=== PATIENT | female | born 1940 | race Hispanic/Latino ===

== ENCOUNTER 2020-03-24 11:45 | Emergency (ER) | payer MEDICARE, BC ==
[~2020-03-24] VITALS: Ht 152.4 cm; Wt 49.4 kg
[~2020-03-24 11:45] MED LIST: AMOXICILLIN250 MG PO; HYDRALAZINE HCL25 MG PO; LASIX20 MG PO; MICARDIS40 MG PO; NEPHRO-VITE TABL1 EA PO; SYNTHROID75 MCG PO
--- OUTSIDE RECORDS SUMMARY | 2020-03-24 12:17 | XMS REPORT | Clinical Summary ---
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 General Name Role Phone Asked, No Pcp PCP Unavailable Allergies Not on File Medications Not on file Active Problems Not on file Encounters Care Team Description Date Type Specialty Ronn Castellanos MD 02/10/2020 Transcribe Access Orders Ronn Castellanos MD Other nonspecific abnormal finding of fay ng field 01/28/2020 Hospital Radiology Encounter 01/28/2020 Travel 01/21/2020 Travel Ronn Castellanos MD Other nonspecific abnormal finding of fay ng field (Primary Dx) 01/21/2020 Transcribe Access Orders Ronn Castellanos MD Abnormal chest CT (Primary Dx) 01/12/2020 Transcribe Access Orders Kristal Vasquez MA 11/09/2019 Telephone Cardiovascular 10/08/2019 Travel 10/01/2019 Travel Abdoulaye Diehl MD 09/18/2019 Telephone Cardiovascular Abdoulaye Diehl MD Venous insufficiency of both lower extre mities (Primary Dx) 09/03/2019 Telephone Cardiovascular after 03/24/2019 Social History Date Tobacco Use Types Packs/Day Years Used Never Assessed Sex Assigned at Date Recorded Not on file Industry Job Start Date Occupation Not on file Not on file Not on file Travel End Travel History Travel Start No recent travel history available. Last Filed Vital Signs Not on file Plan of Treatment Health Maintenance Due Date Last Done Comments SHINGLES VACCINES (#1) 02/29/1992 65+ PNEUMOCOCCAL VACCINE 2007 (1 of 2 - PCV13) INFLUENZA VACCINE 04/21/2020 Procedures Comments Procedure Name Priority Date/Time Associated Diag nosis PET CT SKULL BASE TO MID Routine 01/28/2020 Other nonspecific THIGH 11:44 AM CDT abnormal finding of lung field POC GLUCOSE Routine 01/28/2020 10:23 AM CDT US DUPLEX VENOUS LOWER Routine 10/01/2019 Venous insufficiency of EXTREMITY REFLUX 3:16 PM CDT both lower extremit ies BILATERAL after 03/24/2019 Results * PET/CT Skull Base To Mid Thigh (01/28/2020 11:44 AM CDT) Specimen Narrative Performed At PROCEDURE: PET CT SKULL BASE TO MID THIGH RADIA NT INDICATION: Evaluate other nonspecifi c abnormal finding of lung field, lung mass. Initial treatment strategy. TECHNIQUE: Blood glucose measured at the time of injection was 101 mg/dL. The patient was then injected with 8.5 mCi of 18F-FDG, IV. Approximately one hour later, PET images were acquired from th e skull base to the mid thighs. Corresponding, low dose, non-contrast CT scanning was performed as part of the attenuation correction process. Automated dose exposure cont rol was utilized. COMPARISON: No relevant comparison im aging. FINDINGS: Head and neck: No suspicious brain up take. Physiologic uptake in the sinuses, orbits, nasopharynx, and oroph arynx. Uptake by the larynx is normal. No suspicious neck lymph node uptake. Chest: No abnormal mediastinal, hilar , or axillary lymph node uptake. No suspicious pulmonary uptake. Subpleur al masslike opacity in the left lower lobe demonstrates minimal uptake, with an SUV of 1.7. It measures approximately 4 cm. Left-sided effusion is without significant uptake. Abdomen: Physiologic uptake in the st omach, spleen, pancreas, liver, and adrenal glands. No abnormal retroperi toneal or mesenteric lymph node uptake. Bowel uptake appears physiologic. Pelvis: Physiologic bowel uptake. N o abnormal pelvic lymph node uptake. Review of the osseous structures demons trates no suspicious uptake. IMPRESSION: 1. No suspicious pulmonary uptake is seen to suggest an underlying neoplastic process. Probable atelectasis in the left lower lobe. Follow-up CT can be obtained. [id number] Procedure Note Interface, Radiology Results Incoming - 01/28/2020 1:54 PM CDT PROCEDURE: PET CT SKULL BASE TO MID THIGH INDICATION: Evaluate other nonspecific abnormal finding of lung field, lung mass. Initial treatment strategy. TECHNIQUE: Blood glucose measured at the time of injection was 101 mg/dL. The patient was then injected with 8.5 mCi of 18F-FDG, IV. Approximately one hour later, PET images were acquired from the skull base to the mid thighs. Corresponding, low dose, non-contrast CT scanning was performed as part of the attenuation correction process. Automated dose exposure control was utilized. COMPARISON: No relevant comparison imaging. FINDINGS: Head and neck: No suspicious brain uptake. Physiologic uptake in the sinuses, orbits, nasopharynx, and oropharynx. Uptake by the larynx is normal. No suspicious neck lymph node uptake. Chest: No abnormal mediastinal, hilar, or axillary lymph node uptake. No suspicious pulmonary uptake. Subpleural masslike opacity in the left lower lobe demonstrates minimal uptake, with an SUV of 1.7. It measures approximately 4 cm. Left-sided effusion is without significant uptake. Abdomen: Physiologic uptake in the stomach, spleen, pancreas, liver, and adrenal glands. No abnormal retroperitoneal or mesenteric lymph node uptake. Bowel uptake appears physiologic. Pelvis: Physiologic bowel uptake. No abnormal pelvic lymph node uptake. Review of the osseous structures demonstrates no suspicious uptake. IMPRESSION: 1. No suspicious pulmonary uptake is se en to suggest an underlying neoplastic process. Probable atelectasis in the left lower lobe. Follow-up CT can be obtained. [id number] Performing Organization Address [facility] one Number [facility] [address] [place] [address] * POC glucose (01/28/2020 10:23 AM CDT) POC glucose 101 (H) 65 - 99 mg/dL FREDERIC Comment: [facility] Teacher Name: [facility] Device ID: [id number] Specimen Blood Performing Organization Address [facility] one Number [facility] DEPARTMENT OF [address] [place] [address] PATHOLOGY AND GENOMIC MEDICINE FR[facility]IC [facility] [address] [place] [address] * Us duplex venous lower extremity reflux (10/01/2019 3:16 PM CDT) Specimen Narrative [facility]formed At [facility] Lower Extremity Jas ous Insufficiency Report [address] [facility], [address], [place], [place] [id number] Pat.Name: SARAH MAGANA I Pat.ID: [id number] St.Date: 10/01/2019 Refer.MD: ABDOULAYE DIEHL MD Exam Time: 2:10:00 PM Study Type:Venous Reflux Report Age: 8 1940,79Y Sex: FEMALE Sonogrphr: Coty Aguilar RVT [facility] - 4: [id number] Echo Event ID:[id number] Order ID: [id number] Reason for Study:Bilateral swelling wor se at the end of the day. Venous insufficiency. Race: White SUMMARY: DUPLEX SCAN OBSERVATIONS The exam was performed with the patient in the steep reverse Trendelenburg position. Lance scale an d color Doppler imaging of bilateral lower extremities demonstrate s the following: Deep Veins Right Left Valvular reflux CFV Competent Competent Normal < or equal to 500 ms Femoral midChronic/Partial Competent Ab normal (Incompetent) > 500ms Profunda Competent Competent Popliteal Chronic/Partial Competent PT (prox) Competent Competent PT (dist) Competent Competent Peroneal Competent Competent Superficial Veins AAV Competent Compete nt GSV Incompetent Com petent (at and immediately below the saphenofe moral junction) (711 ms) (0000 ms) GSV Incompetent Not S een (thigh) (579 ms) GSV Competent Comepte nt (lower leg) SSV Competent Compete nt (at and immediately below the saphenopo pliteal junction) (0000 ms) (0000 ms) RIGHT: Limited visualization of the fem oral vein due to acoustical shadowing from the superficial femoral artery, however there appears to be bright echogenic material in the lumen of the proximal and mid segments. There appears to be echogen ic material beneath a valve in the distal popliteal vein. The above remaining visualized veins are compressible with no evidence of echoge rishi material within the vein lumen. Color flow and Doppler signal s demonstrate valvular reflux in the great saphenous immediately below t he saphenofemoral junction and in the mid thigh. Non-thrombosed saph enous related varicosities are noted below the knee. No incompetent perforating veins are noted. LEFT: Limited visualization of the fe moral vein due to acoustical shadowing from the superficial femoral artery. The above remaining visualized veins are compressible with no evidence of echogenic material within the vein lumen. The m id, distal, and popliteal crease segments of the greater saphenous vein is not visualized, possibly due to caliber. Color flow and Doppler sign als demonstrate no valvular reflux in all vessels. Non-thrombosed saphenous related varicosities are noted below the knee. No incompet ent perforating veins are noted. PRELIMINARY FINDINGS: 1. No evidence of acute venous thromb osis, bilaterally. 2. 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 3. Valvular reflux, right great saphe nous at the saphenofemoral junction and at the mid thigh. 4. Non-thrombosed saphenous related v aricosities, below the knee, bilaterally. 5. Doppler signals obtained in the bi lateral common femoral vein are comparable. 6. See table and diagram for vein danika surements. PHYSICIAN INTERPRETATION: RIGHT 1. 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 2. Valvular reflux, right great saphe nous at the saphenofemoral junction and at the mid thigh. 3. Non-thrombosed saphenous related v aricosities, below the knee. LEFT 4. No evidence of acute venous thromb osis. 5. Non-thrombosed saphenous related v aricosities. FINDINGS: MEASUREMENTS: LEVEINS Left Prox Thigh Prox Thigh GSV 0.2 cm Right Prox Thigh Prox Thigh GSV 0.1 cm Left Distal Calf SSV Dist Calf LSV A 0.1 cm Right Calf Dist SSV Dist Calf LSV A 0.1 cm Left Mid Calf Mid Calf GSV AP 0.1 cm Mid Calf LSV AP 0.1 cm Right Mid Calf Mid Calf GSV AP 0.1 cm Mid Calf LSV AP 0.1 cm Right Mid Thigh Mid Thigh GSV A 0.2 cm Left Popliteal Fossa Popliteal Fossa 0.2 cm Right Popliteal Fossa Popliteal Fossa 0.1 cm Right Knee Knee GSV AP 0.1 cm Left Prox Calf Prox Calf LSV A 0.1 cm Prox Calf GSV A 0.1 cm Right Prox Calf Prox Calf LSV A 0.1 cm Prox Calf GSV A 0.1 cm Right Dist Thigh Dist Thigh GSV 0.1 cm Left Dist Calf Dist Calf GSV A 0.2 cm Right Dist Calf Dist Calf GSV A 0.1 cm Left SFJ SFJ GSV AP 0.6 cm Right SFJ SFJ GSV AP 0.4 cm Signed 10/01/2019 04:51 PM Ceasar Nelson MD, FACS, RPVI Procedure Note Interface, Radiology Results In - 10/01/2019 4:52 PM CDT [facility] Lower Extremity Venous Insufficiency Report [address] [facility] [address] [facility], [address], [place] [id number] Pat.Name: SARAH MAGANA I Pat.ID: [id number] .Date: 10/01/2019 Refer.MD: ABDOULAYE DIEHL MD Exam Time: 2:10:00 PM Study Type:Venous Reflux Report Age: 8 1940,79Y Sex: FEMALE Sonogrphr: Coty Aguilar RVT CPT - 4: 80117 Echo Event ID:[id number] Order ID: [id number] Reason for Study:Bilateral swelling worse at the end of the day. Venous insufficiency. Race: White SUMMARY: DUPLEX SCAN OBSERVATIONS The exam was performed with the patient in the steep reverse Trendelenburg position. Lance scale and color Doppler imaging of bilateral lower extremities demonstrates the following: Deep Veins Right Left Valvular reflux CFV Competent Competent Normal < or equal to 500 ms Femoral midChronic/Partial Competent Abnormal (Incompetent) > 500ms Profunda Competent Competent Popliteal Chronic/Partial Competent PT (prox) Competent Competent PT (dist) Competent Competent Peroneal Competent Competent Superficial Veins AAV Competent Competent GSV Incompetent Competent (at and immediately below the saphenofem oral junction) (711 ms) (0000 ms) GSV Incompetent Not Seen (thigh) (579 ms) GSV Competent Comeptent (lower leg) SSV Competent Competent (at and immediately below the saphenopop liteal junction) (0000 ms) (0000 ms) RIGHT: Limited visualization of the femoral vein due to acoustical shadowing from the superficial femoral artery, however there appears to be bright echogenic material in the lumen of the proximal and mid segments. There appears to be echogenic material beneath a valve in the distal popliteal vein. The above remaining visualized veins are compressible with no evidence of echogenic material within the vein lumen. Color flow and Doppler signals demonstrate valvular reflux in the great saphenous immediately below the saphenofemoral junction and in the mid thigh. Non-thrombosed saphenous related varicosities are noted below the knee. No incompetent perforating veins are noted. LEFT: Limited visualization of the femoral vein due to acoustical shadowing from the superficial femoral artery. The above remaining visualized veins are compressible with no evidence of echogenic material within the vein lumen. The mid, distal, and popliteal crease segments of the greater saphenous vein is not visualized, possibly due to caliber. Color flow and Doppler signals demonstrate no valvular reflux in all vessels. Non-thrombosed saphenous related varicosities are noted below the knee. No incompetent perforating veins are noted. PRELIMINARY FINDINGS: 1. No evidence of acute venous thrombos is, bilaterally. 2. Partial chronic thrombosis, right pr oximal and mid femoral vein and distal popliteal vein. 3. Valvular reflux, right great sapheno us at the saphenofemoral junction and at the mid thigh. 4. Non-thrombosed saphenous related maynor icosities, below the knee, bilaterally. 5. Doppler signals obtained in the bila teral common femoral vein are comparable. 6. See table and diagram for vein measu rements. PHYSICIAN INTERPRETATION: RIGHT 1. Partial chronic thrombosis, right pr oximal and mid femoral vein and distal popliteal vein. 2. Valvular reflux, right great sapheno us at the saphenofemoral junction and at the mid thigh. 3. Non-thrombosed saphenous related maynor icosities, below the knee. LEFT 4. No evidence of acute venous thrombos is. 5. Non-thrombosed saphenous related maynor icosities. FINDINGS: MEASUREMENTS: LEVEINS Left Prox Thigh Prox Thigh GSV 0.2 cm Right Prox Thigh Prox Thigh GSV 0.1 cm Left Distal Calf SSV Dist Calf LSV A 0.1 cm Right Calf Dist SSV Dist Calf LSV A 0.1 cm Left Mid Calf Mid Calf GSV AP 0.1 cm Mid Calf LSV AP 0.1 cm Right Mid Calf Mid Calf GSV AP 0.1 cm Mid Calf LSV AP 0.1 cm Right Mid Thigh Mid Thigh GSV A 0.2 cm Left Popliteal Fossa Popliteal Fossa 0.2 cm Right Popliteal Fossa Popliteal Fossa 0.1 cm Right Knee Knee GSV AP 0.1 cm Left Prox Calf Prox Calf LSV A 0.1 cm Prox Calf GSV A 0.1 cm Right Prox Calf Prox Calf LSV A 0.1 cm Prox Calf GSV A 0.1 cm Right Dist Thigh Dist Thigh GSV 0.1 cm Left Dist Calf Dist Calf GSV A 0.2 cm Right Dist Calf Dist Calf GSV A 0.1 cm Left SFJ SFJ GSV AP 0.6 cm Right SFJ SFJ GSV AP 0.4 cm Signed 10/01/2019 04:51 PM Ceasar Nelson MD, FACS, RPVI Performing Organization Address City/State/Zipcode Ph one Number [facility] [address] [place] [address] after 03/24/2019 Insurance Type Payer Benefit Subscriber ID Effective Phone Address Plan / Dates Group Medicare MEDICARE MEDICARE xxxxxxxxxxx [id number] [place], PART A AND resent [place] B Commercial BCBS COMMERCIAL BCBS xxxxxxxxxxxx [id number] MEDICARE resent SUPPLEMENT Advance Directives For more information, please contact: [phone] Patient Package Maker Explanation Type Date Recorded Advance Directives, Living Will and Medical Power of Sole Scraper
--- OUTSIDE RECORDS SUMMARY | 2020-03-24 12:17 | XMS REPORT | Continuity of Care Document ---
Author Author Nikki Graeme [employer] SARAH Kang I Organization [employer] Address Unknown Phone Unavailable Care Team Providers Care Hemodialysis Technician Name Role Phone SourceTour Information [place] Unavailable Un available Problems Problem Status Onset Date Classification Date Reported Comments Source ACUTE HYPERKALEMIA, FACIAL ABRASION, FAC Active 02/01/2018 [place] FALL Active 02/01/2018 [place] UNK Active 0 11/02/2016 [facility] DEBILITY Active 09/12/2016 [facility] CORONARY ARTERY DISEASE Active 09/11/2016 [facility] RESP DISTRESS Active 09/02/2016 [facility] CHF EXACERBATION Active 09/02/2016 [facility] Acute congestive heart failure (disorder) Active Problem 02/04/2018 [facility] [place] 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 (disorder) Active Prob [place] 02/04/2018 [facility] [place] Acute pulmonary insufficiency following thoracic surgery (disorder) Active Prob [place] 02/04/2018 [facility] [place] Coronary arteriosclerosis (disorder) Active Problem [facility] Kidney disease (disorder) Acti ve Problem [facility] Disease of thyroid gland (disorder) Active Problem [facility] Generalized ischemic myocardial dysfunction (disorder) Active Problem 02/04/2018 [facility] [place] Hypertensive disorder, systemic arterial (disorder) Active Problem 02/04/2018 [facility] [place] Injury of kidney (disorder) Ac tive Problem [facility] Impaired mobility (finding) Ac tive Problem [facility] Platelet count below reference range (finding) Active Problem 02/04/2018 [facility] [place] HEART FAILURE, UNSPECIFIED Act inder [facility] WEAKNESS Active [facility] END STAGE RENAL DISEASE Active [facility] HYPERKALEMIA Active [place] ABRASION OF OTHER PART OF HEAD, INITIAL Active [place] CONTUSION OF OTHER PART OF HEAD, INITIAL Active [facility] Medications Medication Details Route Status Patient Instructions Ordering Provider Order Date Source Losartan Notes: (Same as: Sancho han) Inactive 02/02/2018 [facility] Synthroid Notes: Take 1 hour b efore or 2 hours after meal; Enteral feeds may interefere with the absorption of this medication. (Same as:Synthroid, Levothroid) Inactive 02/02/2018 [facility] rosuvastatin Notes: (Same As: Crestor) No Longer Active 02/02/2018 [facility] Nephro-Kenyon Rx Notes: (Same as : Nephro-Kenyon Rx and Diatx) Give with food. No Longer Active 02/01/2018 [facility] Aspirin 81 MG Enteric Coated Tablet Notes: Do not crush or chew. (Same As: Ecotrin) No Longer Active 02/01/2018 [facility] Hydralazine Hydrochloride 50 MG Oral Tablet 50 mg, 1 tab, Route: PO, Drug form: TAB, ONCE, Dosing Weight 46.449, kg, Start date: 02/01/18 12:52:00 CDT, Stop date: 02/01/18 12:52:00 CDT Inactive 02/01/2018 [facility] tramadol hydrochloride 50 MG Oral Tablet Notes: Not to exceed 400mg/day. (Same As: Ultram) No Longer Active 02/01/2018 [facility] tramadol hydrochloride 50 MG Oral Tablet 50 mg = 1 tab, PO, Q12H, PRN Pain Score 6-10, 0 Refill(s) Active 02/01/2018 [facility] Ascorbic Acid 60 MG / Calcium Pantothena te 10 MG / D-BIOTIN 0.3 MG / Folic Acid 0.8 MG / Niacinamide 20 MG / pyridoxine 10 MG / Riboflavin 1.7 MG / Thiamine 1.5 MG / Vitamin B 12 0.006 MG Oral Tablet [Payton-Kenyon] 1 tab, PO, Daily, # 100 tab, 0 Refill(s) Inactive 02/01/2018 [facility] losartan 100 mg oral tablet 10 0 mg = 1 tab, PO, Daily, # 30 tab, 0 Refill(s) Active 02/01/2018 [facility] rosuvastatin 10 mg oral tablet 10 mg = 1 tab, PO, Bedtime, # 30 tab, 0 Refill(s) Active 02/01/2018 [facility] Insulin Lispro Notes: (Same as : Humalog ) Roll in palms of hands gently; Do not shake `vigorously. "Single Patient Use Only " WASTE: F/P - Black; E - Municipal Trash Bin Stable for 28 days at room temp erature. Expires in days from Date No Longer Active 02/01/2018 [facility] Glucagon 1 mg, Route: IM, Drug form: PDR/INJ, PRN, Dosing Weight 43.182, kg, PRN Blood Glucose Results, Start date: 02/01/18 4:13:00 CDT, Duration: 30 day, Stop date: 03/03/18 4:12:00 CDT No Longer Active 02/01/2018 [facility] Dextrose 50% Syringe 25 gm, 50 mL, Route: IVP, Drug Form: INJ, Dosing Weight 43.182, kg, PRN, PRN Blood Glucose Results, Start date: 02/01/18 4:13:00 CDT, Duration: 30 day, Stop date: 03/03/18 4:12:00 CDT No Longer Active 02/01/2018 [facility] Clonidine Notes: (Same As: Cat apres) No Longer Active 02/01/2018 [facility] Acetaminophen 325 MG / Hydrocodone Sedrick trate 5 MG Oral Tablet Notes: (Same as: Ashley 325/5) Do not ex ceed 4gm/day of acetaminophen. No Longer Active 02/01/2018 [facility] Morphine Notes: (Same as: MORP cole Sulfate) No Longer Active 02/01/2018 [facility] Acetaminophen Notes: Do not ex ceed 4 gm/day. (Same as: Tylenol) No Longer Active 02/01/2018 [facility] Ondansetron Notes: (Same as: Jennifer marcum) MEDICATION WASTE Product Size: 4 mg Product Wasted: ___ mg No Longer Active 02/01/2018 [facility] Calcium Gluconate Notes: WASTE : F/P - Sink; E - Municipal Trash Bin Inactive 02/01/2018 [facility] Insulin regular 60 units) W ASTE: F/P - Black; E - Municipal Trash Bin Stable for 28 days at room temperature Expires in days from Date Inactive 02/01/2018 [facility] Dextrose 50% Syringe 25 gm, 50 mL, Route: IVP, Drug Form: INJ, Dosing Weight 43.182, kg, ONCE, STAT, Start date: 02/01/18 3:07:00 CDT, Stop date: 02/01/18 3:07:00 CDT Inactive 02/01/2018 [facility] Metoprolol Notes: (Same as: Lo pressor) Push over 2 minutes Inactive 02/01/2018 [facility] Zofran ODT Notes: (Same as: Zo roverto ODT) Inactive 02/01/2018 [facility] Saline Flush 0.9% Notes: Same as: BD Posiflush Sterile No Longer Active 02/01/2018 [facility] Cardiac Rehabilitation See Ins tructions, Diagnosis CAD with CHF s/p CABG. Evaluate and treat as per [facility] Cardiac rehab program, # 1 ea, 0 Refill(s) Active 09/24/2016 [facility] pantoprazole 40 MG Enteric Coated Tablet [Protonix] 40 mg = 1 tab, PO, Daily, # 30 tab, 0 Refill(s), Pharmacy: [facility] [id number] Active 09/24/2016 [facility] Nephro-Kenyon Rx oral tablet 1 t ab, PO, Daily, # 30 tab, 0 Refill(s), Pharmacy: [facility] [id number] Active 09/24/2016 [facility] Levothyroxine Sodium 0.075 MG Oral Tablet [Synthroid] 75 microgram = 1 tab, PO, Q630AM, # 30 tab, 0 Refill(s), Pharmacy: [facility] [id number] Active 09/24/2016 [facility] atorvastatin 80 MG Oral Tablet [Lipitor] 80 mg = 1 tab, PO, Bedtime, # 30 tab, 0 Refill(s), Pharmacy: [facility] [id number] Active 09/24/2016 [facility] aspirin 81 mg tablet, enteric coated 81 mg = 1 tab, PO, Daily, # 30 tab, 0 Refill(s), Pharmacy: [facility] [id number] Active 09/24/2016 [facility] Furosemide 40 MG Oral Tablet 4 0 mg = 1 tab, PO, Daily, # 30 tab, 0 Refill(s), Pharmacy: [facility] [id number] Active 09/24/2016 [facility] carvedilol 3.125 mg oral tablet 3.125 mg = 1 tab, PO, Q12H, # 60 tab, 0 Refill(s), Pharmacy: [facility] [id number] Active 09/24/2016 [facility] Calcium Carbonate 500 MG Chewable Tablet 500 mg = 1 tab, CHEW, TID, PRN Nausea, 0 Refill(s) Active 09/24/2016 [facility] acetaminophen 325 mg oral tablet 100.4 F, 0 Refill(s) Active 09/24/2016 [facility] senna 8.6 mg oral tablet 17.2 mg = 2 tab, PO, Bedtime, X 14 day, # 28 tab, 0 Refill(s), Pharmacy: [facility] [id number] Active 09/24/2016 [facility] cetirizine Notes: (Same As: Saleem rtec) No Longer Active 09/21/2016 [facility] Tums Notes: (Same As: Tums) Ca lcium Carbonate 500 mg = 200 mg elemental calcium Dose = mg calcium carbonate ( mg elemental calcium) No Longer Active 09/21/2016 [facility] Fluticasone propionate 0.05 MG/ACTUAT Me tered Dose Nasal Mcintyre [Flonase] Notes: (Same as: Flonase) No Longer Active 09/20/2016 [facility] Claritin 10 mg, Route: PO, Raúl g form: TAB, QPM, Dosing Weight 47.5, kg, Start date: 09/20/16 17:00:00 BULB ASSEMBLER, Duration: 30 day, Stop date: 10/19/16 17:00:00 CDT Inactiv e 09/20/2016 [facility] Docusate Sodium 100 MG Oral Capsule [Colace] Notes: (Same as: Colace) (Do Not Crush) No Longer Active 09/16/2016 [facility] Coreg Notes: Give with food. ( Same As: Coreg) No Longer Active 09/16/2016 [facility] Epoetin Lobo Notes: (Same as: Procrit) epoetin lobo 4000 unit/1 ml VL For dialysis only. (Epogen) WASTE: F/P - Red; E -Red MEDICATION WASTE Product Size: 4000 unit Product Wasted: ___ unit No Longer Active 09/15/2016 [facility] Glucagon 1 mg, Route: IM, Drug form: PDR/INJ, PRN, Dosing Weight 47.5, kg, PRN Blood Glucose Results, Start date: 09/15/16 13:27:00 BULB ASSEMBLER, Duration: 30 day, Stop date: 10/15/16 14:26:00 CDT No Longer Active 09/15/2016 [facility] Dextrose 50% Syringe 25 gm, 50 mL, Route: IVP, Drug Form: INJ, Dosing Weight 47.5, kg, PRN, PRN Blood Glucose Results, Start date: 09/15/16 13:27:00 BULB ASSEMBLER, Duration: 30 day, Stop date: 10/15/16 14:26:00 CDT No Longer Active 09/15/2016 [facility] Insulin, Aspart, Human Notes: Roll in palms of hands gently; Do not shake vigorously. (Same as: NovoLOG) "single patient use only" WASTE: F/P - Black; E - Municipal Trash Bin Stable for 28 days at room temperature. Expires in days from Date No Longer Active 09/15/2016 [facility] aspirin 81 mg tablet, enteric coated Notes: Do not crush or chew. (Same As: Ecotrin) N o Longer Active 09/15/2016 [facility] Protonix Notes: Tablet should not be chewed or crushed. (Same as: Protonix) No Longer Active 09/15/2016 [facility] Nephro-Kenyon Rx Notes: (Same as : Nephro-Kenyon Rx and Diatx) Give with food. No Longer Active 09/15/2016 [facility] 24 HR Metoprolol Tartrate 25 MG Extended Release Tablet [Toprol] Notes: (Same as: Toprol XL) Do Not Crush Inactive 09/15/2016 [facility] Furosemide 20 MG Oral Tablet N otes: (Same as: Lasix) May cause GI upset. Give with food or milk. No Longer Active 09/15/2016 [facility] Venofer Notes: Each 5ml contai ns 100mg elemental iron. Mix with NS (Same as:Venofer) Administer IV only. MEDICATION WASTE Product Size: 100 mg Product Wasted: ___ mg No Longer Active 09/15/2016 [facility] Synthroid Notes: Take 1 hour b efore or 2 hours after meal; Enteral feeds may interefere with the absorption of this medication. (Same as:Synthroid, Levothroid) No Longer Active 09/15/2016 [facility] Lipitor Notes: (Same as: Lipit or) No Longer Active 09/15/2016 [facility] Senokot Notes: (Same as: Senok ot) No Longer Active 09/15/2016 [facility] Saline Flush 0.9% Notes: (Same as: BD Posiflush) No Longer Active 09/15/2016 [facility] Levaquin Notes: Do not give w/ antacids, dairy pdt & minerals Take 1 hr before or 2 hr after dairy pdt (Same as:Levaquin) No Longer Active 09/14/2016 [facility] Zofran Notes: (Same as: Zofran) No Longer Active 09/14/2016 [facility] Tylenol Notes: Do not exceed 4 gm/day. (Same as: Tylenol) No Longer Active 09/14/2016 [facility] Tramadol Notes: Not to exceed 400mg/day. (Same As: Ultram) No Longer Active 09/14/2016 [facility] Saline Flush 0.9% Notes: (Same as: BD Posiflush) No Longer Active 09/14/2016 [facility] Trazodone Notes: (Same As: Thong yrel) No Longer Active 09/14/2016 [facility] Lipitor Notes: (Same as: Lipit or) No Longer Active 09/04/2016 [facility] metoprolol tartrate Notes: (Sa me as: Lopressor) No Longer Active 09/04/2016 [facility] chlorhexidine gluconate 1.2 MG/ML Mouthwash Notes: (Same As: Peridex) No Longer Active 09/04/2016 [facility] Brilinta Notes: (Same as: Bril inta) No Longer Active 09/04/2016 [facility] ocular lubricant Notes: (Same as: Duratears Naturale and Artificial Tears, Tears Again ) No Longer Active 09/04/2016 [facility] heparin additive 25,000 unit [12 unit/kg /hr] + Premix Diluent Dextrose 5% 500 mL 500 mL, Rate: 11.52 ml/hr, Infuse over: 43.4 hr, Route: IV, Dosing Weight 48 kg, Total Volume: 500 mL, Start date: 09/03/16 17:44:00 BULB ASSEMBLER, Duration: 30 day, Stop date: 10/03/16 17:43:00 CDT Inactive 09/03/2016 [facility] Heparin 60 unit/kg Bolus (Heparin Dosing Weight) Pharmacy To Manage, Route: IVP, PRN, Drug form: INJ, PRN, Heparin Protocol, Start date: 09/03/16 17:44:00 BULB ASSEMBLER Stop date: 10/03/16 18:43:00 CDT, 30 day Inactive 09/03/2016 [facility] Heparin 30 unit/kg Bolus (Heparin Dosing Weight) Pharmacy To Manage, Route: IVP, PRN, Drug form: INJ, PRN, Heparin Protocol, Start date: 09/03/16 17:44:00 BULB ASSEMBLER Stop date: 10/03/16 18:43:00 CDT, 30 day Inactive 09/03/2016 [facility] Acetylcysteine 200 MG/ML Inhalant Solution 600 mg, 3 mL, Route: PO, Drug form: SOLN, BID, Dosing Weight 47.727, kg, Start date: 09/03/16 17:00:00 BULB ASSEMBLER, Duration: 3 day, Stop date: 09/06/16 9:00:00 BULB ASSEMBLER No Longer Active 09/03/2016 [facility] chlorhexidine gluconate 1.2 MG/ML Mouthwash Notes: (Same As: Peridex) No Longer Active 09/03/2016 [facility] Etomidate 10 mg, Route: IVP, O NCE, Dosing Weight 48, kg, Priority: STAT, Start date: 09/03/16 15:45:00 BULB ASSEMBLER, Stop date: 09/03/16 15:45:00 BULB ASSEMBLER Inactive 09/03/2016 [facility] Propofol 40 mg, Route: IVP, ON CE, Dosing Weight 48, kg, Priority: STAT, Start date: 09/03/16 15:45:00 BULB ASSEMBLER, Stop date: 09/03/16 15:45:00 BULB ASSEMBLER Inactive 09/03/2016 [facility] Saline Flush 0.9% Notes: (Same as: BD Posiflush) No Longer Active 09/03/2016 [facility] Fentanyl Notes: Concentration: 5 microgram / ml No Longer Active 09/03/2016 [facility] Midazolam Notes: (Same as: Lanie sed) No Longer Active 09/03/2016 [facility] Lasix Notes: (Same as: Lasix) MEDICATION WASTE Product Size: 40 mg Product Wasted: ___ mg Inactive 09/03/2016 [facility] Heparin 60 unit/kg Bolus (Heparin Dosing Weight) Route: IVP, PRN, 2,900 unit, 2.9 mL, Drug form: INJ, PRN, Heparin Protocol, Start date: 09/03/16 12:43:00 BULB ASSEMBLER Stop date: 10/03/16 13:42:00 CDT, 30 day No Longer Active 09/03/2016 [facility] Heparin - one time bolus for ACS 5,000 unit, Route: IVP, Drug form: INJ, ONCE, Dosing Weight 47.727, kg, Priority: STAT, Start date: 09/03/16 12:43:00 BULB ASSEMBLER, Stop date: 09/03/16 12:43:00 BULB ASSEMBLER Inactive 09/03/2016 [facility] heparin additive 25,000 unit [12 unit/kg /hr] + Premix Diluent Dextrose 5% 500 mL 500 mL, Rate: 11.52 ml/hr, Infuse over: 43.4 hr, Route: IV, Dosing Weight 48 kg, Total Volume: 500 mL, Start date: 09/03/16 12:43:00 BULB ASSEMBLER, Duration: 30 day, Stop date: 10/03/16 12:42:00 CDT No Longer Active 09/03/2016 [facility] Heparin 30 unit/kg Bolus (Heparin Dosing Weight) Route: IVP, PRN, 1,400 unit, 1.4 mL, Drug form: INJ, PRN, Heparin Protocol, Start date: 09/03/16 12:43:00 BULB ASSEMBLER Stop date: 10/03/16 13:42:00 CDT, 30 day No Longer Active 09/03/2016 [facility] Aspirin 325 MG Oral Tablet Not es: Take with food. Inactive 09/03/2016 [facility] Brilinta Notes: (Same as: Bril inta) Inactive 09/03/2016 [facility] Sodium Chloride 0.154 MEQ/ML Injectable Solution 250 mL, Rate: 100 ml/hr, Infuse over: 2.5 hr, Route: IV, Dosing Weight 47.727 kg, Total Volume: 250, Start date: 09/03/16 10:20:00 BULB ASSEMBLER, Duration: 30 day, Stop date: 10/03/16 10:19:00 CDT Inactive 09/03/2016 [facility] Nitroglycerin 0.02 MG/MG Topical Ointment 1 inch, Route: TOP, Drug Form: OINT, Dosing Weight 47.727, kg, TID, Start date: 09/03/16 9:00:00 BULB ASSEMBLER, Duration: 30 day, Stop date: 10/02/16 17:00:00 CDT Inactive 09/03/2016 [facility] heparin Notes: porcine heparin Inactive 09/03/2016 [facility] Lasix Notes: (Same as: Lasix) MEDICATION WASTE Product Size: 40 mg Product Wasted: ___ mg No Longer Active 09/03/2016 [facility] Hydralazine Hydrochloride 25 MG Oral Tablet Notes: (Same as: Apresoline) May interfere w/enteral feedings Take With Food. No Longer Active 09/03/2016 [facility] multivitamin Notes: (Same as:O ne Tab Daily, Tab-A-Kenyon + Beta Carotene) Give with food. No Longer Active 09/03/2016 [facility] Synthroid Notes: Take 1 hour b efore or 2 hours after meal; Enteral feeds may interefere with the absorption of this medication. (Same as:Synthroid, Levothroid) No Longer Active 09/03/2016 [facility] potassium chloride 10 mEq, Rou te: IVPB, ONCE, Dosing Weight 47.727, kg, Start date: 09/03/16 4:11:00 BULB ASSEMBLER, Stop date: 09/03/16 4:11:00 BULB ASSEMBLER Inactive 09/03/2016 [facility] Nitroglycerin Notes: (Same as: Tridil) Final conc = 0.4 mg/ml. Premix bottle. No Longe r Active 09/03/2016 [facility] Aspirin 325 MG Oral Tablet 325 mg, 1 tab, Route: PO, ONCE, Dosing Weight 47.727, kg, Start date: 09/03/16 3:20:00 BULB ASSEMBLER, Stop date: 09/03/16 3:20:00 BULB ASSEMBLER Inactive 09/03/2016 [facility] potassium chloride Notes: ([facility] oswaldo as: KCL) Infuse no faster than 10 mEq/hr if given peripherally. Inactive 09/03/2016 [facility] potassium chloride Notes: (Louie e as: K-Dur 20) "Do Not Crush" With food and full glass of water Inactive 09/03/2016 [facility] Ondansetron Notes: (Same as: Jennifer marcum) MEDICATION WASTE Product Size: 4 mg Product Wasted: ___ mg No Longer Active 09/03/2016 [facility] Morphine Notes: (Same as:MORPh ine Sulfate) No Longer Active 09/03/2016 [facility] Docusate Notes: (Same as: Cola ce) (Do Not Crush) No Longer Active 09/03/2016 [facility] Acetaminophen 325 MG / Hydrocodone Sedrick trate 5 MG Oral Tablet Notes: (Same as: Ashley 325/5) Do not ex ceed 4gm/day of acetaminophen. No Longer Active 09/03/2016 [facility] Nitroglycerin 0.02 MG/MG Topical Ointment 1 inch, Route: TOP, Drug Form: OINT, Dosing Weight 47.727, kg, ONCE, Start date: 09/03/16 1:21:00 BULB ASSEMBLER, Stop date: 09/03/16 1:21:00 BULB ASSEMBLER Inactive 09/03/2016 [facility] Nitroglycerin 2 %, Route: TOP, Drug form: OINT, ONCE, Dosing Weight 62.005, kg, Start date: 09/03/16 1:15:00 BULB ASSEMBLER, Stop date: 09/03/16 1:15:00 BULB ASSEMBLER Inactive 09/03/2016 [facility] Zofran 4 mg, Route: IVP, Drug form: INJ, ONCE, Dosing Weight 62.005, kg, Priority: STAT, Start date: 09/03/16 1:06:00 BULB ASSEMBLER, Stop date: 09/03/16 1:06:00 BULB ASSEMBLER Inactive 09/03/2016 [facility] Nitroglycerin 0.4 MG Sublingual Tablet Notes: (Same as:Nitroqusruthi Nitrostat) "Do Not Crush" Sublingual tablet No Longer Active 09/03/2016 [facility] Albuterol 0.833 MG/ML / Ipratropium Brom ezequiel 0.167 MG/ML Inhalant Solution [DuoNeb] Notes: (Same as: Duoneb) Inactive 09/03/2016 [facility] Albuterol 0.833 MG/ML / Ipratropium Brom ezequiel 0.167 MG/ML Inhalant Solution Notes: (Same as: Duoneb) Inactive 09/03/2016 [facility] Lasix Notes: (Same as: Lasix) MEDICATION WASTE Product Size: 40 mg Product Wasted: ___ mg Inactive 09/03/2016 [facility] Saline Flush 0.9% Notes: (Same as: BD Posiflush) No Longer Active 09/03/2016 [facility] Hydralazine Hydrochloride 25 MG Oral Tablet 25 mg = 1 tab, PO, BID, 0 Refill(s) On Hold 09/03/2016 [facility] Nephro-Kenyon Rx oral tablet 1 t ab, PO, Daily, 0 Refill(s) On Hold 09/03/2016 [facility] Levothyroxine Sodium 0.075 MG Oral Tablet [Synthroid] 75 microgram = 1 tab, PO, Q630AM, 0 Refill(s) On Hold 09/03/2016 [facility] Furosemide 20 MG Oral Tablet 4 0 mg = 2 tab, PO, Daily, 0 Refill(s) On Hold 09/03/2016 [facility] Allergies, Adverse Reactions, Alerts Substance Category Reaction Severity Reaction type Status Date Reported Comments Source codeine Assertion Drug allergy Active [facility] Immunizations Immunization Date Given Site Status Last Updated Comments Source diphtheria/pertussis, acel/tetanus adult 02/01/2018 Not Given [facility] Results Order Name Results Value Reference Range Date Interpretation Comments Source CARDIAC ENZYMES Troponin-I 0.04 0.00 - 0.40 02/01/2018 [facility] CARDIAC ENZYMES Total CK 60 12 - 191 02/01/2018 [facility] IMMUNOLOGY Hep Bs Ag Negat inder *NA* (02/01/18 12:47 PM) Negative 02/01/2018 [facility] CARDIAC ENZYMES Troponin-I 0.03 0.00 - 0.40 02/01/2018 [facility] CARDIAC ENZYMES Total CK 65 12 - 191 02/01/2018 [facility] CHEM PANEL eGFR 8 02/01/2018 Result Comment: The eGFR is calculated using the CKD-EPI formula. In most young, healthy individuals the eGFR will be >90 mL/min/1.73m2. The eGFR declines with age. An eGFR of 60-89 may be normal in some populations, particularly the elderly, for whom the CKD-EPI formula has not been extensively validated. Use of the eGFR is not recommended in the following populations:

Individuals with unstable creatinine concentrations, including patients and those with serious co-morbid conditions.

Patients with extremes in muscle mass or diet.

The data above are obtained from the National Kidney Disease Education Program (NKDEP) which additionally recommends that when the eGFR is used in patients with extremes of body mass index for purposes of drug dosing, the eGFR should be multiplied by the estimated BMI. [place] CHEM PANEL Calcium Lvl 7.9 8.5 - 10.5 02/01/2018 [place] CHEM PANEL CO2 25 24 - 32 02/01/2018 [place] CHEM PANEL AGAP 15.9 10.0 - 20.0 02/01/2018 [place] CHEM PANEL Potassium Lvl 5.9 3.5 - 5.1 02/01/2018 [place] CHEM PANEL Chloride Lvl 106 95 - 109 02/01/2018 [place] CHEM PANEL Creatinine Lvl 4.84 0.50 - 1.40 02/01/2018 [place] CHEM PANEL Sodium Lvl 141 135 - 145 02/01/2018 [place] CHEM PANEL Glucose Lvl 129 70 - 99 02/01/2018 [place] CHEM PANEL BUN 43 7 - 22 02/01/2018 [place] URINE AND STOOL UA pH 8.5 5.0 - 8.0 02/01/2018 [place] URINE AND STOOL UA Spec Grav 1.009 <=1.030 02/01/2018 [place] URINE AND STOOL UA Glucose 100 mg/dL Negative mg/dL 02/01/2018 [place] URINE AND STOOL UA Protein >=300 mg/dL Negative mg/dL 02/01/2018 [facility] URINE AND STOOL UA Ketones Negative mg/dL Negative mg/dL 02/01/2018 [facility] URINE AND STOOL UA Turbidity Clear (02/01/18 6:29 AM) Clear 02/01/2018 [place] URINE AND STOOL UA Color Yellow *NA* (02/01/18 6:29 AM) Yellow 02/01/2018 [place] URINE AND STOOL UA Blood Negative (02/01/18 6:29 AM) Negative 02/01/2018 [place] URINE AND STOOL UA Bili Negative *NA* (02/01/18 6:29 AM) Negative 02/01/2018 [place] URINE AND STOOL UA Leuk Est Negative (02/01/18 6:29 AM) Negative 02/01/2018 [place] URINE AND STOOL UA Nitrite Negative (02/01/18 6:29 AM) Negative 02/01/2018 [place] URINE AND STOOL UA Sq Epi Moderate /LPF Few /LPF 02/01/2018 [place] URINE AND STOOL UA Urobilinogen <=1.0 mg/dL 0.1 - 1.0 02/01/2018 [facility] URINE AND STOOL UA Hyal Cast 1 0 - 2 02/01/2018 [place] URINE AND STOOL UA WBC 1 0 - 5 02/01/2018 [place] URINE AND STOOL UA Bacteria Occasional /HPF None Seen /HPF 02/01/2018 [facility] URINE AND STOOL UA RBC 1 0 - 2 02/01/2018 [place] URINE AND STOOL UA Mucus Few /LPF None Seen /LPF 02/01/2018 [facility] BLOOD [facility] RESULTS AB Int Anti-E 02/01/2018 [facility] BLOOD [facility] RESULTS Antigen LUKAS Int E neg 02/01/2018 [facility] BLOOD [facility] RESULTS Antibody Scrn Positive 1 (02/01/18 2:13 AM) 02/01/2018 Result Comment: 02/01/2018 0 3:49 DILONG
"Significant Findings of pos absc_ called to Will Prachyl_ at 02/01/2018 03:49_ by dl_. Read Back OK" [facility] BLOOD [facility] RESULTS ABO/Rh O POS 02/01/2018 [facility] CARDIAC ENZYMES Troponin-I 0.04 0.00 - 0.40 02/01/2018 [place] CHEM PANEL A/G Ratio 0.8 0.7 - 1.6 02/01/2018 [place] CHEM PANEL Globulin 3.9 2.7 - 4.2 02/01/2018 [place] CHEM PANEL B/C Ratio 9 6 - 25 02/01/2018 [place] CHEM PANEL AGAP 14.0 10.0 - 20.0 02/01/2018 [place] CHEM PANEL eGFR 8 02/01/2018 Result Comment: The eGFR is calculated using the CKD-EPI formula. In most young, healthy individuals the eGFR will be >90 mL/min/1.73m2. The eGFR declines with age. An eGFR of 60-89 may be normal in some populations, particularly the elderly, for whom the CKD-EPI formula has not been extensively validated. Use of the eGFR is not recommended in the following populations:

Individuals with unstable creatinine concentrations, including patients and those with serious co-morbid conditions.

Patients with extremes in muscle mass or diet.

The data above are obtained from the National Kidney Disease Education Program (NKDEP) which additionally recommends that when the eGFR is used in patients with extremes of body mass index for purposes of drug dosing, the eGFR should be multiplied by the estimated BMI. [place] CHEM PANEL Alk Phos 141 39 - 136 02/01/2018 [place] CHEM PANEL Bili Total 0.4 0.2 - 1.3 02/01/2018 [place] CHEM PANEL ALT 15 0 - 65 02/01/2018 [place] CHEM PANEL Albumin Lvl 3.2 3.5 - 5.0 02/01/2018 [place] CHEM PANEL AST 30 0 - 37 02/01/2018 [place] CHEM PANEL Total Protein 7.1 6.4 - 8.4 02/01/2018 [place] CHEM PANEL Calcium Lvl 7.9 8.5 - 10.5 02/01/2018 [place] CHEM PANEL Chloride Lvl 104 95 - 109 02/01/2018 [place] CHEM PANEL CO2 26 24 - 32 02/01/2018 [place] CHEM PANEL Potassium Lvl 6.0 3.5 - 5.1 02/01/2018 [place] CHEM PANEL Sodium Lvl 138 135 - 145 02/01/2018 [place] CHEM PANEL Creatinine Lvl 4.72 0.50 - 1.40 02/01/2018 [place] CHEM PANEL BUN 43 7 - 22 02/01/2018 [place] CHEM PANEL Glucose Lvl 91 70 - 99 02/01/2018 [place] HEMATOLOGY Segs-Bands # 5.5 1.5 - 8.1 02/01/2018 [place] HEMATOLOGY Monocytes 9.4 2.0 - 12.0 02/01/2018 [place] HEMATOLOGY Eosinophils 5.0 0.0 - 4.0 02/01/2018 [facility] HEMATOLOGY Basophils 1.1 0.0 - 1.0 02/01/2018 [facility] HEMATOLOGY Monocytes # 0.8 0.0 - 0.8 02/01/2018 [place] HEMATOLOGY Lymphocytes # 1.4 1.0 - 5.5 02/01/2018 [facility] HEMATOLOGY Basophils # 0.1 0.0 - 0.2 02/01/2018 [facility] HEMATOLOGY Eosinophils # 0.4 0.0 - 0.5 02/01/2018 [facility] HEMATOLOGY Lymphocytes 16.9 20.0 - 40.0 02/01/2018 [place] HEMATOLOGY Segs 67.6 45.0 - 75.0 02/01/2018 [place] HEMATOLOGY PTT 29.1 22.9 - 35.8 02/01/2018 [place] HEMATOLOGY INR 1.05 0.85 - 1.17 02/01/2018 [facility] HEMATOLOGY PT 13.7 12.0 - 14.7 02/01/2018 [facility] HEMATOLOGY Hgb 11.2 12.0 - 16.0 02/01/2018 [facility] HEMATOLOGY MCV 95.4 80.0 - 98.0 02/01/2018 [facility] HEMATOLOGY Hct 34.1 36.0 - 48.0 02/01/2018 [place] HEMATOLOGY MCHC 32.7 32.0 - 36.0 02/01/2018 [facility] HEMATOLOGY MCH 31.2 27.0 - 31.0 02/01/2018 [facility] HEMATOLOGY RDW 16.9 11.5 - 14.5 02/01/2018 [facility] HEMATOLOGY Platelet 252 133 - 450 02/01/2018 [facility] HEMATOLOGY MPV 9.6 7.4 - 10.4 02/01/2018 [facility] HEMATOLOGY WBC 8.1 3.7 - 10.4 02/01/2018 [facility] HEMATOLOGY RBC 3.57 4.20 - 5.40 02/01/2018 [facility] URINE CHEM U24 Cr Clear 9 88 - 128 09/24/2016 [facility] URINE CHEM TV CrCl 24H 200 600 - 1600 09/24/2016 [facility] URINE CHEM HT Crcl 60 09/24/2016 [place] URINE CHEM WT Crcl 104 09/24/2016 [facility] URINE CHEM BSA Cr Clear 1.41 09/24/2016 [facility] URINE CHEM Ur Creat 200.00 09/24/2016 [facility] ELECTROLYTES AGAP 16.4 10.0 - 20.0 09/22/2016 [facility] ELECTROLYTES Calcium Lvl 7.7 8.5 - 10.5 09/22/2016 [facility] ELECTROLYTES eGFR 11 09/22/2016 Result Comment: The eGFR is calculated using the CKD-EPI formula. In most young, healthy individuals the eGFR will be >90 mL/min/1.73m2. The eGFR declines with age. An eGFR of 60-89 may be normal in some populations, particularly the elderly, for whom the CKD-EPI formula has not been extensively validated. Use of the eGFR is not recommended in the following populations:

Individuals with unstable creatinine concentrations, including patients and those with serious co-morbid conditions.

Patients with extremes in muscle mass or diet.

The data above are obtained from the National Kidney Disease Education Program (NKDEP) which additionally recommends that when the eGFR is used in patients with extremes of body mass index for purposes of drug dosing, the eGFR should be multiplied by the estimated BMI. [facility] ELECTROLYTES Chloride Lvl 95 95 - 109 09/22/2016 [facility] ELECTROLYTES Potassium Lvl 4.4 3.5 - 5.1 09/22/2016 [facility] ELECTROLYTES BUN 50 7 - 22 09/22/2016 [facility] ELECTROLYTES CO2 25 24 - 32 09/22/2016 [facility] ELECTROLYTES Sodium Lvl 132 135 - 145 09/22/2016 [facility] ELECTROLYTES Creatinine Lvl 3.7 0 0.50 - 1.40 09/22/2016 [facility] ELECTROLYTES Glucose Lvl 215 70 - 99 09/22/2016 [facility] HEMATOLOGY Segs 76.9 45.0 - 75.0 09/22/2016 [facility] HEMATOLOGY Lymphocytes 10.6 20.0 - 40.0 09/22/2016 [facility] HEMATOLOGY Monocytes 9.8 2.0 - 12.0 09/22/2016 [facility] HEMATOLOGY Eosinophils 1.9 0.0 - 4.0 09/22/2016 [facility] HEMATOLOGY Basophils 0.8 0.0 - 1.0 09/22/2016 [facility] HEMATOLOGY Segs-Bands # 8.8 1.5 - 8.1 09/22/2016 [facility] HEMATOLOGY Lymphocytes # 1.2 1.0 - 5.5 09/22/2016 [facility] HEMATOLOGY Eosinophils # 0.2 0.0 - 0.5 09/22/2016 [facility] HEMATOLOGY Monocytes # 1.1 0.0 - 0.8 09/22/2016 [facility] HEMATOLOGY Basophils # 0.1 0.0 - 0.2 09/22/2016 [facility] MCHC 33.3 32.0 - 36.0 09/22/2016 [facility] HEMATOLOGY MPV 8.8 7.4 - 10.4 09/22/2016 [facility] HEMATOLOGY Platelet 264 133 - 450 09/22/2016 [facility] HEMATOLOGY RDW 17.1 11.5 - 14.5 09/22/2016 [facility] HEMATOLOGY MCV 86.4 80.0 - 98.0 09/22/2016 [facility] MCH 28.8 27.0 - 31.0 09/22/2016 [facility] HEMATOLOGY RBC 3.54 4.20 - 5.40 09/22/2016 [facility] WBC 11.4 3.7 - 10.4 09/22/2016 [facility] HEMATOLOGY Hct 30.6 36.0 - 48.0 09/22/2016 [facility] HEMATOLOGY Hgb 10.2 12.0 - 16.0 09/22/2016 [facility] HEMATOLOGY Basophils # 0.1 0.0 - 0.2 09/21/2016 [facility] HEMATOLOGY Lymphocytes # 1.5 1.0 - 5.5 09/21/2016 [facility] HEMATOLOGY Monocytes # 1.5 0.0 - 0.8 09/21/2016 [facility] HEMATOLOGY Eosinophils # 0.2 0.0 - 0.5 09/21/2016 [facility] HEMATOLOGY Basophils 0.6 0.0 - 1.0 09/21/2016 [facility] HEMATOLOGY Segs-Bands # 9.3 1.5 - 8.1 09/21/2016 [facility] HEMATOLOGY Segs 73.7 45.0 - 75.0 09/21/2016 [facility] HEMATOLOGY Lymphocytes 12.2 20.0 - 40.0 09/21/2016 [facility] HEMATOLOGY Monocytes 12.1 2.0 - 12.0 09/21/2016 [facility] HEMATOLOGY Eosinophils 1.4 0.0 - 4.0 09/21/2016 [facility] HEMATOLOGY Platelet 256 133 - 450 09/21/2016 [facility] HEMATOLOGY MPV 9.2 7.4 - 10.4 09/21/2016 [facility] HEMATOLOGY RDW 16.4 11.5 - 14.5 09/21/2016 [facility] MCHC 33.2 32.0 - 36.0 09/21/2016 [facility] MCH 28.4 27.0 - 31.0 09/21/2016 [facility] HEMATOLOGY Hct 28.9 36.0 - 48.0 09/21/2016 [facility] MCV 85.7 80.0 - 98.0 09/21/2016 [facility] RBC 3.38 4.20 - 5.40 09/21/2016 [facility] HEMATOLOGY Hgb 9.6 12.0 - 16.0 09/21/2016 [facility] HEMATOLOGY WBC 12.6 3.7 - 10.4 09/21/2016 [facility] ELECTROLYTES AGAP 14.6 10.0 - 20.0 09/20/2016 [facility] ELECTROLYTES Chloride Lvl 100 95 - 109 09/20/2016 [facility] ELECTROLYTES Potassium Lvl 3.6 3.5 - 5.1 09/20/2016 [facility] ELECTROLYTES CO2 27 24 - 32 09/20/2016 [facility] ELECTROLYTES BUN 38 7 - 22 09/20/2016 [facility] ELECTROLYTES Creatinine Lvl 3.3 0 0.50 - 1.40 09/20/2016 [facility] ELECTROLYTES Sodium Lvl 138 135 - 145 09/20/2016 [facility] ELECTROLYTES Calcium Lvl 7.2 8.5 - 10.5 09/20/2016 [facility] ELECTROLYTES eGFR 13 09/20/2016 Result Comment: The eGFR is calculated using the CKD-EPI formula. In most young, healthy individuals the eGFR will be >90 mL/min/1.73m2. The eGFR declines with age. An eGFR of 60-89 may be normal in some populations, particularly the elderly, for whom the CKD-EPI formula has not been extensively validated. Use of the eGFR is not recommended in the following populations:

Individuals with unstable creatinine concentrations, including patients and those with serious co-morbid conditions.

Patients with extremes in muscle mass or diet.

The data above are obtained from the National Kidney Disease Education Program (NKDEP) which additionally recommends that when the eGFR is used in patients with extremes of body mass index for purposes of drug dosing, the eGFR should be multiplied by the estimated BMI. [facility] ELECTROLYTES Glucose Lvl 111 70 - 99 09/20/2016 [facility] HEMATOLOGY Eosinophils # 0.2 0.0 - 0.5 09/20/2016 [facility] HEMATOLOGY Lymphocytes 9.3 20.0 - 40.0 09/20/2016 [facility] HEMATOLOGY Monocytes 11.8 2.0 - 12.0 09/20/2016 [facility] HEMATOLOGY Eosinophils 1.7 0.0 - 4.0 09/20/2016 [facility] Lymphocytes # 1.1 1.0 - 5.5 09/20/2016 [facility] HEMATOLOGY Segs 76.9 45.0 - 75.0 09/20/2016 [facility] Monocytes # 1.4 0.0 - 0.8 09/20/2016 [facility] HEMATOLOGY Basophils 0.3 0.0 - 1.0 09/20/2016 [facility] Segs-Bands # 9.1 1.5 - 8.1 09/20/2016 [facility] MPV 9.1 7.4 - 10.4 09/20/2016 [facility] Hgb 9.2 12.0 - 16.0 09/20/2016 [facility] WBC 11.8 3.7 - 10.4 09/20/2016 [facility] Platelet 272 133 - 450 09/20/2016 [facility] RDW 16.3 11.5 - 14.5 09/20/2016 [facility] RBC 3.24 4.20 - 5.40 09/20/2016 [facility] Hct 27.9 36.0 - 48.0 09/20/2016 [facility] MCV 86.1 80.0 - 98.0 09/20/2016 [facility] MCH 28.6 27.0 - 31.0 09/20/2016 [facility] MCHC 33.2 32.0 - 36.0 09/20/2016 [facility] IMMUNOLOGY Hep Bs Ab <3.1 <=7.4 mIU/mL 09/18/2016 [facility] CHEM PANEL Phosphorus 3.2 2.5 - 4.5 09/18/2016 [facility] CHEM PANEL Magnesium Lvl 2.0 1.8 - 2.4 09/18/2016 [facility] CHEM PANEL Albumin Lvl 2.2 3.5 - 5.0 09/18/2016 [facility] ELECTROLYTES AGAP 16.8 10.0 - 20.0 09/18/2016 [facility] ELECTROLYTES eGFR 13 09/18/2016 Result Comment: The eGFR is calculated using the CKD-EPI formula. In most young, healthy individuals the eGFR will be >90 mL/min/1.73m2. The eGFR declines with age. An eGFR of 60-89 may be normal in some populations, particularly the elderly, for whom the CKD-EPI formula has not been extensively validated. Use of the eGFR is not recommended in the following populations:

Individuals with unstable creatinine concentrations, including patients and those with serious co-morbid conditions.

Patients with extremes in muscle mass or diet.

The data above are obtained from the National Kidney Disease Education Program (NKDEP) which additionally recommends that when the eGFR is used in patients with extremes of body mass index for purposes of drug dosing, the eGFR should be multiplied by the estimated BMI. [facility] ELECTROLYTES BUN 38 7 - 22 09/18/2016 [facility] ELECTROLYTES Glucose Lvl 95 70 - 99 09/18/2016 [facility] ELECTROLYTES CO2 25 24 - 32 09/18/2016 [facility] ELECTROLYTES Chloride Lvl 98 95 - 109 09/18/2016 [facility] ELECTROLYTES Calcium Lvl 7.3 8.5 - 10.5 09/18/2016 [facility] ELECTROLYTES Sodium Lvl 136 135 - 145 09/18/2016 [facility] ELECTROLYTES Potassium Lvl 3.8 3.5 - 5.1 09/18/2016 [facility] ELECTROLYTES Creatinine Lvl 3.3 0 0.50 - 1.40 09/18/2016 [facility] HEMATOLOGY Basophils # 0.1 0.0 - 0.2 09/18/2016 [facility] IMMUNOLOGY CRP, High Sensitivity 101 .0 09/18/2016 [facility] URINE AND STOOL UA Trans Epi 4 <=0 /LPF 09/18/2016 [facility] URINE AND STOOL UA Color Dee 09/18/2016 [facility] URINE AND STOOL UA Urobilinogen <=1.0 mg/dL 0.1 - 1.0 09/18/[address] [facility] [address] URINE AND STOOL UA Bacteria Occasional /HPF None Seen /HPF 09/18/[address] [facility] URINE AND STOOL UA Mucus Few /LPF None Seen /LPF 09/18/2016 [facility] URINE AND STOOL UA Amorph Prerna Occasional /HPF None Seen /HPF 09/18/[address] [facility] URINE AND STOOL UA Hyal Cast 8 0 - 2 09/18/2016 [facility] URINE AND STOOL UA Nitrite Negative (09/17/16 6:15 PM) Negative 09/18/2016 [facility] URINE AND STOOL UA Leuk Est Negative (09/17/16 6:15 PM) Negative 09/18/2016 [facility] URINE AND STOOL UA Sq Epi Moderate /LPF Few /LPF 09/18/2016 [facility] URINE AND STOOL UA WBC 1 0 - 5 09/18/2016 [facility] URINE AND STOOL UA Blood Negative (09/17/16 6:15 PM) Negative 09/18/2016 [facility] URINE AND STOOL UA Glucose Negative mg/dL Negative mg/dL 09/18/2016 [facility] URINE AND STOOL UA Ketones Negative mg/dL Negative mg/dL 09/18/2016 [facility] URINE AND STOOL UA Bili Negative *NA* (09/17/16 6:15 PM) Negative 09/18/2016 [facility] URINE AND STOOL UA Turbidity Slight *ABN* (09/17/16 6:15 PM) Clear 09/18/2016 [facility] URINE AND STOOL UA Spec Grav 1.013 <=1.030 09/18/2016 [facility] URINE AND STOOL UA pH 5.0 5.0 - 8.0 09/18/2016 [facility] URINE AND STOOL UA Protein >=300 mg/dL Negative mg/dL 09/18/[address] [facility] [address] CARDIAC ENZYMES BNP >5000 <=100 pg/mL 09/16/2016 [facility] CHEM PANEL Magnesium Lvl 2.3 1.8 - 2.4 09/15/2016 [facility] CHEM PANEL Albumin Lvl 2.9 3.5 - 5.0 09/15/2016 [facility] CHEM PANEL Total Protein 6.7 6.4 - 8.4 09/15/2016 [facility] IMMUNOLOGY Hep Bs Ag Negat inder *NA* (09/15/16 8:30 AM) Negative 09/15/2016 [facility] IMMUNOLOGY Prealbumin 14.4 18.0 - 45.0 09/15/2016 [facility] SPECIAL CHEMISTRY Hgb A1C 5.5 <=5.6 % 09/15/2016 [facility] BLOOD BANK RESULTS ABO/Rh O POS 09/03/2016 [facility] BLOOD BANK RESULTS Antibody Scrn Negative (09/03/16 4:26 PM) 09/03/2016 [facility] CARDIAC ENZYMES Troponin-I 8.90 0.00 - 0.40 09/03/2016 Result Comment: Critical Result(s) beckford d to Patricia Kelly at 09/03/2016 16:23 by benny. Read back OK. [facility] HEMATOLOGY INR 1.08 0.85 - 1.17 09/03/2016 [facility] HEMATOLOGY PT 14.2 12.0 - 14.7 09/03/2016 [facility] HEMATOLOGY PTT 30.2 22.9 - 35.8 09/03/2016 [facility] CARDIAC ENZYMES BNP 4714 <=100 pg/mL 09/03/2016 [facility] CARDIAC ENZYMES Troponin-I 8.30 0.00 - 0.40 09/03/2016 Result Comment: Critical Result(s) analy Hodges at 09/03/2016 10:11 byHA. Read back OK. [facility] CHEM PANEL Phosphorus 5.1 2.5 - 4.5 09/03/2016 [facility] CHEM PANEL Magnesium Lvl 2.5 1.8 - 2.4 09/03/2016 [facility] CHEM PANEL eGFR 18 09/03/2016 Result Comment: The eGFR is calculated using the CKD-EPI formula. In most young, healthy individuals the eGFR will be >90 mL/min/1.73m2. The eGFR declines with age. An eGFR of 60-89 may be normal in some populations, particularly the elderly, for whom the CKD-EPI formula has not been extensively validated. Use of the eGFR is not recommended in the following populations:

Individuals with unstable creatinine concentrations, including patients and those with serious co-morbid conditions.

Patients with extremes in muscle mass or diet.

The data above are obtained from the National Kidney Disease Education Program (NKDEP) which additionally recommends that when the eGFR is used in patients with extremes of body mass index for purposes of drug dosing, the eGFR should be multiplied by the estimated BMI. [facility] CHEM PANEL Glucose Lvl 176 70 - 99 09/03/2016 [facility] CHEM PANEL BUN 59 7 - 22 09/03/2016 [facility] CHEM PANEL Potassium Lvl 4.3 3.5 - 5.1 09/03/2016 [facility] CHEM PANEL Sodium Lvl 140 135 - 145 09/03/2016 [facility] CHEM PANEL CO2 24 24 - 32 09/03/2016 [facility] CHEM PANEL Creatinine Lvl 2.50 0.50 - 1.40 09/03/2016 [facility] CHEM PANEL Chloride Lvl 104 95 - 109 09/03/2016 [facility] CHEM PANEL AGAP 16.3 10.0 - 20.0 09/03/2016 [facility] CHEM PANEL Calcium Lvl 7.8 8.5 - 10.5 09/03/2016 [facility] CARDIAC ENZYMES Troponin-I 0.75 0.00 - 0.40 09/03/2016 Result Comment: Critical Result(s) beckford d to KWASI CUELLAR at 09/03/2016 03:12 by SMT. Read back OK. [facility] CHEM PANEL Bili Total 0.3 0.2 - 1.3 09/03/2016 [facility] CHEM PANEL Alk Phos 113 39 - 136 09/03/2016 [facility] CHEM PANEL ALT 25 0 - 65 09/03/2016 [facility] CHEM PANEL AST 27 0 - 37 09/03/2016 [facility] CHEM PANEL A/G Ratio 0.9 0.7 - 1.6 09/03/2016 [facility] CHEM PANEL eGFR 21 09/03/2016 Result Comment: The eGFR is calculated using the CKD-EPI formula. In most young, healthy individuals the eGFR will be >90 mL/min/1.73m2. The eGFR declines with age. An eGFR of 60-89 may be normal in some populations, particularly the elderly, for whom the CKD-EPI formula has not been extensively validated. Use of the eGFR is not recommended in the following populations:

Individuals with unstable creatinine concentrations, including patients and those with serious co-morbid conditions.

Patients with extremes in muscle mass or diet.

The data above are obtained from the National Kidney Disease Education Program (NKDEP) which additionally recommends that when the eGFR is used in patients with extremes of body mass index for purposes of drug dosing, the eGFR should be multiplied by the estimated BMI. [facility] CHEM PANEL CO2 22 24 - 32 09/03/2016 [facility] CHEM PANEL Calcium Lvl 7.9 8.5 - 10.5 09/03/2016 [facility] CHEM PANEL AGAP 14.5 10.0 - 20.0 09/03/2016 [facility] CHEM PANEL B/C Ratio 25 6 - 25 09/03/2016 [facility] CHEM PANEL Glucose Lvl 184 70 - 99 09/03/2016 [facility] CHEM PANEL Creatinine Lvl 2.20 0.50 - 1.40 09/03/2016 [facility] CHEM PANEL BUN 55 7 - 22 09/03/2016 [facility] CHEM PANEL Sodium Lvl 141 135 - 145 09/03/2016 [facility] CHEM PANEL Chloride Lvl 108 95 - 109 09/03/2016 [facility] CHEM PANEL Potassium Lvl 3.5 3.5 - 5.1 09/03/2016 [facility] CHEM PANEL Albumin Lvl 3.1 3.5 - 5.0 09/03/2016 [facility] CHEM PANEL Total Protein 6.6 6.4 - 8.4 09/03/2016 [facility] CHEM PANEL Globulin 3.5 2.7 - 4.2 09/03/2016 [facility] CHEM PANEL Magnesium Lvl 2.3 1.8 - 2.4 09/03/2016 [facility] HEMATOLOGY MPV 10.3 7.4 - 10.4 09/03/2016 [facility] HEMATOLOGY WBC 12.7 3.7 - 10.4 09/03/2016 [facility] HEMATOLOGY Hgb 9.5 12.0 - 16.0 09/03/2016 [facility] HEMATOLOGY RBC 3.24 4.20 - 5.40 09/03/2016 [facility] HEMATOLOGY Hct 29.0 36.0 - 48.0 09/03/2016 [facility] HEMATOLOGY MCV 89.6 80.0 - 98.0 09/03/2016 [facility] HEMATOLOGY MCHC 32.7 32.0 - 36.0 09/03/2016 [facility] HEMATOLOGY MCH 29.3 27.0 - 31.0 09/03/2016 [facility] HEMATOLOGY Platelet 198 133 - 450 09/03/2016 [facility] HEMATOLOGY RDW 14.3 11.5 - 14.5 09/03/2016 [facility] HEMATOLOGY Monocytes 5.7 2.0 - 12.0 09/03/2016 [facility] HEMATOLOGY Lymphocytes 4.9 20.0 - 40.0 09/03/2016 [facility] HEMATOLOGY Basophils 0.2 0.0 - 1.0 09/03/2016 [facility] HEMATOLOGY Eosinophils 0.4 0.0 - 4.0 09/03/2016 [facility] HEMATOLOGY Segs-Bands # 11.3 1.5 - 8.1 09/03/2016 [facility] HEMATOLOGY Lymphocytes # 0.6 1.0 - 5.5 09/03/2016 [facility] HEMATOLOGY Eosinophils # 0.1 0.0 - 0.5 09/03/2016 [facility] HEMATOLOGY Monocytes # 0.7 0.0 - 0.8 09/03/2016 [facility] HEMATOLOGY Segs 88.8 45.0 - 75.0 09/03/2016 [facility] URINE AND STOOL UA RBC 2 0 - 2 09/03/2016 [facility] URINE AND STOOL UA Hyal Cast 1 0 - 2 09/03/2016 [facility] URINE AND STOOL UA Nitrite Negative (09/03/16 2:31 AM) Negative 09/03/2016 [facility] URINE AND STOOL UA Leuk Est Negative (09/03/16 2:31 AM) Negative 09/03/2016 [facility] URINE AND STOOL UA Sq Epi Occasional /LPF Few /LPF 09/03/2016 [facility] URINE AND STOOL UA WBC 1 0 - 5 09/03/2016 [facility] URINE AND STOOL UA Blood Negative (09/03/16 2:31 AM) Negative 09/03/2016 [facility] URINE AND STOOL UA Urobilinogen <=1.0 mg/dL 0.1 - 1.0 09/03/2016 [facility] URINE AND STOOL UA Color Ltyellow 09/03/2016 [facility] URINE AND STOOL UA Spec Grav 1.008 <=1.030 09/03/2016 [facility] URINE AND STOOL UA pH 6.0 5.0 - 8.0 09/03/2016 [facility] URINE AND STOOL UA Protein 100 mg/dL Negative mg/dL 09/03/2016 [facility] URINE AND STOOL UA Glucose Negative mg/dL Negative mg/dL 09/03/2016 [facility] URINE AND STOOL UA Ketones Negative mg/dL Negative mg/dL 09/03/2016 [facility] URINE AND STOOL UA Bili Negative *NA* (09/03/16 2:31 AM) Negative 09/03/2016 [facility] URINE AND STOOL UA Turbidity Clear (09/03/16 2:31 AM) Clear 09/03/2016 [facility] CARDIAC ENZYMES CK MB Index 2.5 0.0 - 2.5 09/03/2016 [facility] CARDIAC ENZYMES BNP 3305 <=100 pg/mL 09/03/2016 [facility] CARDIAC ENZYMES Total CK 56 12 - 191 09/03/2016 [facility] CARDIAC ENZYMES CK MB 1.4 0.5 - 3.6 09/03/2016 [facility] CHEM PANEL eGFR 21 09/03/2016 Result Comment: The eGFR is calculated using the CKD-EPI formula. In most young, healthy individuals the eGFR will be >90 mL/min/1.73m2. The eGFR declines with age. An eGFR of 60-89 may be normal in some populations, particularly the elderly, for whom the CKD-EPI formula has not been extensively validated. Use of the eGFR is not recommended in the following populations:

Individuals with unstable creatinine concentrations, including patients and those with serious co-morbid conditions.

Patients with extremes in muscle mass or diet.

The data above are obtained from the National Kidney Disease Education Program (NKDEP) which additionally recommends that when the eGFR is used in patients with extremes of body mass index for purposes of drug dosing, the eGFR should be multiplied by the estimated BMI. [facility] CHEM PANEL Globulin 3.3 2.7 - 4.2 09/03/2016 [facility] CHEM PANEL A/G Ratio 0.9 0.7 - 1.6 09/03/2016 [facility] CHEM PANEL Bili Total 0.3 0.2 - 1.3 09/03/2016 [facility] CHEM PANEL B/C Ratio 25 6 - 25 09/03/2016 [facility] CHEM PANEL AGAP 15.2 10.0 - 20.0 09/03/2016 [facility] CHEM PANEL Glucose Lvl 138 70 - 99 09/03/2016 [facility] CHEM PANEL Albumin Lvl 3.1 3.5 - 5.0 09/03/2016 [facility] CHEM PANEL Alk Phos 113 39 - 136 09/03/2016 [facility] CHEM PANEL AST 24 0 - 37 09/03/2016 [facility] CHEM PANEL ALT 25 0 - 65 09/03/2016 [facility] CHEM PANEL Sodium Lvl 141 135 - 145 09/03/2016 [facility] CHEM PANEL Creatinine Lvl 2.20 0.50 - 1.40 09/03/2016 [facility] CHEM PANEL BUN 54 7 - 22 09/03/2016 [facility] CHEM PANEL Total Protein 6.4 6.4 - 8.4 09/03/2016 [facility] CHEM PANEL Calcium Lvl 7.9 8.5 - 10.5 09/03/2016 [facility] CHEM PANEL CO2 22 24 - 32 09/03/2016 [facility] CHEM PANEL Chloride Lvl 107 95 - 109 09/03/2016 [facility] CHEM PANEL Potassium Lvl 3.2 3.5 - 5.1 09/03/2016 [facility] HEMATOLOGY Monocytes # 0.7 0.0 - 0.8 09/03/2016 [facility] HEMATOLOGY Lymphocytes # 1.2 1.0 - 5.5 09/03/2016 [facility] Segs-Bands # 7.3 1.5 - 8.1 09/03/2016 [facility] Basophils # 0.1 0.0 - 0.2 09/03/2016 [facility] Eosinophils # 0.2 0.0 - 0.5 09/03/2016 [facility] Segs 77.0 45.0 - 75.0 09/03/2016 [facility] Lymphocytes 12.5 20.0 - 40.0 09/03/2016 [facility] Monocytes 7.7 2.0 - 12.0 09/03/2016 [facility] Eosinophils 2.2 0.0 - 4.0 09/03/2016 [facility] Basophils 0.6 0.0 - 1.0 09/03/2016 [facility] MPV 10.2 7.4 - 10.4 09/03/2016 [facility] Platelet 199 133 - 450 09/03/2016 [facility] Hgb 9.3 12.0 - 16.0 09/03/2016 [facility] RBC 3.14 4.20 - 5.40 09/03/2016 [facility] MCV 87.8 80.0 - 98.0 09/03/2016 [facility] MCH 29.7 27.0 - 31.0 09/03/2016 [facility] Hct 27.6 36.0 - 48.0 09/03/2016 [facility] MCHC 33.8 32.0 - 36.0 09/03/2016 [facility] RDW 14.2 11.5 - 14.5 09/03/2016 [facility] WBC 9.5 3.7 - 10.4 09/03/2016 [facility] Pathology Reports No Data Provided for This Section Diagnostic Reports Report Value Date Source Facial bone wo contrast CT CT facial bones without contrast Clinical Indication: - fall 20 stairs, head trauma. Comparison: None TECHNIQUE: CT of the face is performed with a multi-detector CT. Coronal and sagittal reconstructions were obtained. CT imaging was performed with exposure control parameters to reduce radiation dose. CT Radiation Dose DLP 196.73 mGy-cm FINDINGS: The pterygoid plates are intact. The orbital roof, floor, superior, inferior, medial and lateral tracy are intact. The zygomatic arches are intact. The maxilla is intact. The mandible and nasal bones are intact. Paranasal sinuses demonstrate no air-fluid levels. IMPRESSION: No acute facial bone fracture. SL: [id number]-M 02/01/2018 [facility] Spine cervical wo contrast CT CT CERVICAL SPINE WITHOUT CONTRAST INDICATION: Posttraumatic cervical spine pain, - fall 20 stairs, LOC, head trauma, L leg pain, CT dose 332.86 COMPARISON: None DISCUSSION: There are no acute fractures or subluxations. Vertebral body alignment is within normal limits. There is moderate to advanced cervical spondylosis, resulting in varying degrees of foraminal stenosis, the worst at C6-C7. Spinal canal stenosis appears mild or moderate at worst, at C6-C7. The soft tissues are grossly unremarkable. Ligament, spinal cord, and/or vascular abnormalities cannot be excluded on the basis of this examination. Pleural effusions are visible at the upper lungs, left more than right. IMPRESSION: 1. No acute cervical spine abnormalities are visualized. 2. Moderate to advanced cervical spondyl osis. 3. Bilateral pleural effusions. SL:16 02/01/2018 [facility] Brain contrast CT CT BRAIN WITHOUT CONTRAST INDICATION: Posttraumatic headache, - fall 20 stairs, LOC, head trauma, L leg pain, CT dose DLP 862.95 COMPARISON: None DISCUSSION: There is a left frontal supraorbital scalp hematoma. The calvarium is intact. Endovascular stents an aneurysm coils are noted in the region of the right sylvian fissure. There is no evidence of acute vascular insults, space occupying lesions, hemorrhage, hydrocephalus, midline shift, or extra-axial fluid collections. IMPRESSION: No acute intracranial abnormalities are visualized. SL:16 02/01/2018 [facility] Chest 1view DX Clinical Indica tion: - fall 20 stairs, LOC, head trauma, L leg pain Comparison: None FINDINGS: AP chest radiograph was obtained. MEDIASTINUM: The cardiac silhouette is prominent. The aorta demonstrates atherosclerotic calcification. There is a stable right IJ tunnel dialysis catheter and interval placement of a left chest dual electrode pacemaker. There are sternal wires overlying the mediastinum and surgical clips. LUNGS: There is hazy opacity in the left lung base with blunting of the left costophrenic angle and silhouetting of the hemidiaphragm. There is pleural thickening in the left lung apex. The right lung is clear. BONES: The visualized osseous structures are unremarkable. IMPRESSION: 1. Interval placement of left chest pac emaker without pneumothorax. Persistent left basilar airspace disease and small left effusion. SL: [id number] 02/01/2018 [facility] Pelvis AP DX PELVIS RADIOGRAPH 1 VIEW CLINICAL INDICATION: Posttraumatic pelvic pain COMPARISON: None IMPRESSION: No acute bony abnormalities are visualized. The joint spaces of the hips are maintained. Regional vascular calcifications are incidentally noted. SL:16 02/01/2018 [facility] Chest 2 views DX Patient Name: SARAH MAGANA : 1940; Age: 76 years Female MR: [id number] Study: Chest 2 views DX Order Time: 09/17/2016 2:47 PM [employer] CLINICAL INDICATION: Chest pain COMPARISON: Chest radiograph on 09/15/2016 FINDINGS: Lines: Right IJ dialysis catheter in place with tip projecting over the SVC. Lungs: Hyperinflated lungs. The pulmonary edema pattern and bilateral pleural effusions have decreased. Persistent small left pleural effusion. Mediastinum: The cardiac silhouette is mildly enlarged. Midline trachea. Bones and soft tissues: Postoperative changes of the thorax. IMPRESSION: Improved aeration of the lungs since 09/15/2016. SL: [id number] 09/17/2016 [facility] Chest 1view DX EXAM: Chest 1vi ew DX DATE: 09/15/2016 1:34 PM [employer] INDICATION: Heart failure COMPARISON: 09/02/2016. IMPRESSION: New right central line is present this tip near the atrial caval junction. New opacity within the right lung base may reflect a combination of small pleural effusions and atelectasis. Persistent left lower lobe opacity is present likely reflecting a combination of pleural effusion and consolidation. The lungs are mildly emphysematous. Stable mildly enlarged cardiac silhouette. Postoperative median sternotomy. SL: [id number] 09/15/2016 [facility] wo contrast CT Patient N karla: SARAH MAGANA : 1940; Age: 76 years Female MR: [id number] Study: Chest wo contrast CT 09/03/2016 2:13 AM [employer] CLINICAL INDICATION: Dyspnea on exertion, p/t c/o of shortness of breath for whole breath. History of pleural effusion that she intended to get checked at [facility] tomorrow. Currently on NRB mask satting 98%.. Denies chest pain ADDITIONAL HISTORY: None COMPARISON: Chest radiograph on 09/02/2016 TECHNIQUE: Multidetector CT imaging of the thorax without the administration of iodinated contrast. Coronal and sagittal reconstructions were obtained. DLP: 324.07 mGy-cm FINDINGS: Lung parenchyma: Atelectatic changes within the dependent lungs. Pleura: Small bilateral pleural effusions. Airways: The central airways appear patent. Mediastinum: Unremarkable thyroid. No significant lymphadenopathy. Coronary artery calcifications. Small pericardial effusion. Bones and soft tissues: Mild degenerative changes of the spine. Upper abdomen: The visualized structures of the upper abdomen are grossly unremarkable. IMPRESSION: Small bilateral pleural effusions and bibasilar atelectasis. Small pericardial effusion. SL: [id number] 09/03/2016 [facility] Chest 1view DX Clinical Indica tion: Chest pain Comparison: None FINDINGS: A single frontal chest radiograph is submitted. The cardiac silhouette is enlarged. The aorta is tortuous. There is opacity within the left lung base and retrocardiac region which may represent consolidation, atelectasis and/or pleural effusion. No pulmonary or congestion is noted. The right costophrenic angle is sharp. There is no evidence of pneumothorax. Degenerative changes are identified within the spine IMPRESSION: Left lung base and retrocardiac opacity which may represent consolidation, atelectasis and/or pleural effusion. SL: [id number] 09/02/2016 [facility] Consultation Notes No Data Provided for This Section Discharge Summaries No Data Provided for This Section History and Physicals No Data Provided for This Section Vital Signs Vital Sign Value Date Comments Source Systolic (mm Hg) 101 02/01/2018 [place] Diastolic (mm Hg) 58 02/01/2018 [facility] Systolic (mm Hg) 196 02/01/2018 [place] Diastolic (mm Hg) 73 02/01/2018 [place] Systolic (mm Hg) 190 02/01/2018 [place] Diastolic (mm Hg) 75 02/01/2018 [place] Temperature Oral (F) 98.4 F 02/01/2018 [place] Heart Rate 60 02/01/2018 [place] Respitory Rate 20 02/01/2018 [place] Temperature Oral (F) 97.4 F 02/01/2018 [place] Heart Rate 60 02/01/2018 [place] Respitory Rate 20 02/01/2018 [place] BMI Calculated 02/01/2018 [facility] Weight 46.449 02/01/2018 [place] Height 152.4 cm 02/01/2018 [place] Temperature Oral (F) 97.3 F 02/01/2018 [place] Heart Rate 60 02/01/2018 [place] Respitory Rate 18 02/01/2018 [place] BMI Calculated 18.59 02/01/2018 [place] Weight 43.182 02/01/2018 [place] Height 152.4 cm 02/01/2018 [place] Heart Rate 67 09/24/2016 [facility] Respitory Rate 18 09/24/2016 [facility] Systolic (mm Hg) 126 09/24/2016 [facility] Diastolic (mm Hg) 56 09/24/2016 [facility] Temperature Oral (F) 98.8 F 09/24/2016 [facility] Respitory Rate 18 09/24/2016 [facility] Respitory Rate 12 09/24/2016 [facility] Temperature Oral (F) 98.6 F 09/24/2016 [facility] Heart Rate 68 09/24/2016 [facility] Systolic (mm Hg) 111 09/24/2016 [facility] Diastolic (mm Hg) 55 09/24/2016 [facility] Systolic (mm Hg) 131 09/23/2016 [facility] Temperature Oral (F) 98.7 F 09/23/2016 [facility] Heart Rate 56 09/23/2016 [facility] Diastolic (mm Hg) 65 09/23/2016 [facility] Height 152.4 cm 09/14/2016 [facility] Weight 47.5 09/14/2016 [facility] BMI Calculated 20.45 09/14/2016 [facility] Systolic (mm Hg) 108 09/03/2016 [facility] Diastolic (mm Hg) 70 09/03/2016 [facility] Respitory Rate 15 09/03/2016 [facility] Height 152.4 cm 09/03/2016 [facility] Systolic (mm Hg) 154 09/03/2016 [facility] Diastolic (mm Hg) 73 09/03/2016 [facility] Respitory Rate 24 09/03/2016 [facility] Systolic (mm Hg) 170 09/03/2016 [facility] Diastolic (mm Hg) 81 09/03/2016 [facility] Respitory Rate 28 09/03/2016 [facility] Weight 48 0 09/03/2016 [facility] Temperature Oral (F) 98 F 09/03/2016 [facility] Weight 47.727 09/03/2016 [facility] Height 152.4 cm 09/03/2016 [facility] BMI Calculated 20.55 09/03/2016 [facility] Temperature Oral (F) 98.2 F 09/03/2016 [facility] Temperature Oral (F) 98 F 09/03/2016 [facility] Heart Rate 94 09/03/2016 [facility] Heart Rate 84 09/03/2016 [facility] Encounters Location Location Details Encounter Type Encounter Number Reason For Visit Attending Provider ADM Date DC Date Status Source [facility] Inpatient [id number] Olivia Long 09/03/2016 09/04/2016 [facility] Inpatient Rehab [id number] Hank Thacker Jr 09/14/2016 09/24/2016 [facility] Observation [id number] Rakesh Mowla 02/01/2018 02/02/2018 [facility] Procedures Procedure Code Date Perfomer Comments Source Bypass [id number] 09/04/2016 [facility] Hysterectomy [id number] [facility] Operation [id number] [facility] [place] Assessment and Plan Assessment and Plan Date Source Extracted from:Title: Discharge summary Author: Adelaide Hernandez MD Date: 02/01/18 Admission Date: February 01, 2018 Discharge Date: February 01, 2018 Discharge Diagnosis: 1. Mechanical fall down a flight of sta irs 2. Acute left forehead hematoma 3. End-stage renal disease 4. Hyperkalemia 5. Type 2 diabetes 6. Coronary disease 7. Hypertension 8. Hypothyroidism 9. Cardiomyopathy with EF of 30% Discharge Condition: Stable Discharge Medications: Please see Home Medication Reconciliation List Consulting Physicians: Adelaide Hernandez MD Office: Service: Nathaniel Kaiser MD Office: Service: Nephrology Discharge Instructions: Please notify your physician if any of the following occur: Bleeding, Fever, Nausea, Pain, Shortness of breath, Signs of infection, Swelling Follow Up With Fariba Kitchen MD, Call for appointment, within: 1 Week, reason: Follow Up On Treatment Home Diet: Diet Renal 80,2,2,1 (pro, sod, pot, phos) Vital Signs (last 24 hrs) Last Charted Temp Oral 98.4 DegF (FEB 01 12:23) Heart Rate Peripheral 60 bpm (FEB 01:) Resp Rate 20 BRMIN (FEB 01:) SBP H 196mmHg (FEB 01 13:50) DBP 73 mmHg (FEB 01 13:50) SpO2 98 % (FEB 01:) Weight 46.449 kg (FEB 01 06:33) Height 152.4 cm (FEB 01 06:33) BMI 20 (FEB 01 06:33) Imaging Studies (last 36 hours) Spine cervical wo contrast CT 02/01/2018 03:07 Impression: 1. No acute cervical spine abnormalities are visualized. 2. Moderate to advanced cervical spondyl osis. 3. Bilateral pleural effusions. SL:16 Facial bone wo contrast CT 02/01/2018 02:44 Impression: No acute facial bone fracture. SL: [id number]-M Brain wo contrast CT 02/01/2018 02:38 Impression: No acute intracranial abnormalities are visualized. SL:16 Chest 1view DX 02/01/2018 02:13 Impression: 1. Interval placement of left chest pac emaker without pneumothorax. Persistent left basilar airspace disease and small left effusion. SL: [id number] Pelvis AP DX 02/01/2018 02:12 Impression: No acute bony abnormalities are visualized. The joint spaces of the hips are maintained. Regional vascular calcifications are incidentally noted. SL:16 (no surgical procedures documented) Hospital Course: Patient is a 77-year-old female with a past medical history of coronary disease status post CABG, hypertension, hyperlipidemia, hypothyroidism, type 2 diabetes, cardiomyopathy with EF 30% with a pacemaker, end-stage renal disease on hemodialysis, who fell down 20 steps after losing her balance. Patient came to the ER for further evaluation and had a CTA of the head did not see any intracranial hemorrhage. She had multiple radiology examination did not see any acute fractures. She was found to have a potassium of 6.0. She was admitted for further evaluation. Had PT evaluation that required recommended just a walker. After getting dialysis patient was then discharged home in stable condition. Discharge took greater then 30 mins Extracted from:Title: General Admission H&P * Author: Esperanza Plunkett DO Date: 02/01/18 Impression and Plan This is a 77-yo female: Acute left forehead hematoma s/p fall: prn pain med. Fall: Fall precaution. PT eval. ESRD on HD (TThSat): Nephro consult for HD. Hyperkalemia: S/p Calcium gluconate, D50, and IV Insulin. Follow K level. For HD as well. DM2: SSI. CAD s/p CABG, HTN, HLD, Hypothyroidism, adn CMP (EF 30%): cont. home med when available. DVT pro.: SCD. Dispo.: eLOS is 1-2 midnights. 02/02/2018 [facility] Extracted from:Title: Clinical Document Author: Sundar Martino MD Date: 09/24/16 Progress Note Nephrology SUBJECTIVE doing well Physical Exam alert, oriented HEENT : peerla NECK: no jvd, no bruits, HEART : RRR no s3 no S4, no murmur, no rub LUNGS: no wheezes no rales, no rhonci ABDOMEN: NTND no organomegaly no hepatomegaly positive bowel sounds EXT: no clubbing no cyanosis no edema NEURO:no focalities, no sensory defecits, no motor defecits SKIN: no rash, no bruises ASSESSMENT 1. hypertension improved 2. End stage renal disease: HD TTS 3. Anemia in chronic kidney disease, goal of 10-11 4.CAD (coronary artery disease) PLAN and TREATMENT 1- ok to go home 2- creatinine clearance is 9 OBJECTIVE Vitals Tmp(F) Tmp(C) Ttype BP MAP Pulse RR SpO2 FIO2 ETCO2 09/24 07:30 98.8 37.11 oral 126/56 --- 67 18 --- --- --- 09/24 07:10 ---- ---- ---- - ---- --- --- 18 97 21% --- 09/23 20:59 ---- ---- ---- - ---- --- --- 12 96 --- --- 09/23 20:15 98.6 37.00 oral 111/55 --- 68 16 96 --- --- 09/23 14:00 98.7 37.06 oral 131/65 --- 56 16 94 --- --- 24 Hr Tmax: 98.8F (37.11c) at 09/24 07:3 0 Vital Signs are the last 5 in the past 48 hours. 24 Hr Tmin: 98.6F (37.00c) at 09/23 20: 15 Weights are the last 5 in 60 days, plus initial. Date Wt(kg) Wt(lb) Ht(cm) Ht(in) Method BMI BSA 09/14 (initial) 47.50 104.50 Measured 20.4 1.42 09/14 152.40 60.00 Stated 24 Hr Point of Care Glucoses 09/24 1141 Glucose POC 129 H 09/24 0650 Glucose POC 120 H 09/23 2139 Glucose POC 148 H Most Recent Scores: 09/24/16 Pain Intensity NRS (0-10) 0 09/24/16 [place] Score 19 09/24/16 [facility] Fall Score 9 Lines, Tubes, and Drains: 09/16/2016 08:06 Central Lines: Internal jugular, right Non-tunneled (most common) Other: For Dialysis (no surgical procedures documented) Input/Output Record In Out Bal 09/24 24hr Tot 0 0 0 09/23 24hr Tot 0 0 0 Scheduled Meds: None Unscheduled Meds: None PRN Meds: None One Time Meds: None Continuous Infusions: None Labs (Last four charted values) WBC H 11.4 (SEP 22) H 12.6 (SEP 21) H 11.8 (SEP 20) H 17.2 (SEP 18) Hgb L 10.2 (SEP 22) L 9.6 (SEP 21) L 9.2 (SEP 20) L 9.0 (SEP 18) Hct L 30.6 (SEP 22) L 28.9 (SEP 21) L 27.9 (SEP 20) L 27.4 (SEP 18) Plt 264 (SEP 22) 256 (SEP 21) 272 (SEP 20) 255 (SEP 18) Na L 132 (SEP 22) 138 (SEP 20) 136 (SEP 18) 138 (SEP 17) K 4.4 (SEP 22) 3.6 (SEP 20) 3.8 (SEP 18) 4.0 (SEP 17) CO2 25 (SEP 22) 27 (SEP 20) 25 (SEP 18) 25 (SEP 17) Cl 95 (SEP 22) 100 (SEP 20) 98 (SEP 18) 99 (SEP 17) Cr H 3.70 (SEP 22) H 3.30 (SEP 20) H 3.30 (SEP 18) H 2.90 (SEP 17) BUN H 50 (SEP 22) H 38 (SEP 20) H 38 (SEP 18) H 29 (SEP 17) Glucose Random H 215 (SEP 22) H 111 (SEP 20) 95 (SEP 18) 92 (SEP 17) Mg 2.0 (SEP 18) 2.3 (SEP 15) Phos 3.2 (SEP 18) Ca L 7.7 (SEP 22) L 7.2 (SEP 20) L 7.3 (SEP 18) L 8.0 (SEP 17) 09/24/2016 [facility] Plan of Care No Data Provided for This Section Social History Social History Date Source Social History TypeResponse Substance Abuse Use: None. Alcohol Never Smoking Status Never smoker; Exposure to Tobacco Smoke None; Cigarette Smoking Last 365 Days No; Reg Smoking Cessation Counseling No entered on: 02/01/18 11/15/2016 [facility] Social History TypeResponse Substance Abuse Use: None. Alcohol Never Smoking Status Never smoker; Exposure to Tobacco Smoke None; Cigarette Smoking Last 365 Days No; Reg Smoking Cessation Counseling No 09/03/2016 [facility] Family History No Data Provided for This Section Advance Directives No Data Provided for This Section Functional Status No Data Provided for This Section
--- OUTSIDE RECORDS SUMMARY | 2020-03-24 12:17 | XMS REPORT | Clinical Summary ---
Author Author JULIANA Zuu [facility] Organization [facility] Address Unknown Phone Unavailable Care Team Providers [facility] Nurse Practitioner Name Role Phone Fariba Kitchen PCP Allergies Comments Active Allergy Reactions Severity Noted Date Codeine Nausea And 09/03/2016 Vomiting Medications End Date Status Medication Sig Dispensed Refills Start Date Active levothyroxine (SYNTHROID, Take 75 mcg 0 LEVOTHROID) 75 MCG tablet by mouth Every morning on an empty stomach. Active pantoprazole (PROTONIX) Take 1 tablet 0 40 MG tablet (40 mg total) 7 by mouth daily. Active acetaminophen (TYLENOL) Take 650 mg 0 325 MG tablet by mouth every 6 (six) hours as needed for Pain. Active losartan (COZAAR) 100 MG Take 100 mg 3 02/23 tablet by mouth 9 daily. Active clopidogrel (PLAVIX) 75 Take 75 mg by 0 mg tablet mouth daily. Active atorvastatin (LIPITOR) 40 Take 40 mg by 0 MG tablet mouth daily. Active cyanocobalamin, vitamin Take 5,000 0 B-12, (VITAMIN B-12) 1000 mcg by mouth MCG tablet daily. Active aspirin 81 MG EC tablet Take 81 mg by 0 mouth daily. Active TURMERIC ORAL Take 1 tablet 0 by mouth daily. Active hydrocortisone Place 0 (ANUSOL-HC) 2.5 % rectal rectally 2 cream (two) times daily. Active multivitamin per tablet Take 1 tablet 0 by mouth daily. Active cholecalciferol, vitamin Take 50,000 0 D3, 1,250 mcg (50,000 Units by unit) Tab mouth once a week. 03/26/2019 Discontinued aspirin 81 MG chewable Take 81 mg by 0 tablet mouth daily. 03/26/2019 Discontinued atorvastatin (LIPITOR) 80 Take 80 mg by 0 MG tablet mouth daily. 01/05/2020 Discontinued folic acid-multivitamins Take 1 tablet 90 tablet 0 (B COMPLEX-VITAMIN by mouth 8 C-FOLIC ACID) 0.8 mg Tab daily. tablet 01/05/2020 Discontinued pregabalin (LYRICA) 50 MG TK ONE C PO 4 02/20 capsule BID 9 01/05/2020 Discontinued UNKNOWN Med Name: 0 tumeric once a day . 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, 09/04/2016 NYHA class 4 Ischemic cardiomyopathy 09/04/2016 Encounters Care Team Description Date Type Specialty Darin Ray MD ESRD (end stage renal disease) ([facility]) 01/05/2020 Office Visit Cardiology 01/05/2020 Travel Darin Ray MD ESRD (end stage renal disease) ([facility]) 12/29/2019 Hospital Cardiology Encounter Darin Ray MD ESRD (end stage renal disease) ([facility]) (Pr imary Dx) 12/24/2019 Orders Only Chuyita Hui MD 03/26/2019 Office Visit Cardiology after 03/24/2019 Family History Medical History Relation Name Comments Diabetes Daughter Diabetes Son Relation Name Status Comments Daughter Son Social History Date Tobacco Use Types Packs/Day Years Used Never Smoker Smokeless Tobacco: Never Used Alcohol Use Drinks/Week oz/Week Comments Yes socially not alot Sex Assigned at Date Recorded Not on file Industry Job Start Date Occupation Not on file Not on file Not on file Travel End Travel History Travel Start No recent travel history available. Last Filed Vital Signs Time Taken Vital Sign Reading 01/05/2020 9:45 AM CDT Blood Pressure 181/78 01/05/2020 9:45 AM CDT Pulse 89 01/05/2020 9:45 AM CDT Temperature 36.7 C (98 F) 01/05/2020 9:45 AM CDT Respiratory Rate 14 01/05/2020 9:45 AM CDT Oxygen Saturation 98% - Inhaled Oxygen - Concentration 01/05/2020 9:45 AM CDT Weight 47.2 kg (104 lb) 01/05/2020 9:45 AM CDT Height 144.8 cm (4' 9") 01/05/2020 9:45 AM CDT Body Mass Index 22.51 Plan of Treatment Health Maintenance Due Date Last Done Comments PNEUMOCOCCAL 65+ 2007 LOW/MEDIUM RISK (1 of 2 - PCV13) MEDICARE ANNUAL WELLNESS 02/21/2008 (YEAR 2 or FIRST YEAR if no IPPE) INFLUENZA VACCINE (#1) 2020 Implants Device Identifier Shelf Expiration Date Model / Serial / L ot Implanted Type Area Manufactur er 07/18/2019 5076-52 / [id number] / Lead Pacemkr Capsur Novus 52cm Pacemaker N/A: Heart [employer]: 5076-52 - [id number] Lead CARD Implanted: Qty: 1 on 10/08/2017 by RHY:Prerna Castillo MD E MGT 07/17/2019 5076-45 / [id number] / Lead Pacemkr Capsur Novus 45cm Pacemaker N/A: Heart [employer]: 5076-45 - [id number] Lead CARD Implanted: Qty: 1 on 10/08/2017 by RHY:Prerna Castillo MD E MGT 01/02/2019 [id number] / [id number] / Pacemaker Ipg Advisa A2dr01 - Pacemakers N/A: Chest [employer]: [id number] CARD Implanted: Qty: 1 on 10/08/2017 by RHY:Prerna Castillo MD E MGT Procedures Comments Procedure Name Priority Date/Time Associated Diag nosis ECG 12-LEAD Routine 01/05/2020 10:36 AM CDT Procedure Note - Interface, External Ris In - 01/05/2020 10:30 AM CDT Ventricula r Rate 62 BPM Atrial Rate 64 BPM P-R Interval 220 ms QRS Duration 108 ms Q-T Interval 444 ms QTC Calculatio n(Bazett) 450 ms P [place] 136 degrees R [place] 74 degrees T [place] 243 degrees Atrial-pa stacy rhythm with prolonged AV conduction Incomplete left bundle branch block Left ventricula r hypertroph y with repolariza tion abnormalit y Abnormal ECG When compared with ECG of 8 15:43, Electronic atrial pacemaker has replaced Sinus rhythm Vent. rate has decreased BY 30 BPM Inverted T waves have replaced nonspecifi c T wave abnormalit y in Inferior leads ECG 12-LEAD Routine 01/05/2020 10:36 AM CDT VEIN MAPPING ARM/ARMS Routine 12/29/2019 ESRD (en d stage renal 1:24 PM CDT disease) ([facility]) after 03/24/2019 Results * ECG 12 lead (01/05/2020 10:36 AM CDT) Specimen Narrative Performed At Ventricular Rate 62 BPM GE MUSE Atrial Rate 64 BPM P-R Interval 220 ms QRS Duration 108 ms Q-T Interval 444 ms QTC Calculation(Bazett) 450 ms P [place] 136 degrees R [place] 74 degrees T [place] 243 degrees Atrial-paced rhythm with prolonged AV c onduction Incomplete left bundle branch block Left ventricular hypertrophy with repol arization abnormality Abnormal ECG When compared with ECG of 28-DEC-2017 1 5:43, Electronic atrial pacemaker has replace d Sinus rhythm Vent. rate has decreased BY30 BPM ST depression andInverted T waves h ave replaced nonspecific T wave abnormality in Inferior leads Confirmed by MD ANGEL YOCHAI ([id number] ) on 01/05/2020 12:38:58 PM Procedure Note Interface, External Ris In - 01/05/2020 12:39 PM CDT Ventricular Rate 62 BPM Atrial Rate 64 BPM P-R Interval 220 ms QRS Duration 108 ms Q-T Interval 444 ms QTC Calculation(Bazett) 450 ms P [place] 136 degrees R [place] 74 degrees T [place] 243 degrees Atrial-paced rhythm with prolonged AV conduction Incomplete left bundle branch block Left ventricular hypertrophy with repolarization abnormality Abnormal ECG When compared with ECG of 28-DEC-2017 15:43, Electronic atrial pacemaker has replaced Sinus rhythm Vent. rate has decreased BY [address] depression and Inverted T waves have replaced nonspecific T wave abnormality in Inferior leads Confirmed by MD ANGEL YOCHAI ([id number]) on 01/05/2020 12:38:58 PM Performing Organization Address City/State/Zipcode Ph one Number GE MUSE * Vein mapping arm/arms (12/29/2019 1:24 PM CDT) Ejection Fraction [facility] [place] [facility] Specimen Impressions Performed At Right Impression [facility] 1. There is no deep venous obstruction in the jugular , subclavian, axillary, [facility] brachial, radial or ulnar veins. 2. There is no superficial venous obstr uction in the cephalic or basilic veins. 3. The subclavian, axillary and brachia l arteries are patent with biphasic Doppler waveforms and the radial and ul shivani arteries are calcified with monophasic Doppler waveforms. Left Impression 1. There is no deep venous obstruction in the jugular, subclavian, axillary, brachial, radial or ulnar veins. 2. There is no superficial venous obstr uction in the cephalic or basilic veins. 3. The subclavian, axillary, brachial, radial and ulnar arteries are calcified with biphasic Doppler wavefor ms throughout. Conclusions Summary Arterial duplex imaging, venous duplex imaging and compression of both upper extremities was performed. All ar teries and veins were adequately visualized. The arteries were calcified bilaterally. The venous systems were patent and compressible with no ev idence of thrombus bilaterally. Superficial venous measurements are doc umented below. Signature Velocities are measured in cm/s ; Diame ters are measured in cm Cephalic Mapping Right Left + + + + + + + + !Location ! !AP Diam!Tr ans Diam ! !AP Diam!Tr ans Diam ! + + + + + + + + !Cephalic at Prox UA ! !0.11 ! ! !0.16 ! ! + + + + + + + + !Cephalic at Mid UA ! !0.08 ! ! !0.14 ! ! + + + + + + + + !Cephalic at Dist UA ! !0.15 ! ! !0.15 ! ! + + + + + + + + !Cephalic at Prox LA ! !0.21 ! ! + + + + + !Cephalic at Mid LA ! !0.21 ! ! + + + + + !Cephalic at Dist LA ! !0.22 ! ! + + + + + Basilic Mapping Right Left + + + + + + + + !Location ! !AP Diam!Tr ans Diam ! !AP Diam!Tr ans Diam ! + + + + + + + + !Basilic at Prox UA ! !0.35 ! ! !0.25 ! ! + + + + + + + + !Basilic at Mid UA ! !0.37 ! ! !0.27 ! ! + + + + + + + + !Basilic at Dist UA ! !0.39 ! ! !0.26 ! ! + + + + + + + + !Basilic at Prox LA ! !0.23 ! ! !0.18 ! ! + + + + + + + + !Basilic at Mid LA ! !0.19 ! ! !0.13 ! ! + + + + + + + + !Basilic at Dist LA ! !0.17 ! ! !0.13 ! ! + + + + + + + + Narrative Performed At [facility] - Upper Extremities Vein Mapping [facility] Patient NameSARAH MAGANA Date of Study12/29/2019 CINTHIA KINGSTON 9 Age79 Visit [id number] Gender Female Date of Birth1940 Referring Darin Carmichael Room Number Physician MD Cory Lead Installer Roise Souza T Interpreting Shant Meza Procedure Type of Study: Veins: Upper Extremity Vein Mapping, VE IN MAPPING ARM/ARMS. Indications for Study:AV access placeme nt . Patient Status:Routine. Study Location:Vascular Lab. Technical Quality:Adequate visualizatio n. Risk Factors History of Disease + +----+--------+ !Diagnosis !Date!Co mments! + +----+--------+ !History/Risk Factors: !!CAD, HTN! + +----+--------+ Procedure Note Interface, External Ris In - 12/30/2019 11:09 AM CDT [facility] - Upper Extremities Vein Mapping Demographics Patient Name SARAH MAGANA Date of Study 12/29/2019 PREET Age 79 Visit Number [id number] Gender Female Accession Number [id number] Date of 1940 Referring Darin Carmichael Room Number Physician MD Cory Lead Installer Rosie Souza T Interpreting Chuyita Hui Physician Procedure Type of Study: Veins: Upper Extremity Vein Mapping, VEIN MAPPING ARM/ARMS. Indications for Study:AV access placement . Patient Status:Routine. Study Location:Vascular Lab. Technical Quality:Adequate visualization. Risk Factors History of Disease + +----+--------+ !Diagnosis !Date!Comments! + +----+--------+ !History/Risk Factors: ! !CAD, HTN! + +----+--------+ Impressions Right Impression 1. There is no deep venous obstruction i n the jugular, subclavian, axillary, brachial, radial or ulnar veins. 2. There is no superficial venous obstru ction in the cephalic or basilic veins. 3. The subclavian, axillary and brachial arteries are patent with biphasic Doppler waveforms and the radial and ulnar arteries are calcified with monophasic Doppler waveforms. Left Impression 1. There is no deep venous obstruction i n the jugular, subclavian, axillary, brachial, radial or ulnar veins. 2. There is no superficial venous obstru ction in the cephalic or basilic veins. 3. The subclavian, axillary, brachial, r adial and ulnar arteries are calcified with biphasic Doppler waveforms throughout. Conclusions Summary Arterial duplex imaging, venous duplex imaging and compression of both upper extremities was performed. All arteries and veins were adequately visualized. The arteries were calcified bilaterally. The venous systems were patent and compressible with no evidence of thrombus bilaterally. Superficial venous measurements are documented below. Signature Velocities are measured in cm/s ; Diameters are measured in cm Cephalic Mapping Right Left + + + + + + + + !Location ! !AP Diam !Trans Diam ! !AP Diam !Trans Diam ! + + + + + + + + !Cephalic at Prox UA ! !0.11 ! ! !0.16 ! ! + + + + + + + + !Cephalic at Mid UA ! !0.08 ! ! !0.14 ! ! + + + + + + + + !Cephalic at Dist UA ! !0.15 ! ! !0.15 ! ! + + + + + + + + !Cephalic at Prox LA ! !0.21 ! ! + + + + + !Cephalic at Mid LA ! !0.21 ! ! + + + + + !Cephalic at Dist LA ! !0.22 ! ! + + + + + Basilic Mapping Right Left + + + + + + + + !Location ! !AP Diam !Trans Diam ! !AP Diam !Trans Diam ! + + + + + + + + !Basilic at Prox UA ! !0.35 ! ! !0.25 ! ! + + + + + + + + !Basilic at Mid UA ! !0.37 ! ! !0.27 ! ! + + + + + + + + !Basilic at Dist UA ! !0.39 ! ! !0.26 ! ! + + + + + + + + !Basilic at Prox LA ! !0.23 ! ! !0.18 ! ! + + + + + + + + !Basilic at Mid LA ! !0.19 ! ! !0.13 ! ! + + + + + + + + !Basilic at Dist LA ! !0.17 ! ! !0.13 ! ! + + + + + + + + Performing Organization Address City/State/Zipcode Ph one Number [facility] [place] [facility] after 03/24/2019 Insurance Payer Benefit Subscriber ID Type Phone Address Plan / Group MEDICARE MEDICARE A xxxxxxxxxxx Medicare B BLUE CROSS/BLUE SHIELD BCBS xxxxxxxxxxxx PPO [phone] [address] [place] [address] [place] Directives For more information, please contact: [facility] [address] [place] [address] Date Inactivated Comments Code Status Date Activated 01/04/2018 2:19 PM Full Code 12/28/2017 6:54 PM This code status was determined by: Patient 10/10/2017 5:08 AM Full Code 10/08/2017 8:27 AM This code status was determined by: Patient 09/14/2016 3:35 PM Full Code 09/04/2016 5:24 PM This code status was determined by: Patient 09/04/2016 5:24 PM Full Code 09/04/2016 8:44 AM This code status was determined by: Patient 09/04/2016 8:44 AM Full Code 09/03/2016 7:41 PM This code status was determined by: Patient Relationship Healthcare Agent Relationship Phone Name Natural son First alternate healthcare agent Tripp Magana
--- OUTSIDE RECORDS SUMMARY | 2020-03-24 12:18 | XMS REPORT | Continuity of Care Document ---
Author Author [facility] t Organization [facility] Address [address] [place] [address] Phone Unavailable Care Team Providers Care Transportation Program Director Name Role Phone Asked, Pcp No PCP Unavailable Jasmin FERRARA, Ronn Attphys Cory FERRARA, Antonio Webster Attphys [phone] Chino Vasquez MAcia Attphys Unavailable ABDOULAYE DIEHL Attphys Unavailable Korina FERRARA, Joyce Boogie Attphys [phone] Mowla, Rashedul Rakesh Attphys PRO LAWRENCE Attphys Unavailable YESICA THURMAN Attphys Unavailable YOKASTA CHAN Attphys Unavailable KYREE FERMIN Attphys Unavailable Truman Thacker Jr Attphys Shaye CARDOZA Attphys Unavailable Boccardo, Olivia Attphys MoThierno looney Rakesh Admphys Jeanmarie WOLF Admphys Unavailable YOKASTA CHAN Admphys Unavailable Truman Thacker Jr Admphys Shaye CARDOZA Admphys Unavailable Boccardo, Olivia Admphys Payers Payer Name Policy Type Policy Number Effective Date Expiration Date S ource MEDICAREMEDICARE PART A AND Bxxxxxxxxxxx2006-PresentHOUS IGNACIO BELCHERMedicare xxxxxxxxxxx 2007 00:00:00 Jh Ortiz BCBS COMMERCIALBCBS MEDICARE SUPPLEMENTxxxxxxxxxxxx/07/2015- PresentCommercial xxxxxxxxxxxx 2016 00:00:00 Jh Ortiz MEDICAREMEDICARE A BxxxxxxxxxxxMedicare xxxxxxxxxxx [facility] BLUE CROSS/BLUE SHIELDBCBS INDEMNITY [place] [id number] [id number], [place] [address] xxxxxxxxxxxx [facility] Problems Condition Name Condition Details Condition Category Status Onset Date Resolution Date Last Treatment Date Treating Clinician Comments Source ACUTE HYPERKALEMIA, FACIAL ABRASION, FAC ACUTE HYPERKALEMIA, FACIAL ABRASION, FAC Active 02/01/2018 [facility] Diagnosis Active 2018-02-01 00:00:00 2018-02-21 11:46:00 [facility] FALL FALL Active 02/01/2018 [facility] Diagnosis Active 2018-02-01 00:00:00 2018-02-01 02:55:00 [facility] ESRD (end stage renal disease) ESRD (end stage renal disease) Disea se Active 2018-01-01 00:00:00 [facility] Presence of permanent cardiac pacemaker Presence of permanen t cardiac pacemaker Disease Active 2017-12-30 00:00:00 [facility] Dyspnea Dyspnea Disease Active 2017-12-28 00:00:00 [facility] Essential hypertension Essential hypertension Disease Active 2017-10-29 00:00:00 [facility] Sick sinus syndrome Sick sinus syndrome Disease Active 2017-10-08 00:00 :00 Overview: S/p Pacemaker 10/08/17 [facility] UNK UNK Active 11/02/2016 [facility] Diagnosis Active 2016-11-02 00:00:00 2017-01-16 10:50:00 [facility] DEBILITY BRAD LITAyo Active 09/12/2016 [facility] Diagnosis Active 2016-09-12 00:00:00 2016-09-17 13:09:00 [facility] CORONARY ARTERY DISEASE ZAYRA NARY ARTERY DISEASE Active 09/11/2016 [facility] Diagnosis Active 2016-09-11 00:00:00 2017-03-03 16:44:0 0 Nikki Bedolla Non-ST elevation myocardial infarction (NSTEMI), subse quent episode of care Non- ST elevation myocardial infarction (NSTEMI), subsequent episode of care Disease Active 2016-09-04 00:00:00 [facility] Multiple vessel coronary artery disease Multiple vessel zayra nary artery disease Disease Active 2016-09-04 00:00:00 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 Ischemic cardiomyopathy Ischemic cardiomyopathy Disease Active 2016-09-04 00:00:00 [facility] RESP DISTRESS RESP DISTRESS Active 09/02/2016 [facility] Active 2016-09-02 00:00:00 2016-09-02 22:49:00 Nikki Bedolla CHF EXACERBATION CHF EXACERBATION Active 09/02/2016 [facility] Active 2016-09-02 00:00:00 2016-09-07 07:23:00 Nikki Bedolla Acute congestive heart failure (disorder) Acute congestive heart failure (disorder) Active Problem 02/04/2018 [facility] Problem Active 2018-02-04 01:19:59 Darby Bedolla Acute non-ST segment elevation myocardial infarction ( disorder) Acute non-ST segment elevation myocardial infarction (disorder) Active Problem 02/04/2018 [facility] Problem Active 2018-02-04 01:19:59 Nikki Bedolla Acute pulmonary insufficiency following thoracic surge ry (disorder) Acute pulmonary insufficiency following thoracic surgery (disorder) Active Problem 02/04/2018 [facility] Problem Active 2018-02-04 01:19:59 Nikki Bedolla Coronary arteriosclerosis (disorder) Coronary arteriosclerosis (disorder) Active Problem 02/04/2018 [facility] Problem Active 2018-02-04 01:19:59 Gamal Bedolla Kidney disease (disorder) Kidn ey disease (disorder) Active Problem 02/04/2018 [facility] Problem Active 2018-02-04 01:19:59 Nikki Bedolla Disease of thyroid gland (disorder) Disease of thyroid gland (disorder) Active Problem 02/04/2018 [facility] Problem Active 2018-02-04 01:19:59 Darbyor jenny Bedolla 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) Active Problem 02/04/2018 [facility] Problem Active 2018-02-04 01: 19:59 Nikki Bedolla Hypertensive disorder, systemic arterial (disorder) Hypertensive disorder, systemic arterial (disorder) Active Problem 02/04/2018 [facility] Problem Active 2018-02-04 01: 19:59 Nikki Bedolla Injury of kidney (disorder) In jury of kidney (disorder) Active Problem 02/04/2018 [facility] Problem Active 2018-02-04 01:19:59 [facility] [place] Impaired mobility (finding) Im paired mobility (finding) Active Problem 02/04/2018 [facility] Problem Active 2018-02-04 01:19:59 [facility] [place] Platelet count below reference range (finding) Platelet count below reference range (finding) Active Problem 02/04/2018 [facility] Problem Active 2018-02-04 01:19:59 [facility] HEART FAILURE, UNSPECIFIED HEA RT FAILURE, UNSPECIFIED Active [facility] Diagnosis Active 2016-09-07 07:23:00 [facility] [place] WEAKNESS WEAK NESS Active [facility] Diagnosis Active 2016-09-17 13:09:00 [facility] END STAGE RENAL DISEASE END STAGE RENAL DISEASE Active [facility] Diagnosis Active 2017-01-16 10:50:00 [facility] HYPERKALEMIA HYPE RKALEMIA Active [facility] Diagnosis Active 2018-02-21 11:46:00 [facility] [place] ABRASION OF OTHER PART OF HEAD, INITIAL ABRASION OF OTHER PART OF HEAD, INITIAL Active [facility] Diagnosis Active 2018-02-21 11:46:00 [facility] [place] CONTUSION OF OTHER PART OF HEAD, INITIAL CONTUSION OF OTHER PART OF HEAD, INITIAL Active [facility] Diagnosis Active 2018-02-21 11:46:00 [facility] Allergies, Adverse Reactions, Alerts Allergy Name Allergy Type Status Severity Reaction(s) Onset Date Inacti ve Date Treating Clinician Comments Source Codeine Drug Intolerance Active Nausea And Vomiting 2016-09-03 00: 00:00 [facility] codeine codeine Active [facility] Family History Family Member Diagnosis Comments Start Date Stop Date Source Natural daughter Diabetes [facility] Natural son Diabetes [facility] Social History Social Habit Start Date Stop Date Quantity Comments Source Alcohol Comment socially not alot [facility] Sex Assigned At [facility] Social History 2016-09-03 11:01:11 2016-09-03 11:01:11 [facility] Smoking Status Start Date Stop Date Source Never smoker [facility] Medications Ordered Medication Name Filled Medication Name Start Date Stop Da te Current Medication? Ordering Clinician Indication Dosage Frequency Signature (SIG) Comments Components Source cholecalciferol, vitamin D3, 1,250 mcg (50,000 unit) Tab 2020-01-05 09:58:26 Yes [id number] Q7D Take 50,000 Units by mouth once a week. [facility] atorvastatin (LIPITOR) 40 MG tablet 2020-01-05 09:58:25 Yes 40mg QD Take 40 mg by mouth daily. [facility] cyanocobalamin, vitamin B-12, (VITAMIN B-12) 1000 MCG tablet 2020-01-05 09:58:25 Yes 5000ug QD Take 5,000 mcg by mouth daily . [facility] aspirin 81 MG EC tablet 2020-01-05 09:58:25 Yes 81mg QD Take 81 mg by mouth daily. [facility] TURMERIC ORAL 2020-01-05 09:58:25 Yes 1{tb l} QD Take 1 tablet by mouth daily. [facility] hydrocortisone (ANUSOL-HC) 2.5 % rectal cream 2020-01-05 09:58:[address]ally 2 (two) times daily. [facility] multivitamin per tablet 2020-01-05 09:58:25 Yes 1{tbl} QD Take 1 tablet by mouth daily. [facility] UNKNOWN 2020-01-05 09:58:02 2020-01-05 00:00:00 No Med Name: tumeric once a day . [facility] atorvastatin (LIPITOR) 80 MG tablet 2019-03-26 10:23:5 3 2019-03-26 00:00:00 No 80mg QD Take 80 mg by mouth daily. [facility] clopidogrel (PLAVIX) 75 mg tablet 2019-03-26 10:23:21 Yes 75mg QD Take 75 mg by mouth daily. [facility] aspirin 81 MG chewable tablet 2019-03-26 10:20:34 2019-03-26 00: 00:00 No 81mg QD Take 81 mg by mouth daily. [facility] pregabalin (LYRICA) 50 MG capsule 2019-03-19 00:00:00 2019 00:00:00 No TK ONE C PO BID [facility] losartan (COZAAR) 100 MG tablet 2019-02-23 00:00:00 Yes 100mg QD Take 100 mg by mouth daily. [facility] [place] Losartan 2018-02-02 14:00:00 No Notes: (Louie e as: Cozaar) [facility] Synthroid 2018-02-02 11:30:00 No Notes: Take 1 hour before or 2 hours after meal; Enteral feeds may interefere with the absorption of this medication. (Same as:Synthroid, Levothroid) [facility] rosuvastatin 2018-02-02 02:00:00 No Notes: (Same As: Crestor) [facility] Nephro-[facility] Rx 2018-02-01 18:00:00 No Notes: (Same as: Nephro-[place] Rx and Diatx) Give with food. [facility] Aspirin 81 MG Enteric Coated Tablet 2018-02-01 17:59:00 No Notes: Do not crush or chew. (Same As: Ecotrin) [facility] Hydralazine Hydrochloride 50 MG Oral Tablet 2018-02-01 17:52:00 No 50 mg, 1 tab, Route: PO, Drug form: TAB, ONCE, Dosing Weight 46.449, kg, Start date: 02/01/18 12:52:00 CDT, Stop date: 02/01/18 12:52:00 CDT [facility] tramadol hydrochloride 50 MG Oral Tablet 2018-02-01 17:49:00 No Notes: Not to exceed 400mg/day. (Same As: Ultram) [facility] tramadol hydrochloride 50 MG Oral Tablet 2018-02-01 11:37:00 Yes 50 mg = 1 tab, PO, Q12H, PRN Pain Score 6-10, 0 Refill(s) Nikki Bedolla Ascorbic Acid 60 MG / Calcium Pantothena te 10 MG / D-BIOTIN 0.3 MG / Folic Acid 0.8 MG / Niacinamide 20 MG / pyridoxine 10 MG / Riboflavin 1.7 MG / Thiamine 1.5 MG / Vitamin B 12 0.006 MG Oral Tablet [[place]] 2018-02-01 11:37:0 0 No 1 tab, PO, Daily, # 100 tab, 0 Refill(s) Nikki Bedolla losartan 100 mg oral tablet 2018-02-01 11:37:00 Yes 100 mg = 1 tab, PO, Daily, # 30 tab, 0 Refill(s) Azul Bedolla rosuvastatin 10 mg oral tablet 2018-02-01 11:37:00 Yes 10 mg = 1 tab, PO, Bedtime, # 30 tab, 0 Refill(s) Nikki Bedolla Insulin Lispro 2018-02-01 09:13:00 No Notes: (Same as: Humalog ) Roll in palms of hands gently; Do not shake `vigorously. "Single Patient Use Only " WASTE: F/P - Black; E - Municipal Trash Bin Stable for 28 days at room temperature. Expires in days from Date Nikki Bedolla Glucagon 2018-02-01 09:13:00 No 1 mg, Route: IM, Drug form: PDR/INJ, PRN, Dosing Weight 43.182, kg, PRN Blood Glucose Results, Start date: 02/01/18 4:13:00 CDT, Duration: 30 day, Stop date: 03/03/18 4:12:00 CDT Nikki Bedolla Dextrose 50% Syringe 2018-02-01 09:13:00 No 25 gm, 50 mL, Route: IVP, Drug Form: INJ, Dosing Weight 43.182, kg, PRN, PRN Blood Glucose Results, Start date: 02/01/18 4:13:00 CDT, Duration: 30 day, Stop date: 03/03/18 4:12:00 CDT Nikki Bedolla Clonidine 2018-02-01 09:11:00 No Notes: (Sa me As: Catapres) [facility] Acetaminophen 325 MG / Hydrocodone Bitartrate 5 MG Oral Tabl et 2018-02-01 09:10:00 No Notes: ( me as: [place] 325/5) Do not exceed 4gm/day of acetaminophen. [facility] Morphine 2018-02-01 09:10:00 No Not es: (Same as: MORPhine Sulfate) [facility] Acetaminophen 2018-02-01 09:10:00 No Notes: Do not exceed 4 gm/day. (Same as: Tylenol) [facility] Ondansetron 2018-02-01 09:10:00 No Notes: (Same as: Zofran) MEDICATION WASTE Product Size: 4 mg Product Wasted: ___ mg [facility] Calcium Gluconate 2018-02-01 08:08:00 No Notes: WASTE: F/P - Sink; E - Municipal Trash Bin [facility] Insulin regular 2018-02-01 08:08:00 No 60 units) WASTE: F/P - Black; E - Municipal Trash Bin Stable for 28 days at room temperature Expires in days from Date alexandrakytrev [place] Dextrose 50% Syringe 2018-02-01 08:07:00 No 25 gm, 50 mL, Route: IVP, Drug Form: INJ, Dosing Weight 43.182, kg, ONCE, STAT, Start date: 02/01/18 3:07:00 CDT, Stop date: 02/01/18 3:07:00 CDT [facility] Metoprolol 2018-02-01 08:06:00 No Notes: (Same as: Lopressor) Push over 2 minutes [facility] Zofran ODT 2018-02-01 07:04:00 No Notes: (S karla as: Zofran ODT) [facility] Saline Flush 0.9% 2018-02-01 07:04:00 No Notes: Same as: BD Posiflush Sterile [facility] folic acid-multivitamins (B COMPLEX-VITAMIN C-FOLIC ACID) 0. 8 mg Tab tablet 2018-01-03 00:00:00 2020-01-05 00:00:00 No 1{tbl} QD Take 1 tablet by mouth daily. [facility] acetaminophen (TYLENOL) 325 MG tablet 2017-10-08 08:49:37 Y es 650mg Take 650 mg by mouth every 6 (six) hours as needed for Pain. [facility] Cardiac Rehabilitation 2016-09-24 18:44:00 Yes See Instructions, Diagnosis CAD with CHF s/p CABG. Evaluate and treat as per [facility] Cardiac rehab program, # 1 ea, 0 Refill(s) [facility] pantoprazole 40 MG Enteric Coated Tablet [Protonix] 09-24 14:33:00 Yes 40 mg = 1 tab, P O, Daily, # 30 tab, 0 Refill(s), Pharmacy: [facility] [address] Nephro-[place] Rx oral tablet 2016-09-24 14:33:00 Yes 1 tab, PO, Daily, # 30 tab, 0 Refill(s), Pharmacy: [facility] [address] Levothyroxine Sodium 0.075 MG Oral Tablet [Synthroid] 2016-09-24 14:33:00 Yes 75 microgram = 1 tab, PO, Q630AM, # 30 tab, 0 Refill(s), Pharmacy: [facility] [address] atorvastatin 80 MG Oral Tablet [Lipitor] 2016-09-24 14:33:00 Yes 80 mg = 1 tab, PO, Bedtime, # 30 tab, 0 Refill(s), Pharmacy: [facility] [address] aspirin 81 mg tablet, enteric coated 2016-09-24 14:33:00 Ye s 81 mg = 1 tab, PO, Daily, # 30 tab, 0 Refill(s), Pharmacy: [facility] [address] Furosemide 40 MG Oral Tablet 2016-09-24 14:33:00 Yes 40 mg = 1 tab, PO, Daily, # 30 tab, 0 Refill(s), Pharmacy: [facility] [address] carvedilol 3.125 mg oral tablet 2016-09-24 14:33:00 Yes 3.125 mg = 1 tab, PO, Q12H, # 60 tab, 0 Refill(s), Pharmacy: [facility] [address] Calcium Carbonate 500 MG Chewable Tablet 2016-09-24 14:33:00 Yes 500 mg = 1 tab, CHEW, TID, PRN Nausea, 0 Refill(s) Nikki Bedolla acetaminophen 325 mg oral tablet 2016-09-24 14:33:00 Yes 100.4 F, 0 Refill(s) Nikki Bedolla senna 8.6 mg oral tablet 2016-09-24 14:33:00 Yes 17.2 mg = 2 tab, PO, Bedtime, X 14 day, # 28 tab, 0 Refill(s), Pharmacy: [facility] [id number] Nikki Bedolla cetirizine 2016-09-21 15:00:00 No Notes: (S karla As: Zyrtec) Nikki Bedolla Tums 2016-09-21 01:51:00 No Notes: (Same As: Cassandra) Calcium Carbonate 500 mg = 200 mg elemental calcium Dose = mg calcium carbonate ( mg elemental calcium) Nikki Bedolla Fluticasone propionate 0.05 MG/ACTUAT Metered Dose Nasal Spr ay [Flonase] 2016-09-20 23:00:00 No Notes: (Same as: Lester lonase) Nikki Bedolla Claritin 2016-09-20 23:00:00 No 10 mg, Route: PO, Drug form: TAB, QPM, Dosing Weight 47.5, kg, Start date: 09/20/16 17:00:00 CARBIDE OPERATOR, Duration: 30 day, Stop date: 10/19/16 17:00:00 CDT [facility] Docusate Sodium 100 MG Oral Capsule [Colace] 2016-09-16 20:26:00 No Notes: (Same as: Colace) (Do Not Crush) Nikki Bedolla Coreg 2016-09-16 15:00:00 No Notes: Give with food. (Same As: Coreg) Nikki Bedolla Epoetin Lobo 2016-09-15 23:00:00 No Notes: (Same as: Procrit) epoetin lobo 4000 unit/1 ml VL For dialysis only. (Epogen) WASTE: F/P - Red; E -Red MEDICATION WASTE Product Size: 4000 unit Product Wasted: ___ unit Nikki Bedolla Glucagon 2016-09-15 19:27:00 No 1 mg, Route: IM, Drug form: PDR/INJ, PRN, Dosing Weight 47.5, kg, PRN Blood Glucose Results, Start date: 09/15/16 13:27:00 CARBIDE OPERATOR, Duration: 30 day, Stop date: 10/15/16 14:26:00 CDT Nikki Bedolla Dextrose 50% Syringe 2016-09-15 19:27:00 No 25 gm, 50 mL, Route: IVP, Drug Form: INJ, Dosing Weight 47.5, kg, PRN, PRN Blood Glucose Results, Start date: 09/15/16 13:27:00 CARBIDE OPERATOR, Duration: 30 day, Stop date: 10/15/16 14:26:00 CDT [facility] Insulin, Aspart, Human 2016-09-15 19:27:00 No Notes: Roll in palms of hands gently; Do not shake vigorously. (Same as: NovoLOG) "single patient use only" WASTE: F/P - Black; E - Municipal Trash Bin Stable for 28 days at room temperature. Expires in days from Date [facility] aspirin 81 mg tablet, enteric coated 2016-09-15 15:00:00 No Notes: Do not crush or chew. (Same As: Ecotrin) [facility] Protonix 2016-09-15 15:00:00 No Notes: Tablet should not be chewed or crushed. (Same as: Protonix) [facility] Nephro-[place] Rx 2016-09-15 15:00:00 No Notes: (Same as: Nephro-[place] Rx and Diatx) Give with food. [facility] 24 HR Metoprolol Tartrate 25 MG Extended Release Tablet [Top rol] 2016-09-15 15:00:00 No Notes: (Same as: Toprol XL) D o Not Crush [facility] Furosemide 20 MG Oral Tablet 2016-09-15 15:00:00 No Notes: (Same as: Lasix) May cause GI upset. Give with food or milk. Nikki Bedolla Venofer 2016-09-15 15:00:00 No Notes: Each 5ml contains 100mg elemental iron. Mix with NS (Same as:Venofer) Administer IV only. MEDICATION WASTE Product Size: 100 mg Product Wasted: ___ mg Nikki Bedolla Synthroid 2016-09-15 12:30:00 No Notes: Take 1 hour before or 2 hours after meal; Enteral feeds may interefere with the absorption of this medication. (Same as:Synthroid, Levothroid) Nikki Bedolla Lipitor 2016-09-15 03:00:00 No Notes: (Same as: Lipitor) Nikki Bedolla Senokot 2016-09-15 03:00:00 No Notes: (Same as: Senokot) [facility] [place] Saline Flush 0.9% 2016-09-15 03:00:00 No Notes: (Same as: BD Posiflush) [facility] [place] Levaquin 2016-09-14 22:00:00 No Notes: Do not give w/antacids, dairy pdt & minerals Take 1 hr before or 2 hr after dairy pdt (Same as:Levaquin) Nikki Bedolla Zofran 2016-09-14 21:30:00 No Notes: (Same as: Zofran) [facility] [place] Tylenol 2016-09-14 21:27:00 No Notes: Do not exceed 4 gm/day. (Same as: Tylenol) Nikki Bedolla Tramadol 2016-09-14 21:18:00 No Notes: Not to exceed 400mg/day. (Same As: Ultram) [facility] [place] Saline Flush 0.9% 2016-09-14 20:43:00 No Notes: (Same as: BD Posiflush) Nikki Bedolla Trazodone 2016-09-14 20:43:00 No Notes: (Sa me As: Desyrel) Nikki Bedolla pantoprazole (PROTONIX) 40 MG tablet 2016-09-14 00:00:00 Ye s 40mg QD Take 1 tablet (40 mg total) by mouth daily. [facility] Lipitor 2016-09-04 03:00:00 No Notes: (Same as: Lipitor) Nikki Bedolla metoprolol tartrate 2016-09-04 03:00:00 No Notes: (Same as: Lopressor) Nikki Bedolla chlorhexidine gluconate 1.2 MG/ML Mouthwash 2016-09-04 03:00:00 No Notes: (Same As: Peridex) [facility] Jessica nn Brilinta 2016-09-04 03:00:00 No Notes: (Louie e as: Brilinta) [facility] ocular lubricant 2016-09-04 00:00:00 No Notes: (Same as: Duratears Naturale and Artificial Tears, Tears Again ) [facility] heparin additive 25,000 unit [12 unit/kg /hr] + Premix Diluent Dextrose 5% 500 mL 2016-09-03 23:44:00 No 500 mL, Rate: 11.52 ml/hr, Infuse over: 43.4 hr, Route: IV, Dosing Weight 48 kg, Total Volume: 500 mL, Start date: 09/03/16 17:44:00 CARBIDE OPERATOR, Duration: 30 day, Stop date: 10/03/16 17:43:00 CDT [facility] Heparin 60 unit/kg Bolus (Heparin Dosing Weight) 2016-09-03 23:4 4:00 No Pharmacy To Manage, Route: I MACHINIST, PRN, Drug form: INJ, PRN, Heparin Protocol, Start date: 09/03/16 17:44:00 CARBIDE OPERATOR Stop date: 10/03/16 18:43:00 CDT, 30 day [facility] Heparin 30 unit/kg Bolus (Heparin Dosing Weight) 2016-09-03 23:4 4:00 No Pharmacy To Manage, Route: I MACHINIST, PRN, Drug form: INJ, PRN, Heparin Protocol, Start date: 09/03/16 17:44:00 CARBIDE OPERATOR Stop date: 10/03/16 18:43:00 CDT, 30 day [facility] Acetylcysteine 200 MG/ML Inhalant Solution 2016-09-03 23:00:00 No 600 mg, 3 mL, Route: PO, Drug form: SOLN, BID, Dosing Weight 47.727, kg, Start date: 09/03/16 17:00:00 CARBIDE OPERATOR, Duration: 3 day, Stop date: 09/06/16 9:00:00 CARBIDE OPERATOR [facility] levothyroxine (SYNTHROID, LEVOTHROID) 75 MCG tablet 09-03 21:53:48 Yes 75ug Take 75 mcg by mouth Every morning on an empty stomach. [facility] chlorhexidine gluconate 1.2 MG/ML Mouthwash 2016-09-03 21:48:00 No Notes: (Same As: Peridex) [facility] Etomid[facility] 2016-09-03 21:45:00 No 10 mg, Route: IVP, ONCE, Dosing Weight 48, kg, Priority: STAT, Start date: 09/03/16 15:45:00 CARBIDE OPERATOR, Stop date: 09/03/16 15:45:00 CARBIDE OPERATOR [facility] Propofol 2016-09-03 21:45:00 No 40 mg, Route: IVP, ONCE, Dosing Weight 48, kg, Priority: STAT, Start date: 09/03/16 15:45:00 CARBIDE OPERATOR, Stop date: 09/03/16 15:45:00 CARBIDE OPERATOR [facility] Saline Flush 0.9% 2016-09-03 21:45:00 No Notes: (Same as: BD Posiflush) [facility] Fentanyl 2016-09-03 21:36:00 No Notes: Concentration: 5 microgram / ml [facility] Midazolam 2016-09-03 21:36:00 No Notes: (Sa de as: Versed) [facility] Lasix 2016-09-03 21:29:00 No Notes: (Same as: Lasix) MEDICATION WASTE Product Size: 40 mg Product Wasted: ___ mg [facility] Heparin 60 unit/kg Bolus (Heparin Dosing Weight) 2016-09-03 18:4 3:00 No Route: IVP, PRN, 2,900 unit, 2.9 mL, Drug form: INJ, PRN, Heparin Protocol, Start date: 09/03/16 12:43:00 CARBIDE OPERATOR Stop date: 10/03/16 13:42:00 CDT, 30 day [facility] Heparin - one time bolus for ACS 2016-09-03 18:43:00 No 5,000 unit, Route: IVP, Drug form: INJ, ONCE, Dosing Weight 47.727, kg, Priority: STAT, Start date: 09/03/16 12:43:00 CARBIDE OPERATOR, Stop date: 09/03/16 12:43:00 CARBIDE OPERATOR [facility] heparin additive 25,000 unit [12 unit/kg /hr] + Premix Diluent Dextrose 5% 500 mL 2016-09-03 18:43:00 No 500 mL, Rate: 11.52 ml/hr, Infuse over: 43.4 hr, Route: IV, Dosing Weight 48 kg, Total Volume: 500 mL, Start date: 09/03/16 12:43:00 CARBIDE OPERATOR, Duration: 30 day, Stop date: 10/03/16 12:42:00 CDT [facility] Heparin 30 unit/kg Bolus (Heparin Dosing Weight) 2016-09-03 18:4 3:00 No Route: IVP, PRN, 1,400 unit, 1.4 mL, Drug form: INJ, PRN, Heparin Protocol, Start date: 09/03/16 12:43:00 CARBIDE OPERATOR Stop date: 10/03/16 13:42:00 CDT, 30 day [facility] [facility] 325 MG Oral Tablet 2016-09-03 16:21:00 No Notes: Take with food. [facility] Br[facility] 2016-09-03 16:20:00 Yes Notes: (Louie e as: Nelida) [facility] Sodium Chloride 0.154 MEQ/ML Injectable Solution 2016-09-03 16:2 0:00 No 250 mL, Rate: 100 ml/hr, Inf use over: 2.5 hr, Route: IV, Dosing Weight 47.727 kg, Total Volume: 250, Start date: 09/03/16 10:20:00 CARBIDE OPERATOR, Duration: 30 day, Stop date: 10/03/16 10:19:00 CDT [facility] rojas Nitroglycerin 0.02 MG/MG Topical Ointment 2016-09-03 15:00:00 No 1 inch, Route: TOP, Drug Form: OINT, Dosing Weight 47.727, kg, TID, Start date: 09/03/16 9:00:00 CARBIDE OPERATOR, Duration: 30 day, Stop date: 10/02/16 17:00:00 CDT [facility] heparin 2016-09-03 15:00:00 No Notes: porci ne heparin [facility] Lasix 2016-09-03 15:00:00 No Notes: (Same as: Lasix) MEDICATION WASTE Product Size: 40 mg Product Wasted: ___ mg [facility] Hydralazine Hydrochloride 25 MG Oral Tablet 2016-09-03 15:00:00 No Notes: (Same as: Apresoline) May interfere w/enteral feedings Take With Food. [facility] 2016-09-03 15:00:00 No Notes: (Same as:One Tab Daily, Tab-A-[place] + Beta Carotene) Give with food. [facility] Synthroid 2016-09-03 12:30:00 No Notes: Take 1 hour before or 2 hours after meal; Enteral feeds may interefere with the absorption of this medication. (Same as:Synthroid, Levothroid) Nikki Bedolla potassium chloride 2016-09-03 10:11:00 No 10 mEq, Route: IVPB, ONCE, Dosing Weight 47.727, kg, Start date: 09/03/16 4:11:00 CARBIDE OPERATOR, Stop date: 09/03/16 4:11:00 CARBIDE OPERATOR Nikki Bedolla Nitroglycerin 2016-09-03 09:28:00 No Notes: (Same as:Tridil) Final conc = 0.4 mg/ml. Premix bottle. Azul Bedolla Aspirin 325 MG Oral Tablet 2016-09-03 09:20:00 No 325 mg, 1 tab, Route: PO, ONCE, Dosing Weight 47.727, kg, Start date: 09/03/16 3:20:00 CARBIDE OPERATOR, Stop date: 09/03/16 3:20:00 CARBIDE OPERATOR Nikki Bedolla potassium chloride 2016-09-03 08:37:00 No Notes: (Same as: KCL) Infuse no faster than 10 mEq/hr if given peripherally. Nikki Bedolla potassium chloride 2016-09-03 08:36:00 No Notes: (Same as: K-Dur 20) "Do Not Crush" With food and full glass of water Nikki Bedolla Ondansetron 2016-09-03 08:12:00 No Notes: (Same as: Zofran) MEDICATION WASTE Product Size: 4 mg Product Wasted: ___ mg Nikki Bedolla Morphine 2016-09-03 08:12:00 No Not es: (Same as:MORPhine Sulfate) Nikki Bedolla Docusate 2016-09-03 08:12:00 No Notes: (Same as: Colace) (Do Not Crush) [facility]ki Riveraann Acetaminophen 325 MG / Hydrocodone Bitartrate 5 MG Oral Tabl et 2016-09-03 08:12:00 No Notes: (Sa me as: [place] 325/5) Do not exceed 4gm/day of acetaminophen. Nikki Riveraann Nitroglycerin 0.02 MG/MG Topical Ointment 2016-09-03 07:21:00 No 1 inch, Route: TOP, Drug Form: OINT, Dosing Weight 47.727, kg, ONCE, Start date: 09/03/16 1:21:00 CARBIDE OPERATOR, Stop date: 09/03/16 1:21:00 CARBIDE OPERATOR Nikki Bedolla Nitroglycerin 2016-09-03 07:15:00 No 2 %, Route: TOP, Drug form: OINT, ONCE, Dosing Weight 62.005, kg, Start date: 09/03/16 1:15:00 CARBIDE OPERATOR, Stop date: 09/03/16 1:15:00 CARBIDE OPERATOR Nikki Rivera alen Zofran 2016-09-03 07:06:00 No 4 mg, Route: IVP, Drug form: INJ, ONCE, Dosing Weight 62.005, kg, Priority: STAT, Start date: 09/03/16 1:06:00 CARBIDE OPERATOR, Stop date: 09/03/16 1:06:00 CARBIDE OPERATOR Darby shelbytrev Graeme Nitroglycerin 0.4 MG Sublingual Tablet 2016-09-03 07:06:00 No Notes: (Same as:Nitroquick, Nitrostat) "Do Not Crush" Sublingual tablet Nikki Bedolla Albuterol 0.833 MG/ML / Ipratropium Brom ezequiel 0.167 MG/ML Inhalant Solution [DuoNeb] 2016-09-03 05:38:00 No Notes: (S karla as: Duoneb) Nikki Bedolla Albuterol 0.833 MG/ML / Ipratropium [place] 0.167 MG/ML Inha lant Solution 2016-09-03 05:28:00 No Notes: (Same as: D uoneb) Nikki Bedolla Lasix 2016-09-03 04:35:00 No Notes: (Same as: Lasix) MEDICATION WASTE Product Size: 40 mg Product Wasted: ___ mg Nikki Bedolla Saline Flush 0.9% 2016-09-03 04:33:00 No Notes: (Same as: BD Posiflush) Nikki Bedolla Hydralazine Hydrochloride 25 MG Oral Tablet 2016-09-03 04:28:00 Yes 25 mg = 1 tab, PO, BID, 0 Refill(s) Gamal rial Graeme Nephro-Kenyon Rx oral tablet 2016-09-03 04:28:00 Yes 1 tab, PO, Daily, 0 Refill(s) Nikki Bedolla Levothyroxine Sodium 0.075 MG Oral Tablet [Synthroid] 2016-09-03 04:28:00 Yes 75 microgram = 1 tab, PO, Q630AM, 0 Refi ll(s) Nikki Bedolla Furosemide 20 MG Oral Tablet 2016-09-03 04:27:00 Yes 40 mg = 2 tab, PO, Daily, 0 Refill(s) Nikki Bedolla Vital Signs Vital Name Observation Time Observation Value Comments Source Systolic blood pressure 2020-01-05 09:45:00 181 mm[Hg] [facility] Diastolic blood pressure 2020-01-05 09:45:00 78 mm[Hg] [facility] Heart rate 2020-01-05 09:45:00 89 /min [facility] Body temperature 2020-01-05 09:45:00 36.67 Alia [facility] Respiratory rate 2020-01-05 09:45:00 14 /min [facility] Body height 2020-01-05 09:45:00 144.8 cm [facility] Body weight Measured 2020-01-05 09:45:00 47.174 kg [facility] BMI 2020-01-05 09:45:00 22.51 kg/m2 [facility] Oxygen saturation in Arterial blood by Pulse oximetry 01-04 09:45:00 98 /min [facility] Hg) 2018-02-01 23:05:00 Gamal rial [place] Diastolic (mm Hg) 2018-02-01 23:05:00 Mem orial [place] Systolic (mm Hg) 2018-02-01 18:50:00 Gamal rial [place] Diastolic (mm Hg) 2018-02-01 18:50:00 Mem orial [facility] Systolic (mm Hg) 2018-02-01 18:49:00 Gamal rial [place] Diastolic (mm Hg) 2018-02-01 18:49:00 Mem o[facility] Temperature Oral (F) 2018-02-01 17:23:00 98.4 F [facility] Heart Rate 2018-02-01 17:23:00 [facility] [place] Respitory Rate 2018-02-01 17:23:00 [facility] Temperature Oral (F) 2018-02-01 13:00:00 97.4 F [facility] Heart Rate 2018-02-01 13:00:00 [facility] Respitory Rate 2018-02-01 13:00:00 [facility] [place] BMI Calculated 2018-02-01 11:33:00 [facility] Weight 2018-02-01 11:33:00 [facility] Height 2018-02-01 11:33:00 152.4 cm [facility] Temperature Oral (F) 2018-02-01 11:32:00 97.3 F [facility] Heart Rate 2018-02-01 11:32:00 [facility] [place] Respitory Rate 2018-02-01 11:32:00 [facility] [place] BMI Calculated 2018-02-01 06:59:00 [facility] [place] Weight 2018-02-01 06:59:00 [facility] [place] Height 2018-02-01 06:59:00 152.4 cm [facility] Heart Rate 2016-09-24 13:30:00 [facility] [place] Respitory Rate 2016-09-24 13:30:00 [facility] [place] Systolic (mm Hg) 2016-09-24 13:30:00 Gamal rial [place] Diastolic (mm Hg) 2016-09-24 13:30:00 Mem o[facility] Temperature Oral (F) 2016-09-24 13:30:00 98.8 F [facility] Respitory Rate 2016-09-24 13:10:00 [facility] [place] Respitory Rate 2016-09-24 02:59:00 [facility] [place] Temperature Oral (F) 2016-09-24 02:15:00 98.6 F [facility] [place] Heart Rate 2016-09-24 02:15:00 [facility] Systolic (mm Hg) 2016-09-24 02:15:00 Gamal rial [place] Diastolic (mm Hg) 2016-09-24 02:15:00 Mem orial [place] Systolic (mm Hg) 2016-09-23 20:00:00 Gamal rial [place] Temperature Oral (F) 2016-09-23 20:00:00 98.7 F [facility] [place] Heart Rate 2016-09-23 20:00:00 [facility] Diastolic (mm Hg) 2016-09-23 20:00:00 [facility] Height 2016-09-14 22:19:00 152.4 cm [facility] [place] Weight 2016-09-14 22:19:00 [facility] [place] BMI Calculated 2016-09-14 22:19:00 [facility] [place] Systolic (mm Hg) 2016-09-03 21:45:00 Gamal rial [place] Diastolic (mm Hg) 2016-09-03 21:45:00 Mem o[facility] Respitory Rate 2016-09-03 21:45:00 [facility] [place] Height 2016-09-03 21:45:00 152.4 cm [facility] [place] Systolic (mm Hg) 2016-09-03 21:30:00 Gamal rial [place] Diastolic (mm Hg) 2016-09-03 21:30:00 Mem orial [place] Respitory Rate 2016-09-03 21:30:00 [facility] [place] Systolic (mm Hg) 2016-09-03 21:15:00 Gamal rial [place] Diastolic (mm Hg) 2016-09-03 21:15:00 [facility] Respitory Rate 2016-09-03 21:15:00 [facility] Weight 2016-09-03 20:53:00 [facility] [place] Temperature Oral (F) 2016-09-03 12:02:00 98 F [facility] Weight 2016-09-03 07:15:00 [facility] Height 2016-09-03 07:15:00 152.4 cm [facility] [place] BMI Calculated 2016-09-03 07:15:00 [facility] Temperature Oral (F) 2016-09-03 07:03:00 98.2 F [facility] [place] Temperature Oral (F) 2016-09-03 04:22:00 98 F [facility] Heart Rate 2016-09-03 04:22:00 [facility] Heart Rate 2016-09-03 03:43:00 [facility] Procedures Procedure Date / Time Performed Performing Clinician [facility] e PET CT SKULL BASE TO MID THIGH 2020-01-28 11:44:18 Yancy Castellanos POC GLUCOSE 2020-01-28 10:23:00 Ronn Castellanosist ECG 12-LEAD 2020-01-05 10:36:07 Unknown, [facility] VEIN MAPPING ARM/ARMS 2019-12-29 13:24:00 Darin Ray [facility] US DUPLEX VENOUS LOWER EXTREMITY REFLUX BILATERAL 2019-10-01 15:16:00 Abdoulaye Diehl [facility] Bypass 2016-09-04 06:00:00 [facility] Plan of Care Planned Activity Planned Date Details Comments Source Future Scheduled Test 2020-04-21 00:00:00 INFLUENZA VACCINE [code = INFLUENZA VACCINE] [facility] Future Scheduled Test 2020-03-22 00:00:00 INFLUENZA VACCINE (#1) [code = INFLUENZA VACCINE (#1)] [facility] Future Scheduled Test 2008-02-21 00:00:00 MEDICARE ANNUAL WE LLNESS (YEAR 2 or FIRST YEAR if no IPPE) [code = MEDICARE ANNUAL WELLNESS (YEAR 2 or FIRST YEAR if no IPPE)] [facility] Future Scheduled Test 2007 00:00:00 65+ PNEUMOCOCCAL V ACCINE (1 of 2 - PCV13) [code = 65+ PNEUMOCOCCAL VACCINE (1 of 2 - PCV13)] [facility] Future Scheduled Test 2007 00:00:00 PNEUMOCOCCAL 65+ L OW/MEDIUM RISK (1 of 2 - PCV13) [code = PNEUMOCOCCAL 65+ LOW/MEDIUM RISK (1 of 2 - PCV13)] [facility] Future Scheduled Test 1992-02-29 00:00:00 SHINGLES VACCINES (#1) [code = SHINGLES VACCINES (#1)] Jh Wilsonist Encounters Start Date/Time End Date/Time Encounter Type Admission Type [facility] Facility Care Department Encounter ID Source 2020-01-28 00:00:00 2020-01-28 00:00:00 Outpatient JASMIN ALBE RTO [facility] [id number] Peñ[facility] 2019-10-01 00:00:00 2019-10-01 00:00:00 Outpatient ABDOULAYE DIEHL [facility] [id number] Peñaloza Y[facility]idism 2018-02-01 01:57:00 2018-02-01 20:15:00 [id number] 2016-09-14 14:30:00 2016-09-24 14:14:00 Outpatient Hank Thacker [facility] [id number] 2016-09-02 21:41:00 2016-09-03 18:44:00 Outpatient Katrina Long via [facility] [id number] Results Test Description Test Time Test Comments Results Result Comments Source PET/CT Skull Base To Mid Thigh 2020-01-28 13:51:20 Interface, Radiology Results 01/28/2020 1:54 PM CDTPROCEDURE: PET CT SKULL BASE TO MID THIGHINDICATION: Evaluate other nonspecific abnormal finding of lung [...] correction process. Automated dose exposure control was utilized.COMPARISON: No relevant comparison imaging.FINDINGS: Head and neck: No suspicious brain uptake. [...] lower lobe. Follow-up CT can be obtained. [id number] Jh Ortiz POC glucose 2020-01-28 10:33:58 Test Item POC glucose (test code = 28411-3) 101 mg/dL 65-99 H Lumber Inspector Name: Dany Andrews ID: [id number] Lab Interpretation (test code = 88089-8) Abnormal Jh OrtizECG 12 [id number] 12:39:00Interface, External Ris In 01/05/2020 12:39 PM CDTVentricular Rate 62 BPMAtrial Rate 64 BPMP-R Interval 220 msQRS Duration 108 msQ-T Interval 444 msQTC Calculation(Bazett) 450 msP [place] 136 degreesR [place] 74 degreesT [place] 243 degreesAtrial-paced rhythm with prolonged AV conductionIncomplete left bundle branch blockLeft ventricular hypertrophy with repolarization abnormalityAbnormal ECGWhen compared with ECG of 28-DEC-2017 15:43,Electronic atrial pacemaker has replaced Sinus rhythmVent. rate has decreased BY 30 BPMST depression and Inverted T waves have replaced nonspecific T wave abnormality in Inferior leadsConfirmed by MD STANLEY, LEORA ([id number]) on 01/05/2020 12:38:58 [facility]/jift6631-11-96 11:09:10Ejection FractionSLEH ECHO HEARTLAB MKCKESSON CPACSRight Impression1. There is no deep venous obstruction in the jugular, subclavian, axillary,brachial, radial or ulnar veins.2. There is no superficial venous obstruction in the cephalic or basilicveins.3. The subclavian, axillary and brachial arteries are patent with biphasicDoppler waveforms and the radial and ulnar arteries are calcified withmonophasic Doppler waveforms.Left Impression1. There is no deep venous obstruction in the jugular, subclavian, axillary,brachial, radial or ulnar veins.2. There is no superficial venous obstruction in the cephalic or basilicveins.3. The subclavian, axillary, brachial, radial and ulnar arteries arecalcified with biphasic Doppler waveforms throughout. Conclusions Summary [...] + + + + + + + !L ocation ! !AP Diam !Trans Diam ! !AP Diam !Trans D brandon ! + + + + -+ + + + !Cephalic at Prox UA ! !0.11 ! ! !0.16 ! ! + ------+ + + + +------ + + !Cephalic at Mid UA ! !0.08 ! ! !0.14 ! ! + + +- + + + -------+ + !Cephalic at Dist UA ! !0.15 ! ! !0.15 ! ! + + + + + + +-- + !Cephalic at Prox LA ! !0.21 ! ! +------ + + + + !Cephalic at Mid LA ! !0 .21 ! ! + + + + + !Cephalic at Dist LA ! !0.22 ! ! + + + + ------+ Basilic Mapping Right Left + + + + + + +---- + !Location ! !AP Diam !Trans Diam ! !AP Diam !Trans Diam ! +-------- + + + + + + + !Basilic at Prox UA ! !0.35 ! ! !0.25 ! ! + + + +--------- + + + + !Basilic at Mid UA ! !0.37 ! ! !0.27 ! ! + + + + + + + ----+ !Basilic at Dist UA ! !0.39 ! ! !0.26 ! ! + + + + ---------+ + + + !Bas ilic at Prox LA ! !0.23 ! ! !0.18 ! ! + + + + + + + + !Basilic at Mid LA ! !0.19 ! ! !0.13 ! ! + ----+ + + + +-------- + + !Basilic at Dist LA ! !0.17 ! ! !0.13 ! ! + + +--- + + + -----+ + Interface, External Ris In - 12/29 11:09 AM CDTPV LAB - Upper Extremities Vein Mapping Demographics Patient Name SARAH MAGANA Date of Study 12/29/2019 FELIPE A Age 79 Visit Number [id number] Gender Female Accession Number [id number] Date of 1940 Referring [facility] Physician MD [employer] Teacher Rosie Souza [facility] Physician JOSIAS Vázquez ProcedureType of Study: Veins: Upper Extremity Vein Mapping, VEIN MAPPING ARM/ARMS. Indications for Study:AV access placement .Patient Status:Routine.[facility] Location:Vascular Lab.Technical Quality:Adequate visualization.Risk FactorsH istory of Disease+ +- ---+--------+!Diagnosis !Date! Comments!+ +----+---- ----+!History/Risk Factors: ! !CAD, HTN !+ +----+--------+Imp ressionsRight Impression1. There is no deep venous obstruction in the jugular, s ubclavian, axillary,brachial, radial or ulnar veins.2. There is no superficial v enous obstruction in the cephalic or basilicveins.3. The subclavian, axillary an d brachial arteries are patent with biphasicDoppler waveforms and the radial and ulnar arteries are calcified withmonophasic Doppler waveforms.Left Impression1. There is no deep venous obstruction in the jugular, subclavian, axillary,brachi al, radial or ulnar veins.2. There is no superficial venous obstruction in the c ephalic or basilicveins.3. The subclavian, axillary, brachial, radial and ulnar arteries arecalcified with biphasic Doppler waveforms throughout. Conclusions S ummary Arterial duplex imaging, venous duplex imaging and compression of both u pper extremities was performed. All arteries and veins were adequately visualize d. The arteries were calcified bilaterally. The venous systems were patent and c ompressible with no evidence of thrombus bilaterally. Superficial venous measure ments are documented below. Signature Velocities are measured in cm/s ; Diameters are measured i n cmCephalic Mapping Right Left +- + + -------+ + + +------- + !Location ! !AP Diam !Trans Diam ! !AP Diam !Trans Diam ! + + + +-- + + + + !Cephalic at Prox UA ! !0.11 ! ! !0.16 ! ! + + + + + + + + !Cephalic at Mid UA ! !0 .08 ! ! !0.14 ! ! + + + + + + + -+ !Cephalic at Dist UA ! !0.15 ! ! !0.15 ! ! + + + + ------+ + + + !Cephal ic at Prox LA ! !0.21 ! ! + + +- + + !Cephalic at Mid LA ! !0.21 ! ! + + + + + !Cephalic at Dist LA ! !0.22 ! ! + + + --+ + Basilic Mapping Right Left + + + + ----+ + + + !Location ! !AP Diam !Trans Diam ! !AP Diam !Trans Diam ! + ---------+ + + + +--- + + !Basilic at Prox UA ! !0.35 ! ! !0.25 ! ! + + + + + + + + !Basilic at Mid UA ! !0.37 ! ! !0.27 ! ! + + +-------- + + + + + !Basilic at Dist UA ! !0.39 ! ! !0.26 ! ! +--- + + -----+ + + +--------- + !Basilic at Prox LA ! !0.23 ! ! !0.18 ! ! + + + +---- + + + + !Basilic at Mid LA ! !0.19 ! ! !0.13 ! ! + + + + + + + ---------+ !Basilic at Dist LA ! !0.1 7 ! ! !0.13 ! ! + + + + + + + + [facility] [id number] 17:47:000.04[facility] [id number] 17:47:0060[facility] ZgpjdctRPVVDCGBGB0314-70-23 17:47:00Negative *NA*(02/01/18 12:47 PM)[facility] [id number] 13:21:000.03[facility]annCARD[facility]AC PPYZDZL5904-96-81 13:21:0065[facility] [place] CHEM [id number] 13:21:008[facility] HermannCHEM [id number] 13:21:007.9 [facility]ann[facility] [id number] 13:21:0025[facility]annCHEM PANEL 2018-02-01 13:21:0015.9[facility] HermannCHEM [id number] 13:21:005.9[facility] HermannCHEM [id number] 13:21:08008Swvqxdjw HermannCHEM [id number] 13:21:004.84[facility] HermannCHEM [id number] 13:21:06098Phvgonai HermannCHEM LVIRT7389-79-40 13:21:39837Ohxqdjmi HermannCHEM [id number] 13:21:0043 [facility] [id number] 11:29:00* Test Item Value Reference Range Interpretation Comments UA pH (test code = UA pH) 8.5 1 5.0-8.0 [facility] [id number] 11:29:00* Test Item Value Reference Range Interpretation Comments UA Spec Grav (test code = UA Spec Grav) 1.009 1 [facility] [id number] 11:29:00Clear (02/01/18 6:29 AM) [facility] [id number] 11:29:00Yellow *NA*(02/01/18 6:29 AM) [facility] [id number] 11:29:00Negative (02/01/18 6:29 AM) [facility] [id number] 11:29:00Negative *NA*(02/01/18 6:29 AM) [facility] [id number] 11:29:00Negative (02/01/18 6:29 AM) [facility] [id number] 11:29:00Negative (02/01/18 6:29 AM) [facility] [id number] 11:29:001[facility] [id number] 11:29:001[facility] AND [id number] 11:29:001 [facility]annBLOOD BANK [id number] 07:13:00Positive 1(02/01/18 2:13 AM) [facility]annCARDIAC [id number] 07:13:000.04[facility]annCHEM PANEL 2018-02-01 07:13:00* Test Item Value Reference Range Interpretation Comments A/G Ratio (test code = A/G Ratio) 0.8 1 0.7-1.6 [facility]annCHEM [id number] 07:13:003.9[facility]annCHEM PANEL 2018-02-01 07:13:00* Test Item Value Reference Range Interpretation Comments B/C Ratio (test code = B/C Ratio) 9 1 6-25 [facility]annCHEM [id number] 07:13:0014.0[facility]annCHEM PANEL 2018-02-01 07:13:008[facility] HermannCHEM [id number] 07:13:66783Syttcmeh HermannCHEM PIOJM5660-71-07 07:13:000.4[facility] HermannCHEM [id number] 07:13:0015[facility] HermannCHEM [id number] 07:13:003.2[facility] HermannCHEM [id number] 07:13:0030[facility] HermannCHEM [id number] 07:13:007.1 [facility]annCHEM [id number] 07:13:007.9[facility] HermannCHEM PANEL 2018-02-01 07:13:33160Uinvizvw HermannCHEM [id number] 07:13:0026[facility] HermannCHEM [id number] 07:13:006.0[facility] HermannCHEM [id number] 07:13:89660Lnyrlxla HermannCHEM JCJVY5057-14-70 07:13:004.72[facility] HermannCHEM [id number] 07:13:0043[facility] HermannCHEM [id number] 07:13:0091 Memorial QpcgqkgOYLBYAMTYC1774-82-63 07:13:005.5[facility] HermannHEMATOLOGY 2018-02-01 07:13:009.4[facility]orial TzlqfkdOOCDAHQQNT5597-41-80 07:13:005.0[facility] VyrfmraSBKYVOJWJH0521-91-52 07:13:001.1[facility] SzkigbdEXHHWEDKNQ0459-70-53 07:13:000.8Memorial GbsiurgFAYKYVXFCM2470-47-09 07:13:001.4[facility] [place] CQCNKCHFHG6718-92-30 07:13:000.1[facility] DeziaymPSTEEWMNTC6804-50-25 07:13:000.4 [facility] NprdqqvPEYBBIPVQS4556-53-87 07:13:0016.9[facility] HermannHEMATOLOGY 2018-02-01 07:13:0067.6[facility] VjccpcaLJIAPQCUFK9185-92-51 07:13:00* Test Item Value Reference Range Interpretation Comments PTT (test code = PTT) 29.1 s 22.9-35.8 [facility] NxjmujrSKQVZHCEJD2581-83-07 07:13:00* Test Item Value Reference Range Interpretation Comments INR (test code = INR) 1.05 1 0.85-1.17 [facility] TkkvckvEHJTFPGICT0341-12-57 07:13:00* Test Item Value Reference Range Interpretation Comments PT (test code = PT) 13.7 s 12.0-14.7 [facility] LvfgdduOPSSFTGKSV5771-33-03 07:13:0011.2[facility]annHEMATOLOGY 2018-02-01 07:13:0095.4[facility] McvqzpvZJHIWQUZTM2309-91-22 07:13:0034.1[facility] RnhvnlzJVXINCERVK1861-37-42 07:13:0032.7[facility] TyksawbOGCPZMPEVP6232-03-60 07:13:00* Test Item Value Reference Range Interpretation Comments MCH (test code = MCH) 31.2 pg 27.0-31.0 [facility] GxxblhsHLVZHLHEPI0275-11-58 07:13:0016.9[facility] HermannHEMATOLOGY 2018-02-01 07:13:60009Dsnjhksq DrecsqfHQAPNUBZFF7932-85-35 07:13:009.6[facility] GepntyaLNLEYOGYIW6888-15-99 07:13:008.1[facility]orial BmaumqkCTQBFGKIZP6736-16-19 07:13:003.57[facility] HermannPOCT-GLUCOSE [id number] 08:27:00* Test Item Value Reference Range Interpretation Comments POC-GLUCOSE METER (BEAKER) (test code = 1538) 105 mg/dL 70-110 TESTED AT [address] [address] POCT-GLUCOSE [id number] 23:05:00* Test Item Value Reference Range Interpretation Comments POC-GLUCOSE METER (BEAKER) (test code = 1538) 135 mg/dL 70-110 H TESTED AT [address] [address] POCT-GLUCOSE [id number] 12:17:00* Test Item Value Reference Range Interpretation Comments POC-GLUCOSE METER (BEAKER) (test code = 1538) 92 mg/dL 70-110 TESTED AT [address] [address] POCT-GLUCOSE [id number] 08:01:00* Test Item Value Reference Range Interpretation Comments POC-GLUCOSE METER (BEAKER) (test code = 1538) 105 mg/dL 70-110 TESTED AT [address] [address] POCT-GLUCOSE [id number] 20:52:00* Test Item Value Reference Range Interpretation Comments POC-GLUCOSE METER (BEAKER) (test code = 1538) 155 mg/dL 70-110 H TESTED AT [address] [address] POCT-GLUCOSE [id number] 16:45:00* Test Item Value Reference Range Interpretation Comments POC-GLUCOSE METER (BEAKER) (test code = 1538) 147 mg/dL 70-110 H TESTED AT [address] [address] POCT-GLUCOSE [id number] 11:32:00* Test Item Value Reference Range Interpretation Comments POC-GLUCOSE METER (BEAKER) (test code = 1538) 105 mg/dL 70-110 TESTED AT [address] [address] POCT-GLUCOSE [id number] 07:40:00* Test Item Value Reference Range Interpretation Comments POC-GLUCOSE METER (BEAKER) (test code = 1538) 105 mg/dL 70-110 TESTED AT [address] [address] POCT-GLUCOSE [id number] 22:38:00* Test Item Value Reference Range Interpretation Comments POC-GLUCOSE METER (BEAKER) (test code = 1538) 168 mg/dL 70-110 H TESTED AT [address] [address] POCT-GLUCOSE [id number] 18:01:00* Test Item Value Reference Range Interpretation Comments POC-GLUCOSE METER (BEAKER) (test code = 1538) 103 mg/dL 70-110 TESTED AT [address] [address] POCT-GLUCOSE [id number] 11:57:00* Test Item Value Reference Range Interpretation Comments POC-GLUCOSE METER (BEAKER) (test code = 1538) 123 mg/dL 70-110 H TESTED AT [address] [address] POCT-GLUCOSE [id number] 07:52:00* Test Item Value Reference Range Interpretation Comments POC-GLUCOSE METER (BEAKER) (test code = 1538) 81 mg/dL 70-110 TESTED AT [facility] [facility] [address] [facility] [address] CBC W/PLT COUNT & AUTO [id number] 06:17:00* Test Item Value Reference Range Interpretation Comments WHITE BLOOD CELL COUNT (BEAKER) (test code = 775) 8.5 K/ L 3.5- 10.5 RED BLOOD CELL COUNT (BEAKER) (test code = 761) 2.56 M/ L 3.93-5 .22 L HEMOGLOBIN (BEAKER) (test code = 410) 7.7 GM/DL 11.2-15.7 L HEMATOCRIT (BEAKER) (test code = 411) 24.2 % 34.1-44.9 L MEAN CORPUSCULAR VOLUME (BEAKER) (test code = 753) 94.5 fL 79. 4-94.8 MEAN CORPUSCULAR HEMOGLOBIN (BEAKER) (test code = 751) 30.1 pg 25.6-32.2 MEAN CORPUSCULAR HEMOGLOBIN CONC (BEAKER) (test code = 752) 31.8 GM/DL 32.2-35.5 L RED CELL DISTRIBUTION WIDTH (BEAKER) (test code = 412) 13.2 % 11.7-14.4 PLATELET COUNT (BEAKER) (test code = 756) 191 K/CU MM 150-450 MEAN PLATELET VOLUME (BEAKER) (test code = 754) 11.6 fL 9.4-12 .3 NUCLEATED RED BLOOD CELLS (BEAKER) (test code = 413) 0 /100 WBC 0 -0 NEUTROPHILS RELATIVE PERCENT (BEAKER) (test code = 429) 84 % LYMPHOCYTES RELATIVE PERCENT (BEAKER) (test code = 430) 7 % MONOCYTES RELATIVE PERCENT (BEAKER) (test code = 431) 6 % EOSINOPHILS RELATIVE PERCENT (BEAKER) (test code = 432) 2 % BASOPHILS RELATIVE PERCENT (BEAKER) (test code = 437) 0 % NEUTROPHILS ABSOLUTE COUNT (BEAKER) (test code = 670) 7.11 K/ L 1.56-6.13 H LYMPHOCYTES ABSOLUTE COUNT (BEAKER) (test code = 414) 0.61 K/ L 1.18-3.74 L MONOCYTES ABSOLUTE COUNT (BEAKER) (test code = 415) 0.52 K/ L 0. 24-0.36 H EOSINOPHILS ABSOLUTE COUNT (BEAKER) (test code = 416) 0.17 K/ L 0.04-0.36 BASOPHILS ABSOLUTE COUNT (BEAKER) (test code = 417) 0.02 K/ L 0. 01-0.08 IMMATURE GRANULOCYTES-RELATIVE PERCENT (BEAKER) (test code = 2801) 1 % 0-1 [id number] 06:15:00* Test Item Value Reference Range Interpretation Comments MAGNESIUM (BEAKER) (test code = 627) 1.8 mg/dL 1.6-2.6 BASIC METABOLIC [id number] 06:15:00* Test Item Value Reference Range Interpretation Comments SODIUM (BEAKER) (test code = 381) 143 meq/L 136-145 POTASSIUM (BEAKER) (test code = 379) 3.9 meq/L 3.5-5.1 CHLORIDE (BEAKER) (test code = 382) 108 meq/L 98-107 H CO2 (BEAKER) (test code = 355) 21 meq/L 22-29 L BLOOD UREA NITROGEN (BEAKER) (test code = 354) 47 mg/dL 7-21 H CREATININE (BEAKER) (test code = 358) 4.05 mg/dL 0.57-1.25 H GLUCOSE RANDOM (BEAKER) (test code = 652) 65 mg/dL 70-105 L CALCIUM (BEAKER) (test code = 697) 7.4 mg/dL 8.4-10.2 L EGFR (BEAKER) (test code = 1092) 11 mL/min/1.73 sq m ESTIMATED GFR IS NOT ACCURATE CREATININE CLEARANCE IN PREDICTING GLOMERULAR FILTRATION RATE. ESTIMATED GFR IS NOT APPLICABLE FOR DIALYSIS PATIENTS. POCT-GLUCOSE [id number] 22:36:00* Test Item Value Reference Range Interpretation Comments POC-GLUCOSE METER (BEAKER) (test code = 1538) 152 mg/dL 70-110 H TESTED AT [facility] [address] [place] [place] [address] POCT-GLUCOSE [id number] 17:42:00* Test Item Value Reference Range Interpretation Comments POC-GLUCOSE METER (BEAKER) (test code = 1538) 139 mg/dL 70-110 H TESTED AT [facility] [address] [place] [address] ANG, TUNNELED CATHETER [id number] 17:04:00Reason for exam:->needs HD today please.FINAL REPORT Tunneled dialysis catheter insertion. History: Renal failure. Modality: Sonography and fluoroscopy. Sedation: Moderate sedation was administered. 0.5 mg of Versed and 25 mcg of fentanyl IV was used for moderate sedation monitored under my direction. Total intra-service time of sedation was 30 minutes. The patient's vital signs were monitored throughout the procedure and recorded in the patient's medical record by the nurse. Bat Person: Haley Torres Grocery Specialist: MD Louie (Fellow). Approach: Right internal jugular vein Estimated blood loss: < 5 cc. Specimen: None. Fluoroscopy Time: 0.5 min. Reference Air Kerma (Ka, r): 3.5 mGy. Technique: Informed written consent was obtained. Discussion of risks, benefits, and alternatives were made with the patient. The patient expressed understanding and agreed to proceed. All elements maximal sterile barrier technique was utilized for this procedure, including utilization of sterile scrub solution for skin prep, a large sterile sheet to cover the areas of the patient that were not prepped, and hand hygiene, mask, head covering, and sterile gown for performing radiologist and scrub technologist. The skin was anesthetized with 2% lidocaine.Ultrasound evaluation showed a patent and compressible right internal jugular vein, which was punctured under direct real-time ultrasound guidance with a micropuncture needle. An ultrasound image was saved to PACS. A 0.018 inch wire was placed through the needle into the right atrium. A [address] And a 0.035 wire was advanced into the IVC. A subcutaneous tunnel was created in the right anterior chest wall by blunt dissection. A 19 cm tip to cuff 15.5 Austrian Duraflow 2 catheter was brought through the tunnel. The vessel tract was serially dilated over a J-wire. A peel-away sheath was placed in the right IJ vein and the catheter was advanced through the sheath, with its distal tip terminating in the right atrium. The peel-away sheath was removed. The ports were flushed and aspirated easily following placement. The catheter was sutured to the skin to secure its placement. The small jugular incision site was closed using resorbable suture. Vital signs were monitored throughout the procedure by a nurse, and remained stable. The patient tolerated the procedure well and left the department in the same condition. The patient was given 1 gram of Ancef intravenously during the procedure. Results: Spot radiograph of the chest demonstrates the new dialysis catheter to lie in the expected position with its tip overlying the superior right atrium. Impression: Successful, uncomplicated placement of a right internal jugular tunneled dialysis catheter using sonographic and fluoroscopic guidance and conscious sedation. Signed: Oscar Torres MDRepor t Verified Date/Time: 12/31/2017 17:04:03 Reading Location: [address] Reading Room Electronically signed by: OSCAR TORRES MD on 8 05:04 PM POCT-GLUCOSE [id number] 12:35:00* Test Item Value Reference Range Interpretation Comments POC-GLUCOSE METER (BEAKER) (test code = 1538) 119 mg/dL 70-110 H TESTED AT [facility] [address] [facility] [address] HEPATITIS B SURFACE [id number] 11:00:00* Test Item Value Reference Range Interpretation Comments HEPATITIS B SURFACE ANTIBODY (BEAKER) (test code = 647) < mIU/mL <8.0 HEPATITIS B SURFACE [id number] 10:53:00* Test Item Value Reference Range Interpretation Comments HEPATITIS B SURFACE ANTIGEN (2) (BEAKER) (test code = 2585) Nonreactive Nonreactive HEPATITIS B CORE ANTIBODY, [id number] 10:53:00* Test Item Value Reference Range Interpretation Comments HEPATITIS B CORE TOTAL ANTIBODY (BEAKER) (test code = 497) N onreactive Nonreactive POCT-GLUCOSE [id number] 07:58:00* Test Item Value Reference Range Interpretation Comments POC-GLUCOSE METER (BEAKER) (test code = 1538) 101 mg/dL 70-110 TESTED AT [facility] [address] [facility] [address] BASIC METABOLIC [id number] 05:32:00* Test Item Value Reference Range Interpretation Comments SODIUM (BEAKER) (test code = 381) 141 meq/L 136-145 POTASSIUM (BEAKER) (test code = 379) 3.6 meq/L 3.5-5.1 CHLORIDE (BEAKER) (test code = 382) 108 meq/L 98-107 H CO2 (BEAKER) (test code = 355) 23 meq/L 22-29 BLOOD UREA NITROGEN (BEAKER) (test code = 354) 100 mg/dL 7-21 H CREATININE (BEAKER) (test code = 358) 6.62 mg/dL 0.57-1.25 H GLUCOSE RANDOM (BEAKER) (test code = 652) 90 mg/dL 70-105 CALCIUM (BEAKER) (test code = 697) 6.4 mg/dL 8.4-10.2 L EGFR (BEAKER) (test code = 1092) 6 mL/min/1.73 sq m ESTIMATED GFR IS NOT ACCURATE CREATININE CLEARANCE IN PREDICTING GLOMERULAR FILTRATION RATE. ESTIMATED GFR IS NOT APPLICABLE FOR DIALYSIS PATIENTS. [id number] 05:29:00* Test Item Value Reference Range Interpretation Comments MAGNESIUM (BEAKER) (test code = 627) 2.0 mg/dL 1.6-2.6 B-TYPE NATRIURETIC FACTOR (BNP)2017-12-31 05:25:00* Test Item Value Reference Range Interpretation Comments B-TYPE NATRIURETIC PEPTIDE (BEAKER) (test code = 700) 2867 pg/mL 0-100 H CBC (HEMOGRAM ONLY)2017-12-31 05:22:00* Test Item Value Reference Range Interpretation Comments WHITE BLOOD CELL COUNT (BEAKER) (test code = 775) 6.3 K/ L 3.5- 10.5 RED BLOOD CELL COUNT (BEAKER) (test code = 761) 2.34 M/ L 3.93-5 .22 L HEMOGLOBIN (BEAKER) (test code = 410) 7.2 GM/DL 11.2-15.7 L HEMATOCRIT (BEAKER) (test code = 411) 22.2 % 34.1-44.9 L MEAN CORPUSCULAR VOLUME (BEAKER) (test code = 753) 94.9 fL 79. 4-94.8 H MEAN CORPUSCULAR HEMOGLOBIN (BEAKER) (test code = 751) 30.8 pg 25.6-32.2 MEAN CORPUSCULAR HEMOGLOBIN CONC (BEAKER) (test code = 752) 32.4 GM/DL 32.2-35.5 RED CELL DISTRIBUTION WIDTH (BEAKER) (test code = 412) 13.1 % 11.7-14.4 PLATELET COUNT (BEAKER) (test code = 756) 187 K/CU MM 150-450 MEAN PLATELET VOLUME (BEAKER) (test code = 754) 11.6 fL 9.4-12 .3 NUCLEATED RED BLOOD CELLS (BEAKER) (test code = 413) 0 /100 WBC 0 -0 POCT-GLUCOSE [id number] 22:36:00* Test Item Value Reference Range Interpretation Comments POC-GLUCOSE METER (BEAKER) (test code = 1538) 159 mg/dL 70-110 H TESTED AT [facility] [address] [facility] [address] BASIC METABOLIC [id number] 17:04:00* Test Item Value Reference Range Interpretation Comments SODIUM (BEAKER) (test code = 381) 140 meq/L 136-145 POTASSIUM (BEAKER) (test code = 379) 4.1 meq/L 3.5-5.1 CHLORIDE (BEAKER) (test code = 382) 106 meq/L 98-107 CO2 (BEAKER) (test code = 355) 20 meq/L 22-29 L BLOOD UREA NITROGEN (BEAKER) (test code = 354) 95 mg/dL 7-21 H CREATININE (BEAKER) (test code = 358) 6.48 mg/dL 0.57-1.25 H GLUCOSE RANDOM (BEAKER) (test code = 652) 146 mg/dL 70-105 H CALCIUM (BEAKER) (test code = 697) 6.9 mg/dL 8.4-10.2 L EGFR (BEAKER) (test code = 1092) 6 mL/min/1.73 sq m ESTIMATED GFR IS NOT ACCURATE CREATININE CLEARANCE IN PREDICTING GLOMERULAR FILTRATION RATE. ESTIMATED GFR IS NOT APPLICABLE FOR DIALYSIS PATIENTS. T4, [id number] 11:58:00* Test Item Value Reference Range Interpretation Comments FREE T4 (BEAKER) (test code = 655) 0.81 ng/dL 0.70-1.48 IRON, TIBC, % SAT. (WITHOUT FERRITIN)2017-12-30 08:53:00* Test Item Value Reference Range Interpretation Comments IRON (BEAKER) (test code = 547) 32 ug/dL 40-160 L TOTAL IRON BINDING CAPACITY (BEAKER) (test code = 769) 154 ug/dL 250-450 L IRON % SATURATION (2) (BEAKER) (test code = 2590) 21 % 20-5 5 HEMOGLOBIN [id number] 07:50:00* Test Item Value Reference Range Interpretation Comments HEMOGLOBIN A1C (BEAKER) (test code = 368) 4.8 % 4.3-6.1 POCT-GLUCOSE [id number] 07:40:00* Test Item Value Reference Range Interpretation Comments POC-GLUCOSE METER (BEAKER) (test code = 1538) 120 mg/dL 70-110 H TESTED AT [facility] [address] [facility] [address] TSH/FREE T4 IF [id number] 04:53:00* Test Item Value Reference Range Interpretation Comments THYROID STIMULATING HORMONE (BEAKER) (test code = 772) 29.27 uIU/mL 0.35-4.94 H [id number] 04:36:00* Test Item Value Reference Range Interpretation Comments FERRITIN (BEAKER) (test code = 361) 507 ng/mL 5-275 H VITAMIN B12 AND [id number] 04:36:00* Test Item Value Reference Range Interpretation Comments VITAMIN B12 (BEAKER) (test code = 774) 193 pg/mL 213-816 L FOLATE (BEAKER) (test code = 362) 14.8 ng/mL >=7.0 B-TYPE NATRIURETIC FACTOR (BNP)2017-12-30 03:51:00* Test Item Value Reference Range Interpretation Comments B-TYPE NATRIURETIC PEPTIDE (BEAKER) (test code = 700) 2749 pg/mL 0-100 H PTH, [id number] 03:50:00* Test Item Value Reference Range Interpretation Comments PARATHYROID HORMONE INTACT (BEAKER) (test code = 577) 605.0 pg/mL 8.5-72.5 H BASIC METABOLIC [id number] 03:49:00* Test Item Value Reference Range Interpretation Comments SODIUM (BEAKER) (test code = 381) 142 meq/L 136-145 POTASSIUM (BEAKER) (test code = 379) 3.8 meq/L 3.5-5.1 CHLORIDE (BEAKER) (test code = 382) 108 meq/L 98-107 H CO2 (BEAKER) (test code = 355) 21 meq/L 22-29 L BLOOD UREA NITROGEN (BEAKER) (test code = 354) 94 mg/dL 7-21 H CREATININE (BEAKER) (test code = 358) 6.47 mg/dL 0.57-1.25 H GLUCOSE RANDOM (BEAKER) (test code = 652) 89 mg/dL 70-105 CALCIUM (BEAKER) (test code = 697) 6.6 mg/dL 8.4-10.2 L EGFR (BEAKER) (test code = 1092) 6 mL/min/1.73 sq m ESTIMATED GFR IS NOT ACCURATE CREATININE CLEARANCE IN PREDICTING GLOMERULAR FILTRATION RATE. ESTIMATED GFR IS NOT APPLICABLE FOR DIALYSIS PATIENTS. [id number] 03:44:00* Test Item Value Reference Range Interpretation Comments PHOSPHORUS (BEAKER) (test code = 604) 5.7 mg/dL 2.3-4.7 H [id number] 03:44:00* Test Item Value Reference Range Interpretation Comments MAGNESIUM (BEAKER) (test code = 627) 2.0 mg/dL 1.6-2.6 CBC (HEMOGRAM ONLY)2017-12-30 03:31:00* Test Item Value Reference Range Interpretation Comments WHITE BLOOD CELL COUNT (BEAKER) (test code = 775) 7.7 K/ L 3.5- 10.5 RED BLOOD CELL COUNT (BEAKER) (test code = 761) 2.60 M/ L 3.93-5 .22 L HEMOGLOBIN (BEAKER) (test code = 410) 7.9 GM/DL 11.2-15.7 L HEMATOCRIT (BEAKER) (test code = 411) 24.2 % 34.1-44.9 L MEAN CORPUSCULAR VOLUME (BEAKER) (test code = 753) 93.1 fL 79. 4-94.8 MEAN CORPUSCULAR HEMOGLOBIN (BEAKER) (test code = 751) 30.4 pg 25.6-32.2 MEAN CORPUSCULAR HEMOGLOBIN CONC (BEAKER) (test code = 752) 32.6 GM/DL 32.2-35.5 RED CELL DISTRIBUTION WIDTH (BEAKER) (test code = 412) 13.0 % 11.7-14.4 PLATELET COUNT (BEAKER) (test code = 756) 196 K/CU MM 150-450 MEAN PLATELET VOLUME (BEAKER) (test code = 754) 11.3 fL 9.4-12 .3 NUCLEATED RED BLOOD CELLS (BEAKER) (test code = 413) 0 /100 WBC 0 -0 POCT-GLUCOSE [id number] 23:30:00* Test Item Value Reference Range Interpretation Comments POC-GLUCOSE METER (BEAKER) (test code = 1538) 172 mg/dL 70-110 H TESTED AT [facility] [address] [facility] [address] POCT-GLUCOSE [id number] 17:48:00* Test Item Value Reference Range Interpretation Comments POC-GLUCOSE METER (BEAKER) (test code = 1538) 143 mg/dL 70-110 H TESTED AT [facility] [address] [facility] [address] PROTEIN, RANDOM [id number] 17:42:00* Test Item Value Reference Range Interpretation Comments PROTEIN, URINE (BEAKER) (test code = 1569) 246 mg/dL 0-14 H CREATININE, RANDOM [id number] 17:14:00* Test Item Value Reference Range Interpretation Comments CREATININE URINE (BEAKER) (test code = 375) 26.4 mg/dL Reference Range: No NormalsB-TYPE NATRIURETIC FACTOR (BNP)2017-12-29 05:22:00* Test Item Value Reference Range Interpretation Comments B-TYPE NATRIURETIC PEPTIDE (BEAKER) (test code = 700) 7175 pg/mL 0-100 H BASIC METABOLIC [id number] 05:09:00* Test Item Value Reference Range Interpretation Comments SODIUM (BEAKER) (test code = 381) 143 meq/L 136-145 POTASSIUM (BEAKER) (test code = 379) 4.0 meq/L 3.5-5.1 CHLORIDE (BEAKER) (test code = 382) 110 meq/L 98-107 H CO2 (BEAKER) (test code = 355) 21 meq/L 22-29 L BLOOD UREA NITROGEN (BEAKER) (test code = 354) 91 mg/dL 7-21 H CREATININE (BEAKER) (test code = 358) 6.21 mg/dL 0.57-1.25 H GLUCOSE RANDOM (BEAKER) (test code = 652) 97 mg/dL 70-105 CALCIUM (BEAKER) (test code = 697) 7.2 mg/dL 8.4-10.2 L EGFR (BEAKER) (test code = 1092) 7 mL/min/1.73 sq m ESTIMATED GFR IS NOT ACCURATE CREATININE CLEARANCE IN PREDICTING GLOMERULAR FILTRATION RATE. ESTIMATED GFR IS NOT APPLICABLE FOR DIALYSIS PATIENTS. TROPONIN [id number] 05:06:00* Test Item Value Reference Range Interpretation Comments TROPONIN I (BEAKER) (test code = 397) 0.09 ng/mL 0.00-0.03 H Troponin I (TnI) levels must be interpreted in the context of the presenting sym ptoms and the clinical findings. Elevated TnI levels indicate myocardial damage, but are not specific for ischemic heart disease. Elevated TnI levels are seen in patients with other cardiac conditions (including myocarditis and congestive h eart failure), and slight TnI elevations occur in patients with other conditions , including sepsis, renal failure, acidosis, acute neurological disease, and per sistent tachyarrhythmia.[id number] 05:03:00* Test Item Value Reference Range Interpretation Comments MAGNESIUM (BEAKER) (test code = 627) 2.2 mg/dL 1.6-2.6 CBC (HEMOGRAM ONLY)2017-12-29 04:38:00* Test Item Value Reference Range Interpretation Comments WHITE BLOOD CELL COUNT (BEAKER) (test code = 775) 7.2 K/ L 3.5- 10.5 RED BLOOD CELL COUNT (BEAKER) (test code = 761) 2.78 M/ L 3.93-5 .22 L HEMOGLOBIN (BEAKER) (test code = 410) 8.6 GM/DL 11.2-15.7 L HEMATOCRIT (BEAKER) (test code = 411) 26.0 % 34.1-44.9 L MEAN CORPUSCULAR VOLUME (BEAKER) (test code = 753) 93.5 fL 79. 4-94.8 MEAN CORPUSCULAR HEMOGLOBIN (BEAKER) (test code = 751) 30.9 pg 25.6-32.2 MEAN CORPUSCULAR HEMOGLOBIN CONC (BEAKER) (test code = 752) 33.1 GM/DL 32.2-35.5 RED CELL DISTRIBUTION WIDTH (BEAKER) (test code = 412) 13.2 % 11.7-14.4 PLATELET COUNT (BEAKER) (test code = 756) 195 K/CU MM 150-450 MEAN PLATELET VOLUME (BEAKER) (test code = 754) 11.4 fL 9.4-12 .3 NUCLEATED RED BLOOD CELLS (BEAKER) (test code = 413) 0 /100 WBC 0 -0 URINALYSIS WITH MICROSCOPIC IF [id number] 17:27:00* Test Item Value Reference Range Interpretation Comments COLOR (BEAKER) (test code = 470) Yellow CLARITY (BEAKER) (test code = 469) Hazy SPECIFIC GRAVITY UA (BEAKER) (test code = 468) 1.014 1.001-1 .035 PH UA (BEAKER) (test code = 467) 6.5 5.0-8.0 PROTEIN UA (BEAKER) (test code = 464) 600 mg/dL Negative A GLUCOSE UA (BEAKER) (test code = 365) 150 mg/dL Negative A KETONES UA (BEAKER) (test code = 371) Negative Negative BILIRUBIN UA (BEAKER) (test code = 462) Negative Negative BLOOD UA (BEAKER) (test code = 461) Small Negative A NITRITE UA (BEAKER) (test code = 465) Negative Negative LEUKOCYTE ESTERASE UA (BEAKER) (test code = 466) Negative Negat inder UROBILINOGEN UA (BEAKER) (test code = 463) 0.2 mg/dL 0.2-1.0 SOURCE(BEAKER) (test code = 2795) URINALYSIS [id number] 17:27:00* Test Item Value Reference Range Interpretation Comments RBC UA (BEAKER) (test code = 519) < /HPF WBC UA (BEAKER) (test code = 520) 9 /HPF MUCUS (BEAKER) (test code = 1574) Rare SQUAMOUS EPITHELIAL (BEAKER) (test code = 516) 6 /HPF B-TYPE NATRIURETIC FACTOR (BNP)2017-12-28 16:43:00* Test Item Value Reference Range Interpretation Comments B-TYPE NATRIURETIC PEPTIDE (BEAKER) (test code = 700) 96118 pg/mL 0-100 H TROPONIN [id number] 16:22:00* Test Item Value Reference Range Interpretation Comments TROPONIN I (BEAKER) (test code = 397) 0.06 ng/mL 0.00-0.03 H Troponin I (TnI) levels must be interpreted in the context of the presenting sym ptoms and the clinical findings. Elevated TnI levels indicate myocardial damage, but are not specific for ischemic heart disease. Elevated TnI levels are seen in patients with other cardiac conditions (including myocarditis and congestive h eart failure), and slight TnI elevations occur in patients with other conditions , including sepsis, renal failure, acidosis, acute neurological disease, and per sistent tachyarrhythmia.PT/[id number] 16:17:00* Test Item Value Reference Range Interpretation Comments PROTIME (BEAKER) (test code = 759) 14.7 seconds 11.7-14.7 INR (BEAKER) (test code = 370) 1.2 <=5.9 PARTIAL THROMBOPLASTIN TIME (BEAKER) (test code = 760) 32.3 seconds 22.5-36.0 RECOMMENDED COUMADIN/WARFARIN INR THERAPY RANGESSTANDARD DOSE: 2.0 - 3.0 Inclu axel: PROPHYLAXIS for venous thrombosis, systemic embolization; TREATMENT for christiano ous thrombosis and/or pulmonary embolus.HIGH RISK: Target INR is 2.5-3.5 for pat ients with mechanical heart valves.COMPREHENSIVE METABOLIC [id number] 16:16:00* Test Item Value Reference Range Interpretation Comments TOTAL PROTEIN (BEAKER) (test code = 770) 6.7 gm/dL 6.0-8.3 ALBUMIN (BEAKER) (test code = 1145) 3.2 g/dL 3.5-5.0 L ALKALINE PHOSPHATASE (BEAKER) (test code = 346) 112 U/L 40-150 BILIRUBIN TOTAL (BEAKER) (test code = 377) 0.5 mg/dL 0.2-1.2 SODIUM (BEAKER) (test code = 381) 140 meq/L 136-145 POTASSIUM (BEAKER) (test code = 379) 4.3 meq/L 3.5-5.1 CHLORIDE (BEAKER) (test code = 382) 107 meq/L 98-107 CO2 (BEAKER) (test code = 355) 22 meq/L 22-29 BLOOD UREA NITROGEN (BEAKER) (test code = 354) 89 mg/dL 7-21 H CREATININE (BEAKER) (test code = 358) 6.25 mg/dL 0.57-1.25 H GLUCOSE RANDOM (BEAKER) (test code = 652) 150 mg/dL 70-105 H CALCIUM (BEAKER) (test code = 697) 7.3 mg/dL 8.4-10.2 L AST (SGOT) (BEAKER) (test code = 353) 25 U/L 5-34 ALT (SGPT) (BEAKER) (test code = 347) 10 U/L 6-55 EGFR (BEAKER) (test code = 1092) 7 mL/min/1.73 sq m ESTIMATED GFR IS NOT ACCURATE CREATININE CLEARANCE IN PREDICTING GLOMERULAR FILTRATION RATE. ESTIMATED GFR IS NOT APPLICABLE FOR DIALYSIS PATIENTS. [id number] 16:15:00* Test Item Value Reference Range Interpretation Comments MAGNESIUM (BEAKER) (test code = 627) 2.3 mg/dL 1.6-2.6 [id number] 16:15:00* Test Item Value Reference Range Interpretation Comments LIPASE (BEAKER) (test code = 749) 57 U/L 8-78 CBC W/PLT COUNT & AUTO [id number] 15:57:00* Test Item Value Reference Range Interpretation Comments WHITE BLOOD CELL COUNT (BEAKER) (test code = 775) 8.8 K/ L 3.5- 10.5 RED BLOOD CELL COUNT (BEAKER) (test code = 761) 3.08 M/ L 3.93-5 .22 L HEMOGLOBIN (BEAKER) (test code = 410) 9.4 GM/DL 11.2-15.7 L HEMATOCRIT (BEAKER) (test code = 411) 28.8 % 34.1-44.9 L MEAN CORPUSCULAR VOLUME (BEAKER) (test code = 753) 93.5 fL 79. 4-94.8 MEAN CORPUSCULAR HEMOGLOBIN (BEAKER) (test code = 751) 30.5 pg 25.6-32.2 MEAN CORPUSCULAR HEMOGLOBIN CONC (BEAKER) (test code = 752) 32.6 GM/DL 32.2-35.5 RED CELL DISTRIBUTION WIDTH (BEAKER) (test code = 412) 13.2 % 11.7-14.4 PLATELET COUNT (BEAKER) (test code = 756) 218 K/CU MM 150-450 MEAN PLATELET VOLUME (BEAKER) (test code = 754) 11.8 fL 9.4-12 .3 NUCLEATED RED BLOOD CELLS (BEAKER) (test code = 413) 0 /100 WBC 0 -0 NEUTROPHILS RELATIVE PERCENT (BEAKER) (test code = 429) 81 % LYMPHOCYTES RELATIVE PERCENT (BEAKER) (test code = 430) 9 % MONOCYTES RELATIVE PERCENT (BEAKER) (test code = 431) 6 % EOSINOPHILS RELATIVE PERCENT (BEAKER) (test code = 432) 3 % BASOPHILS RELATIVE PERCENT (BEAKER) (test code = 437) 0 % NEUTROPHILS ABSOLUTE COUNT (BEAKER) (test code = 670) 7.13 K/ L 1.56-6.13 H LYMPHOCYTES ABSOLUTE COUNT (BEAKER) (test code = 414) 0.75 K/ L 1.18-3.74 L MONOCYTES ABSOLUTE COUNT (BEAKER) (test code = 415) 0.56 K/ L 0. 24-0.36 H EOSINOPHILS ABSOLUTE COUNT (BEAKER) (test code = 416) 0.25 K/ L 0.04-0.36 BASOPHILS ABSOLUTE COUNT (BEAKER) (test code = 417) 0.03 K/ L 0. 01-0.08 IMMATURE GRANULOCYTES-RELATIVE PERCENT (BEAKER) (test code = 2801) 1 % 0-1 RAD, CHEST, 1 VIEW, NON [id number] 15:39:00Reason for exam:->chest painShould this be performed at the bedside?->YesFINAL REPORT AP chest HISTORY: Chest pain COMPARISON: 10/09/2017 IMPRESSION:Moderate- large left effusion. Mild interstitial edema. Heart size grossly normal. No pneumothorax. Signed: Ana Barker MDReport Verified Date/Time: 12/28/2017 15:39:31 Reading Location: [address] Ortho Consult Reading Room B- TYPE NATRIURETIC FACTOR (BNP)2017-10-29 17:20:00* Test Item Value Reference Range Interpretation Comments B-TYPE NATRIURETIC PEPTIDE (BEAKER) (test code = 700) 2719 pg/mL 0-100 H BASIC METABOLIC [id number] 16:06:00* Test Item Value Reference Range Interpretation Comments SODIUM (BEAKER) (test code = 381) 139 meq/L 136-145 POTASSIUM (BEAKER) (test code = 379) 4.4 meq/L 3.5-5.1 CHLORIDE (BEAKER) (test code = 382) 108 meq/L 98-107 H CO2 (BEAKER) (test code = 355) 22 meq/L 22-29 BLOOD UREA NITROGEN (BEAKER) (test code = 354) 73 mg/dL 7-21 H CREATININE (BEAKER) (test code = 358) 4.09 mg/dL 0.57-1.25 H GLUCOSE RANDOM (BEAKER) (test code = 652) 116 mg/dL 70-105 H CALCIUM (BEAKER) (test code = 697) 7.7 mg/dL 8.4-10.2 L EGFR (BEAKER) (test code = 1092) 11 mL/min/1.73 sq m ESTIMATED GFR IS NOT ACCURATE CREATININE CLEARANCE IN PREDICTING GLOMERULAR FILTRATION RATE. ESTIMATED GFR IS NOT APPLICABLE FOR DIALYSIS PATIENTS. [id number] 16:05:00* Test Item Value Reference Range Interpretation Comments MAGNESIUM (BEAKER) (test code = 627) 2.3 mg/dL 1.6-2.6 RAD, CHEST, 1 VIEW, NON [id number] 08:10:00Reason for exam:->s/p PPMShould this be performed at the bedside?->YesFINAL REPORT Chest one view AP 10/09/2017 8:10 AM CLINICAL INDICATION: s/p PPM COMPARISON: 12/24/2016 IMPRESSION: No pneumothorax is evident. Support hardware is in satisfactory radiographic position. There are trace bilateral pleural effusions. There is atelectasis in the left lung base. Cardiomediastinal contours are within normal limits. The central pulmonary vasculature is not engorged. Signed: Luis Angel Quispe Verified Date/Time: 10/09/2017 08:10:47 Reading Location: [facility] Radiology Reading Room C METABOLIC [id number] 09:14:00* Test Item Value Reference Range Interpretation Comments SODIUM (BEAKER) (test code = 381) 138 meq/L 136-145 POTASSIUM (BEAKER) (test code = 379) 4.1 meq/L 3.5-5.1 CHLORIDE (BEAKER) (test code = 382) 104 meq/L 98-107 CO2 (BEAKER) (test code = 355) 22 meq/L 22-29 BLOOD UREA NITROGEN (BEAKER) (test code = 354) 68 mg/dL 7-21 H CREATININE (BEAKER) (test code = 358) 4.27 mg/dL 0.57-1.25 H GLUCOSE RANDOM (BEAKER) (test code = 652) 121 mg/dL 70-105 H CALCIUM (BEAKER) (test code = 697) 8.0 mg/dL 8.4-10.2 L EGFR (BEAKER) (test code = 1092) 10 mL/min/1.73 sq m ESTIMATED GFR IS NOT ACCURATE CREATININE CLEARANCE IN PREDICTING GLOMERULAR FILTRATION RATE. ESTIMATED GFR IS NOT APPLICABLE FOR DIALYSIS PATIENTS. [id number] 09:10:00* Test Item Value Reference Range Interpretation Comments MAGNESIUM (BEAKER) (test code = 627) 2.4 mg/dL 1.6-2.6 PROTHROMBIN TIME/[id number] 09:04:00* Test Item Value Reference Range Interpretation Comments PROTIME (BEAKER) (test code = 759) 14.8 seconds 11.7-14.7 H INR (BEAKER) (test code = 370) 1.2 <=5.9 RECOMMENDED COUMADIN/WARFARIN INR THERAPY RANGESSTANDARD DOSE: 2.0 - 3.0 Inclu axel: PROPHYLAXIS for venous thrombosis, systemic embolization; TREATMENT for christiano ous thrombosis and/or pulmonary embolus.HIGH RISK: Target INR is 2.5-3.5 for pat ients with mechanical heart valves.Within 24 hours, if on CoumadinCBC W/PLT COUNT & AUTO [id number] 08:51:00* Test Item Value Reference Range Interpretation Comments WHITE BLOOD CELL COUNT (BEAKER) (test code = 775) 7.0 K/ L 3.5- 10.5 RED BLOOD CELL COUNT (BEAKER) (test code = 761) 3.19 M/ L 3.93-5 .22 L HEMOGLOBIN (BEAKER) (test code = 410) 9.6 GM/DL 11.2-15.7 L HEMATOCRIT (BEAKER) (test code = 411) 29.3 % 34.1-44.9 L MEAN CORPUSCULAR VOLUME (BEAKER) (test code = 753) 91.8 fL 79. 4-94.8 MEAN CORPUSCULAR HEMOGLOBIN (BEAKER) (test code = 751) 30.1 pg 25.6-32.2 MEAN CORPUSCULAR HEMOGLOBIN CONC (BEAKER) (test code = 752) 32.8 GM/DL 32.2-35.5 RED CELL DISTRIBUTION WIDTH (BEAKER) (test code = 412) 13.1 % 11.7-14.4 PLATELET COUNT (BEAKER) (test code = 756) 208 K/CU MM 150-450 MEAN PLATELET VOLUME (BEAKER) (test code = 754) 10.0 fL 9.4-12 .3 NUCLEATED RED BLOOD CELLS (BEAKER) (test code = 413) 0 /100 WBC 0 -0 NEUTROPHILS RELATIVE PERCENT (BEAKER) (test code = 429) 71 % LYMPHOCYTES RELATIVE PERCENT (BEAKER) (test code = 430) 16 % MONOCYTES RELATIVE PERCENT (BEAKER) (test code = 431) 8 % EOSINOPHILS RELATIVE PERCENT (BEAKER) (test code = 432) 4 % BASOPHILS RELATIVE PERCENT (BEAKER) (test code = 437) 0 % NEUTROPHILS ABSOLUTE COUNT (BEAKER) (test code = 670) 5.00 K/ L 1.56-6.13 LYMPHOCYTES ABSOLUTE COUNT (BEAKER) (test code = 414) 1.11 K/ L 1.18-3.74 L MONOCYTES ABSOLUTE COUNT (BEAKER) (test code = 415) 0.59 K/ L 0. 24-0.36 H EOSINOPHILS ABSOLUTE COUNT (BEAKER) (test code = 416) 0.25 K/ L 0.04-0.36 BASOPHILS ABSOLUTE COUNT (BEAKER) (test code = 417) 0.03 K/ L 0. 01-0.08 IMMATURE GRANULOCYTES-RELATIVE PERCENT (BEAKER) (test code = 2801) 0 % 0-1 PROTHROMBIN TIME/[id number] 22:53:00* Test Item Value Reference Range Interpretation Comments PROTIME (BEAKER) (test code = 759) 15.7 seconds 11.7-14.7 H INR (BEAKER) (test code = 370) 1.3 <=5.9 RECOMMENDED COUMADIN/WARFARIN INR THERAPY RANGESSTANDARD DOSE: 2.0 - 3.0 Inclu axel: PROPHYLAXIS for venous thrombosis, systemic embolization; TREATMENT for christiano ous thrombosis and/or pulmonary embolus.HIGH RISK: Target INR is 2.5-3.5 for pat ients with mechanical heart valves.[id number] 22:53:00* Test Item Value Reference Range Interpretation Comments PARTIAL THROMBOPLASTIN TIME (BEAKER) (test code = 760) 31.3 seconds 22.5-36.0 BASIC METABOLIC [id number] 21:47:00* Test Item Value Reference Range Interpretation Comments SODIUM (BEAKER) (test code = 381) 135 meq/L 136-145 L POTASSIUM (BEAKER) (test code = 379) 4.3 meq/L 3.5-5.1 CHLORIDE (BEAKER) (test code = 382) 108 meq/L 98-107 H CO2 (BEAKER) (test code = 355) 15 meq/L 22-29 L BLOOD UREA NITROGEN (BEAKER) (test code = 354) 71 mg/dL 7-21 H CREATININE (BEAKER) (test code = 358) 2.61 mg/dL 0.57-1.25 H GLUCOSE RANDOM (BEAKER) (test code = 652) 91 mg/dL 70-105 CALCIUM (BEAKER) (test code = 697) 8.3 mg/dL 8.4-10.2 L EGFR (BEAKER) (test code = 1092) 18 mL/min/1.73 sq m ESTIMATED GFR IS NOT ACCURATE CREATININE CLEARANCE IN PREDICTING GLOMERULAR FILTRATION RATE. ESTIMATED GFR IS NOT APPLICABLE FOR DIALYSIS PATIENTS. CBC W/PLT COUNT & AUTO [id number] 21:43:00* Test Item Value Reference Range Interpretation Comments WHITE BLOOD CELL COUNT (BEAKER) (test code = 775) 6.6 K/ L 4.0- 10.0 RED BLOOD CELL COUNT (BEAKER) (test code = 761) 3.30 M/ L 4.00-5 .00 L HEMOGLOBIN (BEAKER) (test code = 410) 10.5 GM/DL 12.0-15.0 L HEMATOCRIT (BEAKER) (test code = 411) 31.4 % 36.0-45.0 L MEAN CORPUSCULAR VOLUME (BEAKER) (test code = 753) 95.1 fL 82. 0-99.0 MEAN CORPUSCULAR HEMOGLOBIN (BEAKER) (test code = 751) 31.7 pg 27.0-33.0 MEAN CORPUSCULAR HEMOGLOBIN CONC (BEAKER) (test code = 752) 33.3 GM/DL 32.0-36.0 RED CELL DISTRIBUTION WIDTH (BEAKER) (test code = 412) 15.7 % 10.3-14.2 H PLATELET COUNT (BEAKER) (test code = 756) 133 K/CU MM 150-430 L MEAN PLATELET VOLUME (BEAKER) (test code = 754) 9.7 fL 6.5-10 .5 NUCLEATED RED BLOOD CELLS (BEAKER) (test code = 413) 0 /100 WBC 0 -0 NEUTROPHILS RELATIVE PERCENT (BEAKER) (test code = 429) 55 % LYMPHOCYTES RELATIVE PERCENT (BEAKER) (test code = 430) 29 % MONOCYTES RELATIVE PERCENT (BEAKER) (test code = 431) 9 % EOSINOPHILS RELATIVE PERCENT (BEAKER) (test code = 432) 6 % BASOPHILS RELATIVE PERCENT (BEAKER) (test code = 437) 1 % NEUTROPHILS ABSOLUTE COUNT (BEAKER) (test code = 670) 3.60 K/ L 1.80-8.00 LYMPHOCYTES ABSOLUTE COUNT (BEAKER) (test code = 414) 1.90 K/ L 1.48-4.50 MONOCYTES ABSOLUTE COUNT (BEAKER) (test code = 415) 0.61 K/ L 0. 00-1.30 EOSINOPHILS ABSOLUTE COUNT (BEAKER) (test code = 416) 0.42 K/ L 0.00-0.50 BASOPHILS ABSOLUTE COUNT (BEAKER) (test code = 417) 0.05 K/ L 0. 00-0.20 0.00PT/[id number] 02:38:00* Test Item Value Reference Range Interpretation Comments PROTIME (BEAKER) (test code = 759) 14.0 seconds 11.7-14.7 INR (BEAKER) (test code = 370) 1.1 <=5.9 PARTIAL THROMBOPLASTIN TIME (BEAKER) (test code = 760) 35.1 seconds 22.5-36.0 RECOMMENDED COUMADIN/WARFARIN INR THERAPY RANGESSTANDARD DOSE: 2.0 - 3.0 Inclu axel: PROPHYLAXIS for venous thrombosis, systemic embolization; TREATMENT for christiano ous thrombosis and/or pulmonary embolus.HIGH RISK: Target INR is 2.5-3.5 for pat ients with mechanical heart valves.[id number] 02:32:00* Test Item Value Reference Range Interpretation Comments MAGNESIUM (BEAKER) (test code = 627) 2.6 mg/dL 1.6-2.6 Specimen moderately hemolyzed BASIC METABOLIC [id number] 02:32:00* Test Item Value Reference Range Interpretation Comments SODIUM (BEAKER) (test code = 381) 139 meq/L 136-145 POTASSIUM (BEAKER) (test code = 379) 4.5 meq/L 3.5-5.1 Specimen moderately hemolyzed CHLORIDE (BEAKER) (test code = 382) 106 meq/L 98-107 CO2 (BEAKER) (test code = 355) 20 meq/L 22-29 L BLOOD UREA NITROGEN (BEAKER) (test code = 354) 63 mg/dL 7-21 H CREATININE (BEAKER) (test code = 358) 2.59 mg/dL 0.57-1.25 H Specimen moderately hemolyzed GLUCOSE RANDOM (BEAKER) (test code = 652) 122 mg/dL 70-105 H CALCIUM (BEAKER) (test code = 697) 8.2 mg/dL 8.4-10.2 L EGFR (BEAKER) (test code = 1092) mL/min/1.73 sq m INSUFFICIENT CLINICAL DATA TO CALCULATE ESTIMATED GFR. B-TYPE NATRIURETIC FACTOR (BNP)2016-12-24 02:19:00* Test Item Value Reference Range Interpretation Comments B-TYPE NATRIURETIC PEPTIDE (BEAKER) (test code = 700) 4514 pg/mL 0-100 H CREATINE KINASE (CK), TOTAL AND [id number] 02:18:00* Test Item Value Reference Range Interpretation Comments CREATINE KINASE TOTAL (BEAKER) (test code = 380) 98 U/L 29-20 0 CREATINE KINASE-MB (BEAKER) (test code = 750) 5.8 ng/mL 0.0-6.6 CREATINE KINASE-MB INDEX (BEAKER) (test code = 395) 5.9 % Effective 06/08/2014: CK-MB Reference Range ChangeNew: 0.0-6.6 Previous: 0.0- 4.9CK-MB Reference Range:<6.7 Normal6.7-10.0 Borderline>10.0 Abnormal TROPONIN [id number] 02:18:00* Test Item Value Reference Range Interpretation Comments TROPONIN I (BEAKER) (test code = 397) 0.15 ng/mL 0.00-0.03 H Effective 06/08/2014: Reference Range ChangeNew: 0.00-0.03 Previous 0.00-0.15T roponin I (TnI) levels must be interpreted in the context of the presenting symp toms and the clinical findings. Elevated TnI levels indicate myocardial damage, but are not specific for ischemic heart disease. Elevated TnI levels are seen in patients with other cardiac conditions (including myocarditis and congestive he art failure), and slight TnI elevations occur in patients with other conditions, including sepsis, renal failure, acidosis, acute neurological disease, and pers istent tachyarrhythmia.CBC W/PLT COUNT & AUTO [id number] 01:57:00* Test Item Value Reference Range Interpretation Comments WHITE BLOOD CELL COUNT (BEAKER) (test code = 775) 9.6 K/ L 4.0- 10.0 RED BLOOD CELL COUNT (BEAKER) (test code = 761) 3.91 M/ L 4.00-5 .00 L HEMOGLOBIN (BEAKER) (test code = 410) 11.5 GM/DL 12.0-15.0 L HEMATOCRIT (BEAKER) (test code = 411) 36.5 % 36.0-45.0 MEAN CORPUSCULAR VOLUME (BEAKER) (test code = 753) 93.4 fL 82. 0-99.0 MEAN CORPUSCULAR HEMOGLOBIN (BEAKER) (test code = 751) 29.4 pg 27.0-33.0 MEAN CORPUSCULAR HEMOGLOBIN CONC (BEAKER) (test code = 752) 31.5 GM/DL 32.0-36.0 L RED CELL DISTRIBUTION WIDTH (BEAKER) (test code = 412) 16.4 % 10.3-14.2 H PLATELET COUNT (BEAKER) (test code = 756) 148 K/CU MM 150-430 L MEAN PLATELET VOLUME (BEAKER) (test code = 754) 9.5 fL 6.5-10 .5 NUCLEATED RED BLOOD CELLS (BEAKER) (test code = 413) 0 /100 WBC 0 -0 NEUTROPHILS RELATIVE PERCENT (BEAKER) (test code = 429) 76 % LYMPHOCYTES RELATIVE PERCENT (BEAKER) (test code = 430) 14 % MONOCYTES RELATIVE PERCENT (BEAKER) (test code = 431) 8 % EOSINOPHILS RELATIVE PERCENT (BEAKER) (test code = 432) 2 % BASOPHILS RELATIVE PERCENT (BEAKER) (test code = 437) 0 % NEUTROPHILS ABSOLUTE COUNT (BEAKER) (test code = 670) 7.30 K/ L 1.80-8.00 LYMPHOCYTES ABSOLUTE COUNT (BEAKER) (test code = 414) 1.31 K/ L 1.48-4.50 L MONOCYTES ABSOLUTE COUNT (BEAKER) (test code = 415) 0.79 K/ L 0. 00-1.30 EOSINOPHILS ABSOLUTE COUNT (BEAKER) (test code = 416) 0.21 K/ L 0.00-0.50 BASOPHILS ABSOLUTE COUNT (BEAKER) (test code = 417) 0.03 K/ L 0. 00-0.20 0.00URINE [id number] 13:34:009[facility] [id number] 13:34:00 200[facility] NKMF8989-47-86 13:34:0060[facility] CHEM 2016-09-24 13:34:68519Fidnekgn [facility] BMFF7286-71-59 13:34:001.41[facility] NOZT3977-63-10 13:34:19135.00[facility] GgajurmMDCOJEFGVOUY2585-60-84 16:58:0016.4[facility] ZamogwvCQUWKBSBJJBX2648-21-77 16:58:007.7[facility] MFIYXFMQMOZW5497-00-07 16:58:0011[facility] UhuutlmASJKRPCBGQBE6999-70-02 16:58:00 95[facility] CtobqctOBISUEMQIESX2469-01-85 16:58:004.4[facility]annELECTROLYTES 2016-09-22 16:58:0050[facility] XnileqpLNADYGCZTPCU8283-07-63 16:58:0025[facility] KjmofvuCLODGISOPMIQ1933-42-10 16:58:56923Gbnmxyxv AuuvgcaJJFIIGKELMJN3099-10-00 16:58:003.70[facility] NbzctnnRZPGOMXNWCAZ6469-74-07 16:58:26085Kmvaaivy [facility] CRRVVVJJBE7600-99-26 16:58:0076.9[facility] GyrslzoKLLIQYSCIT9479-19-18 16:58:00 10.6[facility] JhfcbhqEEMRTAUXNO8422-59-66 16:58:009.8[facility]annHEMATOLOGY 2016-09-22 16:58:001.9[facility] EphzqsgJRDATFLXIV4931-14-11 16:58:000.8[facility] RsmhsmvMSEBABUTWX9186-50-43 16:58:008.8[facility] TjzwqepJVTUQMKQEF8291-66-41 16:58:001.2[facility] QivytctWRVXIURABK6198-74-22 16:58:000.2[facility] [place] RBEJPYYRBI2132-63-61 16:58:001.1[facility] MfohpraYFMOJVXBOE9783-37-17 16:58:000.1 [facility] MevodnrFVUDUYQQQO7923-01-09 16:58:0033.3[facility]annHEMATOLOGY 2016-09-22 16:58:008.8[facility] FsrnqslLWEYUYRPIJ8717-38-32 16:58:48081Miuwkpod YuxlzhjZQVOTTATJK7786-06-46 16:58:0017.1[facility] BsrfeijRRFHSVJILL6434-79-99 16:58:0086.4[facility] PuchxsrIUZLRLESGN0911-97-30 16:58:00* Test Item Value Reference Range Interpretation Comments MCH (test code = MCH) 28.8 pg 27.0-31.0 [facility] DmooipcLTVRUCREDA7348-68-60 16:58:003.54[facility]annHEMATOLOGY 2016-09-22 16:58:0011.4[facility] XovjnibBGVXUSSZXF9154-21-33 16:58:0030.6[facility] DjcwjepBHISWAQDDC5251-49-98 16:58:0010.2[facility] QtjufwjGMTYSUBFXD3362-97-63 11:33:150.1[facility] RskdteqWSMRYWSVFI4679-24-21 11:33:151.5[facility] XFNIBBXZYC2780-23-13 11:33:151.5[facility] LamonomQVMHNVRVKD8339-46-43 11:33:150.2 [facility] ThjdrapXCESQMJZUO8841-47-23 11:33:150.6[facility]annHEMATOLOGY 2016-09-21 11:33:159.3[facility] NqkbfwbLAOFLKOOWL0479-42-09 11:33:1573.7[facility] FqezlpjXBOSPDKTCU4866-95-34 11:33:1512.2[facility] ZgywypnVQOKDWBFVS3669-87-19 11:33:1512.1[facility] JlxgjskBTGCKMYFGR5632-61-32 11:33:151.4[facility] ELCWNHIIDR8260-23-82 11:33:25681Zgqolilj QqfzkesSWIHQLVTVJ1912-54-86 11:33:159.2 [facility] HhvqsveWWLZGUAXGF1868-58-60 11:33:1516.4[facility]annHEMATOLOGY 2016-09-21 11:33:1533.2[facility] QsdpjiiPTLKBTQVBG6524-18-93 11:33:15* Test Item Value Reference Range Interpretation Comments MCH (test code = MCH) 28.4 pg 27.0-31.0 [facility] PmmwkbnDVPFZGLWFT9577-58-87 11:33:1528.9[facility]annHEMATOLOGY 2016-09-21 11:33:1585.7[facility] SqmrkjzMLIVNLMTOK0208-31-45 11:33:153.38[facility] JtanqwaEKHPUFGRFK1668-00-84 11:33:159.6[facility] MlpfdfwROFNMLEWDL5299-72-02 11:33:1512.6[facility] MocdmlvGBZGZDTNMCOP9744-72-76 10:30:0014.6[facility] [place] KZBCIZFRVWNM2680-54-02 10:30:83376Bmspjyys IemcxilIDPXOISIHOIA3720-15-30 10:30:003.6[facility] PmgssgsXGRRQJHJZUPZ5115-99-75 10:30:0027[facility] OXURQOLOFORN8114-51-91 10:30:0038[facility] IbqofztPMQNOQWPZLHL7826-05-96 10:30:00 3.30[facility] ZbpjrxkPUJQKLKVBWIZ1283-47-75 10:30:46380Iiskdvwy [facility] OZJQJYGBFPEE3990-90-98 10:30:007.2[facility] JyyfkvjFMAKJOGIKBOG6612-24-43 10:30:0013[facility] ImtnkbxWAOUETHRCCBI9221-84-93 10:30:18665Jqokkvhz [place] DMISXAEUQU9635-74-99 10:30:000.2[facility] NignjxvFHUXGLVHRZ5696-56-09 10:30:009.3 [facility] YaqzqusURHLZRECGU8181-14-52 10:30:0011.8[facility]annHEMATOLOGY 2016-09-20 10:30:001.7[facility] RmgpeszWGIQBAOOBL0587-64-68 10:30:001.1[facility] SdkwvtgFCHEJPMDPZ3591-58-16 10:30:0076.9[facility] BtklxuoYUAAGUNEYD1975-43-28 10:30:001.4[facility] ZgzlegjUJMHVWAAZG0999-44-20 10:30:000.3[facility] ASASEBOYKT4538-87-70 10:30:009.1[facility] IcqoocwERUXJEZHRW8708-08-60 10:30:009.1 [facility] GaqgocuEOXEHBDQLI9269-56-05 10:30:009.2[facility]annHEMATOLOGY 2016-09-20 10:30:0011.8[facility] SyhnaxmHGFFXOQNDY7164-15-83 10:30:80117Nihqswsh MxierltVCLXELEKCP3824-06-29 10:30:0016.3[facility] PovwaqiCNYNQSSCKM6341-26-67 10:30:003.24[facility] RswgdkkCIIMPIHWIP1070-37-62 10:30:0027.9[facility] CVTMFXEKDW7243-44-59 10:30:0086.1[facility] SpqzdwkASZASJOMGB1138-16-34 10:30:00* Test Item Value Reference Range Interpretation Comments MCH (test code = MCH) 28.6 pg 27.0-31.0 [facility] TsovsioIMACOYKWZI8127-38-86 10:30:0033.2[facility] HermannIMMUNOLOGY 2016-09-18 13:11:00<3.1[facility] HermannCHEM LSKLU5198-13-77 13:10:003.2[facility] HermannCHEM WEQYG2892-32-44 13:10:002.0[facility]annCHEM GCPFT1093-86-44 13:10:002.2[facility] MohvrqdIYXOCVUSSWJQ5951-01-33 13:10:0016.8[facility] MRKKKQYWHHEE5306-02-53 13:10:0013[facility] BlrtjxuZFTLRONFRZNL1915-06-21 13:10:00 38[facility] JjydtztSQLZFWSGRFWQ9262-71-90 13:10:0095[facility]annELECTROLYTES 2016-09-18 13:10:0025[facility] JmfdmwpTXXAGEEQOZWT3215-10-63 13:10:0098[facility] AytxpnnCZBZZTIETFRW5723-35-96 13:10:007.3[facility] WpltumdCQXBDITBTYSL5075-39-65 13:10:34807Jstuapya LtixizqOMLWNPFNPTRK5837-13-88 13:10:003.8[facility] [place] REQEFUDOLLGQ1712-76-58 13:10:003.30[facility] EssadhxXPZUKOGKBG4062-76-48 13:10:00 0.1[facility] FiqlsziNPJLNFNYQD2650-06-84 13:10:35535.0[facility] AND MDWHT3772-77-03 00:15:004[facility] ERZUR3498-88-85 00:15:008 [facility] XDARC9731-58-85 00:15:00Negative (09/17/16 6:15 PM) [facility] HVMRR2201-04-90 00:15:00Negative (09/17/16 6:15 PM) [facility] DVUBQ9328-93-11 00:15:001[facility] AND RHDDU3424-03-87 00:15:00Negative (09/17/16 6:15 PM)[facility] PZFYA2981-10-27 00:15:00Negative *NA*(09/17/16 6:15 PM)[facility] FXYOU4212-54-51 00:15:00Slight *ABN*(09/17/16 6:15 PM)[facility] AND QHLHK3337-52-91 00:15:001.013[facility] AND WWJCY8672-52-63 00:15:00 5.0[facility] HermannCARDIAC DRBNUKQ4244-90-88 10:38:41>5000[facility] HermannCHEM PKLZT2345-84-67 14:30:002.3[facility] HermannCHEM BRIXD9952-08-25 14:30:002.9 [facility]annCHEM TIABC4573-73-02 14:30:006.7[facility] HermannIMMUNOLOGY 2016-09-15 14:30:00Negative *NA*(09/15/16 8:30 AM)[facility] HermannIMMUNOLOGY 2016-09-15 14:30:0014.4[facility]annSPECIAL KAXSKPTIM2031-89-24 14:30:005.5 [facility] ANXUTAC7795-82-97 17:44:00* Test Item Value Reference Range Interpretation Comments CULTURE (BEAKER) (test code = 1095) KLEBSIELLA PNEUMONIAE A >100,000 col/mL Klebsiella pneumoniae Amikacin (test code = 1) S Ampicillin + Sulbactam (test code = 6) S Aztreonam (test code = 32) S Cefepime (test code = 51) S Cefoxitin (test code = 68) S Ceftazidime (test code = 27) S Ceftriaxone (test code = 52) S Ertapenem (test code = 38) S Gentamicin (test code = 18) S Levofloxacin (test code = 22) S Meropenem (test code = 34) S Nitrofurantoin (test code = 23) R Piperacillin + Tazobactam (test code = 29) S Tetracycline (test code = 2) S Tobramycin (test code = 25) S Trimethoprim + Sulfamethoxazole (test code = 47) S POCT-GLUCOSE WKRXD1446-13-10 11:57:00* Test Item Value Reference Range Interpretation Comments POC-GLUCOSE METER (BEAKER) (test code = 1538) 281 mg/dL 70-110 H TESTED AT [facility] [address] [facility] [address] BASIC METABOLIC QHUKJ5049-61-12 08:18:00* Test Item Value Reference Range Interpretation Comments SODIUM (BEAKER) (test code = 381) 134 meq/L 136-145 L POTASSIUM (BEAKER) (test code = 379) 4.3 meq/L 3.5-5.1 CHLORIDE (BEAKER) (test code = 382) 100 meq/L 98-107 CO2 (BEAKER) (test code = 355) 24 meq/L 22-29 BLOOD UREA NITROGEN (BEAKER) (test code = 354) 31 mg/dL 7-21 H CREATININE (BEAKER) (test code = 358) 2.75 mg/dL 0.57-1.25 H GLUCOSE RANDOM (BEAKER) (test code = 652) 97 mg/dL 70-105 CALCIUM (BEAKER) (test code = 697) 7.7 mg/dL 8.4-10.2 L EGFR (BEAKER) (test code = 1092) mL/min/1.73 sq m INSUFFICIENT CLINICAL DATA TO CALCULATE ESTIMATED GFR. CBC W/PLT COUNT & AUTO VHWXGFJATWOM6078-23-94 07:41:00* Test Item Value Reference Range Interpretation Comments WHITE BLOOD CELL COUNT (BEAKER) (test code = 775) 14.5 K/ L 4.0- 10.0 H RED BLOOD CELL COUNT (BEAKER) (test code = 761) 3.57 M/ L 4.00-5 .00 L HEMOGLOBIN (BEAKER) (test code = 410) 10.6 GM/DL 12.0-15.0 L HEMATOCRIT (BEAKER) (test code = 411) 32.4 % 36.0-45.0 L MEAN CORPUSCULAR VOLUME (BEAKER) (test code = 753) 90.9 fL 82. 0-99.0 MEAN CORPUSCULAR HEMOGLOBIN (BEAKER) (test code = 751) 29.7 pg 27.0-33.0 MEAN CORPUSCULAR HEMOGLOBIN CONC (BEAKER) (test code = 752) 32.7 GM/DL 32.0-36.0 RED CELL DISTRIBUTION WIDTH (BEAKER) (test code = 412) 13.8 % 10.3-14.2 PLATELET COUNT (BEAKER) (test code = 756) 247 K/CU MM 150-430 MEAN PLATELET VOLUME (BEAKER) (test code = 754) 8.8 fL 6.5-10 .5 NUCLEATED RED BLOOD CELLS (BEAKER) (test code = 413) 0 /100 WBC 0 -0 NEUTROPHILS RELATIVE PERCENT (BEAKER) (test code = 429) 77 % LYMPHOCYTES RELATIVE PERCENT (BEAKER) (test code = 430) 10 % MONOCYTES RELATIVE PERCENT (BEAKER) (test code = 431) 10 % EOSINOPHILS RELATIVE PERCENT (BEAKER) (test code = 432) 3 % BASOPHILS RELATIVE PERCENT (BEAKER) (test code = 437) 0 % NEUTROPHILS ABSOLUTE COUNT (BEAKER) (test code = 670) 11.20 K/ L 1.80-8.00 H LYMPHOCYTES ABSOLUTE COUNT (BEAKER) (test code = 414) 1.38 K/ L 1.48-4.50 L MONOCYTES ABSOLUTE COUNT (BEAKER) (test code = 415) 1.47 K/ L 0. 00-1.30 H EOSINOPHILS ABSOLUTE COUNT (BEAKER) (test code = 416) 0.38 K/ L 0.00-0.50 BASOPHILS ABSOLUTE COUNT (BEAKER) (test code = 417) 0.06 K/ L 0. 00-0.20 0.00POCT-GLUCOSE [id number] 07:39:00* Test Item Value Reference Range Interpretation Comments POC-GLUCOSE METER (BEAKER) (test code = 1538) 103 mg/dL 70-110 TESTED AT [address] [address] POCT-GLUCOSE [id number] 20:50:00* Test Item Value Reference Range Interpretation Comments POC-GLUCOSE METER (BEAKER) (test code = 1538) 217 mg/dL 70-110 H TESTED AT [address] [address] POCT-GLUCOSE [id number] 17:35:00* Test Item Value Reference Range Interpretation Comments POC-GLUCOSE METER (BEAKER) (test code = 1538) 123 mg/dL 70-110 H TESTED AT [address] [address] POCT-GLUCOSE [id number] 13:04:00* Test Item Value Reference Range Interpretation Comments POC-GLUCOSE METER (BEAKER) (test code = 1538) 199 mg/dL 70-110 H TESTED AT [address] [address] PLATELET AGGREGATION: FUNCTION [id number] 11:19:00* Test Item Value Reference Range Interpretation Comments WEAK ADP RESULT(BEAKER) (test code = 2135) 65 % 60-91 PLATELET FUNCTION SCREEN INTERP (BEAKER) (test code = 2173) 60-100% indicates normal platelet function [id number] (BEAKER) (test code = 2622) Kamila Zuniga MD (electronic signature) PLATELET COUNT AGG (BEAKER) (test code = 2656) 194 K/CU MM 150-430 Platelet Function Screen results may be falsely low with platelet counts< 100,000/cu mm.POCT-GLUCOSE [id number] 09:34:00* Test Item Value Reference Range Interpretation Comments POC-GLUCOSE METER (BEAKER) (test code = 1538) 101 mg/dL 70-110 TESTED AT [facility] [address] [facility] [address] PT/[id number] 09:12:00* Test Item Value Reference Range Interpretation Comments PROTIME (BEAKER) (test code = 759) 14.9 seconds 11.7-14.7 H INR (BEAKER) (test code = 370) 1.2 <=5.9 PARTIAL THROMBOPLASTIN TIME (BEAKER) (test code = 760) 32.2 seconds 22.5-36.0 RECOMMENDED COUMADIN/WARFARIN INR THERAPY RANGESSTANDARD DOSE: 2.0 - 3.0 Inclu axel: PROPHYLAXIS for venous thrombosis, systemic embolization; TREATMENT for christiano ous thrombosis and/or pulmonary embolus.HIGH RISK: Target INR is 2.5-3.5 for pat ients with mechanical heart valves.CBC W/PLT COUNT & AUTO [id number] 07:53:00* Test Item Value Reference Range Interpretation Comments WHITE BLOOD CELL COUNT (BEAKER) (test code = 775) 13.6 K/ L 4.0- 10.0 H RED BLOOD CELL COUNT (BEAKER) (test code = 761) 3.83 M/ L 4.00-5 .00 L HEMOGLOBIN (BEAKER) (test code = 410) 10.9 GM/DL 12.0-15.0 L HEMATOCRIT (BEAKER) (test code = 411) 35.0 % 36.0-45.0 L MEAN CORPUSCULAR VOLUME (BEAKER) (test code = 753) 91.3 fL 82. 0-99.0 MEAN CORPUSCULAR HEMOGLOBIN (BEAKER) (test code = 751) 28.4 pg 27.0-33.0 MEAN CORPUSCULAR HEMOGLOBIN CONC (BEAKER) (test code = 752) 31.1 GM/DL 32.0-36.0 L RED CELL DISTRIBUTION WIDTH (BEAKER) (test code = 412) 13.3 % 10.3-14.2 PLATELET COUNT (BEAKER) (test code = 756) 194 K/CU MM 150-430 MEAN PLATELET VOLUME (BEAKER) (test code = 754) 9.2 fL 6.5-10 .5 NUCLEATED RED BLOOD CELLS (BEAKER) (test code = 413) 0 /100 WBC 0 -0 NEUTROPHILS RELATIVE PERCENT (BEAKER) (test code = 429) 79 % LYMPHOCYTES RELATIVE PERCENT (BEAKER) (test code = 430) 9 % MONOCYTES RELATIVE PERCENT (BEAKER) (test code = 431) 9 % EOSINOPHILS RELATIVE PERCENT (BEAKER) (test code = 432) 2 % BASOPHILS RELATIVE PERCENT (BEAKER) (test code = 437) 0 % NEUTROPHILS ABSOLUTE COUNT (BEAKER) (test code = 670) 10.80 K/ L 1.80-8.00 H LYMPHOCYTES ABSOLUTE COUNT (BEAKER) (test code = 414) 1.18 K/ L 1.48-4.50 L MONOCYTES ABSOLUTE COUNT (BEAKER) (test code = 415) 1.29 K/ L 0. 00-1.30 EOSINOPHILS ABSOLUTE COUNT (BEAKER) (test code = 416) 0.30 K/ L 0.00-0.50 BASOPHILS ABSOLUTE COUNT (BEAKER) (test code = 417) 0.04 K/ L 0. 00-0.20 0.00BASIC METABOLIC [id number] 07:38:00* Test Item Value Reference Range Interpretation Comments SODIUM (BEAKER) (test code = 381) 137 meq/L 136-145 POTASSIUM (BEAKER) (test code = 379) 4.1 meq/L 3.5-5.1 CHLORIDE (BEAKER) (test code = 382) 103 meq/L 98-107 CO2 (BEAKER) (test code = 355) 22 meq/L 22-29 BLOOD UREA NITROGEN (BEAKER) (test code = 354) 36 mg/dL 7-21 H CREATININE (BEAKER) (test code = 358) 2.75 mg/dL 0.57-1.25 H GLUCOSE RANDOM (BEAKER) (test code = 652) 94 mg/dL 70-105 CALCIUM (BEAKER) (test code = 697) 7.9 mg/dL 8.4-10.2 L EGFR (BEAKER) (test code = 1092) mL/min/1.73 sq m INSUFFICIENT CLINICAL DATA TO CALCULATE ESTIMATED GFR. POCT-GLUCOSE [id number] 04:03:00* Test Item Value Reference Range Interpretation Comments POC-GLUCOSE METER (BEAKER) (test code = 1538) 128 mg/dL 70-110 H TESTED AT [address] [address] POCT-GLUCOSE [id number] 21:21:00* Test Item Value Reference Range Interpretation Comments POC-GLUCOSE METER (BEAKER) (test code = 1538) 64 mg/dL 70-110 L TESTED AT [address] [address] POCT-GLUCOSE [id number] 17:51:00* Test Item Value Reference Range Interpretation Comments POC-GLUCOSE METER (BEAKER) (test code = 1538) 175 mg/dL 70-110 H TESTED AT [address] [address] POCT-GLUCOSE [id number] 12:35:00* Test Item Value Reference Range Interpretation Comments POC-GLUCOSE METER (BEAKER) (test code = 1538) 107 mg/dL 70-110 TESTED AT [address] [address] URINALYSIS W/ REFLEX URINE [id number] 08:41:00* Test Item Value Reference Range Interpretation Comments COLOR (BEAKER) (test code = 470) Dark Yellow CLARITY (BEAKER) (test code = 469) Cloudy SPECIFIC GRAVITY UA (BEAKER) (test code = 468) 1.016 1.001-1 .035 PH UA (BEAKER) (test code = 467) 6.0 5.0-8.0 PROTEIN UA (BEAKER) (test code = 464) 300 mg/dL Negative A GLUCOSE UA (BEAKER) (test code = 365) Negative Negative KETONES UA (BEAKER) (test code = 371) Trace Negative A BILIRUBIN UA (BEAKER) (test code = 462) Positive Negative A BLOOD UA (BEAKER) (test code = 461) Moderate Negative A NITRITE UA (BEAKER) (test code = 465) Negative Negative LEUKOCYTE ESTERASE UA (BEAKER) (test code = 466) Large Negat inder A UROBILINOGEN UA (BEAKER) (test code = 463) 3.0 mg/dL 0.2-1.0 H RBC UA (BEAKER) (test code = 519) 13 /HPF WBC UA (BEAKER) (test code = 520) > /HPF BACTERIA (BEAKER) (test code = 517) Many MUCUS (BEAKER) (test code = 1574) Rare SQUAMOUS EPITHELIAL (BEAKER) (test code = 516) 4 /HPF HYALINE CASTS (BEAKER) (test code = 514) 25 /LPF YEAST (BEAKER) (test code = 1585) Few SOURCE(BEAKER) (test code = 2795) POCT-GLUCOSE [id number] 07:53:00* Test Item Value Reference Range Interpretation Comments POC-GLUCOSE METER (BEAKER) (test code = 1538) 115 mg/dL 70-110 H TESTED AT [facility] [address] [facility] [address] CBC W/PLT COUNT & AUTO [id number] 05:47:00* Test Item Value Reference Range Interpretation Comments WHITE BLOOD CELL COUNT (BEAKER) (test code = 775) 12.8 K/ L 4.0- 10.0 H RED BLOOD CELL COUNT (BEAKER) (test code = 761) 3.54 M/ L 4.00-5 .00 L HEMOGLOBIN (BEAKER) (test code = 410) 10.7 GM/DL 12.0-15.0 L HEMATOCRIT (BEAKER) (test code = 411) 31.7 % 36.0-45.0 L MEAN CORPUSCULAR VOLUME (BEAKER) (test code = 753) 89.5 fL 82. 0-99.0 MEAN CORPUSCULAR HEMOGLOBIN (BEAKER) (test code = 751) 30.1 pg 27.0-33.0 MEAN CORPUSCULAR HEMOGLOBIN CONC (BEAKER) (test code = 752) 33.7 GM/DL 32.0-36.0 RED CELL DISTRIBUTION WIDTH (BEAKER) (test code = 412) 14.0 % 10.3-14.2 PLATELET COUNT (BEAKER) (test code = 756) 237 K/CU MM 150-430 MEAN PLATELET VOLUME (BEAKER) (test code = 754) 8.7 fL 6.5-10 .5 NUCLEATED RED BLOOD CELLS (BEAKER) (test code = 413) 0 /100 WBC 0 -0 NEUTROPHILS RELATIVE PERCENT (BEAKER) (test code = 429) 74 % LYMPHOCYTES RELATIVE PERCENT (BEAKER) (test code = 430) 12 % MONOCYTES RELATIVE PERCENT (BEAKER) (test code = 431) 12 % EOSINOPHILS RELATIVE PERCENT (BEAKER) (test code = 432) 3 % BASOPHILS RELATIVE PERCENT (BEAKER) (test code = 437) 0 % NEUTROPHILS ABSOLUTE COUNT (BEAKER) (test code = 670) 9.51 K/ L 1.80-8.00 H LYMPHOCYTES ABSOLUTE COUNT (BEAKER) (test code = 414) 1.48 K/ L 1.48-4.50 MONOCYTES ABSOLUTE COUNT (BEAKER) (test code = 415) 1.47 K/ L 0. 00-1.30 H EOSINOPHILS ABSOLUTE COUNT (BEAKER) (test code = 416) 0.33 K/ L 0.00-0.50 BASOPHILS ABSOLUTE COUNT (BEAKER) (test code = 417) 0.02 K/ L 0. 00-0.20 0.00BASIC METABOLIC [id number] 05:21:00* Test Item Value Reference Range Interpretation Comments SODIUM (BEAKER) (test code = 381) 138 meq/L 136-145 POTASSIUM (BEAKER) (test code = 379) 4.2 meq/L 3.5-5.1 CHLORIDE (BEAKER) (test code = 382) 102 meq/L 98-107 CO2 (BEAKER) (test code = 355) 27 meq/L 22-29 BLOOD UREA NITROGEN (BEAKER) (test code = 354) 27 mg/dL 7-21 H CREATININE (BEAKER) (test code = 358) 2.33 mg/dL 0.57-1.25 H GLUCOSE RANDOM (BEAKER) (test code = 652) 94 mg/dL 70-105 CALCIUM (BEAKER) (test code = 697) 8.1 mg/dL 8.4-10.2 L EGFR (BEAKER) (test code = 1092) mL/min/1.73 sq m INSUFFICIENT CLINICAL DATA TO CALCULATE ESTIMATED GFR. POCT-GLUCOSE [id number] 17:31:00* Test Item Value Reference Range Interpretation Comments POC-GLUCOSE METER (BEAKER) (test code = 1538) 127 mg/dL 70-110 H TESTED AT [address] [address] POCT-GLUCOSE [id number] 16:47:00* Test Item Value Reference Range Interpretation Comments POC-GLUCOSE METER (BEAKER) (test code = 1538) 118 mg/dL 70-110 H TESTED AT [address] [address] POCT-GLUCOSE [id number] 12:21:00* Test Item Value Reference Range Interpretation Comments POC-GLUCOSE METER (BEAKER) (test code = 1538) 93 mg/dL 70-110 TESTED AT [facility] [address] [facility] [address] CBC W/PLT COUNT & AUTO [id number] 10:14:00* Test Item Value Reference Range Interpretation Comments WHITE BLOOD CELL COUNT (BEAKER) (test code = 775) 16.3 K/ L 4.0- 10.0 H RED BLOOD CELL COUNT (BEAKER) (test code = 761) 3.51 M/ L 4.00-5 .00 L HEMOGLOBIN (BEAKER) (test code = 410) 10.6 GM/DL 12.0-15.0 L HEMATOCRIT (BEAKER) (test code = 411) 31.6 % 36.0-45.0 L MEAN CORPUSCULAR VOLUME (BEAKER) (test code = 753) 90.1 fL 82. 0-99.0 MEAN CORPUSCULAR HEMOGLOBIN (BEAKER) (test code = 751) 30.3 pg 27.0-33.0 MEAN CORPUSCULAR HEMOGLOBIN CONC (BEAKER) (test code = 752) 33.6 GM/DL 32.0-36.0 RED CELL DISTRIBUTION WIDTH (BEAKER) (test code = 412) 14.1 % 10.3-14.2 PLATELET COUNT (BEAKER) (test code = 756) 185 K/CU MM 150-430 MEAN PLATELET VOLUME (BEAKER) (test code = 754) 9.2 fL 6.5-10 .5 NUCLEATED RED BLOOD CELLS (BEAKER) (test code = 413) 0 /100 WBC 0 -0 NEUTROPHILS RELATIVE PERCENT (BEAKER) (test code = 429) 78 % LYMPHOCYTES RELATIVE PERCENT (BEAKER) (test code = 430) 10 % MONOCYTES RELATIVE PERCENT (BEAKER) (test code = 431) 10 % EOSINOPHILS RELATIVE PERCENT (BEAKER) (test code = 432) 2 % BASOPHILS RELATIVE PERCENT (BEAKER) (test code = 437) 0 % NEUTROPHILS ABSOLUTE COUNT (BEAKER) (test code = 670) 12.70 K/ L 1.80-8.00 H LYMPHOCYTES ABSOLUTE COUNT (BEAKER) (test code = 414) 1.69 K/ L 1.48-4.50 MONOCYTES ABSOLUTE COUNT (BEAKER) (test code = 415) 1.56 K/ L 0. 00-1.30 H EOSINOPHILS ABSOLUTE COUNT (BEAKER) (test code = 416) 0.31 K/ L 0.00-0.50 BASOPHILS ABSOLUTE COUNT (BEAKER) (test code = 417) 0.02 K/ L 0. 00-0.20 0.00(MANUAL DIFFERENTIAL)2016-09-11 10:14:00* Test Item Value Reference Range Interpretation Comments TOTAL COUNTED (BEAKER) (test code = 1351) WBC MORPHOLOGY (BEAKER) (test code = 487) Normal PLT MORPHOLOGY (BEAKER) (test code = 486) Normal RBC MORPHOLOGY (BEAKER) (test code = 762) Normal POCT-GLUCOSE [id number] 07:34:00* Test Item Value Reference Range Interpretation Comments POC-GLUCOSE METER (BEAKER) (test code = 1538) 117 mg/dL 70-110 H TESTED AT [address] [address] BASIC METABOLIC [id number] 06:39:00* Test Item Value Reference Range Interpretation Comments SODIUM (BEAKER) (test code = 381) 140 meq/L 136-145 POTASSIUM (BEAKER) (test code = 379) 3.9 meq/L 3.5-5.1 CHLORIDE (BEAKER) (test code = 382) 101 meq/L 98-107 CO2 (BEAKER) (test code = 355) 26 meq/L 22-29 BLOOD UREA NITROGEN (BEAKER) (test code = 354) 55 mg/dL 7-21 H CREATININE (BEAKER) (test code = 358) 2.91 mg/dL 0.57-1.25 H GLUCOSE RANDOM (BEAKER) (test code = 652) 89 mg/dL 70-105 CALCIUM (BEAKER) (test code = 697) 7.8 mg/dL 8.4-10.2 L EGFR (BEAKER) (test code = 1092) mL/min/1.73 sq m INSUFFICIENT CLINICAL DATA TO CALCULATE ESTIMATED GFR. POCT-GLUCOSE [id number] 20:54:00* Test Item Value Reference Range Interpretation Comments POC-GLUCOSE METER (BEAKER) (test code = 1538) 136 mg/dL 70-110 H TESTED AT [address] [address] POCT-GLUCOSE [id number] 17:31:00* Test Item Value Reference Range Interpretation Comments POC-GLUCOSE METER (BEAKER) (test code = 1538) 134 mg/dL 70-110 H TESTED AT [place] [id number] [facility] [address] POCT-GLUCOSE [id number] 11:35:00* Test Item Value Reference Range Interpretation Comments POC-GLUCOSE METER (BEAKER) (test code = 1538) 161 mg/dL 70-110 H TESTED AT [address] [address] POCT-GLUCOSE [id number] 07:56:00* Test Item Value Reference Range Interpretation Comments POC-GLUCOSE METER (BEAKER) (test code = 1538) 106 mg/dL 70-110 TESTED AT [address] [address] CBC W/PLT COUNT & AUTO [id number] 07:27:00* Test Item Value Reference Range Interpretation Comments WHITE BLOOD CELL COUNT (BEAKER) (test code = 775) 15.3 K/ L 4.0- 10.0 H RED BLOOD CELL COUNT (BEAKER) (test code = 761) 3.34 M/ L 4.00-5 .00 L HEMOGLOBIN (BEAKER) (test code = 410) 9.7 GM/DL 12.0-15.0 L HEMATOCRIT (BEAKER) (test code = 411) 30.5 % 36.0-45.0 L MEAN CORPUSCULAR VOLUME (BEAKER) (test code = 753) 91.4 fL 82. 0-99.0 MEAN CORPUSCULAR HEMOGLOBIN (BEAKER) (test code = 751) 29.1 pg 27.0-33.0 MEAN CORPUSCULAR HEMOGLOBIN CONC (BEAKER) (test code = 752) 31.9 GM/DL 32.0-36.0 L RED CELL DISTRIBUTION WIDTH (BEAKER) (test code = 412) 12.9 % 10.3-14.2 PLATELET COUNT (BEAKER) (test code = 756) 152 K/CU MM 150-430 MEAN PLATELET VOLUME (BEAKER) (test code = 754) 10.2 fL 6.5-10 .5 NUCLEATED RED BLOOD CELLS (BEAKER) (test code = 413) 0 /100 WBC 0 -0 NEUTROPHILS RELATIVE PERCENT (BEAKER) (test code = 429) 80 % LYMPHOCYTES RELATIVE PERCENT (BEAKER) (test code = 430) 8 % MONOCYTES RELATIVE PERCENT (BEAKER) (test code = 431) 10 % EOSINOPHILS RELATIVE PERCENT (BEAKER) (test code = 432) 1 % BASOPHILS RELATIVE PERCENT (BEAKER) (test code = 437) 0 % NEUTROPHILS ABSOLUTE COUNT (BEAKER) (test code = 670) 12.20 K/ L 1.80-8.00 H LYMPHOCYTES ABSOLUTE COUNT (BEAKER) (test code = 414) 1.26 K/ L 1.48-4.50 L MONOCYTES ABSOLUTE COUNT (BEAKER) (test code = 415) 1.54 K/ L 0. 00-1.30 H EOSINOPHILS ABSOLUTE COUNT (BEAKER) (test code = 416) 0.23 K/ L 0.00-0.50 BASOPHILS ABSOLUTE COUNT (BEAKER) (test code = 417) 0.02 K/ L 0. 00-0.20 0.00BASIC METABOLIC [id number] 06:31:00* Test Item Value Reference Range Interpretation Comments SODIUM (BEAKER) (test code = 381) 139 meq/L 136-145 POTASSIUM (BEAKER) (test code = 379) 4.0 meq/L 3.5-5.1 CHLORIDE (BEAKER) (test code = 382) 101 meq/L 98-107 CO2 (BEAKER) (test code = 355) 28 meq/L 22-29 BLOOD UREA NITROGEN (BEAKER) (test code = 354) 49 mg/dL 7-21 H CREATININE (BEAKER) (test code = 358) 2.92 mg/dL 0.57-1.25 H GLUCOSE RANDOM (BEAKER) (test code = 652) 107 mg/dL 70-105 H CALCIUM (BEAKER) (test code = 697) 7.6 mg/dL 8.4-10.2 L EGFR (BEAKER) (test code = 1092) mL/min/1.73 sq m INSUFFICIENT CLINICAL DATA TO CALCULATE ESTIMATED GFR. [id number] 06:29:00* Test Item Value Reference Range Interpretation Comments PHOSPHORUS (BEAKER) (test code = 604) 3.7 mg/dL 2.3-4.7 [id number] 06:29:00* Test Item Value Reference Range Interpretation Comments MAGNESIUM (BEAKER) (test code = 627) 2.1 mg/dL 1.6-2.6 POCT-GLUCOSE [id number] 22:34:00* Test Item Value Reference Range Interpretation Comments POC-GLUCOSE METER (BEAKER) (test code = 1538) 133 mg/dL 70-110 H TESTED AT [facility] [address] [facility] [address] POCT-GLUCOSE [id number] 12:07:00* Test Item Value Reference Range Interpretation Comments POC-GLUCOSE METER (BEAKER) (test code = 1538) 151 mg/dL 70-110 H TESTED AT [place] [id number] [facility] [address] CBC W/PLT COUNT & AUTO [id number] 08:11:00* Test Item Value Reference Range Interpretation Comments WHITE BLOOD CELL COUNT (BEAKER) (test code = 775) 10.2 K/ L 4.0- 10.0 H RED BLOOD CELL COUNT (BEAKER) (test code = 761) 3.12 M/ L 4.00-5 .00 L HEMOGLOBIN (BEAKER) (test code = 410) 9.5 GM/DL 12.0-15.0 L HEMATOCRIT (BEAKER) (test code = 411) 28.0 % 36.0-45.0 L MEAN CORPUSCULAR VOLUME (BEAKER) (test code = 753) 89.7 fL 82. 0-99.0 MEAN CORPUSCULAR HEMOGLOBIN (BEAKER) (test code = 751) 30.4 pg 27.0-33.0 MEAN CORPUSCULAR HEMOGLOBIN CONC (BEAKER) (test code = 752) 33.9 GM/DL 32.0-36.0 RED CELL DISTRIBUTION WIDTH (BEAKER) (test code = 412) 13.7 % 10.3-14.2 PLATELET COUNT (BEAKER) (test code = 756) 108 K/CU MM 150-430 L MEAN PLATELET VOLUME (BEAKER) (test code = 754) 10.2 fL 6.5-10 .5 NUCLEATED RED BLOOD CELLS (BEAKER) (test code = 413) 0 /100 WBC 0 -0 NEUTROPHILS RELATIVE PERCENT (BEAKER) (test code = 429) 77 % LYMPHOCYTES RELATIVE PERCENT (BEAKER) (test code = 430) 9 % MONOCYTES RELATIVE PERCENT (BEAKER) (test code = 431) 11 % EOSINOPHILS RELATIVE PERCENT (BEAKER) (test code = 432) 2 % BASOPHILS RELATIVE PERCENT (BEAKER) (test code = 437) 0 % NEUTROPHILS ABSOLUTE COUNT (BEAKER) (test code = 670) 7.84 K/ L 1.80-8.00 LYMPHOCYTES ABSOLUTE COUNT (BEAKER) (test code = 414) 0.96 K/ L 1.48-4.50 L MONOCYTES ABSOLUTE COUNT (BEAKER) (test code = 415) 1.11 K/ L 0. 00-1.30 EOSINOPHILS ABSOLUTE COUNT (BEAKER) (test code = 416) 0.24 K/ L 0.00-0.50 BASOPHILS ABSOLUTE COUNT (BEAKER) (test code = 417) 0.01 K/ L 0. 00-0.20 0.00POCT-GLUCOSE [id number] 08:01:00* Test Item Value Reference Range Interpretation Comments POC-GLUCOSE METER (BEAKER) (test code = 1538) 108 mg/dL 70-110 TESTED AT [place] [id number] BASIC METABOLIC [id number] 07:50:00* Test Item Value Reference Range Interpretation Comments SODIUM (BEAKER) (test code = 381) 140 meq/L 136-145 POTASSIUM (BEAKER) (test code = 379) 4.1 meq/L 3.5-5.1 CHLORIDE (BEAKER) (test code = 382) 103 meq/L 98-107 CO2 (BEAKER) (test code = 355) 27 meq/L 22-29 BLOOD UREA NITROGEN (BEAKER) (test code = 354) 33 mg/dL 7-21 H CREATININE (BEAKER) (test code = 358) 2.53 mg/dL 0.57-1.25 H GLUCOSE RANDOM (BEAKER) (test code = 652) 99 mg/dL 70-105 CALCIUM (BEAKER) (test code = 697) 7.7 mg/dL 8.4-10.2 L EGFR (BEAKER) (test code = 1092) mL/min/1.73 sq m INSUFFICIENT CLINICAL DATA TO CALCULATE ESTIMATED GFR. POCT-GLUCOSE [id number] 17:33:00* Test Item Value Reference Range Interpretation Comments POC-GLUCOSE METER (BEAKER) (test code = 1538) 109 mg/dL 70-110 TESTED AT [address] [address] [id number] 14:48:00* Test Item Value Reference Range Interpretation Comments FERRITIN (BEAKER) (test code = 361) 234 ng/mL 5-275 Effective 06/08/2014: Reference Range ChangeNew: Male 5-275 Previous: Male 22-322 Female 5-275 Female 10-291 IRON, TIBC, % SAT. (WITHOUT FERRITIN)2016-09-08 14:28:00* Test Item Value Reference Range Interpretation Comments IRON (BEAKER) (test code = 547) 14 ug/dL 40-160 L TOTAL IRON BINDING CAPACITY (BEAKER) (test code = 769) 170 ug/dL 250-450 L IRON % SATURATION (2) (BEAKER) (test code = 2590) 8 % 20-5 5 L POCT-GLUCOSE [id number] 12:30:00* Test Item Value Reference Range Interpretation Comments POC-GLUCOSE METER (BEAKER) (test code = 1538) 157 mg/dL 70-110 H TESTED AT [address] [address] POCT-GLUCOSE [id number] 08:58:00* Test Item Value Reference Range Interpretation Comments POC-GLUCOSE METER (BEAKER) (test code = 1538) 104 mg/dL 70-110 TESTED AT [address] [address] CBC W/PLT COUNT & AUTO [id number] 06:42:00* Test Item Value Reference Range Interpretation Comments WHITE BLOOD CELL COUNT (BEAKER) (test code = 775) 9.8 K/ L 4.0- 10.0 RED BLOOD CELL COUNT (BEAKER) (test code = 761) 3.04 M/ L 4.00-5 .00 L HEMOGLOBIN (BEAKER) (test code = 410) 9.3 GM/DL 12.0-15.0 L HEMATOCRIT (BEAKER) (test code = 411) 27.0 % 36.0-45.0 L MEAN CORPUSCULAR VOLUME (BEAKER) (test code = 753) 88.9 fL 82. 0-99.0 MEAN CORPUSCULAR HEMOGLOBIN (BEAKER) (test code = 751) 30.4 pg 27.0-33.0 MEAN CORPUSCULAR HEMOGLOBIN CONC (BEAKER) (test code = 752) 34.2 GM/DL 32.0-36.0 RED CELL DISTRIBUTION WIDTH (BEAKER) (test code = 412) 14.3 % 10.3-14.2 H PLATELET COUNT (BEAKER) (test code = 756) 98 K/CU MM 150-430 L MEAN PLATELET VOLUME (BEAKER) (test code = 754) 10.5 fL 6.5-10 .5 NUCLEATED RED BLOOD CELLS (BEAKER) (test code = 413) 0 /100 WBC 0 -0 NEUTROPHILS RELATIVE PERCENT (BEAKER) (test code = 429) 76 % LYMPHOCYTES RELATIVE PERCENT (BEAKER) (test code = 430) 9 % MONOCYTES RELATIVE PERCENT (BEAKER) (test code = 431) 12 % EOSINOPHILS RELATIVE PERCENT (BEAKER) (test code = 432) 3 % BASOPHILS RELATIVE PERCENT (BEAKER) (test code = 437) 0 % NEUTROPHILS ABSOLUTE COUNT (BEAKER) (test code = 670) 7.49 K/ L 1.80-8.00 LYMPHOCYTES ABSOLUTE COUNT (BEAKER) (test code = 414) 0.89 K/ L 1.48-4.50 L MONOCYTES ABSOLUTE COUNT (BEAKER) (test code = 415) 1.14 K/ L 0. 00-1.30 EOSINOPHILS ABSOLUTE COUNT (BEAKER) (test code = 416) 0.25 K/ L 0.00-0.50 BASOPHILS ABSOLUTE COUNT (BEAKER) (test code = 417) 0.04 K/ L 0. 00-0.20 0.00BASI METABOLIC [id number] 06:08:00* Test Item Value Reference Range Interpretation Comments SODIUM (BEAKER) (test code = 381) 142 meq/L 136-145 POTASSIUM (BEAKER) (test code = 379) 3.4 meq/L 3.5-5.1 L CHLORIDE (BEAKER) (test code = 382) 104 meq/L 98-107 CO2 (BEAKER) (test code = 355) 23 meq/L 22-29 BLOOD UREA NITROGEN (BEAKER) (test code = 354) 60 mg/dL 7-21 H CREATININE (BEAKER) (test code = 358) 3.20 mg/dL 0.57-1.25 H GLUCOSE RANDOM (BEAKER) (test code = 652) 105 mg/dL 70-105 CALCIUM (BEAKER) (test code = 697) 7.7 mg/dL 8.4-10.2 L EGFR (BEAKER) (test code = 1092) mL/min/1.73 sq m INSUFFICIENT CLINICAL DATA TO CALCULATE ESTIMATED GFR. HEPATITIS B SURFACE [id number] 20:41:00* Test Item Value Reference Range Interpretation Comments HEPATITIS B SURFACE ANTIGEN (2) (BEAKER) (test code = 2585) Nonreactive Nonreactive HEPATITIS B [id number] 20:41:00* Test Item Value Reference Range Interpretation Comments HEPATITIS B CORE TOTAL ANTIBODY (BEAKER) (test code = 497) N onreactive Nonreactive HEPATITIS B SURFACE ANTIBODY (BEAKER) (test code = 647) < mIU/mL <8.0 HEPATITIS B SURFACE ANTIGEN (2) (BEAKER) (test code = 2585) Nonreactive Nonreactive POCT-GLUCOSE [id number] 19:55:00* Test Item Value Reference Range Interpretation Comments POC-GLUCOSE METER (BEAKER) (test code = 1538) 166 mg/dL 70-110 H TESTED AT [facility] [address] [facility] [address] CBC W/PLT COUNT & AUTO [id number] 14:41:00* Test Item Value Reference Range Interpretation Comments WHITE BLOOD CELL COUNT (BEAKER) (test code = 775) 11.6 K/ L 4.0- 10.0 H RED BLOOD CELL COUNT (BEAKER) (test code = 761) 3.13 M/ L 4.00-5 .00 L HEMOGLOBIN (BEAKER) (test code = 410) 9.5 GM/DL 12.0-15.0 L HEMATOCRIT (BEAKER) (test code = 411) 28.7 % 36.0-45.0 L MEAN CORPUSCULAR VOLUME (BEAKER) (test code = 753) 91.5 fL 82. 0-99.0 MEAN CORPUSCULAR HEMOGLOBIN (BEAKER) (test code = 751) 30.4 pg 27.0-33.0 MEAN CORPUSCULAR HEMOGLOBIN CONC (BEAKER) (test code = 752) 33.2 GM/DL 32.0-36.0 RED CELL DISTRIBUTION WIDTH (BEAKER) (test code = 412) 13.5 % 10.3-14.2 PLATELET COUNT (BEAKER) (test code = 756) 42 K/CU MM 150-430 L MEAN PLATELET VOLUME (BEAKER) (test code = 754) 11.5 fL 6.5-10 .5 H NUCLEATED RED BLOOD CELLS (BEAKER) (test code = 413) 0 /100 WBC 0 -0 NEUTROPHILS RELATIVE PERCENT (BEAKER) (test code = 429) 83 % LYMPHOCYTES RELATIVE PERCENT (BEAKER) (test code = 430) 8 % MONOCYTES RELATIVE PERCENT (BEAKER) (test code = 431) 8 % EOSINOPHILS RELATIVE PERCENT (BEAKER) (test code = 432) 1 % BASOPHILS RELATIVE PERCENT (BEAKER) (test code = 437) 0 % NEUTROPHILS ABSOLUTE COUNT (BEAKER) (test code = 670) 9.70 K/ L 1.80-8.00 H LYMPHOCYTES ABSOLUTE COUNT (BEAKER) (test code = 414) 0.89 K/ L 1.48-4.50 L MONOCYTES ABSOLUTE COUNT (BEAKER) (test code = 415) 0.92 K/ L 0. 00-1.30 EOSINOPHILS ABSOLUTE COUNT (BEAKER) (test code = 416) 0.13 K/ L 0.00-0.50 BASOPHILS ABSOLUTE COUNT (BEAKER) (test code = 417) 0.00 K/ L 0. 00-0.20 0.00BASIC METABOLIC [id number] 13:42:00* Test Item Value Reference Range Interpretation Comments SODIUM (BEAKER) (test code = 381) 138 meq/L 136-145 POTASSIUM (BEAKER) (test code = 379) 4.1 meq/L 3.5-5.1 Specimen slightly hemolyzed CHLORIDE (BEAKER) (test code = 382) 105 meq/L 98-107 CO2 (BEAKER) (test code = 355) 13 meq/L 22-29 L BLOOD UREA NITROGEN (BEAKER) (test code = 354) 96 mg/dL 7-21 H CREATININE (BEAKER) (test code = 358) 4.73 mg/dL 0.57-1.25 H Specimen slightly hemolyzed GLUCOSE RANDOM (BEAKER) (test code = 652) 129 mg/dL 70-105 H CALCIUM (BEAKER) (test code = 697) 7.4 mg/dL 8.4-10.2 L EGFR (BEAKER) (test code = 1092) mL/min/1.73 sq m INSUFFICIENT CLINICAL DATA TO CALCULATE ESTIMATED GFR. Call back result to [id number] METABOLIC [id number] 11:55:00* Test Item Value Reference Range Interpretation Comments SODIUM (BEAKER) (test code = 381) 142 meq/L 136-145 POTASSIUM (BEAKER) (test code = 379) 4.0 meq/L 3.5-5.1 CHLORIDE (BEAKER) (test code = 382) 104 meq/L 98-107 CO2 (BEAKER) (test code = 355) 15 meq/L 22-29 L BLOOD UREA NITROGEN (BEAKER) (test code = 354) 92 mg/dL 7-21 H CREATININE (BEAKER) (test code = 358) 4.50 mg/dL 0.57-1.25 H GLUCOSE RANDOM (BEAKER) (test code = 652) 93 mg/dL 70-105 CALCIUM (BEAKER) (test code = 697) 7.5 mg/dL 8.4-10.2 L EGFR (BEAKER) (test code = 1092) mL/min/1.73 sq m INSUFFICIENT CLINICAL DATA TO CALCULATE ESTIMATED GFR. CBC (HEMOGRAM ONLY)2016-09-07 11:52:00* Test Item Value Reference Range Interpretation Comments WHITE BLOOD CELL COUNT (BEAKER) (test code = 775) 13.0 K/ L 4.0- 10.0 H RED BLOOD CELL COUNT (BEAKER) (test code = 761) 3.03 M/ L 4.00-5 .00 L HEMOGLOBIN (BEAKER) (test code = 410) 9.2 GM/DL 12.0-15.0 L HEMATOCRIT (BEAKER) (test code = 411) 28.0 % 36.0-45.0 L MEAN CORPUSCULAR VOLUME (BEAKER) (test code = 753) 92.2 fL 82. 0-99.0 MEAN CORPUSCULAR HEMOGLOBIN (BEAKER) (test code = 751) 30.3 pg 27.0-33.0 MEAN CORPUSCULAR HEMOGLOBIN CONC (BEAKER) (test code = 752) 32.8 GM/DL 32.0-36.0 RED CELL DISTRIBUTION WIDTH (BEAKER) (test code = 412) 13.8 % 10.3-14.2 PLATELET COUNT (BEAKER) (test code = 756) 90 K/CU MM 150-430 L MEAN PLATELET VOLUME (BEAKER) (test code = 754) 11.4 fL 6.5-10 .5 H NUCLEATED RED BLOOD CELLS (BEAKER) (test code = 413) 0 /100 WBC 0 -0 0.00POCT-GLUCOSE [id number] 17:13:00* Test Item Value Reference Range Interpretation Comments POC-GLUCOSE METER (BEAKER) (test code = 1538) 240 mg/dL 70-110 H TESTED AT [facility] [address] [facility] [address] POCT-GLUCOSE [id number] 17:13:00* Test Item Value Reference Range Interpretation Comments POC-GLUCOSE METER (BEAKER) (test code = 1538) 156 mg/dL 70-110 H TESTED AT [place] [id number] [facility] [address] POCT-GLUCOSE [id number] 17:13:00* Test Item Value Reference Range Interpretation Comments POC-GLUCOSE METER (BEAKER) (test code = 1538) 135 mg/dL 70-110 H TESTED AT [place] [id number] [facility] [address] [id number] 13:52:00* Test Item Value Reference Range Interpretation Comments POTASSIUM (BEAKER) (test code = 379) 3.7 meq/L 3.5-5.1 Check Serum Magnesium level 2 hours after IV magnesium replacement.Check Serum P otassium level 2 hours after oral potassium replacement completed or 30 min afte r intravenous potassium replacement.[id number] 13:52:00* Test Item Value Reference Range Interpretation Comments MAGNESIUM (BEAKER) (test code = 627) 2.7 mg/dL 1.6-2.6 H Check Serum Magnesium level 2 hours after IV magnesium replacement.Check Serum P otassium level 2 hours after oral potassium replacement completed or 30 min afte r intravenous potassium replacement.CALCIUM, [id number] 06:05:00* Test Item Value Reference Range Interpretation Comments CALCIUM IONIZED (BEAKER) (test code = 698) 1.01 mmol/L 1.12-1.27 L PH, BLOOD (BEAKER) (test code = 1810) 7.30 POCT-GLUCOSE [id number] 05:56:00* Test Item Value Reference Range Interpretation Comments POC-GLUCOSE METER (BEAKER) (test code = 1538) 120 mg/dL 70-110 H TESTED AT [facility] [address] [facility] [address] CBC (HEMOGRAM ONLY)2016-09-06 03:39:00* Test Item Value Reference Range Interpretation Comments WHITE BLOOD CELL COUNT (BEAKER) (test code = 775) 11.1 K/ L 4.0- 10.0 H RED BLOOD CELL COUNT (BEAKER) (test code = 761) 2.92 M/ L 4.00-5 .00 L HEMOGLOBIN (BEAKER) (test code = 410) 9.2 GM/DL 12.0-15.0 L HEMATOCRIT (BEAKER) (test code = 411) 26.7 % 36.0-45.0 L MEAN CORPUSCULAR VOLUME (BEAKER) (test code = 753) 91.5 fL 82. 0-99.0 MEAN CORPUSCULAR HEMOGLOBIN (BEAKER) (test code = 751) 31.5 pg 27.0-33.0 MEAN CORPUSCULAR HEMOGLOBIN CONC (BEAKER) (test code = 752) 34.4 GM/DL 32.0-36.0 RED CELL DISTRIBUTION WIDTH (BEAKER) (test code = 412) 13.9 % 10.3-14.2 PLATELET COUNT (BEAKER) (test code = 756) 74 K/CU MM 150-430 L MEAN PLATELET VOLUME (BEAKER) (test code = 754) 11.6 fL 6.5-10 .5 H NUCLEATED RED BLOOD CELLS (BEAKER) (test code = 413) 0 /100 WBC 0 -0 0.00BASIC METABOLIC [id number] 03:36:00* Test Item Value Reference Range Interpretation Comments SODIUM (BEAKER) (test code = 381) 148 meq/L 136-145 H POTASSIUM (BEAKER) (test code = 379) 4.1 meq/L 3.5-5.1 CHLORIDE (BEAKER) (test code = 382) 113 meq/L 98-107 H CO2 (BEAKER) (test code = 355) 15 meq/L 22-29 L BLOOD UREA NITROGEN (BEAKER) (test code = 354) 70 mg/dL 7-21 H CREATININE (BEAKER) (test code = 358) 3.80 mg/dL 0.57-1.25 H GLUCOSE RANDOM (BEAKER) (test code = 652) 128 mg/dL 70-105 H CALCIUM (BEAKER) (test code = 697) 7.8 mg/dL 8.4-10.2 L EGFR (BEAKER) (test code = 1092) mL/min/1.73 sq m INSUFFICIENT CLINICAL DATA TO CALCULATE ESTIMATED GFR. [id number] 03:29:00* Test Item Value Reference Range Interpretation Comments PHOSPHORUS (BEAKER) (test code = 604) 8.3 mg/dL 2.3-4.7 H [id number] 03:29:00* Test Item Value Reference Range Interpretation Comments MAGNESIUM (BEAKER) (test code = 627) 2.8 mg/dL 1.6-2.6 H BLOOD GAS, [id number] 00:03:00* Test Item Value Reference Range Interpretation Comments PH ARTERIAL (BEAKER) (test code = 383) 7.35 7.35-7.45 PCO2 ARTERIAL (BEAKER) (test code = 384) 34 mmHg 35-45 L PO2 ARTERIAL (BEAKER) (test code = 385) 183 mmHg 80-90 H O2 SATURATION ARTERIAL (BEAKER) (test code = 386) 99.2 % 96.0 -97.0 H HCO3 ARTERIAL (BEAKER) (test code = 388) 19 mmol/L 21-29 L BASE EXCESS ARTERIAL (BEAKER) (test code = 387) -6.5 mmol/L -2.0-3 .0 L PATIENT TEMPERATURE (BEAKER) (test code = 1818) 36.8 C FIO2 (BEAKER) (test code = 1819) 36.0 % POCT-GLUCOSE [id number] 23:45:00* Test Item Value Reference Range Interpretation Comments POC-GLUCOSE METER (BEAKER) (test code = 1538) 106 mg/dL 70-110 TESTED AT [facility] [address] [facility] [address] POCT-GLUCOSE [id number] 23:45:00* Test Item Value Reference Range Interpretation Comments POC-GLUCOSE METER (BEAKER) (test code = 1538) 70 mg/dL 70-110 TESTED AT [facility] [address] [facility] [address] BLOOD GAS, [id number] 21:36:00* Test Item Value Reference Range Interpretation Comments PH ARTERIAL (BEAKER) (test code = 383) 7.39 7.35-7.45 PCO2 ARTERIAL (BEAKER) (test code = 384) 31 mmHg 35-45 L PO2 ARTERIAL (BEAKER) (test code = 385) 167 mmHg 80-90 H O2 SATURATION ARTERIAL (BEAKER) (test code = 386) 99.1 % 96.0 -97.0 H HCO3 ARTERIAL (BEAKER) (test code = 388) 18 mmol/L 21-29 L BASE EXCESS ARTERIAL (BEAKER) (test code = 387) -6.0 mmol/L -2.0-3 .0 L PATIENT TEMPERATURE (BEAKER) (test code = 1818) 36.8 C FIO2 (BEAKER) (test code = 1819) 40.0 % BLOOD GAS, [id number] 20:22:00* Test Item Value Reference Range Interpretation Comments PH ARTERIAL (BEAKER) (test code = 383) 7.39 7.35-7.45 PCO2 ARTERIAL (BEAKER) (test code = 384) 33 mmHg 35-45 L PO2 ARTERIAL (BEAKER) (test code = 385) 146 mmHg 80-90 H O2 SATURATION ARTERIAL (BEAKER) (test code = 386) 98.9 % 96.0 -97.0 H HCO3 ARTERIAL (BEAKER) (test code = 388) 19 mmol/L 21-29 L BASE EXCESS ARTERIAL (BEAKER) (test code = 387) -5.2 mmol/L -2.0-3 .0 L PATIENT TEMPERATURE (BEAKER) (test code = 1818) 36.8 C FIO2 (BEAKER) (test code = 1819) 40.0 % POCT-GLUCOSE [id number] 17:34:00* Test Item Value Reference Range Interpretation Comments POC-GLUCOSE METER (BEAKER) (test code = 1538) 121 mg/dL 70-110 H TESTED AT [place] [id number] [facility] [address] POCT-GLUCOSE [id number] 17:34:00* Test Item Value Reference Range Interpretation Comments POC-GLUCOSE METER (BEAKER) (test code = 1538) 137 mg/dL 70-110 H TESTED AT [place] [id number] [facility] [address] BLOOD GAS, [id number] 17:07:00* Test Item Value Reference Range Interpretation Comments PH ARTERIAL (BEAKER) (test code = 383) 7.34 7.35-7.45 L PCO2 ARTERIAL (BEAKER) (test code = 384) 36 mmHg 35-45 PO2 ARTERIAL (BEAKER) (test code = 385) 127 mmHg 80-90 H O2 SATURATION ARTERIAL (BEAKER) (test code = 386) 98.3 % 96.0 -97.0 H HCO3 ARTERIAL (BEAKER) (test code = 388) 19 mmol/L 21-29 L BASE EXCESS ARTERIAL (BEAKER) (test code = 387) -6.2 mmol/L -2.0-3 .0 L PATIENT TEMPERATURE (BEAKER) (test code = 1818) 38.1 C FIO2 (BEAKER) (test code = 1819) 40.0 % POCT-GLUCOSE [id number] 13:41:00* Test Item Value Reference Range Interpretation Comments POC-GLUCOSE METER (BEAKER) (test code = 1538) 150 mg/dL 70-110 H TESTED AT [address] [address] BLOOD GAS, [id number] 13:41:00* Test Item Value Reference Range Interpretation Comments PH ARTERIAL (BEAKER) (test code = 383) 7.32 7.35-7.45 L PCO2 ARTERIAL (BEAKER) (test code = 384) 34 mmHg 35-45 L PO2 ARTERIAL (BEAKER) (test code = 385) 96 mmHg 80-90 H O2 SATURATION ARTERIAL (BEAKER) (test code = 386) 96.5 % 96.0 -97.0 HCO3 ARTERIAL (BEAKER) (test code = 388) 17 mmol/L 21-29 L BASE EXCESS ARTERIAL (BEAKER) (test code = 387) -8.4 mmol/L -2.0-3 .0 L PATIENT TEMPERATURE (BEAKER) (test code = 1818) 38.0 C FIO2 (BEAKER) (test code = 1819) 40.0 % POCT-GLUCOSE [id number] 13:41:00* Test Item Value Reference Range Interpretation Comments POC-GLUCOSE METER (BEAKER) (test code = 1538) 112 mg/dL 70-110 H TESTED AT [address] [address] [id number] 12:58:00* Test Item Value Reference Range Interpretation Comments PHOSPHORUS (BEAKER) (test code = 604) 6.6 mg/dL 2.3-4.7 H [id number] 12:58:00* Test Item Value Reference Range Interpretation Comments MAGNESIUM (BEAKER) (test code = 627) 2.7 mg/dL 1.6-2.6 H HEPATIC FUNCTION [id number] 12:58:00* Test Item Value Reference Range Interpretation Comments TOTAL PROTEIN (BEAKER) (test code = 770) 5.2 gm/dL 6.0-8.3 L ALBUMIN (BEAKER) (test code = 1145) 3.7 g/dL 3.5-5.0 BILIRUBIN TOTAL (BEAKER) (test code = 377) 1.4 mg/dL 0.2-1.2 H BILIRUBIN DIRECT (BEAKER) (test code = 706) 0.9 mg/dL 0.1-0.5 H ALKALINE PHOSPHATASE (BEAKER) (test code = 346) 51 U/L 40-150 AST (SGOT) (BEAKER) (test code = 353) 53 U/L 5-34 H ALT (SGPT) (BEAKER) (test code = 347) 15 U/L 6-55 BASIC METABOLIC [id number] 12:58:00* Test Item Value Reference Range Interpretation Comments SODIUM (BEAKER) (test code = 381) 144 meq/L 136-145 POTASSIUM (BEAKER) (test code = 379) 4.5 meq/L 3.5-5.1 CHLORIDE (BEAKER) (test code = 382) 113 meq/L 98-107 H CO2 (BEAKER) (test code = 355) 14 meq/L 22-29 L BLOOD UREA NITROGEN (BEAKER) (test code = 354) 57 mg/dL 7-21 H CREATININE (BEAKER) (test code = 358) 3.09 mg/dL 0.57-1.25 H GLUCOSE RANDOM (BEAKER) (test code = 652) 143 mg/dL 70-105 H CALCIUM (BEAKER) (test code = 697) 8.3 mg/dL 8.4-10.2 L EGFR (BEAKER) (test code = 1092) mL/min/1.73 sq m INSUFFICIENT CLINICAL DATA TO CALCULATE ESTIMATED GFR. URINE PROTEIN ELECTROPHORESIS, [id number] 12:38:00* Test Item Value Reference Range Interpretation Comments PROTEIN, URINE (BEAKER) (test code = 1569) 68 mg/dL 0-14 H ALBUMIN URINE ELP (BEAKER) (test code = 1018) 73.4 % GAMMA GLOBULIN URINE (BEAKER) (test code = 1015) 26.6 % UPEP, ID-438 (BEAKER) (test code = 9056) No monoclonal bands detect ed. [id number] (BEAKER) (test code = 5013) Ирина Zuniga MD (electronic signature) GLUCOSE-STAT [id number] 12:37:00* Test Item Value Reference Range Interpretation Comments GLUCOSE RANDOM (BEAKER) (test code = 652) 140 mg/dL 70-110 H HGB/HCT (H&H) - STAT [id number] 12:37:00* Test Item Value Reference Range Interpretation Comments HEMOGLOBIN (BEAKER) (test code = 410) 8.7 g/dL 12.0-15.0 L HEMATOCRIT (BEAKER) (test code = 411) 26.0 % 36.0-45.0 L BLOOD GAS, [id number] 12:37:00* Test Item Value Reference Range Interpretation Comments PH ARTERIAL (BEAKER) (test code = 383) 7.29 7.35-7.45 L PCO2 ARTERIAL (BEAKER) (test code = 384) 34 mmHg 35-45 L PO2 ARTERIAL (BEAKER) (test code = 385) 143 mmHg 80-90 H O2 SATURATION ARTERIAL (BEAKER) (test code = 386) 98.5 % 96.0 -97.0 H HCO3 ARTERIAL (BEAKER) (test code = 388) 16 mmol/L 21-29 L BASE EXCESS ARTERIAL (BEAKER) (test code = 387) -10.1 mmol/L -2.0-3 .0 L PATIENT TEMPERATURE (BEAKER) (test code = 1818) 37.6 C FIO2 (BEAKER) (test code = 1819) 40.0 % CALCIUM, [id number] 12:37:00* Test Item Value Reference Range Interpretation Comments CALCIUM IONIZED (BEAKER) (test code = 698) 1.07 mmol/L 1.12-1.27 L PH, BLOOD (BEAKER) (test code = 1810) 7.29 SODIUM NA-STAT [id number] 12:31:00* Test Item Value Reference Range Interpretation Comments SODIUM (BEAKER) (test code = 381) 140 meq/L 135-148 POTASSIUM-STAT [id number] 12:31:00* Test Item Value Reference Range Interpretation Comments POTASSIUM (BEAKER) (test code = 379) 4.3 meq/L 3.6-5.5 PROTEIN ELECTROPHORESIS, [id number] 11:38:00* Test Item Value Reference Range Interpretation Comments ALBUMIN FRACTION (BEAKER) (test code = 405) 2.5 g/dL 3.5-5.5 L ALPHA 1 FRACTION (BEAKER) (test code = 389) 0.3 g/dL 0.2-0.4 ALPHA 2 FRACTION (BEAKER) (test code = 390) 0.5 g/dL 0.5-0.9 BETA FRACTION (BEAKER) (test code = 392) 0.6 g/dL 0.6-1.1 GAMMA GLOBULIN FRACTION (BEAKER) (test code = 391) 0.6 g/dL 0.7 -1.7 L INTERPRETATION-119 (BEAKER) (test code = 2615) Decreas ed albumin and gamma globulins, suggesting renal dysfunction and/or protein-losing enteropathy. No monoclonal bands detected. [id number] (BEAKER) (test code = 2616) Ирина Zuniga MD (electronic signature) PROTEIN TOTAL SERUM, SPEP (BEAKER) (test code = 2660) 4.4 gm/dL 6.0-8.3 L POCT-GLUCOSE [id number] 09:38:00* Test Item Value Reference Range Interpretation Comments POC-GLUCOSE METER (BEAKER) (test code = 1538) 93 mg/dL 70-110 TESTED AT [address] [address] LACTIC ACID, ARTERIAL, WHOLE [id number] 06:22:00* Test Item Value Reference Range Interpretation Comments LACTATE BLOOD ARTERIAL (2) (BEAKER) (test code = 2874) 1.2 mmol/L 0.5-2.2 Effective 11/23/2015: Units/Reference Range ChangeNew: 0.5-2.2 mmol/L Previous: 5 -20 mg/dLPOCT-GLUCOSE [id number] 06:20:00* Test Item Value Reference Range Interpretation Comments POC-GLUCOSE METER (BEAKER) (test code = 1538) 143 mg/dL 70-110 H TESTED AT [address] [address] POCT-GLUCOSE [id number] 06:20:00* Test Item Value Reference Range Interpretation Comments POC-GLUCOSE METER (BEAKER) (test code = 1538) 140 mg/dL 70-110 H TESTED AT [facility] [address] [facility] [address] OXYGEN SATURATION, [id number] 06:03:00* Test Item Value Reference Range Interpretation Comments O2 SATURATION (MEASURED) (BEAKER) (test code = 1455) 69.3 % CALCIUM, [id number] 06:02:00* Test Item Value Reference Range Interpretation Comments CALCIUM IONIZED (BEAKER) (test code = 698) 1.04 mmol/L 1.12-1.27 L PH, BLOOD (BEAKER) (test code = 1810) 7.36 BLOOD GAS, [id number] 06:01:00* Test Item Value Reference Range Interpretation Comments PH ARTERIAL (BEAKER) (test code = 383) 7.36 7.35-7.45 PCO2 ARTERIAL (BEAKER) (test code = 384) 34 mmHg 35-45 L PO2 ARTERIAL (BEAKER) (test code = 385) 158 mmHg 80-90 H O2 SATURATION ARTERIAL (BEAKER) (test code = 386) 99.0 % 96.0 -97.0 H HCO3 ARTERIAL (BEAKER) (test code = 388) 19 mmol/L 21-29 L BASE EXCESS ARTERIAL (BEAKER) (test code = 387) -5.6 mmol/L -2.0-3 .0 L PATIENT TEMPERATURE (BEAKER) (test code = 1818) 36.9 C FIO2 (BEAKER) (test code = 1819) 40.0 % GLUCOSE-STAT [id number] 06:01:00* Test Item Value Reference Range Interpretation Comments GLUCOSE RANDOM (BEAKER) (test code = 652) 130 mg/dL 70-110 H HGB/HCT (H&H) - STAT [id number] 06:01:00* Test Item Value Reference Range Interpretation Comments HEMOGLOBIN (BEAKER) (test code = 410) 8.8 g/dL 12.0-15.0 L HEMATOCRIT (BEAKER) (test code = 411) 26.0 % 36.0-45.0 L BASIC METABOLIC [id number] 03:47:00* Test Item Value Reference Range Interpretation Comments SODIUM (BEAKER) (test code = 381) 142 meq/L 136-145 POTASSIUM (BEAKER) (test code = 379) 4.2 meq/L 3.5-5.1 CHLORIDE (BEAKER) (test code = 382) 112 meq/L 98-107 H CO2 (BEAKER) (test code = 355) 17 meq/L 22-29 L BLOOD UREA NITROGEN (BEAKER) (test code = 354) 54 mg/dL 7-21 H CREATININE (BEAKER) (test code = 358) 2.77 mg/dL 0.57-1.25 H GLUCOSE RANDOM (BEAKER) (test code = 652) 143 mg/dL 70-105 H CALCIUM (BEAKER) (test code = 697) 7.7 mg/dL 8.4-10.2 L EGFR (BEAKER) (test code = 1092) mL/min/1.73 sq m INSUFFICIENT CLINICAL DATA TO CALCULATE ESTIMATED GFR. [id number] 03:39:00* Test Item Value Reference Range Interpretation Comments PHOSPHORUS (BEAKER) (test code = 604) 5.5 mg/dL 2.3-4.7 H [id number] 03:39:00* Test Item Value Reference Range Interpretation Comments MAGNESIUM (BEAKER) (test code = 627) 2.6 mg/dL 1.6-2.6 CBC (HEMOGRAM ONLY)2016-09-05 03:37:00* Test Item Value Reference Range Interpretation Comments WHITE BLOOD CELL COUNT (BEAKER) (test code = 775) 10.1 K/ L 4.0- 10.0 H RED BLOOD CELL COUNT (BEAKER) (test code = 761) 2.35 M/ L 4.00-5 .00 L HEMOGLOBIN (BEAKER) (test code = 410) 7.6 GM/DL 12.0-15.0 L HEMATOCRIT (BEAKER) (test code = 411) 21.6 % 36.0-45.0 L MEAN CORPUSCULAR VOLUME (BEAKER) (test code = 753) 91.9 fL 82. 0-99.0 MEAN CORPUSCULAR HEMOGLOBIN (BEAKER) (test code = 751) 32.5 pg 27.0-33.0 MEAN CORPUSCULAR HEMOGLOBIN CONC (BEAKER) (test code = 752) 35.4 GM/DL 32.0-36.0 RED CELL DISTRIBUTION WIDTH (BEAKER) (test code = 412) 12.6 % 10.3-14.2 PLATELET COUNT (BEAKER) (test code = 756) 73 K/CU MM 150-430 L MEAN PLATELET VOLUME (BEAKER) (test code = 754) 10.4 fL 6.5-10 .5 NUCLEATED RED BLOOD CELLS (BEAKER) (test code = 413) 0 /100 WBC 0 -0 0.00POCT-GLUCOSE [id number] 23:24:00* Test Item Value Reference Range Interpretation Comments POC-GLUCOSE METER (BEAKER) (test code = 1538) 93 mg/dL 70-110 TESTED AT [facility] [address] [facility] [address] POCT-GLUCOSE [id number] 23:24:00* Test Item Value Reference Range Interpretation Comments POC-GLUCOSE METER (BEAKER) (test code = 1538) 103 mg/dL 70-110 TESTED AT [facility] [address] [facility] [address] BLOOD GAS, [id number] 22:25:00* Test Item Value Reference Range Interpretation Comments PH ARTERIAL (BEAKER) (test code = 383) 7.37 7.35-7.45 PCO2 ARTERIAL (BEAKER) (test code = 384) 36 mmHg 35-45 PO2 ARTERIAL (BEAKER) (test code = 385) 162 mmHg 80-90 H O2 SATURATION ARTERIAL (BEAKER) (test code = 386) 99.0 % 96.0 -97.0 H HCO3 ARTERIAL (BEAKER) (test code = 388) 20 mmol/L 21-29 L BASE EXCESS ARTERIAL (BEAKER) (test code = 387) -4.7 mmol/L -2.0-3 .0 L PATIENT TEMPERATURE (BEAKER) (test code = 1818) 37.1 C FIO2 (BEAKER) (test code = 1819) 40.0 % CBC W/PLT COUNT & AUTO [id number] 20:04:00* Test Item Value Reference Range Interpretation Comments WHITE BLOOD CELL COUNT (BEAKER) (test code = 775) 12.9 K/ L 4.0- 10.0 H RED BLOOD CELL COUNT (BEAKER) (test code = 761) 2.84 M/ L 4.00-5 .00 L HEMOGLOBIN (BEAKER) (test code = 410) 9.2 GM/DL 12.0-15.0 L HEMATOCRIT (BEAKER) (test code = 411) 26.1 % 36.0-45.0 L MEAN CORPUSCULAR VOLUME (BEAKER) (test code = 753) 91.8 fL 82. 0-99.0 MEAN CORPUSCULAR HEMOGLOBIN (BEAKER) (test code = 751) 32.3 pg 27.0-33.0 MEAN CORPUSCULAR HEMOGLOBIN CONC (BEAKER) (test code = 752) 35.2 GM/DL 32.0-36.0 RED CELL DISTRIBUTION WIDTH (BEAKER) (test code = 412) 12.1 % 10.3-14.2 PLATELET COUNT (BEAKER) (test code = 756) 89 K/CU MM 150-430 L MEAN PLATELET VOLUME (BEAKER) (test code = 754) 9.8 fL 6.5-10 .5 NUCLEATED RED BLOOD CELLS (BEAKER) (test code = 413) 0 /100 WBC 0 -0 NEUTROPHILS RELATIVE PERCENT (BEAKER) (test code = 429) 90 % LYMPHOCYTES RELATIVE PERCENT (BEAKER) (test code = 430) 3 % MONOCYTES RELATIVE PERCENT (BEAKER) (test code = 431) 6 % EOSINOPHILS RELATIVE PERCENT (BEAKER) (test code = 432) 1 % BASOPHILS RELATIVE PERCENT (BEAKER) (test code = 437) 0 % NEUTROPHILS ABSOLUTE COUNT (BEAKER) (test code = 670) 11.70 K/ L 1.80-8.00 H LYMPHOCYTES ABSOLUTE COUNT (BEAKER) (test code = 414) 0.44 K/ L 1.48-4.50 L MONOCYTES ABSOLUTE COUNT (BEAKER) (test code = 415) 0.73 K/ L 0. 00-1.30 EOSINOPHILS ABSOLUTE COUNT (BEAKER) (test code = 416) 0.07 K/ L 0.00-0.50 BASOPHILS ABSOLUTE COUNT (BEAKER) (test code = 417) 0.01 K/ L 0. 00-0.20 CREATININE, RANDOM [id number] 19:07:00* Test Item Value Reference Range Interpretation Comments CREATININE URINE (BEAKER) (test code = 375) 10.4 mg/dL Reference Range: No NormalsPROTEIN, RANDOM [id number] 19:07:00* Test Item Value Reference Range Interpretation Comments PROTEIN, URINE (BEAKER) (test code = 1569) 42 mg/dL 0-14 H URINALYSIS W/ [id number] 18:53:00* Test Item Value Reference Range Interpretation Comments COLOR (BEAKER) (test code = 470) Colorless CLARITY (BEAKER) (test code = 469) Hazy SPECIFIC GRAVITY UA (BEAKER) (test code = 468) 1.009 1.001-1 .035 PH UA (BEAKER) (test code = 467) 5.5 5.0-8.0 PROTEIN UA (BEAKER) (test code = 464) 50 mg/dL Negative A GLUCOSE UA (BEAKER) (test code = 365) Negative Negative KETONES UA (BEAKER) (test code = 371) Negative Negative BILIRUBIN UA (BEAKER) (test code = 462) Negative Negative BLOOD UA (BEAKER) (test code = 461) Small Negative A NITRITE UA (BEAKER) (test code = 465) Negative Negative LEUKOCYTE ESTERASE UA (BEAKER) (test code = 466) Moderate Negat inder A UROBILINOGEN UA (BEAKER) (test code = 463) 0.2 mg/dL 0.2-1.0 RBC UA (BEAKER) (test code = 519) < /HPF WBC UA (BEAKER) (test code = 520) 19 /HPF BACTERIA (BEAKER) (test code = 517) Occasional MUCUS (BEAKER) (test code = 1574) Rare SQUAMOUS EPITHELIAL (BEAKER) (test code = 516) < /HPF SOURCE(BEAKER) (test code = 0491) BASIC METABOLIC [id number] 18:33:00* Test Item Value Reference Range Interpretation Comments SODIUM (BEAKER) (test code = 381) 141 meq/L 136-145 POTASSIUM (BEAKER) (test code = 379) 3.9 meq/L 3.5-5.1 CHLORIDE (BEAKER) (test code = 382) 109 meq/L 98-107 H CO2 (BEAKER) (test code = 355) 16 meq/L 22-29 L BLOOD UREA NITROGEN (BEAKER) (test code = 354) 52 mg/dL 7-21 H CREATININE (BEAKER) (test code = 358) 2.40 mg/dL 0.57-1.25 H GLUCOSE RANDOM (BEAKER) (test code = 652) 224 mg/dL 70-105 H CALCIUM (BEAKER) (test code = 697) 9.0 mg/dL 8.4-10.2 EGFR (BEAKER) (test code = 1092) mL/min/1.73 sq m INSUFFICIENT CLINICAL DATA TO CALCULATE ESTIMATED GFR. [id number] 18:33:00* Test Item Value Reference Range Interpretation Comments MAGNESIUM (BEAKER) (test code = 627) 2.7 mg/dL 1.6-2.6 H [id number] 18:33:00* Test Item Value Reference Range Interpretation Comments PHOSPHORUS (BEAKER) (test code = 604) 6.2 mg/dL 2.3-4.7 H [id number] 18:30:00* Test Item Value Reference Range Interpretation Comments FIBRINOGEN LEVEL (BEAKER) (test code = 658) 319 mg/dl 225-434 [id number] 18:30:00* Test Item Value Reference Range Interpretation Comments PARTIAL THROMBOPLASTIN TIME (BEAKER) (test code = 760) 35.3 seconds 22.5-36.0 PROTHROMBIN [id number] 18:29:00* Test Item Value Reference Range Interpretation Comments PROTIME (BEAKER) (test code = 759) 18.5 seconds 11.7-14.7 H INR (BEAKER) (test code = 370) 1.5 <=5.9 RECOMMENDED COUMADIN/WARFARIN INR THERAPY RANGESSTANDARD DOSE: 2.0 - 3.0 Inclu axel: PROPHYLAXIS for venous thrombosis, systemic embolization; TREATMENT for christiano ous thrombosis and/or pulmonary embolus.HIGH RISK: Target INR is 2.5-3.5 for pat ients with mechanical heart valves.LACTIC ACID, ARTERIAL, WHOLE [id number] 18:29:00* Test Item Value Reference Range Interpretation Comments LACTATE BLOOD ARTERIAL (2) (BEAKER) (test code = 2874) 2.3 mmol/L 0.5-2.2 H Effective 11/23/2015: Units/Reference Range ChangeNew: 0.5-2.2 mmol/L Previous: 5 -20 mg/dLBLOOD GAS, [id number] 18:15:00* Test Item Value Reference Range Interpretation Comments PH ARTERIAL (BEAKER) (test code = 383) 7.36 7.35-7.45 PCO2 ARTERIAL (BEAKER) (test code = 384) 32 mmHg 35-45 L PO2 ARTERIAL (BEAKER) (test code = 385) 197 mmHg 80-90 H O2 SATURATION ARTERIAL (BEAKER) (test code = 386) 99.3 % 96.0 -97.0 H HCO3 ARTERIAL (BEAKER) (test code = 388) 18 mmol/L 21-29 L BASE EXCESS ARTERIAL (BEAKER) (test code = 387) -7.0 mmol/L -2.0-3 .0 L PATIENT TEMPERATURE (BEAKER) (test code = 1818) 35.7 C FIO2 (BEAKER) (test code = 1819) 60.0 % GLUCOSE-STAT [id number] 18:15:00* Test Item Value Reference Range Interpretation Comments GLUCOSE RANDOM (BEAKER) (test code = 652) 213 mg/dL 70-110 H HEMOGLOBIN-STAT [id number] 18:15:00* Test Item Value Reference Range Interpretation Comments HEMOGLOBIN (BEAKER) (test code = 410) 9.1 g/dL 12.0-15.0 L HGB/HCT (H&H) - STAT [id number] 18:15:00* Test Item Value Reference Range Interpretation Comments HEMOGLOBIN (BEAKER) (test code = 410) 9.1 GM/DL 12.0-15.0 L HEMATOCRIT (BEAKER) (test code = 411) 27.0 % 36.0-45.0 L CALCIUM, [id number] 18:15:00* Test Item Value Reference Range Interpretation Comments CALCIUM IONIZED (BEAKER) (test code = 698) 1.14 mmol/L 1.12-1.27 PH, BLOOD (BEAKER) (test code = 1810) 7.36 OXYGEN SATURATION, [id number] 18:14:00* Test Item Value Reference Range Interpretation Comments O2 SATURATION (MEASURED) (BEAKER) (test code = 1455) 72.1 % SODIUM NA-STAT [id number] 18:13:00* Test Item Value Reference Range Interpretation Comments SODIUM (BEAKER) (test code = 381) 138 meq/L 135-148 POTASSIUM-STAT [id number] 18:13:00* Test Item Value Reference Range Interpretation Comments POTASSIUM (BEAKER) (test code = 379) 3.7 meq/L 3.6-5.5 THROMBOELASTOGRAPH (TEG)2016-09-04 16:38:00* Test Item Value Reference Range Interpretation Comments TEG ACTIVATED CLOTTING TIME (BEAKER) (test code = 1407) 7.7 minutes 4.0-7.0 H TEG FIBRINOGEN ACTIVITY (BEAKER) (test code = 1408) 69.6 degrees 61 .0-73.0 TEG PLT. AGGREGATION (BEAKER) (test code = 1409) 65.4 MM 55.0- 65.0 H TGH ACTIVATED CLOTTING TIME (BEAKER) (test code = 1411) 8.3 minutes 4.0-7.0 H TGH FIBRINOGEN ACTIVITY (BEAKER) (test code = 1412) 66.5 degrees 61 .0-73.0 TGH PLT. AGGREGATION (BEAKER) (test code = 1413) 64.2 MM 55.0- 65.0 [id number] 16:28:00* Test Item Value Reference Range Interpretation Comments ACTIVATED CLOTTING TIME (BEAKER) (test code = 441) 137 sec TESTED AT [place] [address] [id number] 16:28:00* Test Item Value Reference Range Interpretation Comments ACTIVATED CLOTTING TIME (BEAKER) (test code = 441) 528 sec TESTED AT [place] [id number] 16:28:00* Test Item Value Reference Range Interpretation Comments ACTIVATED CLOTTING TIME (BEAKER) (test code = 441) 394 sec TESTED AT [place] [address] [id number] 16:28:00* Test Item Value Reference Range Interpretation Comments ACTIVATED CLOTTING TIME (BEAKER) (test code = 441) 353 sec TESTED AT [place] [address] [id number] 16:09:00* Test Item Value Reference Range Interpretation Comments FIBRINOGEN LEVEL (BEAKER) (test code = 658) 313 mg/dl 225-434 [id number] 16:05:00* Test Item Value Reference Range Interpretation Comments PARTIAL THROMBOPLASTIN TIME (BEAKER) (test code = 760) 39.0 seconds 22.5-36.0 H PROTHROMBIN [id number] 16:04:00* Test Item Value Reference Range Interpretation Comments PROTIME (BEAKER) (test code = 759) 22.1 seconds 11.7-14.7 H INR (BEAKER) (test code = 370) 1.9 <=5.9 RECOMMENDED COUMADIN/WARFARIN INR THERAPY RANGESSTANDARD DOSE: 2.0 - 3.0 Inclu axel: PROPHYLAXIS for venous thrombosis, systemic embolization; TREATMENT for christiano ous thrombosis and/or pulmonary embolus.HIGH RISK: Target INR is 2.5-3.5 for pat ients with mechanical heart valves.PLATELET COUNT-STAT [id number] 15:57:00* Test Item Value Reference Range Interpretation Comments PLATELET COUNT (BEAKER) (test code = 756) 105 K/CU MM 150-430 L CALCIUM, [id number] 15:51:00* Test Item Value Reference Range Interpretation Comments CALCIUM IONIZED (BEAKER) (test code = 698) 0.88 mmol/L 1.12-1.27 L PH, BLOOD (BEAKER) (test code = 1810) 7.38 SODIUM NA-STAT [id number] 15:50:00* Test Item Value Reference Range Interpretation Comments SODIUM (BEAKER) (test code = 381) 135 meq/L 135-148 POTASSIUM-STAT [id number] 15:50:00* Test Item Value Reference Range Interpretation Comments POTASSIUM (BEAKER) (test code = 379) 4.4 meq/L 3.6-5.5 BLOOD GAS, [id number] 15:50:00* Test Item Value Reference Range Interpretation Comments PH ARTERIAL (BEAKER) (test code = 383) 7.38 7.35-7.45 PCO2 ARTERIAL (BEAKER) (test code = 384) 35 mmHg 35-45 PO2 ARTERIAL (BEAKER) (test code = 385) 415 mmHg 80-90 H O2 SATURATION ARTERIAL (BEAKER) (test code = 386) 99.8 % 96.0 -97.0 H HCO3 ARTERIAL (BEAKER) (test code = 388) 21 mmol/L 21-29 BASE EXCESS ARTERIAL (BEAKER) (test code = 387) -4.3 mmol/L -2.0-3 .0 L PATIENT TEMPERATURE (BEAKER) (test code = 1818) 35.8 C FIO2 (BEAKER) (test code = 1819) 100.0 % GLUCOSE-STAT [id number] 15:50:00* Test Item Value Reference Range Interpretation Comments GLUCOSE RANDOM (BEAKER) (test code = 652) 178 mg/dL 70-110 H HGB/HCT (H&H) - STAT [id number] 15:50:00* Test Item Value Reference Range Interpretation Comments HEMOGLOBIN (BEAKER) (test code = 410) 8.6 GM/DL 12.0-15.0 L HEMATOCRIT (BEAKER) (test code = 411) 25.0 % 36.0-45.0 L HEMOGLOBIN-STAT [id number] 15:50:00* Test Item Value Reference Range Interpretation Comments HEMOGLOBIN (BEAKER) (test code = 410) 8.6 g/dL 12.0-15.0 L HEMATOCRIT-STAT [id number] 15:50:00* Test Item Value Reference Range Interpretation Comments HEMATOCRIT (BEAKER) (test code = 411) 25.0 % 36.0-45.0 L SODIUM NA-STAT [id number] 15:23:00* Test Item Value Reference Range Interpretation Comments SODIUM (BEAKER) (test code = 381) 136 meq/L 135-148 POTASSIUM-STAT [id number] 15:23:00* Test Item Value Reference Range Interpretation Comments POTASSIUM (BEAKER) (test code = 379) 5.3 meq/L 3.6-5.5 BLOOD GAS, [id number] 15:23:00* Test Item Value Reference Range Interpretation Comments PH ARTERIAL (BEAKER) (test code = 383) 7.41 7.35-7.45 PCO2 ARTERIAL (BEAKER) (test code = 384) 35 mmHg 35-45 PO2 ARTERIAL (BEAKER) (test code = 385) 418 mmHg 80-90 H O2 SATURATION ARTERIAL (BEAKER) (test code = 386) 99.8 % 96.0 -97.0 H HCO3 ARTERIAL (BEAKER) (test code = 388) 22 mmol/L 21-29 BASE EXCESS ARTERIAL (BEAKER) (test code = 387) -2.6 mmol/L -2.0-3 .0 L PATIENT TEMPERATURE (BEAKER) (test code = 1818) 36.0 C FIO2 (BEAKER) (test code = 1819) 100.0 % GLUCOSE-STAT [id number] 15:23:00* Test Item Value Reference Range Interpretation Comments GLUCOSE RANDOM (BEAKER) (test code = 652) 153 mg/dL 70-110 H HGB/HCT (H&H) - STAT [id number] 15:23:00* Test Item Value Reference Range Interpretation Comments HEMOGLOBIN (BEAKER) (test code = 410) 6.9 g/dL 12.0-15.0 L HEMATOCRIT (BEAKER) (test code = 411) 20.0 % 36.0-45.0 L HGB/HCT (H&H) - STAT [id number] 15:07:00* Test Item Value Reference Range Interpretation Comments HEMOGLOBIN (BEAKER) (test code = 410) 5.4 g/dL 12.0-15.0 LL HEMATOCRIT (BEAKER) (test code = 411) 16.0 % 36.0-45.0 L POTASSIUM-STAT [id number] 15:06:00* Test Item Value Reference Range Interpretation Comments POTASSIUM (BEAKER) (test code = 379) 4.9 meq/L 3.6-5.5 BLOOD GAS, [id number] 15:06:00* Test Item Value Reference Range Interpretation Comments PH ARTERIAL (BEAKER) (test code = 383) 7.35 7.35-7.45 PCO2 ARTERIAL (BEAKER) (test code = 384) 33 mmHg 35-45 L PO2 ARTERIAL (BEAKER) (test code = 385) 346 mmHg 80-90 H O2 SATURATION ARTERIAL (BEAKER) (test code = 386) 99.7 % 96.0 -97.0 H HCO3 ARTERIAL (BEAKER) (test code = 388) 18 mmol/L 21-29 L BASE EXCESS ARTERIAL (BEAKER) (test code = 387) -7.3 mmol/L -2.0-3 .0 L PATIENT TEMPERATURE (BEAKER) (test code = 1818) 34.0 C FIO2 (BEAKER) (test code = 1819) 80.0 % SODIUM NA-STAT [id number] 15:06:00* Test Item Value Reference Range Interpretation Comments SODIUM (BEAKER) (test code = 381) 132 meq/L 135-148 L GLUCOSE-STAT [id number] 15:06:00* Test Item Value Reference Range Interpretation Comments GLUCOSE RANDOM (BEAKER) (test code = 652) 139 mg/dL 70-110 H BLOOD GAS, [id number] 15:06:00* Test Item Value Reference Range Interpretation Comments PH VENOUS (BEAKER) (test code = 701) 7.31 7.32-7.42 L PCO2 VENOUS (BEAKER) (test code = 755) 38 mmHg 41-51 L PO2 VENOUS (BEAKER) (test code = 702) 57 mmHg 25-40 H O2 SATURATION VENOUS (BEAKER) (test code = 703) 91.7 % 40.0-7 0.0 H HCO3 VENOUS (BEAKER) (test code = 705) 20 mmol/L 21-29 L BASE EXCESS VENOUS (BEAKER) (test code = 704) -6.6 mmol/L -2.0-3.0 L PATIENT TEMPERATURE (BEAKER) (test code = 1818) 34.0 C FIO2 (BEAKER) (test code = 1819) 80.0 % BLOOD BANK [id number] 22:26:00Negative (09/03/16 4:26 PM)[facility] CARDIAC [id number] 21:32:008.90[facility] IqeevzjUMKVALLGRS9044-59-85 19:12:001.08[facility] EtftmnpLITFBFDQMF0131-83-60 19:12:00* Test Item Value Reference Range Interpretation Comments PT (test code = PT) 14.2 s 12.0-14.7 [facility] RpvsrgmDRVFAPLVJI7890-47-58 19:12:00* Test Item Value Reference Range Interpretation Comments PTT (test code = PTT) 30.2 s 22.9-35.8 [facility] [id number] 15:34:961121Siuhqyfm [facility]annCARD[facility]AC XRRBHST6708-03-47 15:34:008.30[facility]annCHEM TCYFE2862-66-64 15:34:005.1 [facility] BKMTO7418-63-92 15:34:002.5[facility]annCHEM PANEL 2016-09-03 15:34:0018[facility]annCHE[facility] MPQZG7304-12-56 15:34:06880Gjgmqhem HermannCHEM CUENF4875-66-21 15:34:0059[facility]ann[facility] KINXW5091-66-85 15:34:004.3[facility]annCHE[facility] TZOKU4764-70-77 15:34:02405Pakhwdzd HermannCHEM RTUUZ4939-39-18 15:34:0024[facility]ann[facility] ZMRKW7043-48-93 15:34:002.50 [facility] XQUZD0731-16-53 15:34:79340Pajvmtdr HermannCHEM PANEL 2016-09-03 15:34:0016.3[facility]annCHE[facility] JCNIZ4917-80-59 15:34:007.8[facility]annCARD[facility]AC EKTETTT1829-94-53 08:31:000.75[facility]annCHEM PANEL 2016-09-03 08:31:000.3[facility]annCHE[facility] BJGRL1446-64-87 08:31:18878Hqgdwcsf HermannCHEM SNTZC9180-01-96 08:31:0025[facility]annCHE[facility] FKGMQ2067-24-84 08:31:0027[facility] RJGMU4717-85-56 08:31:000.9[facility]annCHE[facility] MBCMB2509-35-64 08:31:0021[facility]CHE[facility] EJQVG9322-83-12 08:31:0022 [facility] BBJSO5628-24-06 08:31:007.9[facility]annCHEM PANEL 2016-09-03 08:31:0014.5[facility]annCHE[facility] KBIWO3324-56-66 08:31:0025[facility] BKLFR4279-70-99 08:31:03634Qgxvgytj HermannCHE[facility] DXLCB2249-28-26 08:31:002.20[facility]CHE[facility] GMNQP6466-26-67 08:31:0055[facility]annCHE[facility] FRGUZ1245-74-01 08:31:15762Abhptgns HermannCHEM VUNSS4136-76-53 08:31:27645 [facility] HTIIO8060-84-64 08:31:003.5[facility]annCHEM PANEL 2016-09-03 08:31:003.1[facility]annCHE[facility] BZBHP4499-57-33 08:31:006.6[facility]CHE[facility] KQMAQ1472-33-44 08:31:003.5[facility]annCHE[facility] EVWTO7637-16-09 08:31:002.3[facility] GjuwazfQXTEIXTZHR6520-74-70 08:31:0010.3[facility] QCZCPJAWUC3336-72-63 08:31:0012.7[facility] BspdnzxSSREFDWCBJ5147-57-60 08:31:00 9.5[facility] OmhtgsoGDJMEDSZOG6110-10-05 08:31:003.24[facility]annHEMATOLOGY 2016-09-03 08:31:0029.0[facility] HhmwpjlQDDXZBLMTR4231-89-79 08:31:0089.6[facility] YwwdledMQQPVYQUTK0474-07-81 08:31:0032.7[facility] CeagkjuTRPHKHSGEQ2120-47-15 08:31:00* Test Item Value Reference Range Interpretation Comments MCH (test code = MCH) 29.3 pg 27.0-31.0 [facility] TyobtgpEQLUTVYUQD4202-96-21 08:31:07170Kylptvqv HermannHEMATOLOGY 2016-09-03 08:31:0014.3[facility] GmwccjtXIWCGCCUHK3862-44-53 08:31:005.7[facility] EtwhbzeIAZUBYRJOJ3496-53-73 08:31:004.9[facility] XwkrfxmOYINCAGMTK2584-76-52 08:31:000.2[facility] IfzxkmcYJLOHQFATW7975-36-75 08:31:000.4[facility] XLVYNJQXEG7651-85-26 08:31:0011.3[facility] RfqhxkkTKYCXRXBPE5091-37-13 08:31:00 0.6[facility] WesjjndDJLHELKBWD8959-52-14 08:31:000.1[facility]annHEMATOLOGY 2016-09-03 08:31:000.7[facility] JwsvvddSTLNNVUALM6390-71-69 08:31:0088.8[facility]annURINE AND RCMMZ3951-58-76 08:31:002[facility] STOOL 2016-09-03 08:31:001[facility] JOBMH8463-75-89 08:31:00Negative (09/03/16 2:31 AM)[facility] VSVHC5572-81-70 08:31:00Negative (09/03/16 2:31 AM)[facility] SKTWS6378-19-12 08:31:001[facility] UBQPK3071-77-60 08:31:00Negative (09/03/16 2:31 AM)[facility] EPGTW9435-67-84 08:31:001.008[facility] STOOL 2016-09-03 08:31:006.0[facility] TFKUG3290-74-91 08:31:00Negative *NA*(09/03/16 2:31 AM)[facility] GZXWW9184-46-83 08:31:00Clear (09/03/16 2:31 AM)[facility]annCARDIAC WCEWUPL6421-41-98 04:35:002.5[facility]annCARD[facility]AC SKBFFOL1778-38-37 04:35:509209Lwjqjvxc HermannCARDIAC ENZYMES 2016-09-03 04:35:0056[facility] JZRAYHQ6567-70-20 04:35:001.4 [facility]annCHE[facility] WEODU5014-93-39 04:35:0021[facility]annCHEM PANEL 2016-09-03 04:35:003.3[facility]annCHEM TUOUK8224-41-95 04:35:000.9[facility]annCHEM XLWHN3266-15-04 04:35:000.3[facility]annCHEM HPCFW5740-98-63 04:35:0025[facility]annCHEM TEEDX1479-35-02 04:35:0015.2[facility]annCHEM NXHGM1508-09-50 04:35:09197Jaqweqms HermannCHEM YYUDC0684-86-77 04:35:003.1 [facility]annCHE[facility] KUIUE8886-11-39 04:35:80455Ltnhizoa HermannCHEM PANEL 2016-09-03 04:35:0024[facility]annCHE[facility] RKJPO5848-98-97 04:35:0025[facility]annCHEM FPDIO1956-22-66 04:35:77821Pylyisgi HermannCHEM NPFHF1046-90-93 04:35:002.20[facility]annCHEM VLQTN2180-57-44 04:35:0054[facility]annCHEM BLDAG7278-40-57 04:35:006.4[facility]annCHEM KLYJN3648-01-53 04:35:007.9 [facility]annCHE[facility] OWHRL3499-62-88 04:35:0022[facility]annCHEM PANEL 2016-09-03 04:35:80499Lmmxobit HermannCHEM YQJKQ0957-38-00 04:35:003.2[facility] AoqubksBWAMAJHUPY8729-16-32 04:35:000.7[facility] GeuntweMJEBAVTARI3782-62-23 04:35:001.2[facility] WltiofaHSAFFOVRCV8633-75-98 04:35:007.3[facility] GWJWIFIGHK5519-23-11 04:35:000.1[facility] SvfirrlXHGHXSNDNS8417-78-56 04:35:000.2 [facility] WorpprmAMDIGKJGTP1809-67-63 04:35:0077.0[facility]annHEMATOLOGY 2016-09-03 04:35:0012.5[facility] FawbjeaYKRQOYPEOX1002-95-25 04:35:007.7[facility] IiaegegXYOTCAIYUB8741-80-69 04:35:002.2[facility] WzjwtxoECGXBLRSYU7535-96-54 04:35:000.6[facility] ItnmtumXMOREPWHLR8057-54-57 04:35:0010.2[facility] GAYYLJADCN4936-89-84 04:35:50002Bxzfvqmx QdmsrdeVNFGMRGUKH4370-63-50 04:35:009.3 [facility] JfegblvLVRYGVYNEP7691-21-83 04:35:003.14[facility]annHEMATOLOGY 2016-09-03 04:35:0087.8[facility] EwykyyiUUNOWSOHND4892-07-87 04:35:00* Test Item Value Reference Range Interpretation Comments MCH (test code = MCH) 29.7 pg 27.0-31.0 [facility] MleszwrFMYOKAVCGD8533-24-49 04:35:0027.6[facility]annHEMATOLOGY 2016-09-03 04:35:0033.8[facility] VyfiajuWWTXZREPVF8063-17-16 04:35:0014.2[facility] UczyfefAKIYNIVMVQ0487-49-21 04:35:009.5[facility]
--- NOTE | 2020-03-24 13:19 | Diagnostic Imaging Report ---
Chest, 1 view, 03/24/2020. History: Fall. Comparison: None available. Findings: The cardiomediastinal silhouette and pulmonary vasculature are within normal limits for a portable exam. Patchy opacity is present at the left lung base with minimal blunting of the left costophrenic sulcus. The right lung is clear. There is no evidence of pneumothorax. Left subclavian dual-lead pacer, right IJ tunneled dialysis catheter, median sternotomy wires, and CABG clips are present. There are no acute osseous or soft tissue abnormalities. Impression: Left lower lobe retrocardiac atelectasis with small left pleural effusion. Right lung is clear. Signed by: Darin Ahn on 03/24/2020 1:16 PM
--- NOTE | 2020-03-24 13:25 | Diagnostic Imaging Report ---
Right shoulder, 2 views. Right elbow, 3 views. Right forearm, 2 views. History: Fall. Findings: The bones are diffusely osteopenic. There is no evidence of AC separation or dislocation. A nondisplaced fracture of the right radial head is present. Remaining bones are intact. There are no lytic or sclerotic lesions. There is right AC joint hypertrophy. Remaining joint spaces are unremarkable. Posterior fat pad sign is noted at the elbow. There are diffuse vascular calcifications. IMPRESSION: 1. Nondisplaced right radial head fracture with associated elbow joint effusion. 2. Degenerative changes of the right shoulder. Signed by: Darin Ahn on 03/24/2020 1:21 PM
--- NOTE | 2020-03-24 13:28 | Diagnostic Imaging Report ---
Right hip, 2 views. Right knee, 3 views. Right foot, 3 views. History: Fall. Findings: There are diffuse vascular calcifications. The bones are diffusely osteopenic. There is no evidence of fracture or dislocation. There are no lytic or sclerotic lesions. The joint spaces are within normal limits. Posterior and plantar calcaneal spurs are present. IMPRESSION: No acute osseous abnormality. Signed by: Darin Ahn on 03/24/2020 1:24 PM
[2020-03-24] MEDS ORDERED: HYDROCODONE/APAP 7.5MG-325MG 1 EA TAB ONE (13:56)
[2020-03-24] MEDS ORDERED: HYDROCODONE/APAP 7.5MG-325MG 1 EA TAB PO PRN (14:00)
[2020-03-24] MEDS ORDERED: ULTRAM50 MG PO (14:42)
--- NOTE | 2020-03-24 14:44 | Emergency Department Note ---
History of Present Illnes History of Present Illness Chief Complaint: Extremity Trauma/Pain History of Present Illness This is a 80 year old female arrived to the ED after a mechanical fall complaining of right shoulder . Historian: Patient Arrival Mode: Car Onset (how long ago): hour(s) Severity: mild Onset quality: sudden Timing of current episode: constant Progression: unchanged Chronicity: new Past Medical/Family History Physician Review I have reviewed the patient's past medical and family history. Any updates have been documented here. 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; (DEVICED PLACED) DIALYSIS M/W/F Other Surgery: CLOT REMOVED AND DEVICE PLACED IN BRAIN ([facility])2009 HEEL RIGHT CATARACS RIGHT CHEST WALL, DIALYSIS [facility] Social History Smoking Cessation: Never Smoker Counseling Performed: No Alcohol Use: None Any Illegal Drug Use: No Other Last Tetanus: UNKNOWN Any Pre-Existing Lines (PICC,: No Review of Systems Review of Systems Constitutional: Reports no symptoms EENTM: Reports no symptoms Cardiovascular: Reports no symptoms Respiratory: Reports no symptoms Gastrointestinal: Reports no symptoms Genitourinary: Reports no symptoms Musculoskeletal: Reports as per HPI, Reports joint pain, Reports joint swelling Integumentary: Reports no symptoms Neurological: Reports no symptoms Psychological: Reports no symptoms Endocrine: Reports no symptoms Hematological/Lymphatic: Reports no symptoms Physical Exam Related Data Allergies: Coded Allergies: codeine (Verified Allergy, Intermediate, VOMITING, 03/28/16) Triage Vital Signs Vital Signs Date Time Temp Pulse Resp B/P (MAP) Pulse Ox O2 Delivery O2 Flow Rate FiO2 03/24/20 12:01 98.1 57 18 152/50 100 Room Air Vital signs reviewed: Yes Physical Exam CONSTITUTIONAL Constitutional: Present well-developed, Present well-nourished HENT HENT: Present normocephalic, Present atraumatic, Present oropharynx clear/moist, Present nose normal HENT L/R: Present left ext ear normal, Present right ext ear normal EYES Eyes: Reports PERRL, Reports conjunctivae normal NECK Neck: Present ROM normal PULMONARY Pulmonary: Present effort normal, Present breath sounds normal CARDIOVASCULAR Cardiovascular: Present regular rhythm, Present heart sounds normal, Present capillary refill normal, Present normal rate GASTROINTESTINAL Abdominal: Present soft, Present nontender, Present bowel sounds normal GENITOURINARY Genitourinary: Present exam deferred SKIN Skin: Present warm, Present dry MUSCULOSKELETAL Musculoskeletal: Present ROM normal, Present edema, Present deformity, Present tenderness, Present swelling NEUROLOGICAL Neurological: Present alert, Present oriented x 3, Present no gross motor or sensory deficits PSYCHOLOGICAL Psychological: Present mood/affect normal, Present judgement normal Results Imaging Imaging results reviewed: Yes Impressions IMPRESSION: 1. Nondisplaced right radial head fracture with associated elbow joint effusion. 2. Degenerative changes of the right shoulder. Assessment & Plan Medical Decision Making MDM 80-year-old female arrived to the ED after sustaining a mechanical fall resulting in an obvious deformity- patient have asked intact, compartments are soft. X-ray findings discussed with Dr. Varela and Dr. Shaw from orthopedics. Patient admitted with formal orthopedic consultation to follow. Assessment & Plan Final Impression: (1) Humerus head fracture Depart Disposition: ADMITTED Last Vital Signs Date Time Temp Pulse Resp B/P (MAP) Pulse Ox O2 Delivery O2 Flow Rate FiO2 03/24/20 14:07 98.0 59 16 187/63 99 Room Air Home Meds Active Scripts Tramadol Hcl (ULTRAM) 50 Mg Tablet, 50 MG PO Q6HR PRN for Mild Pain (1-3) or Fever>100.8, #14 TAB Prov:LUZMARIA HOWARD, 03/24/20 Reported Medications Amoxicillin (AMOXICILLIN) 250 Mg Capsule, 875 MG PO BID, #30 CAP 08/13/16 Folic Acid/Cyanocob/Pyridoxine (NEPHRO-ISIDORO TABLET) 1 Ea Tab, 1 EACH PO DAILY, #30 TAB 03/28/16 Levothyroxine Sodium (SYNTHROID) 75 Mcg Tab, 75 MCG PO, #30 TAB 03/28/16 Hydralazine Hcl (HYDRALAZINE HCL) 25 Mg Tab, 25 MG PO BID, TAB 03/28/16 Furosemide (LASIX) 20 Mg Tablet, 40 MG PO DAILY, #30 TAB 03/28/16 Medications in the ED Acetaminophen/ Hydrocodone Bitart 1 ea ONCE PRN PO MODERATE PAIN (4-6) Last administered on 03/24/20at 13:52; Admin Dose 1 EA; Start 03/24/20 at 14:00; Stop 03/31/20 at 13:59 Acetaminophen/ Hydrocodone Bitart 1 ea STK-MED ONCE .ROUTE ; Start 03/24/20 at 13:56; Stop 03/24/20 at 13:50; Status DC LUZMARIA HOWARD DO Mar 24, 2020 14:45
--- NOTE | 2020-03-24 15:05 | NUR ---
posterior splint long arm right arm done with sling and ice jared. +cap refill < 2 seconds. md notified if need to see to ok for d/c. per , blair to d/c. teaching extensively done with pt and son with primary rn at bedside.
== END 2020-03-24 15:07 | disposition home or self-care (01) ==
LOC: ER 12:13
DX: S52.124A Nondisplaced fracture of head of right radius, initial encounter for closed fracture (principal); M25.511 Pain in right shoulder; S80.211A Abrasion, right knee, initial encounter; W01.0XXA Fall on same level from slipping, tripping and stumbling without subsequent striking against object, initial encounter; Y93.01 Activity, walking, marching and hiking; Y92.008 Other place in unspecified non-institutional (private) residence as the place of occurrence of the external cause; I10 Essential (primary) hypertension; I25.2 Old myocardial infarction; I69.398 Other sequelae of cerebral infarction; Z95.0 Presence of cardiac pacemaker
CPT/HCPCS: 71045; 99284

== ENCOUNTER 2020-04-29 07:12 | Inpatient (IN) | payer MEDICARE, BC ==
[~2020-04-29] VITALS: Ht 152.4 cm; Wt 48.2 kg
[~2020-04-29 07:12] MED LIST changes: +ULTRAM50 MG PO
[2020-04-29 07:58] LABS: BASOPHILS % 0.3 % (0.0-1.0); EOSINOPHILS # (AUTO) 0.1 (0.0-0.4); EOSINOPHILS % 1.1 % (0.0-6.0); HEMATOCRIT 34.2 % (34.2-44.1); HEMOGLOBIN 10.5 g/dL (12.0-16.0); LYMPHOCYTES # (AUTO) 0.9 (1.0-3.2); MEAN CORPUSCULAR HEMOGLOBIN 30.2 pg (28-32); MEAN CORPUSCULAR HGB CONC 30.7 g/dL (31-35); MEAN CORPUSCULAR VOLUME 98.3 fL (81-99); MONOCYTES # (AUTO) 0.9 (0.2-0.8); MONOCYTES % 7.6 % (4.4-11.3); NEUTROPHILS # (AUTO) 9.2 (2.1-6.9); NEUTROPHILS % 82.3 % (38.7-80.0); PLATELET COUNT 242 x10e3/uL (140-360); RED BLOOD COUNT 3.48 x10e6/uL (3.6-5.1); RED CELL DISTRIBUTION WIDTH 15.5 % (11.7-14.4)
[2020-04-29] MEDS ORDERED: PANTOPRAZOLE SO40 MG PO (07:58)
[2020-04-29] MEDS ORDERED: VANCOMYCIN 1GM/NS 250 ML 250 ML IV ONE (08:00)
[2020-04-29] MEDS ORDERED: ONDANSETRON HCL INJ 2MG/ML 2ML 2 MG/ML VIAL IV PRN (08:00)
[2020-04-29] MEDS ORDERED: bayer PO (08:01)
[2020-04-29] MEDS ORDERED: losartan PO (08:01)
[2020-04-29] MEDS ORDERED: CLOPIDOGREL75 MG PO (08:01)
--- NOTE | 2020-04-29 08:01 | NUR ---
PATIENT DID NOT GET DIALYSIS TODAY. PORT WAS DRAINING PUS AND THEY WANTED HER TO FOLLOW UP WITH THE DOCTOR
[2020-04-29 08:10] LABS: INR 0.98; PROTHROMBIN TIME 13.5 seconds (11.9-14.5)
[2020-04-29 08:21] LABS: ALBUMIN 3.3 g/dL (3.5-5.0); CALCIUM 7.6 mg/dL (8.4-10.2); CREATININE, SERUM 6.4 mg/dL (0.57-1.11)
[2020-04-29 08:24] LABS: CREATINE KINASE MB 0.9 ng/mL (0-5.0)
--- NOTE | 2020-04-29 08:29 | Emergency Department Note ---
History of Present Illnes History of Present Illness Chief Complaint: General Medicine Complaints History of Present Illness This is a 80 year old female PATIENT IN FROM HOME; PER SON, HE WENT TO TAKE HER TO DIALYSIS TODAY AND NOTICED PURULENT DRAINAGE FROM AROUND HER DIALYSIS CATHETER. PATIENT STATES SHE HAD THE CATHETER CHANG[place] [facility] [place] PATIENT RATES PAIN 8/10, APPEARS IN NO DISTRESS, RESP EVEN AND NONLABORED, AFEBRILE IN TRIAGE, AMBULATORY WITH WALKER. Historian: Patient, Family Member Arrival Mode: Car Yarn Dry Room Worker Required: Yes (SON) Onset (how long ago): day(s) (PAIN LAST NIGHT AT HD CATH SITE, PURULENT DS/C NOTICED THIS AM) Location: RIGHT TUNNELED IJ CATH SITE Quality: PAIN Radiation: Reports non-radiation Severity: severe Onset quality: gradual Timing of current episode: constant Progression: worsening Chronicity: new Context: Denies recent illness Relieving factors: none Exacerbating factors: none Associated symptoms: Reports denies other symptoms; Denies fever/chills Past Medical/Family History Physician Review I have reviewed the patient's past medical and family history. Any updates have been documented here. 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 Social History Smoking Cessation: Never Smoker Counseling Performed: No Alcohol Use: None Any Illegal Drug Use: No TB Exposure/Symptoms: No Physically hurt or threatened: No Family History Family history of heart diseas: No Other Last Tetanus: UNKNOWN Any Pre-Existing Lines (PICC,: No Review of Systems Review of Systems Constitutional: Reports no symptoms EENTM: Reports no symptoms Cardiovascular: Reports no symptoms Respiratory: Reports no symptoms Gastrointestinal: Reports no symptoms Genitourinary: Reports no symptoms Musculoskeletal: Reports as per HPI, Reports other (PAIN AT RIGHT TUNNELED IJ HD CATH SITE WITH DISCHARGE) Integumentary: Reports no symptoms Neurological: Reports no symptoms Psychological: Reports no symptoms Endocrine: Reports no symptoms Hematological/Lymphatic: Reports no symptoms Physical Exam Related Data Allergies: Coded Allergies: codeine (Verified Allergy, Intermediate, VOMITING, 10/20) Triage Vital Signs Vital Signs Date Time Temp Pulse Resp B/P (MAP) Pulse Ox O2 Delivery O2 Flow Rate FiO2 04/29/20 07:16 98.4 75 16 203/55 100 Room Air Vital signs reviewed: Yes Physical Exam CONSTITUTIONAL Constitutional: Present well-developed, Present well-nourished HENT HENT: Present normocephalic, Present atraumatic, Present oropharynx clear/moist, Present nose normal HENT L/R: Present left ext ear normal, Present right ext ear normal EYES Eyes: Reports PERRL, Reports conjunctivae normal NECK Neck: Present ROM normal PULMONARY Pulmonary: Present effort normal, Present breath sounds normal CARDIOVASCULAR Cardiovascular: Present regular rhythm, Present heart sounds normal, Present normal rate, Present murmur (1/6 SYS MURMUR); Absent gallop GASTROINTESTINAL Abdominal: Present soft, Present nontender, Present bowel sounds normal GENITOURINARY Genitourinary: Present exam deferred SKIN Skin: Present warm, Present other (PURULENT DISCHARGE FROM SITE OF RIGHT TUNNELED HD CATH WITH TENDERNESS ALONG TUNNELED CATH WITH A RAISED AREA OF FLUCTUANCE, VERY TENDER) MUSCULOSKELETAL Musculoskeletal: Present ROM normal NEUROLOGICAL Neurological: Present alert, Present oriented x 3, Present no gross motor or sensory deficits PSYCHOLOGICAL Psychological: Present mood/affect normal, Present judgement normal Results Laboratory Result Diagram: 04/29/20 0729 Laboratory Laboratory Tests Test 04/29/20 07:29 White Blood Count 11.15 x10e3/uL (4.8-10.8) Red Blood Count 3.48 x10e6/uL (3.6-5.1) Hemoglobin 10.5 g/dL (12.0-16.0) Hematocrit 34.2 % (34.2-44.1) Mean Corpuscular Volume 98.3 fL (81-99) Mean Corpuscular Hemoglobin 30.2 pg (28-32) Mean Corpuscular Hemoglobin Concent 30.7 g/dL (31-35) Red Cell Distribution Width 15.5 % (11.7-14.4) Platelet Count 242 x10e3/uL (140-360) Neutrophils (%) (Auto) 82.3 % (38.7-80.0) Lymphocytes (%) (Auto) 8.0 % (18.0-39.1) Monocytes (%) (Auto) 7.6 % (4.4-11.3) Eosinophils (%) (Auto) 1.1 % (0.0-6.0) Basophils (%) (Auto) 0.3 % (0.0-1.0) Neutrophils # (Auto) 9.2 (2.1-6.9) Lymphocytes # (Auto) 0.9 (1.0-3.2) Monocytes # (Auto) 0.9 (0.2-0.8) Eosinophils # (Auto) 0.1 (0.0-0.4) Basophils # (Auto) 0.0 (0.0-0.1) Absolute Immature Granulocyte (auto 0.08 x10e3/uL (0-0.1) Prothrombin Time 13.5 seconds (11.9-14.5) Prothromb Time International Ratio 0.98 Activated Partial Thromboplast Time 38.0 seconds (23.8-35.5) Sodium Level 137 mmol/L (136-145) Potassium Level 4.0 mmol/L (3.5-5.1) Chloride Level 96 mmol/L (98-107) Carbon Dioxide Level 27 mmol/L (22-29) Anion Gap 18.0 mmol/L (8-16) Blood Urea Nitrogen 51 mg/dL (7-26) Creatinine 6.40 mg/dL (0.57-1.11) Estimat Glomerular Filtration Rate 6 ML/MIN (60-) BUN/Creatinine Ratio 8 (6-25) Glucose Level 104 mg/dL (74-118) Calcium Level 7.6 mg/dL (8.4-10.2) Total Bilirubin 0.8 mg/dL (0.2-1.2) Aspartate Amino Transf (AST/SGOT) 13 IU/L (5-34) Alanine Aminotransferase (ALT/SGPT) 8 IU/L (0-55) Alkaline Phosphatase 90 IU/L (40-150) Creatine Kinase 13 IU/L (29-168) Total Protein 6.7 g/dL (6.5-8.1) Albumin 3.3 g/dL (3.5-5.0) Globulin 3.4 g/dL (2.3-3.5) Albumin/Globulin Ratio 1.0 (0.8-2.0) Laboratory Tests Test 10/9/20 07:29 White Blood Count 11.15 x10e3/uL (4.8-10.8) Red Blood Count 3.48 x10e6/uL (3.6-5.1) Hemoglobin 10.5 g/dL (12.0-16.0) Hematocrit 34.2 % (34.2-44.1) Mean Corpuscular Volume 98.3 fL (81-99) Mean Corpuscular Hemoglobin 30.2 pg (28-32) Mean Corpuscular Hemoglobin Concent 30.7 g/dL (31-35) Red Cell Distribution Width 15.5 % (11.7-14.4) Platelet Count 242 x10e3/uL (140-360) Neutrophils (%) (Auto) 82.3 % (38.7-80.0) Lymphocytes (%) (Auto) 8.0 % (18.0-39.1) Monocytes (%) (Auto) 7.6 % (4.4-11.3) Eosinophils (%) (Auto) 1.1 % (0.0-6.0) Basophils (%) (Auto) 0.3 % (0.0-1.0) Neutrophils # (Auto) 9.2 (2.1-6.9) Lymphocytes # (Auto) 0.9 (1.0-3.2) Monocytes # (Auto) 0.9 (0.2-0.8) Eosinophils # (Auto) 0.1 (0.0-0.4) Basophils # (Auto) 0.0 (0.0-0.1) Absolute Immature Granulocyte (auto 0.08 x10e3/uL (0-0.1) Lab results reviewed: Yes Imaging Imaging results reviewed: Yes Assessment & Plan Medical Decision Making [facility] DIAL[facility] PT WITH NEW HD CATH ~1 WEEK AGO, NOW INFECTED & POSSIBLE ABSCESS - CHECK CBC, CHEM, BLOOD CX'S, CX OF PURULENT DS/C FROM SITE, IV ABX'S, ADMIT - WILL SPEAK TO PCP, RENAL Reassessment Reassessment I SPOKE WITH DR Jeanmarie JAVED FOR ADMISSION, HE WANTS Jeanmarie POLANCO WHO I ALSO SPOKE WITH - DR POLANCO WANTS IR TO CHANGE HD CATH & HE SPOKE WITH DR BUSTILLO AND I PLACED CONSULT FOR HIM Assessment & Plan Final Impression: (1) Infection, dialysis vascular access Depart Disposition: ADMITTED Last Vital Signs Date Time Temp Pulse Resp B/P (MAP) Pulse Ox O2 Delivery O2 Flow Rate FiO2 04/29/20 07:54 63 18 178/66 100 Room Air 04/29/20 07:16 98.4 Home Meds Reported Medications [sondra ] No Conflict Check, 81 MG PO DAILY 04/29/20 [losartan ] No Conflict Check, 100 MG PO DAILY 04/29/20 Clopidogrel Bisulfate (CLOPIDOGREL) 75 Mg Tablet, 75 MG PO DAILY, #30 TAB 04/29/20 Pantoprazole Sodium* (PROTONIX) 40 Mg Tablet.dr, 40 MG PO DAILY, TAB 04/29/20 Levothyroxine Sodium (SYNTHROID) 75 Mcg Tab, 75 MCG PO, #30 TAB 03/28/16 Discontinued Reported Medications Amoxicillin (AMOXICILLIN) 250 Mg Capsule, 875 MG PO BID, #30 CAP 08/13/16 Folic Acid/Cyanocob/Pyridoxine (NEPHRO-ISIDORO TABLET) 1 Ea Tab, 1 EACH PO DAILY, #30 TAB 03/28/16 Hydralazine Hcl (HYDRALAZINE HCL) 25 Mg Tab, 25 MG PO BID, TAB 03/28/16 Furosemide (LASIX) 20 Mg Tablet, 40 MG PO DAILY, #30 TAB 03/28/16 Discontinued Scripts Tramadol Hcl (ULTRAM) 50 Mg Tablet, 50 MG PO Q6HR PRN for Mild Pain (1-3) or Fever>100.8, #14 TAB Prov:LUZMARIA HOWARD, DO 03/24/20 Medications in the ED Vancomycin HCl 250 ml @ 167 mls/hr NOW ONCE IV ; Start 04/29/20 at 08:00; Stop 04/29/20 at 09:29 Gentamicin Sulfate 120 mg/ Sodium Chloride 103 ml @ 103 mls/hr NOW ONCE IV ; Start 04/29/20 at 08:30; Stop 04/29/20 at 09:29 Ondansetron HCl 4 mg Q4H PRN IV NAUSEA AND VOMITING; Start 04/29/20 at 08:00; Stop 05/29/20 at 07:59 LOTUS ACKERMAN MD Apr 29, 2020 08:29
[2020-04-29] MEDS ORDERED: GENTAMICIN SULFATE IV ONE (08:30)
[2020-04-29] MEDS ORDERED: SODIUM CHLORIDE 0.9% IV ONE (08:30)
--- NOTE | 2020-04-29 08:36 | Diagnostic Imaging Report ---
Examination: Single AP view of the chest. COMPARISON: 03/24/2020 INDICATION: Catheter infection DISCUSSION: Interval exchange or replacement of right internal jugular approach tunneled high flow central venous catheter. The tip of the current catheter projects over the expected region of the inferior vena cava/right atrial junction. Stable position of left subclavian approach implantable cardiac device body and leads, terminating over the right atrium and right ventricle. Lungs remain well-inflated. Moderate left pleural effusion with left lower lobe airspace disease, likely passive atelectasis, similar to prior. No new consolidation. Median sternotomy wires with mild enlargement of the cardiac silhouette and prominence of the pulmonary interstitium, also unchanged. No acute osseous abnormalities. IMPRESSION: Tip of right internal jugular tunneled hemodialysis catheter projects at the inferior cavoatrial junction. Left pleural effusion with probable passive atelectasis of the left lower lobe, similar to prior. No new consolidations. Signed by: Dr. Jimbo Marshall M.D. on 04/29/2020 8:33 AM
--- OUTSIDE RECORDS SUMMARY | 2020-04-29 08:45 | XMS REPORT | Clinical Summary ---
Author Author [facility] Organization [facility] Address Unknown Phone Unavailable Care Team Providers Care Music Teacher Name Role Phone Asked, No Pcp PCP Unavailable Allergies Not on File Medications Not on file Active Problems Not on file Encounters Care Team Description Date Type Specialty Ronn Castellanos MD 02/10/2020 Transcribe Access Orders Ronn aCstellanos MD Other nonspecific abnormal finding of fay [...] mities (Primary Dx) 09/03/2019 Telephone Cardiovascular after 04/29/2019 Social History Date Tobacco Use Types Packs/Day Years Used Never Assessed Sex Assigned at Date Recorded Not on file Last Filed Vital Signs Not on file Plan of Treatment Health Maintenance Due Date Last Done Comments SHINGLES VACCINES (#1) 02/29/1992 65+ PNEUMOCOCCAL VACCINE 2007 (1 of 1 - PPSV23) INFLUENZA VACCINE 02/20/2020 Procedures Comments Procedure Name Priority Date/Time Associated Diag nosis PET CT SKULL BASE TO MID Routine 01/28/2020 Other nonspecific THIGH 11:44 AM CDT abnormal finding of lung field POC GLUCOSE Routine 01/28/2020 10:23 AM CDT US DUPLEX VENOUS LOWER Routine 10/01/2019 Venous insufficiency of EXTREMITY REFLUX 3:16 PM CDT both lower extremit ies BILATERAL after 04/29/2019 Results * PET/CT Skull Base To Mid [...] lower lobe. Follow-up CT can be obtained. [facility]-[id number] Procedure Note Interface, Radiology Results Incoming - [...] lower lobe. Follow-up CT can be obtained. [facility]-[id number] Performing Organization Address City/[facility] Code P nash Number [facility] [address] [place] [address] * POC glucose (01/28/2020 10:23 AM CDT) POC glucose 101 (H) 65 - 99 mg/dL DUVALL Comment: SABIANISM Stereo Equipment Salesperson Name: [facility] Device ID: [id number] Specimen Blood Performing Organization Address City/[facility]/ZIP [facility] P nash Number [facility] DEPARTMENT OF [address] [place] [address] PATHOLOGY AND GENOMIC MEDICINE DUVALL SABIANISM [address] [place] [address] * duplex venous lower extremity reflux (10/01/2019 3:16 PM CDT) Specimen Narrative Performed At [facility] Lower Extremity Jas ous Insufficiency Report [address] [facility], [address] [id number] Pat.Name: SARAH MAGANA I Pat.ID: [id number] .Date: 10/01/2019 Refer.MD: ABDOULAYE DIEHL MD Exam Time: 2:10:00 PM Study Type:Venous Reflux Report Age: 8 1940,79Y Sex: FEMALE Sonogrphr: Coty Aguilar RVT CPT - 4: 99435 Echo Event ID:[id number] Order ID: [id number] Reason for Study:Bilateral swelling wor se at [...] LABORATORY Lower Extremity Venous Insufficiency Report [address] [facility], [address], [place], [place] [id number] Pat.Name: SARAH MAGANA I Pat.ID: [id number] .Date: 10/01/2019 Refer.MD: ABDOULAYE DIEHL MD Exam Time: 2:10:00 PM Study Type:Venous Reflux Report Age: 8 1940,79Y Sex: FEMALE Sonogrphr: Coty Aguilar RVT CPT - 4: 58964 Echo Event ID:[id number] Order ID: [id number] Reason for Study:Bilateral swelling worse at the [...] Nelson MD, FACS, RPVI Performing Organization Address City/State/ZIP Code [facility] Number [facility] [address] [place] [address] after 04/29/2019 Insurance Type Payer Benefit Subscriber ID Effective Phone Address Plan / Dates Group Medicare MEDICARE MEDICARE [id number] 2007-P RAMESH, PART A AND resent [place] B Commercial BCBS COMMERCIAL BCBS [id number] 2016-P MEDICARE resent SUPPLEMENT Advance Directives For more information, please contact: [phone] 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
--- OUTSIDE RECORDS SUMMARY | 2020-04-29 08:45 | XMS REPORT | Clinical Summary ---
Author Author JULIANA [employer] Organization [facility] [employer] Photos to Photos [facility] Address Unknown Phone Unavailable Care Team Providers Care Supply Chain Generalist Name Role Phone Fariba Kitchen PCP Allergies [...] by unit) Tab mouth once a week. 01/05/2020 Discontinued folic acid-multivitamins Take 1 tablet [...] Ray MD ESRD (end stage renal disease) ([facility]) 01/05/2020 Office Visit Cardiology 01/05/2020 Travel Darin Ray MD ESRD (end stage renal disease) ([facility]) 12/29/2019 Hospital Cardiology Encounter Darin Ray MD ESRD (end stage renal disease) ([facility]) (Pr imary Dx) 12/24/2019 Orders Only after 04/29/2019 Family History Medical History Relation Name Comments [...] Type Area Manufactur er 07/18/2019 5076-52 / [id number] / Lead Pacemkr Capsur Novus 52cm Pacemaker N/A: Heart [employer]: 5076-52 - [id number] Lead CARD Implanted: Qty: 1 on 10/08/2017 by RHY:Prerna Castillo MD E MGT 07/17/2019 5076-45 / [id number] / Lead Pacemkr Capsur Novus 45cm Pacemaker N/A: Heart [employer]: 5076-45 - [id number] Lead CARD Implanted: Qty: 1 on 10/08/2017 by RHY:Prerna Castillo MD E MGT 01/02/2019 A2DR01 / [id number] / Pacemaker Ipg Advisa [id number] - Pacemakers N/A: Chest [employer]: [id number] CARD Implanted: Qty: 1 on 10/08/2017 by [...] ms QTC Calculatio n(Bazett) 450 ms P Nolan 136 degrees R Nolan 74 degrees T Nolan 243 degrees Atrial-pa stacy rhythm with prolonged [...] d stage renal 1:24 PM CDT disease) ([facility]) after 04/29/2019 Results * ECG 12 lead (01/05/2020 10:36 AM CDT) Specimen Narrative Performed At Ventricular Rate 62 BPM GE MUSE Atrial Rate 64 BPM P-R Interval 220 ms QRS Duration 108 ms Q-T Interval 444 ms QTC Calculation(Bazett) 450 ms P Nolan 136 degrees R Nolan 74 degrees T Nolan 243 degrees Atrial-paced rhythm with prolonged AV c onduction Incomplete left bundle branch block Left ventricular hypertrophy with repol arization abnormality Abnormal ECG When compared with ECG of 28-DEC-2017 1 5:43, Electronic atrial pacemaker has replace d Sinus rhythm Vent. rate has decreased BY30 BPM ST depression andInverted T waves h ave replaced nonspecific T wave abnormality in Inferior leads Confirmed by MD STANLEY, LEORA ([id number] ) on 01/05/2020 12:38:58 PM Procedure Note Interface, External Ris In - 01/05/2020 12:39 PM CDT Ventricular Rate 62 BPM Atrial Rate 64 BPM P-R Interval 220 ms QRS Duration 108 ms Q-T Interval 444 ms QTC Calculation(Bazett) 450 ms P Nolan 136 degrees R Nolan 74 degrees T Nolan 243 degrees Atrial-paced rhythm with prolonged AV [...] arm/arms (12/29/2019 1:24 PM CDT) Ejection Fraction [facility] Specimen Impressions Performed At Right Impression [facility] 1. There is no deep venous obstruction in the jugular , subclavian, axillary, [facility] brachial, radial or ulnar veins. 2. There [...] PV LAB - Upper Extremities Vein Mapping [facility] Demographics [facility] Patient NameSARAH MAGANA Date of Study12/29/2019 IR VASHTI 9 Age79 Visit [id number] Gender Female Date of Birth1940 Referring Darin Carmichael Room Number Physician Cory MD Director Of Program Management Rosie Souza RVT Interpreting Shant Meza Procedure Type of Study: [...] Study 12/29/2019 PREET Age 79 Visit Number [id number] Gender Female Accession Number [id number] Date of 1940 Referring Darin Carmichael Room Number Physician Cory MD Director Of Program Management Rosie MABRYT Interpreting Chuyita Hui, Physician Procedure Type of Study: Veins: Upper [...] + + + + Performing Organization Address City/State/[facility] Ph one Number [facility] after 04/29/2019 Insurance Payer Benefit Subscriber ID Type Phone Address Plan / Group MEDICARE MEDICARE A xxxxxxxxxxx Medicare B BLUE CROSS/BLUE SHIELD BCBS xxxxxxxxxxxx O [address] [place] [address] [place] Advance Directives For more information, please contact: [facility] [address] [place] [address] 136- [phone] Date Inactivated Comments Code Status Date Activated [...]
--- OUTSIDE RECORDS SUMMARY | 2020-04-29 08:46 | XMS REPORT | Continuity of Care Document ---
Author Author Nikki Graeme Animail SARAH Kang I Organization [facility] Address Unknown Phone Unavailable Care Team Providers Care Offset Second Press Operator Name Role Phone [employer] Information [employer] Unavailable Un available Problems Problem Status Onset Date Classification Date Reported Comments Source ACUTE HYPERKALEMIA, FACIAL ABRASION, FAC Active 02/01/2018 [place] FALL Active 02/01/2018 [place] UNK Active 0 11/02/2016 [facility] DEBILITY Active 09/12/2016 [facility] CORONARY ARTERY DISEASE Active 09/11/2016 [facility] RESP DISTRESS Active 09/02/2016 [facility] CHF EXACERBATION Active 09/02/2016 [facility] Acute congestive heart failure (disorder) Active Problem 02/04/[address] [facility] [place] 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 (disorder) Active Prob rashida 02/04/[address] [facility] [place] Acute pulmonary insufficiency following thoracic surgery (disorder) Active Prob rashida 02/04/[address] [facility] [place] Coronary arteriosclerosis (disorder) Active Problem [facility] Kidney disease (disorder) Acti ve Problem [facility] Disease of thyroid gland (disorder) Active Problem [facility] Generalized ischemic myocardial dysfunction (disorder) Active Problem 02/04/[address] [facility] [place] Hypertensive disorder, systemic arterial (disorder) Active Problem 02/04/[address] [facility] [place] Injury of kidney (disorder) Ac tive Problem [facility] Impaired mobility (finding) Ac tive Problem [facility] Platelet count below reference range (finding) Active Problem 02/04/[address] [facility] [place] HEART FAILURE, UNSPECIFIED Act inder [facility] WEAKNESS Active [facility] END STAGE RENAL DISEASE Active [facility] HYPERKALEMIA Active [place] ABRASION OF OTHER PART OF HEAD, INITIAL Active [place] CONTUSION OF OTHER PART OF HEAD, INITIAL Active [facility] Medications Medication Details Route Status Patient Instructions Ordering Provider Order Date Source Losartan Notes: (Same as: Sancho han) Inactive 02/02/2018 [facility] Synthroid Notes: Take 1 hour b efore or 2 hours after meal; Enteral feeds may interefere with the absorption of this medication. (Same as:Synthroid, Levothroid) Inactive 02/02/2018 [facility] rosuvastatin Notes: (Same As: Crestor) No Longer Active 02/02/2018 [facility] Nephro-Kenyon Rx Notes: (Same as : Nephro-Kenyon Rx and Diatx) Give with food. No Longer Active 02/01/2018 [facility] Aspirin 81 MG Enteric Coated Tablet Notes: Do not crush or chew. (Same As: Ecotrin) No Longer Active 02/01/2018 [facility] Hydralazine Hydrochloride 50 MG Oral Tablet 50 mg, 1 tab, Route: PO, Drug form: TAB, ONCE, Dosing Weight 46.449, kg, Start date: 02/01/18 12:52:00 CDT, Stop date: 02/01/18 12:52:00 CDT Inactive 02/01/2018 [facility] tramadol hydrochloride 50 MG Oral Tablet Notes: Not to exceed 400mg/day. (Same As: Ultram) No Longer Active 02/01/2018 [facility] tramadol hydrochloride 50 MG Oral Tablet 50 mg = 1 tab, PO, Q12H, PRN Pain Score 6-10, 0 Refill(s) Active 02/01/2018 [facility] Ascorbic Acid 60 MG / Calcium Pantothena te 10 MG / D-BIOTIN 0.3 MG / Folic Acid 0.8 MG / Niacinamide 20 MG / pyridoxine 10 MG / Riboflavin 1.7 MG / Thiamine 1.5 MG / Vitamin B 12 0.006 MG Oral Tablet [Payton-Kenyon] 1 tab, PO, Daily, # 100 tab, 0 Refill(s) Inactive 02/01/2018 [facility] losartan 100 mg oral tablet 10 0 mg = 1 tab, PO, Daily, # 30 tab, 0 Refill(s) Active 02/01/2018 [facility] rosuvastatin 10 mg oral tablet 10 mg = 1 tab, PO, Bedtime, # 30 tab, 0 Refill(s) Active 02/01/2018 [facility] Insulin Lispro Notes: (Same as : Humalog ) Roll in palms of hands gently; Do not shake `vigorously. "Single Patient Use Only " WASTE: F/P - Black; E - Municipal Trash Bin Stable for 28 days at room temp erature. Expires in days from Date No Longer Active 02/01/2018 [facility] Glucagon 1 mg, Route: IM, Drug form: PDR/INJ, PRN, Dosing Weight 43.182, kg, PRN Blood Glucose Results, Start date: 02/01/18 4:13:00 CDT, Duration: 30 day, Stop date: 03/03/18 4:12:00 CDT No Longer Active 02/01/2018 [facility] Dextrose 50% Syringe 25 gm, 50 mL, Route: IVP, Drug Form: INJ, Dosing Weight 43.182, kg, PRN, PRN Blood Glucose Results, Start date: 02/01/18 4:13:00 CDT, Duration: 30 day, Stop date: 03/03/18 4:12:00 CDT No Longer Active 02/01/2018 [facility] Clonidine Notes: (Same As: Cat apres) No Longer Active 02/01/2018 [facility] Acetaminophen 325 MG / Hydrocodone Sedrick trate 5 MG Oral Tablet Notes: (Same as: D[place] 325/5) Do not ex ceed 4gm/day of acetaminophen. No Longer Active 02/01/2018 [facility] Morphine Notes: (Same as: MORP cole Sulfate) No Longer Active 02/01/2018 [facility] Acetaminophen Notes: Do not ex ceed 4 gm/day. (Same as: Tylenol) No Longer Active 02/01/2018 [facility] Ondansetron Notes: (Same as: Jennifer marcum) MEDICATION WASTE Product Size: 4 mg Product Wasted: ___ mg No Longer Active 02/01/2018 [facility] Calcium Gluconate Notes: WASTE : F/P - Sink; E - Municipal Trash Bin Inactive 02/01/2018 [facility] Insulin regular 60 units) W ASTE: F/P - Black; E - Municipal Trash Bin Stable for 28 days at room temperature Expires in days from Date Inactive 02/01/2018 [facility] Dextrose 50% Syringe 25 gm, 50 mL, Route: IVP, Drug Form: INJ, Dosing Weight 43.182, kg, ONCE, STAT, Start date: 02/01/18 3:07:00 CDT, Stop date: 02/01/18 3:07:00 CDT Inactive 02/01/2018 [facility] Metoprolol Notes: (Same as: Lo pressor) Push over 2 minutes Inactive 02/01/2018 [facility] Zofran ODT Notes: (Same as: Zo roverto ODT) Inactive 02/01/2018 [facility] Saline Flush 0.9% Notes: Same as: BD Posiflush Sterile No Longer Active 02/01/2018 [facility] Cardiac Rehabilitation See Ins tructions, Diagnosis CAD with CHF s/p CABG. Evaluate and treat as per [facility] re[facility], # 1 ea, 0 Refill(s) Active 09/24/2016 [facility] pantoprazole 40 MG Enteric Coated Tablet [Protonix] 40 mg = 1 tab, PO, Daily, # 30 tab, 0 Refill(s), Pharmacy: [facility] [id number] Active 09/24/2016 [facility] Nephro-Kenyon Rx oral tablet 1 t ab, PO, Daily, # 30 tab, 0 Refill(s), Pharm[place] [facility] [employer] [facility] [id number] [place] 09/24/2016 [facility] Levothyroxine Sodium 0.075 MG Oral Tablet [Synthroid] 75 microgram = 1 tab, PO, Q630AM, # 30 tab, 0 Refill(s), Pharmacy: [facility] [id number] Active 09/24/2016 [facility] atorvastatin 80 MG Oral Tablet [Lipitor] 80 mg = 1 tab, PO, Bedtime, # 30 tab, 0 Refill(s), Pharmacy: [facility] [id number] Active 09/24/2016 [facility] aspirin 81 mg tablet, enteric coated 81 mg = 1 tab, PO, Daily, # 30 tab, 0 Refill(s), Pharmacy: [facility] [employer] [facility] [id number] Active 09/24/2016 [facility] Furosemide 40 MG Oral Tablet 4 0 mg = 1 tab, PO, Daily, # 30 tab, 0 Refill(s), Pharmacy: [facility] [id number] Active 09/24/2016 [facility] carvedilol 3.125 mg oral tablet 3.125 mg = 1 tab, PO, Q12H, # 60 tab, 0 Refill(s), Pharmacy: [facility] [id number] Active 09/24/2016 [facility] Calcium Carbonate 500 MG Chewable Tablet 500 mg = 1 tab, CHEW, TID, PRN Nausea, 0 Refill(s) Active 09/24/2016 [facility] acetaminophen 325 mg oral tablet 100.4 F, 0 Refill(s) Active 09/24/2016 [facility] senna 8.6 mg oral tablet 17.2 mg = 2 tab, PO, Bedtime, X 14 day, # 28 tab, 0 Refill(s), Pharmacy: [facility] [id number] Active 09/24/2016 [facility] cetirizine Notes: (Same As: Saleem rtec) No Longer Active 09/21/2016 [facility] Tums Notes: (Same As: Tums) Ca lcium Carbonate 500 mg = 200 mg elemental calcium Dose = mg calcium carbonate ( mg elemental calcium) No Longer Active 09/21/2016 [facility] Fluticasone propionate 0.05 MG/ACTUAT Me tered Dose Nasal Rosepine [Flonase] Notes: (Same as: Flonase) No Longer Active 09/20/2016 [facility] Claritin 10 mg, Route: PO, Raúl g form: TAB, QPM, Dosing Weight 47.5, kg, Start date: 09/20/16 17:00:00 [employer] CONSULTANT, Duration: 30 day, Stop date: 10/19/16 17:00:00 CDT Inactiv e 09/20/2016 [facility] Docusate Sodium 100 MG Oral Capsule [Colace] Notes: (Same as: Colace) (Do Not Crush) No Longer Active 09/16/2016 [facility] Coreg Notes: Give with food. ( Same As: Coreg) No Longer Active 09/16/2016 [facility] Epoetin Lobo Notes: (Same as: Procrit) epoetin lobo 4000 unit/1 ml VL For dialysis only. (Epogen) WASTE: F/P - Red; E -Red MEDICATION WASTE Product Size: 4000 unit Product Wasted: ___ unit No Longer Active 09/15/2016 [facility] Glucagon 1 mg, Route: IM, Drug form: PDR/INJ, PRN, Dosing Weight 47.5, kg, PRN Blood Glucose Results, Start date: 09/15/16 13:27:00 [employer] CONSULTANT, Duration: 30 day, Stop date: 10/15/16 14:26:00 CDT No Longer Active 09/15/2016 [facility] Dextrose 50% Syringe 25 gm, 50 mL, Route: IVP, Drug Form: INJ, Dosing Weight 47.5, kg, PRN, PRN Blood Glucose Results, Start date: 09/15/16 13:27:00 [employer] CONSULTANT, Duration: 30 day, Stop date: 10/15/16 14:26:00 CDT No Longer Active 09/15/2016 [facility] Insulin, Aspart, Human Notes: Roll in palms of hands gently; Do not shake vigorously. (Same as: NovoLOG) "single patient use only" WASTE: F/P - Black; E - Municipal Trash Bin Stable for 28 days at room temperature. Expires in days from Date No Longer Active 09/15/2016 [facility] aspirin 81 mg tablet, enteric coated Notes: Do not crush or chew. (Same As: Ecotrin) N o Longer Active 09/15/2016 [facility] Protonix Notes: Tablet should not be chewed or crushed. (Same as: Protonix) No Longer Active 09/15/2016 [facility] Nephro-Kenyon Rx Notes: (Same as : Nephro-Kenyon Rx and Diatx) Give with food. No Longer Active 09/15/2016 [facility] 24 HR Metoprolol Tartrate 25 MG Extended Release Tablet [Toprol] Notes: (Same as: Toprol XL) Do Not Crush Inactive 09/15/2016 [facility] Furosemide 20 MG Oral Tablet N otes: (Same as: Lasix) May cause GI upset. Give with food or milk. No Longer Active 09/15/2016 [facility] Venofer Notes: Each 5ml contai ns 100mg elemental iron. Mix with NS (Same as:Venofer) Administer IV only. MEDICATION WASTE Product Size: 100 mg Product Wasted: ___ mg No Longer Active 09/15/2016 [facility] Synthroid Notes: Take 1 hour b efore or 2 hours after meal; Enteral feeds may interefere with the absorption of this medication. (Same as:Synthroid, Levothroid) No Longer Active 09/15/2016 [facility] Lipitor Notes: (Same as: Lipit or) No Longer Active 09/15/2016 [facility] Senokot Notes: (Same as: Senok ot) No Longer Active 09/15/2016 [facility] Saline Flush 0.9% Notes: (Same as: BD Posiflush) No Longer Active 09/15/2016 [facility] Levaquin Notes: Do not give w/ antacids, dairy pdt & minerals Take 1 hr before or 2 hr after dairy pdt (Same as:Levaquin) No Longer Active 09/14/2016 [facility] Zofran Notes: (Same as: Zofran) No Longer Active 09/14/2016 [facility] Tylenol Notes: Do not exceed 4 gm/day. (Same as: Tylenol) No Longer Active 09/14/2016 [facility] Tramadol Notes: Not to exceed 400mg/day. (Same As: Ultram) No Longer Active 09/14/2016 [facility] Saline Flush 0.9% Notes: (Same as: BD Posiflush) No Longer Active 09/14/2016 [facility] Trazodone Notes: (Same As: Thong yrel) No Longer Active 09/14/2016 [facility] Lipitor Notes: (Same as: Lipit or) No Longer Active 09/04/2016 [facility] metoprolol tartrate Notes: (Sa me as: Lopressor) No Longer Active 09/04/2016 [facility] chlorhexidine gluconate 1.2 MG/ML Mouthwash Notes: (Same As: Peridex) No Longer Active 09/04/2016 [facility] Brilinta Notes: (Same as: Bril inta) No Longer Active 09/04/2016 [facility] ocular lubricant Notes: (Same as: Duratears Naturale and Artificial Tears, Tears Again ) No Longer Active 09/04/2016 [facility] heparin additive 25,000 unit [12 unit/kg /hr] + Premix Diluent Dextrose 5% 500 mL 500 mL, Rate: 11.52 ml/hr, Infuse over: 43.4 hr, Route: IV, Dosing Weight 48 kg, Total Volume: 500 mL, Start date: 09/03/16 17:44:00 [employer] CONSULTANT, Duration: 30 day, Stop date: 10/03/16 17:43:00 CDT Inactive 09/03/2016 [facility] Heparin 60 unit/kg Bolus (Heparin Dosing Weight) Pharmacy To Manage, Route: IVP, PRN, Drug form: INJ, PRN, Heparin Protocol, Start date: 09/03/16 17:44:00 [employer] CONSULTANT Stop date: 10/03/16 18:43:00 CDT, 30 day Inactive 09/03/2016 [facility] Heparin 30 unit/kg Bolus (Heparin Dosing Weight) Pharmacy To Manage, Route: IVP, PRN, Drug form: INJ, PRN, Heparin Protocol, Start date: 09/03/16 17:44:00 [employer] CONSULTANT Stop date: 10/03/16 18:43:00 CDT, 30 day Inactive 09/03/2016 [facility] Acetylcysteine 200 MG/ML Inhalant Solution 600 mg, 3 mL, Route: PO, Drug form: SOLN, BID, Dosing Weight 47.727, kg, Start date: 09/03/16 17:00:00 [employer] CONSULTANT, Duration: 3 day, Stop date: 09/06/16 9:00:00 [employer] CONSULTANT No Longer Active 09/03/2016 [facility] chlorhexidine gluconate 1.2 MG/ML Mouthwash Notes: (Same As: Peridex) No Longer Active 09/03/2016 [facility] Etomidate 10 mg, Route: IVP, O NCE, Dosing Weight 48, kg, Priority: STAT, Start date: 09/03/16 15:45:00 [employer] CONSULTANT, Stop date: 09/03/16 15:45:00 [employer] CONSULTANT Inactive 09/03/2016 [facility] Propofol 40 mg, Route: IVP, ON CE, Dosing Weight 48, kg, Priority: STAT, Start date: 09/03/16 15:45:00 [employer] IN[employer] CONSULTANT, Stop date: 09/03/16 15:45:00 [employer] INTE[employer] CONSULTANT Inactive 09/03/2016 [facility] Saline Flush 0.9% Notes: (Same as: BD Posiflush) No Longer Active 09/03/2016 [facility] Fentanyl Notes: Concentration: 5 microgram / ml No Longer Active 09/03/2016 [facility] Midazolam Notes: (Same as: Lanie sed) No Longer Active 09/03/2016 [facility] Lasix Notes: (Same as: Lasix) MEDICATION WASTE Product Size: 40 mg Product Wasted: ___ mg Inactive 09/03/2016 [facility] Heparin 60 unit/kg Bolus (Heparin Dosing Weight) Route: IVP, PRN, 2,900 unit, 2.9 mL, Drug form: INJ, PRN, Heparin Protocol, Start date: 09/03/16 12:43:00 [employer] CONSULTANT Stop date: 10/03/16 13:42:00 CDT, 30 day No Longer Active 09/03/2016 [facility] Heparin - one time bolus for ACS 5,000 unit, Route: IVP, Drug form: INJ, ONCE, Dosing Weight 47.727, kg, Priority: STAT, Start date: 09/03/16 12:43:00 S[employer] INTE[employer] CONSULTANT, Stop date: 09/03/16 12:43:00 [employer] MARK[employer] INTE[employer] CONSULTANT Inactive 09/03/2016 [facility] heparin additive 25,000 unit [12 unit/kg /hr] + Premix Diluent Dextrose 5% 500 mL 500 mL, Rate: 11.52 ml/hr, Infuse over: 43.4 hr, Route: IV, Dosing Weight 48 kg, Total Volume: 500 mL, Start date: 09/03/16 12:43:00 S[employer] IN[employer] CONSULTANT, Duration: 30 day, Stop date: 10/03/16 12:42:00 CDT No Longer Active 09/03/2016 [facility] Heparin 30 unit/kg Bolus (Heparin Dosing Weight) Route: IVP, PRN, 1,400 unit, 1.4 mL, Drug form: INJ, PRN, Heparin Protocol, Start date: 09/03/16 12:43:00 [employer] CONSULTANT Stop date: 10/03/16 13:42:00 CDT, 30 day No Longer Active 09/03/2016 [facility] Aspirin 325 MG Oral Tablet Not es: Take with food. Inactive 09/03/2016 [facility] Brilinta Notes: (Same as: Bril inta) Inactive 09/03/2016 [facility] Sodium Chloride 0.154 MEQ/ML Injectable Solution 250 mL, Rate: 100 ml/hr, Infuse over: 2.5 hr, Route: IV, Dosing Weight 47.727 kg, Total Volume: 250, Start date: 09/03/16 10:20:00 [employer] CONSULTANT, Duration: 30 day, Stop date: 10/03/16 10:19:00 CDT Inactive 09/03/2016 [facility] Nitroglycerin 0.02 MG/MG Topical Ointment 1 inch, Route: TOP, Drug Form: OINT, Dosing Weight 47.727, kg, TID, Start date: 09/03/16 9:00:00 [employer] CONSULTANT, Duration: 30 day, Stop date: 10/02/16 17:00:00 CDT Inactive 09/03/2016 [facility] heparin Notes: porcine heparin Inactive 09/03/2016 [facility] Lasix Notes: (Same as: Lasix) MEDICATION WASTE Product Size: 40 mg Product Wasted: ___ mg No Longer Active 09/03/2016 [facility] Hydralazine Hydrochloride 25 MG Oral Tablet Notes: (Same as: Apresoline) May interfere w/enteral feedings Take With Food. No Longer Active 09/03/2016 [facility] multivitamin Notes: (Same as:O ne Tab Daily, Tab-A-Kenyon + Beta Carotene) Give with food. No Longer Active 09/03/2016 [facility] Synthroid Notes: Take 1 hour b efore or 2 hours after meal; Enteral feeds may interefere with the absorption of this medication. (Same as:Synthroid, Levothroid) No Longer Active 09/03/2016 [facility] potassium chloride 10 mEq, Rou te: IVPB, ONCE, Dosing Weight 47.727, kg, Start date: 09/03/16 4:11:00 [employer] CONSULTANT, Stop date: 09/03/16 4:11:00 [employer] INTELL[employer] CONSULTANT Inactive 09/03/2016 [facility] Nitroglycerin Notes: (Same as: Tridil) Final conc = 0.4 mg/ml. Premix bottle. No Longe r Active 09/03/2016 [facility] Aspirin 325 MG Oral Tablet 325 mg, 1 tab, Route: PO, ONCE, Dosing Weight 47.727, kg, Start date: 09/03/16 3:20:00 S[employer] INTELL[employer] CONSULTANT, Stop date: 09/03/16 3:20:00 S[employer] INTELL[employer] CONSULTANT Inactive 09/03/2016 [facility] potassium chloride Notes: ([facility] oswaldo as: KCL) Infuse no faster than 10 mEq/hr if given peripherally. Inactive 09/03/2016 [facility] potassium chloride Notes: (Louie e as: K-Dur 20) "Do Not Crush" With food and full glass of water Inactive 09/03/2016 [facility] Ondansetron Notes: (Same as: Jennifer marcum) MEDICATION WASTE Product Size: 4 mg Product Wasted: ___ mg No Longer Active 09/03/2016 [facility] Morphine Notes: (Same as:MORPh ine Sulfate) No Longer Active 09/03/2016 [facility] Docusate Notes: (Same as: Cola ce) (Do Not Crush) No Longer Active 09/03/2016 [facility] Acetaminophen 325 MG / Hydrocodone Sedrick trate 5 MG Oral Tablet Notes: (Same as: [place] 325/5) Do not ex ceed 4gm/day of acetaminophen. No Longer Active 09/03/2016 [facility] Nitroglycerin 0.02 MG/MG Topical Ointment 1 inch, Route: TOP, Drug Form: OINT, Dosing Weight 47.727, kg, ONCE, Start date: 09/03/16 1:21:00 [employer] CONSULTANT, Stop date: 09/03/16 1:21:00 S[employer] INTELL[employer] CONSULTANT Inactive 09/03/2016 [facility] Nitroglycerin 2 %, Route: TOP, Drug form: OINT, ONCE, Dosing Weight 62.005, kg, Start date: 09/03/16 1:15:00 S[employer] INTELLIGENCE CONSULTANT, Stop date: 09/03/16 1:15:00 S[employer] INTELL[employer] CONSULTANT Inactive 09/03/2016 [facility] Zofran 4 mg, Route: IVP, Drug form: INJ, ONCE, Dosing Weight 62.005, kg, Priority: STAT, Start date: 09/03/16 1:06:00 S[employer] INTELLIGENCE CONSULTANT, Stop date: 09/03/16 1:06:00 S[employer]IOR MARKET INTELLIGENCE CONSULTANT Inactive 09/03/2016 [facility] Nitroglycerin 0.4 MG Sublingual Tablet Notes: (Same as:Nitroqusruthi Nitrostat) "Do Not Crush" Sublingual tablet No Longer Active 09/03/2016 [facility] Albuterol 0.833 MG/ML / Ipratropium Brom ezequiel 0.167 MG/ML Inhalant Solution [DuoNeb] Notes: (Same as: Duoneb) Inactive 09/03/2016 [facility] Albuterol 0.833 MG/ML / Ipratropium Brom ezequiel 0.167 MG/ML Inhalant Solution Notes: (Same as: Duoneb) Inactive 09/03/2016 [facility] Lasix Notes: (Same as: Lasix) MEDICATION WASTE Product Size: 40 mg Product Wasted: ___ mg Inactive 09/03/2016 [facility] Saline Flush 0.9% Notes: (Same as: BD Posiflush) No Longer Active 09/03/2016 [facility] Hydralazine Hydrochloride 25 MG Oral Tablet 25 mg = 1 tab, PO, BID, 0 Refill(s) On Hold 09/03/2016 [facility] Nephro-Kenyon Rx oral tablet 1 t ab, PO, Daily, 0 Refill(s) On Hold 09/03/2016 [facility] Levothyroxine Sodium 0.075 MG Oral Tablet [Synthroid] 75 microgram = 1 tab, PO, Q630AM, 0 Refill(s) On Hold 09/03/2016 [facility] Furosemide 20 MG Oral Tablet 4 0 mg = 2 tab, PO, Daily, 0 Refill(s) On Hold 09/03/2016 [facility] Allergies, Adverse Reactions, Alerts Substance Category Reaction Severity Reaction type Status Date Reported Comments Source codeine Assertion Drug allergy Active [facility] Immunizations Immunization Date Given Site Status Last Updated Comments Source diphtheria/pertussis, acel/tetanus adult 02/01/2018 Not Given [facility] Results Order Name Results Value Reference Range Date Interpretation Comments Source CARDIAC ENZYMES Troponin-I 0.04 0.00 - 0.40 02/01/2018 [facility] CARDIAC ENZYMES Total CK 60 12 - 191 02/01/2018 [facility] IMMUNOLOGY Hep Bs Ag Negat inder *NA* (02/01/18 12:47 PM) Negative 02/01/2018 [facility] CARDIAC ENZYMES Troponin-I 0.03 0.00 - 0.40 02/01/2018 [facility] CARDIAC ENZYMES Total CK 65 12 - 191 02/01/2018 [facility] CHEM PANEL eGFR 8 02/01/2018 Result Comment: [...] should be multiplied by the estimated BMI. [place] CHEM PANEL Calcium Lvl 7.9 8.5 - 10.5 02/01/2018 [place] CHEM PANEL CO2 25 24 - 32 02/01/2018 [place] CHEM PANEL AGAP 15.9 10.0 - 20.0 02/01/2018 [place] CHEM PANEL Potassium Lvl 5.9 3.5 - 5.1 02/01/2018 [place] CHEM PANEL Chloride Lvl 106 95 - 109 02/01/2018 [place] CHEM PANEL Creatinine Lvl 4.84 0.50 - 1.40 02/01/2018 [place] CHEM PANEL Sodium Lvl 141 135 - 145 02/01/2018 [place] CHEM PANEL Glucose Lvl 129 70 - 99 02/01/2018 [place] CHEM PANEL BUN 43 7 - 22 02/01/2018 [place] URINE AND STOOL UA pH 8.5 5.0 - 8.0 02/01/2018 [place] URINE AND STOOL UA Spec Grav 1.009 <=1.030 02/01/2018 [place] URINE AND STOOL UA Glucose 100 mg/dL Negative mg/dL 02/01/2018 [place] URINE AND STOOL UA Protein >=300 mg/dL Negative mg/dL 02/01/2018 [facility] URINE AND STOOL UA Ketones Negative mg/dL Negative mg/dL 02/01/2018 [facility] URINE AND STOOL UA Turbidity Clear (02/01/18 6:29 AM) Clear 02/01/2018 [place] URINE AND STOOL UA Color Yellow *NA* (02/01/18 6:29 AM) Yellow 02/01/2018 [place] URINE AND STOOL UA Blood Negative (02/01/18 6:29 AM) Negative 02/01/2018 [place] URINE AND STOOL UA Bili Negative *NA* (02/01/18 6:29 AM) Negative 02/01/2018 [place] URINE AND STOOL UA Leuk Est Negative (02/01/18 6:29 AM) Negative 02/01/2018 [place] URINE AND STOOL UA Nitrite Negative (02/01/18 6:29 AM) Negative 02/01/2018 [place] URINE AND STOOL UA Sq Epi Moderate /LPF Few /LPF 02/01/2018 [place] URINE AND STOOL UA Urobilinogen <=1.0 mg/dL 0.1 - 1.0 02/01/2018 [facility] URINE AND STOOL UA Hyal Cast 1 0 - 2 02/01/2018 [place] URINE AND STOOL UA WBC 1 0 - 5 02/01/2018 [place] URINE AND STOOL UA Bacteria Occasional /HPF None Seen /HPF 02/01/2018 [facility] URINE AND STOOL UA RBC 1 0 - 2 02/01/2018 [place] URINE AND STOOL UA Mucus Few /LPF None Seen /LPF 02/01/2018 [facility] BLOOD [facility] RESULTS AB Int Anti-E 02/01/2018 [facility] BLOOD [facility] RESULTS Antigen LUKAS Int E neg 02/01/2018 [facility] BLOOD [facility] RESULTS Antibody Scrn Positive 1 (02/01/18 2:13 AM) 02/01/2018 Result Comment: 02/01/2018 0 3:49 DILONG
"Significant Findings of pos absc_ called to Will Prachyl_ at 02/01/2018 03:49_ by dl_. Read Back OK" [facility] BLOOD [facility] RESULTS ABO/Rh O POS 02/01/2018 [facility] CARDIAC ENZYMES Troponin-I 0.04 0.00 - 0.40 02/01/2018 [place] CHEM PANEL A/G Ratio 0.8 0.7 - 1.6 02/01/2018 [place] CHEM PANEL Globulin 3.9 2.7 - 4.2 02/01/2018 [place] CHEM PANEL B/C Ratio 9 6 - 25 02/01/2018 [place] CHEM PANEL AGAP 14.0 10.0 - 20.0 02/01/2018 [place] CHEM PANEL eGFR 8 02/01/2018 Result Comment: [...] should be multiplied by the estimated BMI. [facility] CHEM PANEL Alk Phos 141 39 - 136 02/01/2018 [place] CHEM PANEL Bili Total 0.4 0.2 - 1.3 02/01/2018 [place] CHEM PANEL ALT 15 0 - 65 02/01/2018 [place] CHEM PANEL Albumin Lvl 3.2 3.5 - 5.0 02/01/2018 [place] CHEM PANEL AST 30 0 - 37 02/01/2018 [place] CHEM PANEL Total Protein 7.1 6.4 - 8.4 02/01/2018 [place] CHEM PANEL Calcium Lvl 7.9 8.5 - 10.5 02/01/2018 [place] CHEM PANEL Chloride Lvl 104 95 - 109 02/01/2018 [place] CHEM PANEL CO2 26 24 - 32 02/01/2018 [place] CHEM PANEL Potassium Lvl 6.0 3.5 - 5.1 02/01/2018 [place] CHEM PANEL Sodium Lvl 138 135 - 145 02/01/2018 [place] CHEM PANEL Creatinine Lvl 4.72 0.50 - 1.40 02/01/2018 [place] CHEM PANEL BUN 43 7 - 22 02/01/2018 [place] CHEM PANEL Glucose Lvl 91 70 - 99 02/01/2018 [place] HEMATOLOGY Segs-Bands # 5.5 1.5 - 8.1 02/01/2018 [place] HEMATOLOGY Monocytes 9.4 2.0 - 12.0 02/01/2018 [place] HEMATOLOGY Eosinophils 5.0 0.0 - 4.0 02/01/2018 [facility] HEMATOLOGY Basophils 1.1 0.0 - 1.0 02/01/2018 [facility] HEMATOLOGY Monocytes # 0.8 0.0 - 0.8 02/01/2018 [place] HEMATOLOGY Lymphocytes # 1.4 1.0 - 5.5 02/01/2018 [facility] HEMATOLOGY Basophils # 0.1 0.0 - 0.2 02/01/2018 [facility] HEMATOLOGY Eosinophils # 0.4 0.0 - 0.5 02/01/2018 [facility] HEMATOLOGY Lymphocytes 16.9 20.0 - 40.0 02/01/2018 [place] HEMATOLOGY Segs 67.6 45.0 - 75.0 02/01/2018 [place] HEMATOLOGY PTT 29.1 22.9 - 35.8 02/01/2018 [place] HEMATOLOGY INR 1.05 0.85 - 1.17 02/01/2018 [facility] HEMATOLOGY PT 13.7 12.0 - 14.7 02/01/2018 [facility] HEMATOLOGY Hgb 11.2 12.0 - 16.0 02/01/2018 [facility] HEMATOLOGY MCV 95.4 80.0 - 98.0 02/01/2018 [facility] HEMATOLOGY Hct 34.1 36.0 - 48.0 02/01/2018 [place] HEMATOLOGY MCHC 32.7 32.0 - 36.0 02/01/2018 [facility] HEMATOLOGY MCH 31.2 27.0 - 31.0 02/01/2018 [facility] HEMATOLOGY RDW 16.9 11.5 - 14.5 02/01/2018 [facility] HEMATOLOGY Platelet 252 133 - 450 02/01/2018 [facility] HEMATOLOGY MPV 9.6 7.4 - 10.4 02/01/2018 [facility] HEMATOLOGY WBC 8.1 3.7 - 10.4 02/01/2018 [facility] HEMATOLOGY RBC 3.57 4.20 - 5.40 02/01/2018 [facility] URINE CHEM U24 Cr Clear 9 88 - 128 09/24/2016 [facility] URINE CHEM TV CrCl 24H 200 600 - 1600 09/24/2016 [facility] URINE CHEM HT Crcl 60 09/24/2016 [facility] URINE CHEM WT Crcl 104 09/24/2016 [facility] URINE CHEM BSA Cr Clear 1.41 09/24/2016 [facility] URINE CHEM Ur Creat 200.00 09/24/2016 [facility] ELECTROLYTES AGAP 16.4 10.0 - 20.0 09/22/2016 [facility] ELECTROLYTES Calcium Lvl 7.7 8.5 - 10.5 09/22/2016 [facility] ELECTROLYTES eGFR 11 09/22/2016 Result Comment: The [...] should be multiplied by the estimated BMI. [facility] ELECTROLYTES Chloride Lvl 95 95 - 109 09/22/2016 [facility] ELECTROLYTES Potassium Lvl 4.4 3.5 - 5.1 09/22/2016 [facility] ELECTROLYTES BUN 50 7 - 22 09/22/2016 [facility] ELECTROLYTES CO2 25 24 - 32 09/22/2016 [facility] ELECTROLYTES Sodium Lvl 132 135 - 145 09/22/2016 [facility] ELECTROLYTES Creatinine Lvl 3.7 0 0.50 - 1.40 09/22/2016 [facility] ELECTROLYTES Glucose Lvl 215 70 - 99 09/22/2016 [facility] HEMATOLOGY Segs 76.9 45.0 - 75.0 09/22/2016 [facility] HEMATOLOGY Lymphocytes 10.6 20.0 - 40.0 09/22/2016 [facility] HEMATOLOGY Monocytes 9.8 2.0 - 12.0 09/22/2016 [facility] HEMATOLOGY Eosinophils 1.9 0.0 - 4.0 09/22/2016 [facility] HEMATOLOGY Basophils 0.8 0.0 - 1.0 09/22/2016 [facility] HEMATOLOGY Segs-Bands # 8.8 1.5 - 8.1 09/22/2016 [facility] HEMATOLOGY Lymphocytes # 1.2 1.0 - 5.5 09/22/2016 [facility] HEMATOLOGY Eosinophils # 0.2 0.0 - 0.5 09/22/2016 [facility] HEMATOLOGY Monocytes # 1.1 0.0 - 0.8 09/22/2016 [facility] HEMATOLOGY Basophils # 0.1 0.0 - 0.2 09/22/2016 [facility] MCHC 33.3 32.0 - 36.0 09/22/2016 [facility] HEMATOLOGY MPV 8.8 7.4 - 10.4 09/22/2016 [facility] HEMATOLOGY Platelet 264 133 - 450 09/22/2016 [facility] HEMATOLOGY RDW 17.1 11.5 - 14.5 09/22/2016 [facility] HEMATOLOGY MCV 86.4 80.0 - 98.0 09/22/2016 [facility] MCH 28.8 27.0 - 31.0 09/22/2016 [facility] HEMATOLOGY RBC 3.54 4.20 - 5.40 09/22/2016 [facility] WBC 11.4 3.7 - 10.4 09/22/2016 [facility] HEMATOLOGY Hct 30.6 36.0 - 48.0 09/22/2016 [facility] HEMATOLOGY Hgb 10.2 12.0 - 16.0 09/22/2016 [facility] HEMATOLOGY Basophils # 0.1 0.0 - 0.2 09/21/2016 [facility] HEMATOLOGY Lymphocytes # 1.5 1.0 - 5.5 09/21/2016 [facility] HEMATOLOGY Monocytes # 1.5 0.0 - 0.8 09/21/2016 [facility] HEMATOLOGY Eosinophils # 0.2 0.0 - 0.5 09/21/2016 [facility] HEMATOLOGY Basophils 0.6 0.0 - 1.0 09/21/2016 [facility] HEMATOLOGY Segs-Bands # 9.3 1.5 - 8.1 09/21/2016 [facility] HEMATOLOGY Segs 73.7 45.0 - 75.0 09/21/2016 [facility] HEMATOLOGY Lymphocytes 12.2 20.0 - 40.0 09/21/2016 [facility] HEMATOLOGY Monocytes 12.1 2.0 - 12.0 09/21/2016 [facility] HEMATOLOGY Eosinophils 1.4 0.0 - 4.0 09/21/2016 [facility] HEMATOLOGY Platelet 256 133 - 450 09/21/2016 [facility] HEMATOLOGY MPV 9.2 7.4 - 10.4 09/21/2016 [facility] HEMATOLOGY RDW 16.4 11.5 - 14.5 09/21/2016 [facility] MCHC 33.2 32.0 - 36.0 09/21/2016 [facility] MCH 28.4 27.0 - 31.0 09/21/2016 [facility] HEMATOLOGY Hct 28.9 36.0 - 48.0 09/21/2016 [facility] MCV 85.7 80.0 - 98.0 09/21/2016 [facility] RBC 3.38 4.20 - 5.40 09/21/2016 [facility] HEMATOLOGY Hgb 9.6 12.0 - 16.0 09/21/2016 [facility] HEMATOLOGY WBC 12.6 3.7 - 10.4 09/21/2016 [facility] ELECTROLYTES AGAP 14.6 10.0 - 20.0 09/20/2016 [facility] ELECTROLYTES Chloride Lvl 100 95 - 109 09/20/2016 [facility] ELECTROLYTES Potassium Lvl 3.6 3.5 - 5.1 09/20/2016 [facility] ELECTROLYTES CO2 27 24 - 32 09/20/2016 [facility] ELECTROLYTES BUN 38 7 - 22 09/20/2016 [facility] ELECTROLYTES Creatinine Lvl 3.3 0 0.50 - 1.40 09/20/2016 [facility] ELECTROLYTES Sodium Lvl 138 135 - 145 09/20/2016 [facility] ELECTROLYTES Calcium Lvl 7.2 8.5 - 10.5 09/20/2016 [facility] ELECTROLYTES eGFR 13 09/20/2016 Result Comment: The [...] should be multiplied by the estimated BMI. [facility] ELECTROLYTES Glucose Lvl 111 70 - 99 09/20/2016 [facility] HEMATOLOGY Eosinophils # 0.2 0.0 - 0.5 09/20/2016 [facility] HEMATOLOGY Lymphocytes 9.3 20.0 - 40.0 09/20/2016 [facility] HEMATOLOGY Monocytes 11.8 2.0 - 12.0 09/20/2016 [facility] HEMATOLOGY Eosinophils 1.7 0.0 - 4.0 09/20/2016 [facility] Lymphocytes # 1.1 1.0 - 5.5 09/20/2016 [facility] HEMATOLOGY Segs 76.9 45.0 - 75.0 09/20/2016 [facility] Monocytes # 1.4 0.0 - 0.8 09/20/2016 [facility] HEMATOLOGY Basophils 0.3 0.0 - 1.0 09/20/2016 [facility] Segs-Bands # 9.1 1.5 - 8.1 09/20/2016 [facility] MPV 9.1 7.4 - 10.4 09/20/2016 [facility] Hgb 9.2 12.0 - 16.0 09/20/2016 [facility] WBC 11.8 3.7 - 10.4 09/20/2016 [facility] Platelet 272 133 - 450 09/20/2016 [facility] RDW 16.3 11.5 - 14.5 09/20/2016 [facility] RBC 3.24 4.20 - 5.40 09/20/2016 [facility] Hct 27.9 36.0 - 48.0 09/20/2016 [facility] MCV 86.1 80.0 - 98.0 09/20/2016 [facility] MCH 28.6 27.0 - 31.0 09/20/2016 [facility] MCHC 33.2 32.0 - 36.0 09/20/2016 [facility] IMMUNOLOGY Hep Bs Ab <3.1 <=7.4 mIU/mL 09/18/2016 [facility] CHEM PANEL Phosphorus 3.2 2.5 - 4.5 09/18/2016 [facility] CHEM PANEL Magnesium Lvl 2.0 1.8 - 2.4 09/18/2016 [facility] CHEM PANEL Albumin Lvl 2.2 3.5 - 5.0 09/18/2016 [facility] ELECTROLYTES AGAP 16.8 10.0 - 20.0 09/18/2016 [facility] ELECTROLYTES eGFR 13 09/18/2016 Result Comment: The [...] should be multiplied by the estimated BMI. [facility] ELECTROLYTES BUN 38 7 - 22 09/18/2016 [facility] ELECTROLYTES Glucose Lvl 95 70 - 99 09/18/2016 [facility] ELECTROLYTES CO2 25 24 - 32 09/18/2016 [facility] ELECTROLYTES Chloride Lvl 98 95 - 109 09/18/2016 [facility] ELECTROLYTES Calcium Lvl 7.3 8.5 - 10.5 09/18/2016 [facility] ELECTROLYTES Sodium Lvl 136 135 - 145 09/18/2016 [facility] ELECTROLYTES Potassium Lvl 3.8 3.5 - 5.1 09/18/2016 [facility] ELECTROLYTES Creatinine Lvl 3.3 0 0.50 - 1.40 09/18/2016 [facility] HEMATOLOGY Basophils # 0.1 0.0 - 0.2 09/18/2016 [facility] IMMUNOLOGY CRP, High Sensitivity 101 .0 09/18/2016 [facility] URINE AND STOOL UA Trans Epi 4 <=0 /LPF 09/18/2016 [facility] URINE AND STOOL UA Color Dee 09/18/2016 [facility] URINE AND STOOL UA Urobilinogen <=1.0 mg/dL 0.1 - 1.0 09/18/[address] [facility] URINE AND STOOL UA Bacteria Occasional /HPF None Seen /HPF 09/18/[address] [facility] URINE AND STOOL UA Mucus Few /LPF None Seen /LPF 09/18/2016 [facility] URINE AND STOOL UA Amorph Prerna Occasional /HPF None Seen /HPF 09/18/[address] [facility] URINE AND STOOL UA Hyal Cast 8 0 - 2 09/18/2016 [facility] URINE AND STOOL UA Nitrite Negative (09/17/16 6:15 PM) Negative 09/18/2016 [facility] URINE AND STOOL UA Leuk Est Negative (09/17/16 6:15 PM) Negative 09/18/2016 [facility] URINE AND STOOL UA Sq Epi Moderate /LPF Few /LPF 09/18/2016 [facility] URINE AND STOOL UA WBC 1 0 - 5 09/18/2016 [facility] URINE AND STOOL UA Blood Negative (09/17/16 6:15 PM) Negative 09/18/2016 [facility] URINE AND STOOL UA Glucose Negative mg/dL Negative mg/dL 09/18/2016 [facility] URINE AND STOOL UA Ketones Negative mg/dL Negative mg/dL 09/18/2016 [facility] URINE AND STOOL UA Bili Negative *NA* (09/17/16 6:15 PM) Negative 09/18/2016 [facility] URINE AND STOOL UA Turbidity Slight *ABN* (09/17/16 6:15 PM) Clear 09/18/2016 [facility] URINE AND STOOL UA Spec Grav 1.013 <=1.030 09/18/2016 [facility] URINE AND STOOL UA pH 5.0 5.0 - 8.0 09/18/2016 [facility] URINE AND STOOL UA Protein >=300 mg/dL Negative mg/dL 09/18/[address] [facility] [address] CARDIAC ENZYMES BNP >5000 <=100 pg/mL 09/16/2016 [facility] CHEM PANEL Magnesium Lvl 2.3 1.8 - 2.4 09/15/2016 [facility] CHEM PANEL Albumin Lvl 2.9 3.5 - 5.0 09/15/2016 [facility] CHEM PANEL Total Protein 6.7 6.4 - 8.4 09/15/2016 [facility] IMMUNOLOGY Hep Bs Ag Negat inder *NA* (09/15/16 8:30 AM) Negative 09/15/2016 [facility] IMMUNOLOGY Prealbumin 14.4 18.0 - 45.0 09/15/2016 [facility] SPECIAL CHEMISTRY Hgb A1C 5.5 <=5.6 % 09/15/2016 [facility] BLOOD BANK RESULTS ABO/Rh O POS 09/03/2016 [facility] BLOOD BANK RESULTS Antibody Scrn Negative (09/03/16 4:26 PM) 09/03/2016 [facility] CARDIAC ENZYMES Troponin-I 8.90 0.00 - 0.40 09/03/2016 Result Comment: Critical Result(s) beckford d to Patricia Kelly at 09/03/2016 16:23 by benny. Read back OK. [facility] HEMATOLOGY INR 1.08 0.85 - 1.17 09/03/2016 [facility] HEMATOLOGY PT 14.2 12.0 - 14.7 09/03/2016 [facility] HEMATOLOGY PTT 30.2 22.9 - 35.8 09/03/2016 [facility] CARDIAC ENZYMES BNP 4714 <=100 pg/mL 09/03/2016 [facility] CARDIAC ENZYMES Troponin-I 8.30 0.00 - 0.40 09/03/2016 Result Comment: Critical Result(s) analy Hodges at 09/03/2016 10:11 byHA. Read back OK. [facility] CHEM PANEL Phosphorus 5.1 2.5 - 4.5 09/03/2016 [facility] CHEM PANEL Magnesium Lvl 2.5 1.8 - 2.4 09/03/2016 [facility] CHEM PANEL eGFR 18 09/03/2016 Result Comment: [...] should be multiplied by the estimated BMI. [facility] CHEM PANEL Glucose Lvl 176 70 - 99 09/03/2016 [facility] CHEM PANEL BUN 59 7 - 22 09/03/2016 [facility] CHEM PANEL Potassium Lvl 4.3 3.5 - 5.1 09/03/2016 [facility] CHEM PANEL Sodium Lvl 140 135 - 145 09/03/2016 [facility] CHEM PANEL CO2 24 24 - 32 09/03/2016 [facility] CHEM PANEL Creatinine Lvl 2.50 0.50 - 1.40 09/03/2016 [facility] CHEM PANEL Chloride Lvl 104 95 - 109 09/03/2016 [facility] CHEM PANEL AGAP 16.3 10.0 - 20.0 09/03/2016 [facility] CHEM PANEL Calcium Lvl 7.8 8.5 - 10.5 09/03/2016 [facility] CARDIAC ENZYMES Troponin-I 0.75 0.00 - 0.40 09/03/2016 Result Comment: Critical Result(s) beckford d to KWASI CUELLAR at 09/03/2016 03:12 by SMT. Read back OK. [facility] CHEM PANEL Bili Total 0.3 0.2 - 1.3 09/03/2016 [facility] CHEM PANEL Alk Phos 113 39 - 136 09/03/2016 [facility] CHEM PANEL ALT 25 0 - 65 09/03/2016 [facility] CHEM PANEL AST 27 0 - 37 09/03/2016 [facility] CHEM PANEL A/G Ratio 0.9 0.7 - 1.6 09/03/2016 [facility] CHEM PANEL eGFR 21 09/03/2016 Result Comment: [...] should be multiplied by the estimated BMI. [facility] CHEM PANEL CO2 22 24 - 32 09/03/2016 [facility] CHEM PANEL Calcium Lvl 7.9 8.5 - 10.5 09/03/2016 [facility] CHEM PANEL AGAP 14.5 10.0 - 20.0 09/03/2016 [facility] CHEM PANEL B/C Ratio 25 6 - 25 09/03/2016 [facility] CHEM PANEL Glucose Lvl 184 70 - 99 09/03/2016 [facility] CHEM PANEL Creatinine Lvl 2.20 0.50 - 1.40 09/03/2016 [facility] CHEM PANEL BUN 55 7 - 22 09/03/2016 [facility] CHEM PANEL Sodium Lvl 141 135 - 145 09/03/2016 [facility] CHEM PANEL Chloride Lvl 108 95 - 109 09/03/2016 [facility] CHEM PANEL Potassium Lvl 3.5 3.5 - 5.1 09/03/2016 [facility] CHEM PANEL Albumin Lvl 3.1 3.5 - 5.0 09/03/2016 [facility] CHEM PANEL Total Protein 6.6 6.4 - 8.4 09/03/2016 [facility] CHEM PANEL Globulin 3.5 2.7 - 4.2 09/03/2016 [facility] CHEM PANEL Magnesium Lvl 2.3 1.8 - 2.4 09/03/2016 [facility] HEMATOLOGY MPV 10.3 7.4 - 10.4 09/03/2016 [facility] HEMATOLOGY WBC 12.7 3.7 - 10.4 09/03/2016 [facility] HEMATOLOGY Hgb 9.5 12.0 - 16.0 09/03/2016 [facility] HEMATOLOGY RBC 3.24 4.20 - 5.40 09/03/2016 [facility] HEMATOLOGY Hct 29.0 36.0 - 48.0 09/03/2016 [facility] HEMATOLOGY MCV 89.6 80.0 - 98.0 09/03/2016 [facility] HEMATOLOGY MCHC 32.7 32.0 - 36.0 09/03/2016 [facility] HEMATOLOGY MCH 29.3 27.0 - 31.0 09/03/2016 [facility] HEMATOLOGY Platelet 198 133 - 450 09/03/2016 [facility] HEMATOLOGY RDW 14.3 11.5 - 14.5 09/03/2016 [facility] HEMATOLOGY Monocytes 5.7 2.0 - 12.0 09/03/2016 [facility] HEMATOLOGY Lymphocytes 4.9 20.0 - 40.0 09/03/2016 [facility] HEMATOLOGY Basophils 0.2 0.0 - 1.0 09/03/2016 [facility] HEMATOLOGY Eosinophils 0.4 0.0 - 4.0 09/03/2016 [facility] HEMATOLOGY Segs-Bands # 11.3 1.5 - 8.1 09/03/2016 [facility] HEMATOLOGY Lymphocytes # 0.6 1.0 - 5.5 09/03/2016 [facility] HEMATOLOGY Eosinophils # 0.1 0.0 - 0.5 09/03/2016 [facility] HEMATOLOGY Monocytes # 0.7 0.0 - 0.8 09/03/2016 [facility] HEMATOLOGY Segs 88.8 45.0 - 75.0 09/03/2016 [facility] URINE AND STOOL UA RBC 2 0 - 2 09/03/2016 [facility] URINE AND STOOL UA Hyal Cast 1 0 - 2 09/03/2016 [facility] URINE AND STOOL UA Nitrite Negative (09/03/16 2:31 AM) Negative 09/03/2016 [facility] URINE AND STOOL UA Leuk Est Negative (09/03/16 2:31 AM) Negative 09/03/2016 [facility] URINE AND STOOL UA Sq Epi Occasional /LPF Few /LPF 09/03/2016 [facility] URINE AND STOOL UA WBC 1 0 - 5 09/03/2016 [facility] URINE AND STOOL UA Blood Negative (09/03/16 2:31 AM) Negative 09/03/2016 [facility] URINE AND STOOL UA Urobilinogen <=1.0 mg/dL 0.1 - 1.0 09/03/2016 [facility] URINE AND STOOL UA Color Ltyellow 09/03/2016 [facility] URINE AND STOOL UA Spec Grav 1.008 <=1.030 09/03/2016 [facility] URINE AND STOOL UA pH 6.0 5.0 - 8.0 09/03/2016 [facility] URINE AND STOOL UA Protein 100 mg/dL Negative mg/dL 09/03/2016 [facility] URINE AND STOOL UA Glucose Negative mg/dL Negative mg/dL 09/03/2016 [facility] URINE AND STOOL UA Ketones Negative mg/dL Negative mg/dL 09/03/2016 [facility] URINE AND STOOL UA Bili Negative *NA* (09/03/16 2:31 AM) Negative 09/03/2016 [facility] URINE AND STOOL UA Turbidity Clear (09/03/16 2:31 AM) Clear 09/03/2016 [facility] CARDIAC ENZYMES CK MB Index 2.5 0.0 - 2.5 09/03/2016 [facility] CARDIAC ENZYMES BNP 3305 <=100 pg/mL 09/03/2016 [facility] CARDIAC ENZYMES Total CK 56 12 - 191 09/03/2016 [facility] CARDIAC ENZYMES CK MB 1.4 0.5 - 3.6 09/03/2016 [facility] CHEM PANEL eGFR 21 09/03/2016 Result Comment: [...] should be multiplied by the estimated BMI. [facility] CHEM PANEL Globulin 3.3 2.7 - 4.2 09/03/2016 [facility] CHEM PANEL A/G Ratio 0.9 0.7 - 1.6 09/03/2016 [facility] CHEM PANEL Bili Total 0.3 0.2 - 1.3 09/03/2016 [facility] CHEM PANEL B/C Ratio 25 6 - 25 09/03/2016 [facility] CHEM PANEL AGAP 15.2 10.0 - 20.0 09/03/2016 [facility] CHEM PANEL Glucose Lvl 138 70 - 99 09/03/2016 [facility] CHEM PANEL Albumin Lvl 3.1 3.5 - 5.0 09/03/2016 [facility] CHEM PANEL Alk Phos 113 39 - 136 09/03/2016 [facility] CHEM PANEL AST 24 0 - 37 09/03/2016 [facility] CHEM PANEL ALT 25 0 - 65 09/03/2016 [facility] CHEM PANEL Sodium Lvl 141 135 - 145 09/03/2016 [facility] CHEM PANEL Creatinine Lvl 2.20 0.50 - 1.40 09/03/2016 [facility] CHEM PANEL BUN 54 7 - 22 09/03/2016 [facility] CHEM PANEL Total Protein 6.4 6.4 - 8.4 09/03/2016 [facility] CHEM PANEL Calcium Lvl 7.9 8.5 - 10.5 09/03/2016 [facility] CHEM PANEL CO2 22 24 - 32 09/03/2016 [facility] CHEM PANEL Chloride Lvl 107 95 - 109 09/03/2016 [facility] CHEM PANEL Potassium Lvl 3.2 3.5 - 5.1 09/03/2016 [facility] HEMATOLOGY Monocytes # 0.7 0.0 - 0.8 09/03/2016 [facility] HEMATOLOGY Lymphocytes # 1.2 1.0 - 5.5 09/03/2016 [facility] Segs-Bands # 7.3 1.5 - 8.1 09/03/2016 [facility] Basophils # 0.1 0.0 - 0.2 09/03/2016 [facility] Eosinophils # 0.2 0.0 - 0.5 09/03/2016 [facility] Segs 77.0 45.0 - 75.0 09/03/2016 [facility] Lymphocytes 12.5 20.0 - 40.0 09/03/2016 [facility] Monocytes 7.7 2.0 - 12.0 09/03/2016 [facility] Eosinophils 2.2 0.0 - 4.0 09/03/2016 [facility] Basophils 0.6 0.0 - 1.0 09/03/2016 [facility] MPV 10.2 7.4 - 10.4 09/03/2016 [facility] Platelet 199 133 - 450 09/03/2016 [facility] Hgb 9.3 12.0 - 16.0 09/03/2016 [facility] RBC 3.14 4.20 - 5.40 09/03/2016 [facility] MCV 87.8 80.0 - 98.0 09/03/2016 [facility] MCH 29.7 27.0 - 31.0 09/03/2016 [facility] Hct 27.6 36.0 - 48.0 09/03/2016 [facility] MCHC 33.8 32.0 - 36.0 09/03/2016 [facility] RDW 14.2 11.5 - 14.5 09/03/2016 [facility] WBC 9.5 3.7 - 10.4 09/03/2016 [facility] Pathology Reports No Data Provided for This [...] acute facial bone fracture. SL: [id number]-M 02/01/2018 [facility] Spine cervical wo contrast CT CT CERVICAL [...] osis. 3. Bilateral pleural effusions. SL:16 02/01/2018 [facility] Brain contrast CT CT BRAIN WITHOUT CONTRAST [...] acute intracranial abnormalities are visualized. SL:16 02/01/2018 [facility] Chest 1view DX Clinical Indica tion: - [...] airspace disease and small left effusion. SL: [id number] 02/01/2018 [facility] Pelvis AP DX PELVIS RADIOGRAPH 1 VIEW CLINICAL INDICATION: Posttraumatic pelvic pain COMPARISON: None IMPRESSION: No acute bony abnormalities are visualized. The joint spaces of the hips are maintained. Regional vascular calcifications are incidentally noted. SL:16 02/01/2018 [facility] Chest 2 views DX Patient Name: SARAH MAGANA : 1940; Age: 76 years Female MR: [id number] Study: Chest 2 views DX Order Time: 09/17/2016 2:47 PM [employer] CLINICAL INDICATION: Chest pain COMPARISON: Chest radiograph [...] aeration of the lungs since 09/15/2016. SL: [id number] 09/17/2016 [facility] Chest 1view DX EXAM: Chest 1vi ew DX DATE: 09/15/2016 1:34 PM [employer] INDICATION: Heart failure COMPARISON: 09/02/2016. IMPRESSION: New [...] silhouette. Postoperative median sternotomy. SL: [id number] 09/15/2016 [facility] wo contrast CT Patient N karla: SARAH MAGANA : 1940; Age: 76 years Female MR: [id number] Study: Chest wo contrast CT 09/03/2016 2:13 AM [employer] CLINICAL INDICATION: Dyspnea on exertion, p/t c/o of shortness of breath for whole breath. History of pleural effusion that she intended to get checked at [facility] tomorrow. Currently on NRB mask satting 98%.. [...] and bibasilar atelectasis. Small pericardial effusion. SL: [id number] 09/03/2016 [facility] Chest 1view DX Clinical Indica tion: Chest [...] atelectasis and/or pleural effusion. SL: KPATEL-M 09/02/2016 [facility] Consultation Notes No Data Provided for This Section Discharge Summaries No Data Provided for This Section History and Physicals No Data Provided for This Section Vital Signs Vital Sign Value Date Comments Source Systolic (mm Hg) 101 02/01/2018 [place] Diastolic (mm Hg) 58 02/01/2018 [facility] Systolic (mm Hg) 196 02/01/2018 [place] Diastolic (mm Hg) 73 02/01/2018 [place] Systolic (mm Hg) 190 02/01/2018 [place] Diastolic (mm Hg) 75 02/01/2018 [place] Temperature Oral (F) 98.4 F 02/01/2018 [place] Heart Rate 60 02/01/2018 [place] Respitory Rate 20 02/01/2018 [place] Temperature Oral (F) 97.4 F 02/01/2018 [place] Heart Rate 60 02/01/2018 [place] Respitory Rate 20 02/01/2018 [place] BMI Calculated 02/01/2018 [facility] Weight 46.449 02/01/2018 [place] Height 152.4 cm 02/01/2018 [place] Temperature Oral (F) 97.3 F 02/01/2018 [place] Heart Rate 60 02/01/2018 [place] Respitory Rate 18 02/01/2018 [place] BMI Calculated 18.59 02/01/2018 [place] Weight 43.182 02/01/2018 [place] Height 152.4 cm 02/01/2018 [place] Heart Rate 67 09/24/2016 [facility] Respitory Rate 18 09/24/2016 [facility] Systolic (mm Hg) 126 09/24/2016 [facility] Diastolic (mm Hg) 56 09/24/2016 [facility] Temperature Oral (F) 98.8 F 09/24/2016 [facility] Respitory Rate 18 09/24/2016 [facility] Respitory Rate 12 09/24/2016 [facility] Temperature Oral (F) 98.6 F 09/24/2016 [facility] Heart Rate 68 09/24/2016 [facility] Systolic (mm Hg) 111 09/24/2016 [facility] Diastolic (mm Hg) 55 09/24/2016 [facility] Systolic (mm Hg) 131 09/23/2016 [facility] Temperature Oral (F) 98.7 F 09/23/2016 [facility] Heart Rate 56 09/23/2016 [facility] Diastolic (mm Hg) 65 09/23/2016 [facility] Height 152.4 cm 09/14/2016 [facility] Weight 47.5 09/14/2016 [facility] BMI Calculated 20.45 09/14/2016 [facility] Systolic (mm Hg) 108 09/03/2016 [facility] Diastolic (mm Hg) 70 09/03/2016 [facility] Respitory Rate 15 09/03/2016 [facility] Height 152.4 cm 09/03/2016 [facility] Systolic (mm Hg) 154 09/03/2016 [facility] Diastolic (mm Hg) 73 09/03/2016 [facility] Respitory Rate 24 09/03/2016 [facility] Systolic (mm Hg) 170 09/03/2016 [facility] Diastolic (mm Hg) 81 09/03/2016 [facility] Respitory Rate 28 09/03/2016 [facility] Weight 48 0 09/03/2016 [facility] Temperature Oral (F) 98 F 09/03/2016 [facility] Weight 47.727 09/03/2016 [facility] Height 152.4 cm 09/03/2016 [facility] BMI Calculated 20.55 09/03/2016 [facility] Temperature Oral (F) 98.2 F 09/03/2016 [facility] Temperature Oral (F) 98 F 09/03/2016 [facility] Heart Rate 94 09/03/2016 [facility] Heart Rate 84 09/03/2016 [facility] Encounters Location Location Details Encounter Type Encounter Number Reason For Visit Attending Provider ADM Date DC Date Status Source [facility] Inpatient [id number] Olivia Long 09/03/2016 09/04/2016 [facility] Inpatient Rehab [id number] Hank Thacker Jr 09/14/2016 09/24/2016 [facility] Observation [id number] Rakesh Mowla 02/01/2018 02/02/2018 [facility] Procedures Procedure Code Date Perfomer Comments Source Bypass [id number] 09/04/2016 [facility] Hysterectomy [id number] [facility] Operation [id number] [facility] [place] Assessment and Plan Assessment and [...] airspace disease and small left effusion. SL: [id number] Pelvis AP DX 02/01/2018 02:12 Impression: No [...] SCD. Dispo.: eLOS is 1-2 midnights. 02/02/2018 [facility] Extracted from:Title: Clinical Document Author: Sundar Martino [...] (0-10) 0 09/24/16 [place] Score 19 09/24/16 [facility] Fall Score 9 Lines, Tubes, and [...] (SEP 18) L 8.0 (SEP 17) 09/24/2016 [facility] Plan of Care No Data Provided for This Section Social History Social History Date Source Social History TypeResponse Substance Abuse Use: None. Alcohol Never Smoking Status Never smoker; Exposure to Tobacco Smoke None; Cigarette Smoking Last 365 Days No; Reg Smoking Cessation Counseling No entered on: 02/01/18 11/15/2016 [facility] Social History TypeResponse Substance Abuse Use: None. Alcohol Never Smoking Status Never smoker; Exposure to Tobacco Smoke None; Cigarette Smoking Last 365 Days No; Reg Smoking Cessation Counseling No 09/03/2016 [facility] Family History No Data Provided for This Section Advance Directives No Data Provided for This Section Functional Status No Data Provided for This Section
--- OUTSIDE RECORDS SUMMARY | 2020-04-29 08:47 | XMS REPORT | Continuity of Care Document ---
Author Author [facility] t Organization [facility] Address [address] [place] [id number] Phone Unavailable Care Team Providers Care Karate Black Belt Name Role Phone MD TAVON JAVED PCP Maikel ACKERMAN Attphys Unavailable Jeanmarie HOWARD Attphys Unavailable Ronn Castellanos MD Attphys Antonio Ray MD Attphys [phone] Chino Vasquez MAa Attphys Unavailable ABDOULAYE DIEHL Attphys Unavailable Mowla, Thierno Rakesh Attphys PRO LAWRENCE Attphys Unavailable YESICA THURMAN Attphys Unavailable YOKASTA CHAN Attphys Unavailable KYREE FERMIN Attphys Unavailable Truman Thacker Jr Attphys Shaye CARDOZA Attphys Unavailable Boccardo, Olivia Attphys SENIA BUSTILLO Admphys Unavailable FarazwThierno burns Rakesh Admphys Jeanmarie WOLF Admphys Unavailable YOKASTA CHAN Admphys Unavailable Truman Thacker Jr Admphys Shaye CARDOZA Admphys Unavailable Boccardo, Olivia Admphys Payers Payer Name Policy Type Policy Number Effective Date Expiration Date S johnnie [employer] [place] H[employer] [id number] 2016 00:00:00 [facility] Medicare A & B [id number] 2007 00:00:00 [facility] MEDICAREMEDICARE PART A AND [id number] 2006-PresentHOUJeanmarie BELCHER [place] [id number] 2007 00:00:00 [facility] BCBS COMMERCIALBCBS MEDICARE [id number] 2015- PresentCommercial [id number] 2016 00:00:00 [facility] MEDICAREMEDICARE A [id number] xxxxxxxxxxx [facility] BLUE CROSS/BLUE SHIELDBCBS INDEMNITY [place] [id number] [id number], [place] [address] xxxxxxxxxxxx [facility] Problems Condition Name Condition Details Condition Category Status Onset Date Resolution Date Last Treatment Date Treating Clinician Comments Source ACUTE HYPERKALEMIA, FACIAL ABRASION, FAC ACUTE HYPERKALEMIA, FACIAL ABRASION, FAC Active 02/01/2018 [facility] Diagnosis Active 2018-02-01 00:00:00 2018-02-21 11:46:00 [facility] FALL FALL Active 02/01/2018 [facility] Diagnosis Active 2018-02-01 00:00:00 2018-02-01 02:55:00 [facility] ESRD (end stage renal disease) ESRD (end stage renal disease) Disea se Active 2018-01-01 00:00:00 [facility] Presence of permanent cardiac pacemaker Presence of permanen t cardiac pacemaker Disease Active 2017-12-30 00:00:00 [facility] Dyspnea Dyspnea Disease Active 2017-12-28 00:00:00 [facility] Essential hypertension Essential hypertension Disease Active 2017-10-29 00:00:00 [facility] Sick sinus syndrome Sick sinus syndrome Disease Active 2017-10-08 00:00 :00 Overview: S/p Pacemaker 10/08/17 [facility] UNK UNK Active 11/02/2016 [facility] Active 2016-11-02 00:00:00 2017-01-16 10:50:00 M [facility] [place] DEBILITY BRAD ESCOBAR Active 09/12/2016 [facility] Active 2016-09-12 00:00:00 2016-09-17 13:09:00 [facility] CORONARY ARTERY DISEASE ZAYRA NARY ARTERY DISEASE Active 09/11/2016 [facility] Diagnosis Active 2016-09-11 00:00:00 2017-03-03 16:44:0 0 [facility] Non-ST elevation myocardial infarction (NSTEMI), subse quent episode of care Non- ST elevation myocardial infarction (NSTEMI), subsequent episode of care Disease Active 2016-09-04 00:00:00 [facility] Multiple vessel coronary artery disease Multiple vessel zayra nary artery disease Disease Active 2016-09-04 00:00:00 [facility] 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, 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, NYHA class 4 Disease Active 2016-09-04 00:00:00 [facility] Ischemic cardiomyopathy Ischemic cardiomyopathy Disease Active 2016-09-04 00:00:00 [facility] RESP DISTRESS RESP DISTRESS Active 09/02/2016 [facility] Active 2016-09-02 00:00:00 2016-09-02 22:49:00 [facility] CHF EXACERBATION CHF EXACERBATION Active 09/02/2016 [facility] Active 2016-09-02 00:00:00 2016-09-07 07:23:00 [facility] Congestive heart failure Problem Active [facility] Acute congestive heart failure (disorder) Acute congestive heart failure (disorder) Active Problem 02/04/2018 [facility] Problem Active 2018-02-04 01:19:59 Darby Bedolla Acute non-ST segment elevation myocardial infarction ( disorder) Acute non-ST segment elevation myocardial infarction (disorder) Active Problem 02/04/2018 [facility] Problem Active 2018-02-04 01:19:59 [facility] Acute pulmonary insufficiency following thoracic surge ry (disorder) Acute pulmonary insufficiency following thoracic surgery (disorder) Active Problem 02/04/2018 [facility] Problem Active 2018-02-04 01:19:59 Nikki Bedolla Coronary arteriosclerosis (disorder) Coronary arteriosclerosis (disorder) Active Problem 02/04/2018 [facility] Problem Active 2018-02-04 01:19:59 Gamal jesenia Graeme Kidney disease (disorder) Kidn ey disease (disorder) Active Problem 02/04/2018 [facility] Problem Active 2018-02-04 01:19:59 Nikki Bedolla Disease of thyroid gland (disorder) Disease of thyroid gland (disorder) Active Problem 02/04/2018 [facility] Problem Active 2018-02-04 01:19:59 Darbyor ial Graeme 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) Active Problem 02/04/2018 [facility] Problem Active 2018-02-04 01: 19:59 Nikki Bedolla Hypertensive disorder, systemic arterial (disorder) Hypertensive disorder, systemic arterial (disorder) Active Problem 02/04/2018 [facility] Problem Active 2018-02-04 01: 19:59 Nikki Bedolla Injury of kidney (disorder) In jury of kidney (disorder) Active Problem 02/04/2018 [facility] Problem Active 2018-02-04 01:19:59 Nikki Bedolla Impaired mobility (finding) Im paired mobility (finding) Active Problem 02/04/2018 [facility] Problem Active 2018-02-04 01:19:59 Nikki Bedolla Platelet count below reference range (finding) Platelet count below reference range (finding) Active Problem 02/04/2018 [facility] Problem Active 2018-02-04 01:19:59 [facility] HEART FAILURE, UNSPECIFIED HEA RT FAILURE, UNSPECIFIED Active [facility] Diagnosis Active 2016-09-07 07:23:00 Nikki Bedolla WEAKNESS WEAK NESS Active [facility] Diagnosis Active 2016-09-17 13:09:00 Nikki Bedolla END STAGE RENAL DISEASE END STAGE RENAL DISEASE Active [facility] Diagnosis Active 2017-01-16 10:50:00 [facility] HYPERKALEMIA HYPE RKALEMIA Active [facility] Diagnosis Active 2018-02-21 11:46:00 Nikki Bedolla ABRASION OF OTHER PART OF HEAD, INITIAL ABRASION OF OTHER PART OF HEAD, INITIAL Active [facility] Diagnosis Active 2018-02-21 11:46:00 [facility] CONTUSION OF OTHER PART OF HEAD, INITIAL CONTUSION OF OTHER PART OF HEAD, INITIAL Active [facility] Diagnosis Active 2018-02-21 11:46:00 [facility] Allergies, Adverse Reactions, Alerts Allergy Name Allergy Type Status Severity Reaction(s) Onset Date Inacti ve Date Treating Clinician Comments Source Codeine Drug Intolerance Active Nausea And Vomiting 2016-09-03 00: 00:00 [facility] codeine codeine Active [facility] Family History Family Member Diagnosis Comments Start Date Stop Date Source Natural daughter Diabetes [facility] Natural son Diabetes [facility] Social History Social Habit Start Date Stop Date Quantity Comments Source Alcohol Comment socially not alot [facility] Sex Assigned At [facility] Social History 2016-09-03 11:01:11 2016-09-03 11:01:11 [facility] Smoking Status Start Date Stop Date Source [facility] Ordered Medication Name Filled Medication Name Start Date Stop Da te Current Medication? Ordering Clinician Indication Dosage Frequency Signature (SIG) Comments Components Source Tramadol Hcl (Ultram) 50 Mg TABLET Tramadol Hcl (Ultram) 50 Mg TABLET 2020-03-24 14:42:00 Yes 50 Every 6 Ho urs as needed for Mild Pain (1-3) Or Fever>100.8 [facility] cholecalciferol, vitamin D3, 1,250 mcg (50,000 unit) Tab 2020-01-05 09:58:26 Yes [id number] Q7D Take 50,000 Units by mouth once a week. [facility] atorvastatin (LIPITOR) 40 MG tablet 2020-01-05 09:58:25 Yes 40mg QD Take 40 mg by mouth daily. [facility] cyanocobalamin, vitamin B-12, (VITAMIN B-12) 1000 MCG tablet 2020-01-05 09:58:25 Yes 5000ug QD Take 5,000 mcg by mouth daily . [facility] aspirin 81 MG EC tablet 2020-01-05 09:58:25 Yes 81mg QD Take 81 mg by mouth daily. [facility] TURMERIC ORAL 2020-01-05 09:58:25 Yes 1{tb l} QD Take 1 tablet by mouth daily. [facility] hydrocortisone (ANUSOL-HC) 2.5 % rectal cream 2020-01-05 09:58:[address]ally 2 (two) times daily. [facility] multivitamin per tablet 2020-01-05 09:58:25 Yes 1{tbl} QD Take 1 tablet by mouth daily. [facility] UNKNOWN 2020-01-05 09:58:02 2020-01-05 00:00:00 No Med Name: tumeric once a day . [facility] clopidogrel (PLAVIX) 75 mg tablet 2019-03-26 10:23:21 Yes 75mg QD Take 75 mg by mouth daily. [facility] pregabalin (LYRICA) 50 MG capsule 2019-03-19 00:00:00 2019 00:00:00 No TK ONE C PO BID [facility] losartan (COZAAR) 100 MG tablet 2019-02-23 00:00:00 Yes 100mg QD Take 100 mg by mouth daily. [facility] 2018-02-02 14:00:00 No Notes: (Louie e as: Cozaar) [facility] Synthroid 2018-02-02 11:30:00 No Notes: Take 1 hour before or 2 hours after meal; Enteral feeds may interefere with the absorption of this medication. (Same as:Synthroid, Levothroid) [facility] rosuvastatin 2018-02-02 02:00:00 No Notes: (Same As: Crestor) [facility] Nephro-Kenyon Rx 2018-02-01 18:00:00 No Notes: (Same as: Nephro-[place] Rx and Diatx) Give with food. [facility] Aspirin 81 MG Enteric Coated Tablet 2018-02-01 17:59:00 No Notes: Do not crush or chew. (Same As: Ecotrin) [facility] Hydralazine Hydrochloride 50 MG Oral Tablet 2018-02-01 17:52:00 No 50 mg, 1 tab, Route: PO, Drug form: TAB, ONCE, Dosing Weight 46.449, kg, Start date: 02/01/18 12:52:00 CDT, Stop date: 02/01/18 12:52:00 CDT Nikki Bedolla tramadol hydrochloride 50 MG Oral Tablet 2018-02-01 17:49:00 No Notes: Not to exceed 400mg/day. (Same As: Ultram) Nikki Bedolla tramadol hydrochloride 50 MG Oral Tablet 2018-02-01 [...] 09:11:00 No Notes: (Sa me As: Catapres) [facility] Acetaminophen 325 MG / Hydrocodone Bitartrate 5 MG Oral Tabl et 2018-02-01 09:10:00 No Notes: (Sa me as: [place] 325/5) Do not exceed 4gm/day of acetaminophen. [facility] Morphine 2018-02-01 09:10:00 No Not es: (Same as: MORPhine Sulfate) [facility] Acetaminophen 2018-02-01 09:10:00 No Notes: Do not exceed 4 gm/day. (Same as: Tylenol) [facility] Ondansetron 2018-02-01 09:10:00 No Notes: (Same as: Zofran) MEDICATION WASTE Product Size: 4 mg Product Wasted: ___ mg [facility] Calcium Gluconate 2018-02-01 08:08:00 No Notes: WASTE: F/P - Sink; E - Municipal Trash Bin [facility] Insulin regular 2018-02-01 08:08:00 No 60 units) WASTE: F/P - Black; E - Municipal Trash Bin Stable for 28 days at room temperature Expires in days from Date Chino spence [place] Dextrose 50% Syringe 2018-02-01 08:07:00 No 25 gm, 50 mL, Route: IVP, Drug Form: INJ, Dosing Weight 43.182, kg, ONCE, STAT, Start date: 02/01/18 3:07:00 CDT, Stop date: 02/01/18 3:07:00 CDT [facility] Metoprolol 2018-02-01 08:06:00 No Notes: (Same as: Lopressor) Push over 2 minutes [facility] Zofran ODT 2018-02-01 07:04:00 No Notes: (S karla as: Zofran ODT) [facility] Saline Flush 0.9% 2018-02-01 07:04:00 No Notes: Same as: BD Posiflush Sterile [facility] folic acid-multivitamins (B COMPLEX-VITAMIN C-FOLIC ACID) 0. 8 mg Tab tablet 2018-01-03 00:00:00 2020-01-05 00:00:00 No 1{tbl} QD Take 1 tablet by mouth daily. [facility] acetaminophen (TYLENOL) 325 MG tablet 2017-10-08 08:49:37 Y es 650mg Take 650 mg by mouth every 6 (six) hours as needed for Pain. [facility] Cardiac Rehabilitation 2016-09-24 18:44:00 Yes See Instructions, Diagnosis CAD with CHF s/p CABG. Evaluate and treat as per [facility] Cardiac rehab program, # 1 ea, 0 Refill(s) [facility] pantoprazole 40 MG Enteric Coated Tablet [Protonix] 09-24 14:33:00 Yes 40 mg = 1 tab, P O, Daily, # 30 tab, 0 Refill(s), Pharmacy: [facility] [address] Nephro-Kenyon Rx oral tablet 2016-09-24 14:33:00 Yes 1 tab, PO, Daily, # 30 tab, 0 Refill(s), Pharmacy: [address] Levothyroxine Sodium 0.075 MG Oral Tablet [Synthroid] 2016-09-24 14:33:00 Yes 75 microgram = 1 tab, PO, [id number], # 30 tab, 0 Refill(s), Pharmacy: [facility] [address] atorvastatin 80 MG Oral Tablet [Lipitor] 2016-09-24 14:33:00 Yes 80 mg = 1 tab, PO, Bedtime, # 30 tab, 0 Refill(s), Pharmacy: [facility] [address] aspirin 81 mg tablet, enteric coated 2016-09-24 14:33:00 Ye s 81 mg = 1 tab, PO, Daily, # 30 tab, 0 Refill(s), Pharmacy: [facility] [address] Furosemide 40 MG Oral Tablet 2016-09-24 14:33:00 Yes 40 mg = 1 tab, PO, Daily, # 30 tab, 0 Refill(s), Pharmacy: [facility] [id number] Nikki Bedolla carvedilol 3.125 mg oral tablet 2016-09-24 14:33:00 Yes 3.125 mg = 1 tab, PO, Q12H, # 60 tab, 0 Refill(s), Pharmacy: [facility] [id number] Nikki Bedolla Calcium Carbonate 500 MG Chewable Tablet 2016-09-24 14:33:00 Yes 500 mg = 1 tab, CHEW, TID, PRN Nausea, 0 Refill(s) Nikki Bedolla acetaminophen 325 mg oral tablet 2016-09-24 14:33:00 Yes 100.4 F, 0 Refill(s) Nikki Bedolla senna 8.6 mg oral tablet 2016-09-24 14:33:00 Yes 17.2 mg = 2 tab, PO, Bedtime, X 14 day, # 28 tab, 0 Refill(s), Pharmacy: [facility] [id number] Nikki Bedolla cetirizine 2016-09-21 15:00:00 No Notes: [...] Weight 47.5, kg, Start date: 09/20/16 17:00:00 BEATER ENGINEER HELPER, Duration: 30 day, Stop date: 10/19/16 17:00:00 [facility] [place] Docusate Sodium 100 MG Oral Capsule [Colace] 2016-09-16 20:26:00 No Notes: (Same as: Colace) (Do Not Crush) Nikki [place] Coreg 2016-09-16 15:00:00 No Notes: Give with food. (Same As: Coreg) Nikki Riveraann Epoetin Lobo 2016-09-15 23:00:00 No Notes: (Same as: Procrit) epoetin lobo 4000 unit/1 ml VL For dialysis only. (Epogen) WASTE: F/P - Red; E -Red MEDICATION WASTE Product Size: 4000 unit Product Wasted: ___ unit Nikki Bedolla Glucagon 2016-09-15 19:27:00 No 1 mg, Route: IM, Drug form: PDR/INJ, PRN, Dosing Weight 47.5, kg, PRN Blood Glucose Results, Start date: 09/15/16 13:27:00 BEATER ENGINEER HELPER, Duration: 30 day, Stop date: 10/15/16 14:26:00 CDT Nikki Bedolla Dextrose 50% Syringe 2016-09-15 19:27:00 No 25 gm, 50 mL, Route: IVP, Drug Form: INJ, Dosing Weight 47.5, kg, PRN, PRN Blood Glucose Results, Start date: 09/15/16 13:27:00 BEATER ENGINEER HELPER, Duration: 30 day, Stop date: 10/15/16 14:26:00 CDT [facility] Insulin, Aspart, Human 2016-09-15 19:27:00 No Notes: Roll in palms of hands gently; Do not shake vigorously. (Same as: NovoLOG) "single patient use only" WASTE: F/P - Black; E - Municipal Trash Bin Stable for 28 days at room temperature. Expires in days from Date Nikki [place] aspirin 81 mg tablet, enteric coated 2016-09-15 15:00:00 No Notes: Do not crush or chew. (Same As: Ecotrin) [facility] Protonix 2016-09-15 15:00:00 No Notes: Tablet should not be chewed or crushed. (Same as: Protonix) [facility] Nephro-[place] Rx 2016-09-15 15:00:00 No Notes: (Same as: Nephro-[place] Rx and Diatx) Give with food. Nikki Bedolla 24 HR Metoprolol Tartrate 25 MG Extended Release Tablet [Top rol] 2016-09-15 15:00:00 No Notes: (Same as: Toprol XL) D o Not Crush Nikki Bedolla Furosemide 20 MG Oral Tablet 2016-09-15 15:00:00 [...] of this medication. (Same as:Synthroid, Levothroid) Nikki Riveraann Lipitor 2016-09-15 03:00:00 No Notes: (Same as: Lipitor) Nikki Bedolla Senokot 2016-09-15 03:00:00 No Notes: (Same as: Senokot) Nikki Bedolla Saline Flush 0.9% 2016-09-15 03:00:00 No Notes: (Same as: BD Posiflush) Nikki Bedolla Levaquin 2016-09-14 22:00:00 No Notes: Do not give w/antacids, dairy pdt & minerals Take 1 hr before or 2 hr after dairy pdt (Same as:Levaquin) Nikki Bedolla Zofran 2016-09-14 21:30:00 No Notes: (Same as: Zofran) Nikki Bedolla Tylenol 2016-09-14 21:27:00 No Notes: Do not exceed 4 gm/day. (Same as: Tylenol) Nikki Bedolla Tramadol 2016-09-14 21:18:00 No Notes: Not to exceed 400mg/day. (Same As: Ultram) [facility] Saline Flush 0.9% 2016-09-14 20:43:00 No Notes: (Same as: BD Posiflush) Nikki Bedolla Trazodone 2016-09-14 20:43:00 No Notes: (Sa me As: Desyrel) Nikki Bedolla pantoprazole (PROTONIX) 40 MG tablet 2016-09-14 00:00:00 Ye s 40mg QD Take 1 tablet (40 mg total) by mouth daily. [facility] Lipitor 2016-09-04 03:00:00 No Notes: (Same as: Lipitor) Nikki Riveraann metoprolol tartrate 2016-09-04 03:00:00 No Notes: (Same as: Lopressor) [facility] chlorhexidine gluconate 1.2 MG/ML Mouthwash 2016-09-04 03:00:00 No Notes: (Same As: Peridex) [facility] Brilinta 2016-09-04 03:00:00 No Notes: (Louie e as: Brilinta) [facility] ocular lubricant 2016-09-04 00:00:00 No Notes: (Same as: Duratears Naturale and Artificial Tears, Tears Again ) [facility] heparin additive 25,000 unit [12 unit/kg /hr] + Premix Diluent Dextrose 5% 500 mL 2016-09-03 23:44:00 No 500 mL, Rate: 11.52 ml/hr, Infuse over: 43.4 hr, Route: IV, Dosing Weight 48 kg, Total Volume: 500 mL, Start date: 09/03/16 17:44:00 BEATER ENGINEER HELPER, Duration: 30 day, Stop date: 10/03/16 17:43:00 CDT [facility] Heparin 60 unit/kg Bolus (Heparin Dosing Weight) 2016-09-03 23:4 4:00 No Pharmacy To Manage, Route: I HOME HEALTH SCHEDULER, PRN, Drug form: INJ, PRN, Heparin Protocol, Start date: 09/03/16 17:44:00 BEATER ENGINEER HELPER Stop date: 10/03/16 18:43:00 CDT, 30 day [facility] Heparin 30 unit/kg Bolus (Heparin Dosing Weight) 2016-09-03 23:4 4:00 No Pharmacy To Manage, Route: I HOME HEALTH SCHEDULER, PRN, Drug form: INJ, PRN, Heparin Protocol, Start date: 09/03/16 17:44:00 BEATER ENGINEER HELPER Stop date: 10/03/16 18:43:00 CDT, 30 day [facility] Acetylcysteine 200 MG/ML Inhalant Solution 2016-09-03 23:00:00 No 600 mg, 3 mL, Route: PO, Drug form: SOLN, BID, Dosing Weight 47.727, kg, Start date: 09/03/16 17:00:00 BEATER ENGINEER HELPER, Duration: 3 day, Stop date: 09/06/16 9:00:00 BEATER ENGINEER HELPER [facility] levothyroxine (SYNTHROID, LEVOTHROID) 75 MCG tablet 09-03 21:53:48 Yes 75ug Take 75 mcg by mouth Every morning on an empty stomach. [facility] chlorhexidine gluconate 1.2 MG/ML Mouthwash 2016-09-03 21:48:00 No Notes: (Same As: Peridex) [facility] Etomidate 2016-09-03 21:45:00 No 10 mg, Route: IVP, ONCE, Dosing Weight 48, kg, Priority: STAT, Start date: 09/03/16 15:45:00 BEATER ENGINEER HELPER, Stop date: 09/03/16 15:45:00 BEATER ENGINEER HELPER [facility] Propofol 2016-09-03 21:45:00 No 40 mg, Route: IVP, ONCE, Dosing Weight 48, kg, Priority: STAT, Start date: 09/03/16 15:45:00 BEATER ENGINEER HELPER, Stop date: 09/03/16 15:45:00 BEATER ENGINEER HELPER [facility] Saline Flush 0.9% 2016-09-03 21:45:00 No Notes: (Same as: BD Posiflush) [facility] Fentanyl 2016-09-03 21:36:00 No Notes: Concentration: 5 microgram / ml [facility] Midazolam 2016-09-03 21:36:00 No Notes: (Sa me as: Versed) [facility] Lasix 2016-09-03 21:29:00 No Notes: (Same as: Lasix) MEDICATION WASTE Product Size: 40 mg Product Wasted: ___ mg [facility] Heparin 60 unit/kg Bolus (Heparin Dosing Weight) 2016-09-03 18:4 3:00 No Route: IVP, PRN, 2,900 unit, 2.9 mL, Drug form: INJ, PRN, Heparin Protocol, Start date: 09/03/16 12:43:00 BEATER ENGINEER HELPER Stop date: 10/03/16 13:42:00 CDT, 30 day [facility] Heparin - one time bolus for ACS 2016-09-03 18:43:00 No 5,000 unit, Route: IVP, Drug form: INJ, ONCE, Dosing Weight 47.727, kg, Priority: STAT, Start date: 09/03/16 12:43:00 BEATER ENGINEER HELPER, Stop date: 09/03/16 12:43:00 BEATER ENGINEER HELPER [facility] heparin additive 25,000 unit [12 unit/kg /hr] + Premix Diluent Dextrose 5% 500 mL 2016-09-03 18:43:00 No 500 mL, Rate: 11.52 ml/hr, Infuse over: 43.4 hr, Route: IV, Dosing Weight 48 kg, Total Volume: 500 mL, Start date: 09/03/16 12:43:00 BEATER ENGINEER HELPER, Duration: 30 day, Stop date: 10/03/16 12:42:00 CDT [facility] Heparin 30 unit/kg Bolus (Heparin Dosing Weight) 2016-09-03 18:4 3:00 No Route: IVP, PRN, 1,400 unit, 1.4 mL, Drug form: INJ, PRN, Heparin Protocol, Start date: 09/03/16 12:43:00 BEATER ENGINEER HELPER Stop date: 10/03/16 13:42:00 CDT, 30 day [facility] Aspirin 325 MG Oral Tablet 2016-09-03 16:21:00 No Notes: Take with food. [facility] Brilinta 2016-09-03 16:20:00 Yes Notes: (Louie e as: Nelida) [facility] Sodium Chloride 0.154 MEQ/ML Injectable Solution 2016-09-03 16:2 0:00 No 250 mL, Rate: 100 ml/hr, Inf use over: 2.5 hr, Route: IV, Dosing Weight 47.727 kg, Total Volume: 250, Start date: 09/03/16 10:20:00 BEATER ENGINEER HELPER, Duration: 30 day, Stop date: 10/03/16 10:19:00 T [facility] rojas Nitroglycerin 0.02 MG/MG Topical Ointment 2016-09-03 15:00:00 No 1 inch, Route: TOP, Drug Form: OINT, Dosing Weight 47.727, kg, TID, Start date: 09/03/16 9:00:00 BEATER ENGINEER HELPER, Duration: 30 day, Stop date: 10/02/16 17:00:00 T [facility] heparin 2016-09-03 15:00:00 No Notes: porci ne heparin [facility] Lasix 2016-09-03 15:00:00 No Notes: (Same as: Lasix) MEDICATION WASTE Product Size: 40 mg Product Wasted: ___ mg [facility] Hydralazine Hydrochloride 25 MG Oral Tablet 2016-09-03 15:00:00 No Notes: (Same as: Apresoline) May interfere w/enteral feedings Take With Food. Me tin Bedolla multivitamin 2016-09-03 15:00:00 No Notes: (Same as:One Tab Daily, Tab-A-Kenyon + Beta Carotene) Give with food. Nikki Bedolla Synthroid 2016-09-03 12:30:00 No Notes: Take 1 hour before or 2 hours after meal; Enteral feeds may interefere with the absorption of this medication. (Same as:Synthroid, Levothroid) Nikki Riveraann potassium chloride 2016-09-03 10:11:00 No 10 mEq, Route: IVPB, ONCE, Dosing Weight 47.727, kg, Start date: 09/03/16 4:11:00 BEATER ENGINEER HELPER, Stop date: 09/03/16 4:11:00 BEATER ENGINEER HELPER Nikki Riveraann Nitroglycerin 2016-09-03 09:28:00 No Notes: (Same as:Tridil) Final conc = 0.4 mg/ml. Premix bottle. Darbydeisi horta Graeme Aspirin 325 MG Oral Tablet 2016-09-03 09:20:00 No 325 mg, 1 tab, Route: PO, ONCE, Dosing Weight 47.727, kg, Start date: 09/03/16 3:20:00 BEATER ENGINEER HELPER, Stop date: 09/03/16 3:20:00 BEATER ENGINEER HELPER [facility] potassium chloride 2016-09-03 08:37:00 No Notes: (Same as: KCL) Infuse no faster than 10 mEq/hr if given peripherally. [facility] potassium chloride 2016-09-03 08:36:00 No Notes: (Same as: K-Dur 20) "Do Not Crush" With food and full glass of water [facility] Ondansetron 2016-09-03 08:12:00 No Notes: (Same as: Zofran) MEDICATION WASTE Product Size: 4 mg Product Wasted: ___ mg [facility] Morphine 2016-09-03 08:12:00 No Not es: (Same as:MORPhine Sulfate) [facility] Docusate 2016-09-03 08:12:00 No Notes: (Same as: Colace) (Do Not Crush) [facility] [place] Acetaminophen 325 MG / Hydrocodone Bitartrate 5 MG Oral Tabl et 2016-09-03 08:12:00 No Notes: (Sa me as: [place] 325/5) Do not exceed 4gm/day of acetaminophen. Nikki [place] Nitroglycerin 0.02 MG/MG Topical Ointment 2016-09-03 07:21:00 No 1 inch, Route: TOP, Drug Form: OINT, Dosing Weight 47.727, kg, ONCE, Start date: 09/03/16 1:21:00 BEATER ENGINEER HELPER, Stop date: 09/03/16 1:21:00 BEATER ENGINEER HELPER Nikki Bedolla Nitroglycerin 2016-09-03 07:15:00 No 2 %, Route: TOP, Drug form: OINT, ONCE, Dosing Weight 62.005, kg, Start date: 09/03/16 1:15:00 BEATER ENGINEER HELPER, Stop date: 09/03/16 1:15:00 BEATER ENGINEER HELPER Nikki lowry Zofran 2016-09-03 07:06:00 No 4 mg, Route: IVP, Drug form: INJ, ONCE, Dosing Weight 62.005, kg, Priority: STAT, Start date: 09/03/16 1:06:00 BEATER ENGINEER HELPER, Stop date: 09/03/16 1:06:00 BEATER ENGINEER HELPER [facility] orimi Graeme Nitroglycerin 0.4 MG Sublingual Tablet 2016-09-03 07:06:00 No Notes: (Same as:Nitroquick, Nitrostat) "Do Not Crush" Sublingual tablet Nikki Bedolla Albuterol 0.833 MG/ML / Ipratropium Brom ezequiel 0.167 MG/ML Inhalant Solution [DuoNeb] 2016-09-03 05:38:00 No Notes: (S karla as: Duoneb) Nikki Bedolla Albuterol 0.833 MG/ML / Ipratropium [place] 0.167 MG/ML Inha lant Solution 2016-09-03 05:28:00 No Notes: (Same as: Kailyn abdullahi) Nikki Bedolla Lasix 2016-09-03 04:35:00 No Notes: (Same as: Lasix) MEDICATION WASTE Product Size: 40 mg Product Wasted: ___ mg Nikki Bedolla Saline Flush 0.9% 2016-09-03 04:33:00 No Notes: (Same as: BD Posiflush) Nikki Bedolla Hydralazine Hydrochloride 25 MG Oral Tablet 2016-09-03 04:28:00 Yes 25 mg = 1 tab, PO, BID, 0 Refill(s) Gamal Bedolla [facility] oral tablet 2016-09-03 04:28:00 Yes 1 tab, PO, Daily, 0 Refill(s) [facility] Levothyroxine Sodium 0.075 MG Oral Tablet [Synthroid] 2016-09-03 04:28:00 Yes 75 microgram = 1 tab, PO, Q630AM, 0 Refi ll(s) [facility] Furosemide 20 MG Oral Tablet 2016-09-03 04:27:00 Yes 40 mg = 2 tab, PO, Daily, 0 Refill(s) [facility] Amoxicillin Amoxicillin Yes 875 Twice A Day [facility] Folic Acid/Cyanocob/Pyridoxine (Nephro-[place] Tablet) 1 Ea TAB Folic Acid/Cyanocob/Pyridoxine (Nephro-[place] Tablet) 1 Ea TAB Yes 1 Daily [facility] Furosemide (Lasix) 20 Mg TABLET Furosemide (Lasix) 20 Mg TABLET Yes 40 Daily [facility] Hydralazine Hcl Hydralazine Hcl Yes 25 Twice A Day [facility] Levothyroxine Sodium (Synthroid) 75 Mcg TAB Levothyrox ine Sodium (Synthroid) 75 Mcg TAB Yes 75 [facility] Telmisartan (Micardis) 40 Mg TAB Telmisartan (Micardis) 40 Mg TA B 2016-08-13 00:00:00 No 80 Daily [facility] Vital Signs Vital Name Observation Time Observation Value Comments Source Weight 2020-03-24 12:01:00 109 [lb_av] [facility] BMI (Body Mass Index) 2020-03-24 12:01:00 21.3 kg/m2 [facility] Systolic blood pressure 2020-01-05 09:45:00 181 mm[Hg] [facility] Diastolic blood pressure 2020-01-05 09:45:00 78 mm[Hg] [facility] Heart rate 2020-01-05 09:45:00 89 /min [facility] Body temperature 2020-01-05 09:45:00 36.67 Alia [facility] Respiratory rate 2020-01-05 09:45:00 14 /min [facility] Body height 2020-01-05 09:45:00 144.8 cm [facility] Body weight Measured 2020-01-05 09:45:00 47.174 kg [facility] BMI 2020-01-05 09:45:00 22.51 kg/m2 [facility] Oxygen saturation in Arterial blood by Pulse oximetry 01-04 09:45:00 98 /min [facility] [address] [place] [facility] Systolic (mm Hg) 2018-02-01 23:05:00 Gamal rial [place] Diastolic (mm Hg) 2018-02-01 23:05:00 Mem o[facility] Systolic (mm Hg) 2018-02-01 18:50:00 Gamal [facility] [place] Diastolic (mm Hg) 2018-02-01 18:50:00 [facility] [place] Systolic (mm Hg) 2018-02-01 18:49:00 Gamal [facility] [place] Diastolic (mm Hg) 2018-02-01 18:49:00 Mem [facility] Temperature Oral (F) 2018-02-01 17:23:00 98.4 F [facility] Heart Rate 2018-02-01 17:23:00 [facility] Respitory Rate 2018-02-01 17:23:00 [facility] Temperature Oral (F) 2018-02-01 13:00:00 97.4 F [facility] [place] Heart Rate 2018-02-01 13:00:00 [facility] [place] Respitory Rate 2018-02-01 13:00:00 [facility] [place] BMI Calculated 2018-02-01 11:33:00 [facility] [place] Weight 2018-02-01 11:33:00 [facility] [place] Height 2018-02-01 11:33:00 152.4 cm [facility] [place] Temperature Oral (F) 2018-02-01 11:32:00 97.3 F [facility] [place] Heart Rate 2018-02-01 11:32:00 [facility] [place] Respitory Rate 2018-02-01 11:32:00 [facility] BMI Calculated 2018-02-01 06:59:00 [facility] Weight 2018-02-01 06:59:00 [facility] [place] Height 2018-02-01 06:59:00 152.4 cm [facility] [place] Heart Rate 2016-09-24 13:30:00 [facility] Respitory Rate 2016-09-24 13:30:00 [facility] Systolic (mm Hg) 2016-09-24 13:30:00 Gamal rial [place] Diastolic (mm Hg) 2016-09-24 13:30:00 Mem [facility] [place] Temperature Oral (F) 2016-09-24 13:30:00 98.8 F [facility] [place] Respitory Rate 2016-09-24 13:10:00 [facility] Respitory Rate 2016-09-24 02:59:00 [facility] Temperature Oral (F) 2016-09-24 02:15:00 98.6 F [facility] Heart Rate 2016-09-24 02:15:00 [facility] [place] Systolic (mm Hg) 2016-09-24 02:15:00 Gamal [facility] [place] Diastolic (mm Hg) 2016-09-24 02:15:00 [facility] Systolic (mm Hg) 2016-09-23 20:00:00 Gamal [facility] [place] Temperature Oral (F) 2016-09-23 20:00:00 98.7 F [facility] Heart Rate 2016-09-23 20:00:00 [facility] [place] Diastolic (mm Hg) 2016-09-23 20:00:00 [facility] [place] Height 2016-09-14 22:19:00 152.4 cm [facility] [place] Weight 2016-09-14 22:19:00 [facility] [place] BMI Calculated 2016-09-14 22:19:00 [facility] Systolic (mm Hg) 2016-09-03 21:45:00 Gamal rial [facility] Diastolic (mm Hg) 2016-09-03 21:45:00 Mem [facility] Respitory Rate 2016-09-03 21:45:00 [facility] Height 2016-09-03 21:45:00 152.4 cm [facility] Systolic (mm Hg) 2016-09-03 21:30:00 Gamal [facility] [place] Diastolic (mm Hg) 2016-09-03 21:30:00 [facility] Respitory Rate 2016-09-03 21:30:00 [facility] Systolic (mm Hg) 2016-09-03 21:15:00 Gamal rial [place] Diastolic (mm Hg) 2016-09-03 21:15:00 [facility] Respitory Rate 2016-09-03 21:15:00 [facility] Weight 2016-09-03 20:53:00 [facility] Temperature Oral (F) 2016-09-03 12:02:00 98 F [facility] [place] Weight 2016-09-03 07:15:00 [facility] [place] Height 2016-09-03 07:15:00 152.4 cm [facility] BMI Calculated 2016-09-03 07:15:00 [facility] Temperature Oral (F) 2016-09-03 07:03:00 98.2 F [facility] Temperature Oral (F) 2016-09-03 04:22:00 98 F [facility] Heart Rate 2016-09-03 04:22:00 [facility] [place] Heart Rate 2016-09-03 03:43:00 [facility] Procedures Procedure Date / Time Performed Performing Clinician [facility] e X-ray of chest, single view 2020-03-24 00:00:[address] [facility] PET CT SKULL BASE TO MID THIGH 2020-01-28 11:44:18 Yancy Castellanos POC GLUCOSE 2020-01-28 10:23:00 Ronn Castellanos hodist ECG 12-LEAD 2020-01-05 10:36:07 Unknown, Hl7 [facility] VEIN MAPPING ARM/ARMS 2019-12-29 13:24:00 Darin Ray [facility] US DUPLEX VENOUS LOWER EXTREMITY REFLUX BILATERAL 2019-10-01 15:16:00 Abdoulaye Diehl Bypass 2016-09-04 06:00:00 [facility] Hysterectomy [facility] [place] Operation [facility] Plan of Care Planned Activity Planned Date Details Comments Source Future Scheduled Test 2020-03-22 00:00:00 INFLUENZA VACCINE (#1) [code = INFLUENZA VACCINE (#1)] [facility] r Future Scheduled Test 2020-02-20 00:00:00 INFLUENZA VACCINE [code = INFLUENZA VACCINE] Jh Ortiz Future Scheduled Test 2008-02-21 00:00:00 MEDICARE ANNUAL WE LLNESS (YEAR 2 or FIRST YEAR if no IPPE) [code = MEDICARE ANNUAL WELLNESS (YEAR 2 or FIRST YEAR if no IPPE)] [facility] r Future Scheduled Test 2007 00:00:00 65+ PNEUMOCOCCAL V ACCINE (1 of 1 - PPSV23) [code = 65+ PNEUMOCOCCAL VACCINE (1 of 1 - PPSV23)] [facility] Future Scheduled Test 2007 00:00:00 PNEUMOCOCCAL 65+ L OW/MEDIUM RISK (1 of 2 - PCV13) [code = PNEUMOCOCCAL 65+ LOW/MEDIUM RISK (1 of 2 - PCV13)] [facility] Future Scheduled Test 1992-02-29 00:00:00 SHINGLES VACCINES (#1) [code = SHINGLES VACCINES (#1)] [facility] Instructions Sling-Wearing [facility] Instructions Fractures - Elbow [facility] Instructions Fractures - Humerus [facility] Instructions RICE Therapy [facility] Encounters Start Date/Time End Date/Time Encounter Type Admission Type Attendi [facility] Care Department Encounter ID Source 2020-03-24 12:13:00 2020-03-24 15:07:00 Departed Emergency Room 1 SHARITABRETTLUZMARIA [facility] [id number] I [facility] 2020-01-28 00:00:00 2020-01-28 00:00:00 Outpatient YANCY CASTELLANOS [facility] [id number] [facility] 2019-10-01 00:00:00 2019-10-01 00:00:00 Outpatient ABDOULAYE DIEHL [facility] [id number] [facility] 2018-02-01 01:57:00 2018-02-01 20:15:00 [id number] 2016-09-14 14:30:00 2016-09-24 14:14:00 Outpatient Hank Thacker [facility] [id number] 2016-09-02 21:41:00 2016-09-03 18:44:00 Outpatient Katrina Long [facility] [id number] Results Test Description Test Time Test Comments Results Result Comments Source CHEST SINGLE (PORTABLE) 2020-04-29 08:29:00 [place] [address] Patient Name: SARAH MAGANA I MR #: [id number] : 1940 Age/Sex: 80/F Req #: [id number] Adm Physician: Ordered by: LOTUS ACKERMAN MD Report #: [id number] Location: ER Room/Bed: Procedure: [id number] DX/CHEST SINGLE (PORTABLE) Exam Date: 04/29/20 Exam Time: 07 REPORT STATUS: Signed Examination: Single AP view of the chest. COMPARISON: 03/24/2020 INDICATION: Catheter infection DISCUSSION: Interval exchange or replacement of right internal jugular approach tunneled high flow central venous catheter. The tip of the current catheter projects over the expected region of the inferior vena cava/right atrial junction. Stable position of left subclavian approach implantable cardiac device body and leads, terminating over the right atrium and right ventricle. Lungs remain well-inflated. Moderate left pleural effusion with left lower lobe airspace disease, likely passive atelectasis, similar to prior. No new consolidation. Median sternotomy wires with mild enlargement of the cardiac silhouette and prominence of the pulmonary interstitium, also unchanged. No acute osseous abnormalities. I MPRESSION: Tip of right internal jugular tunneled hemodialysis catheter projects at the inferior cavoatrial junction. Left pleural effusion with probable passive atelectasis of the left lower lobe, similar to prior. No new consolidations. Signed by: Dr. Senia Marshall M.D. on 04/29/2020 8:33 AM Dictated By: SENIA MRASHALL MD 2 Transcribed By: DESI on 04/29/20832 COPY TO: LOTUS ACKERMAN MD FOOT RIGHT COMPLETE 2020-03-24 13:23:00 [facility] [address] [address] Patient Name: SARAH MAGANA I MR #: [id number] : 1940 Age/Sex: 80/F Req #: [id number] [facility] Physician: Ordered by: LUZMARIA HOWARD DO Report #: [id number] Location: ER Room/Bed: Procedure: [id number] DX/FOOT RIGHT COMPLETE Exam Date: 03/24/20 Exam Time: 1225 REPORT STATUS: Signed Right hip, 2 views. Right knee, 3 views. Right foot, 3 views. History: Fall. Findings: There are diffuse vascular calcifications. The bones are diffusely osteopenic. There is no evidence of fracture or dislocation. There are no lytic or sclerotic lesions. The joint spaces are within normal limits. Posterior and plantar calcaneal spurs are present. IMPRESSION: No acute osseous abnormality. Signed by: Darin Ahn on 03/24/2020 1:24 PM Dictated By: DARIN AHN MD 23 Transcribed By: DESI on 03/24/201323 COPY TO: LUZMARIA HOWARD DO KNEE RIGHT THREE VIEWS 2020-03-24 13:23:00 [place] [address] Patient Name: SARAH MAGANA I MR #: [id number] : 1940 Age/Sex: 80/F Req #: [id number] Adm Physician: Ordered by: LUZMARIA HOWARD DO Report #: [id number] Location: ER Room/Bed: Procedure: DX/KNEE RIGHT THREE VIEWS Exam Date: 03/24/20 Exam Time: 1225 REPORT STATUS: Signed Right hip, 2 views. Right knee, 3 views. Right foot, 3 views. History: Fall. Findings: There are diffuse vascular calcifications. The bones are diffusely osteopenic. There is no evidence of fracture or dislocation. There are no lytic or sclerotic lesions. The joint spaces are within normal limits. Posterior and plantar calcaneal spurs are present. IMPRESSION: No acute osseous abnormality. Signed by: Darin Ahn on 03/24/2020 1:24 PM Dictated By: DARIN AHN MD 132 Transcribed By: DESI on 03/24/20 1324 COPY TO: LUZMARIA HOWARD DO HIP RIGHT 2-3 VW (+/- PELVIS) 2020-03-24 13:23:00 [place] [address] Patient Name: SARAH MAGANA I MR #: [id number] : 1940 Age/Sex: 80/F Req #: [id number] Adm Physician: Ordered by: LUZMARIA HOWARD DO Report #: [id number] Location: ER Room/Bed: Procedure: DX/HIP RIGHT 2-3 VW (+/- PELVIS) Exam Date: Exam Time: REPORT STATUS: Signed Right hip, 2 views. Right knee, 3 views. Right foot, 3 views. History: Fall. Findings: There are diffuse vascular calcifications. The bones are diffusely osteopenic. There is no evidence of fracture or dislocation. There are no lytic or sclerotic lesions. The joint spaces are within normal limits. Posterior and plantar calcaneal spurs are present. IMPRESSION: No acute osseous abnormality. Signed by: Darin Ahn on 03/24/2020 1:24 PM Dictated By: DARIN AHN MD 1324 Transcribed By: DESI on 03/24/20 1324 COPY TO: LUZMARIA HOWARD DO ELBOW RIGHT COMPLETE 2020-03-24 13:18:00 [place] [address] Patient Name: SARAH MAGANA I MR #: [id number] : 1940 Age/Sex: 80/F Req #: [id number] [facility] Physician: Ordered by: LUZMARIA HOWARD DO Report #: [id number] Location: ER Room/Bed: Procedure: [id number] DX/ELBOW RIGHT COMPLETE Exam Date: 03/24/20 Exam Time: 1225 REPORT STATUS: Signed Right shoulder, 2 views. Right elbow, 3 views. Right forearm, 2 views. History: Fall. Findings: The bones are diffusely osteopenic. There is no evidence of AC separation or dislocation. A nondisplaced fracture of the right radial head is present. Remaining bones are intact. There are no lytic or sclerotic lesions. There is right AC joint hypertrophy. Remaining joint spaces are unremarkable. Posterior fat pad sign is noted at the elbow. There are diffuse vascular calcifications. IMPRESSION: 1. Nondisplaced right radial head fracture with associated elbow joint effusion. 2. Degenerative changes of the right shoulder. Signed by: Darin Ahn on 03/24/2020 1:21 PM Dictated By: DARIN AHN MD 1321 Transcribed By: DESI on 03/24/20 1321 COPY TO: LUZMARIA HOWARD DO FOREARM RIGHT 2 VIEW 2020-03-24 13:18:00 [place] [address] Patient Name: SARAH MAGANA I MR #: [id number] : 1940 Age/Sex: 80/F Req #: [id number] Adm Physician: Ordered by: LUZMARIA HOWARD DO Report #: [id number] Location: ER Room/Bed: Procedure: [id number] DX/FOREARM RIGHT 2 VIEW Exam Date: 03/24/20 Exam Time: 1225 REPORT STATUS: Signed Right shoulder, 2 views. Right elbow, 3 views. Right forearm, 2 views. History: Fall. Findings: The bones are diffusely osteopenic. There is no evidence of AC separation or dislocation. A nondisplaced fracture of the right radial head is present. Remaining bones are intact. There are no lytic or sclerotic lesions. There is right AC joint hypertrophy. Remaining joint spaces are unremarkable. Posterior fat pad sign is noted at the elbow. There are diffuse vascular calcifications. IMPRESSION: 1. Nondisplaced right radial head fracture with associated elbow joint effusion. 2. Degenerative changes of the right shoulder. Signed by: Darin Ahn on 03/24/2020 1:21 PM Dictated By: DRAIN AHN MD 1321 Transcribed By: DESI on 03/24/20 1321 COPY TO: LUZMARIA HOWARD DO SHOULDER RIGHT COMPLETE 2020-03-24 13:18:00 [place] [address] Patient Name: SARAH MAGANA I MR #: [id number] : 1940 Age/Sex: 80/F Req #: [id number] Adm Physician: Ordered by: LUZMARIA HOWARD DO Report #: [id number] Location: ER Room/Bed: Procedure: [id number] DX/SHOULDER RIGHT COMPLETE Exam Date: 03/24/20 Exam Time: 1225 REPORT STATUS: Signed Right shoulder, 2 views. Right elbow, 3 views. Right forearm, 2 views. History: Fall. Findings: The bones are diffusely osteopenic. There is no evidence of AC separation or dislocation. A nondisplaced fracture of the right radial head is present. Remaining bones are intact. There are no lytic or sclerotic lesions. There is right AC joint hypertrophy. Remaining joint spaces are unremarkable. Posterior fat pad sign is noted at the elbow. There are diffuse vascular calcifications. IMPRESSION: 1. Nondisplaced right radial head fracture with associated elbow joint effusion. 2. Degenerative changes of the right shoulder. Signed by: Darin Ahn on 03/24/2020 1:21 PM Dictated By: DARIN AHN MD 1321 Transcribed By: DESI on 03/24/20 1321 COPY TO: LUZMARIA HOWARD DO CHEST SINGLE (NOT PORTABLE) 2020-03-24 13:15:00 [place] [address] Patient Name: SARAH MAGANA I MR #: [id number] : 1940 Age/Sex: 80/F Req #: [id number] Adm Physician: Ordered by: LUZMARIA HOWARD DO Report #: [id number] Location: ER Room/Bed: Procedure: [id number] DX/CHEST SINGLE (NOT PORTABLE) Exam Date: 03/24/20 Exam Time: 1225 REPORT STATUS: Signed Chest, 1 view, 03/24/2020. History: Fall. Comparison: None available. Findings: The cardiomediastinal silhouette and pulmonary vasculature are within normal limits for a portable exam. Patchy opacity is present at the left lung base with minimal blunting of the left costophrenic sulcus. The right lung is clear. There is no evidence of pneumothorax. Left subclavian dual-lead pacer, right IJ tunneled dialysis catheter, median sternotomy wires, and CABG clips are present. There are no acute osseous or soft tissue abnormalities. Impression: Left lower lobe retrocardiac atelectasis with small left pleural effusion. Right lung is clear. Signed by: Darin Ahn on 03/24/2020 1:16 PM Dictated By: DARIN AHN MD 1316 Transcribed By: DESI on 03/24/20 1316 COPY TO: LUZMARIA HOWARD DO PET/CT Skull Base To Mid Thigh 2020-01-28 13:51:20 Hm Interface, Radiology Results 01/28/2020 1:54 PM CDTPROCEDURE: [...] lower lobe. Follow-up CT can be obtained. [facility]-[id number] [facility] POC glucose 2020-01-28 10:33:58 Test Item POC glucose (test code = 58178-8) 101 mg/dL 65-99 [employer] Manager Name: Dany SteelJimborachel ID: [id number] Lab Interpretation (test code = 06306-7) Abnormal [place] AngelECG 12 [id number] 12:39:00Interface, External Ris In 01/05/2020 12:39 PM CDTVentricular Rate 62 BPMAtrial Rate 64 BPMP-R Interval 220 msQRS Duration 108 msQ-T Interval 444 msQTC Calculation(Bazett) 450 msP [place] 136 degreesR [place] 74 degreesT [place] 243 degreesAtrial-paced rhythm with prolonged AV conductionIncomplete left bundle branch blockLeft ventricular hypertrophy with repolarization abnormalityAbnormal ECGWhen compared with ECG of 28-DEC-2017 15:43,Electronic atrial pacemaker has replaced Sinus rhythmVent. rate has decreased BY 30 BPMST depression and Inverted T waves have replaced nonspecific T wave abnormality in Inferior leadsConfirmed by MD STANLEY, LEORA ([id number]) on 01/05/2020 12:38:58 [facility]/[id number] 11:09:10Ejection FractionSLEH ECHO HEARTLAB MKCKESSON CPACSRight Impression1. [...] SARAH MAGANA Date of Study 12/29/2019 FELIPE Ko Age 79 Visit Number [id number] Gender Female Accession Number [id number] Date of [address] [facility] Physician MD Cory Care Coordination Manager Rosie Souza [facility] Physician JOSIAS Meza ProcedureType of Study: Veins: Upper Extremity Vein Mapping, VEIN MAPPING ARM/ARMS. Indications for Study:AV access placement .Patient Status:Routine.[facility] Location:Vascular Lab.Technical Quality:Adequate visualization.Risk FactorsH istory of [...] + + + + + + [facility] [id number] 17:47:000.04[facility] [id number] 17:47:0060[facility] [id number] 17:47:00Negative *NA*(02/01/18 12:47 PM)[facility] [id number] 13:21:000.03[facility]ARD[facility]AC [id number] 13:21:0065[facility] [place] CHEM [id number] 13:21:008[facility]annCHEM [id number] 13:21:007.9 [facility]annCHEM [id number] 13:21:0025[facility]annCHEM PANEL 2018-02-01 13:21:0015.9[facility]annCHEM [id number] 13:21:005.9[facility]annCHEM [id number] 13:21:17105Qytescuo HermannCHEM [id number] 13:21:004.84[facility] HermannCHEM [id number] 13:21:55565Xialrwwn HermannCHEM [id number] 13:21:70241Locczoku HermannCHEM [id number] 13:21:0043 [facility] [id number] 11:29:00* Test Item Value Reference Range Interpretation Comments UA pH (test code = UA pH) 8.5 1 5.0-8.0 [facility] [id number] 11:29:00* Test Item Value Reference Range Interpretation Comments UA Spec Grav (test code = UA Spec Grav) 1.009 1 [facility] [id number] 11:29:00Clear (02/01/18 6:29 AM) [facility] [id number] 11:29:00Yellow *NA*(02/01/18 6:29 AM) [facility] [id number] 11:29:00Negative (02/01/18 6:29 AM) [facility] [id number] 11:29:00Negative *NA*(02/01/18 6:29 AM) [facility] [id number] 11:29:00Negative (02/01/18 6:29 AM) [facility] [id number] 11:29:00Negative (02/01/18 6:29 AM) [facility] [id number] 11:29:001[facility] [id number] 11:29:001[facility] [id number] 11:29:001 [facility]annBLOOD BANK [id number] 07:13:00Positive 1(02/01/18 2:13 AM) [facility]annCARD[facility]AC [id number] 07:13:000.04[facility]annCHEM PANEL 2018-02-01 07:13:00* Test Item Value Reference Range Interpretation Comments A/G Ratio (test code = A/G Ratio) 0.8 1 0.7-1.6 [facility]annCHEM [id number] 07:13:003.9[facility]annCHEM PANEL 2018-02-01 07:13:00* Test Item Value Reference Range Interpretation Comments B/C Ratio (test code = B/C Ratio) 9 1 6-25 [facility]annCHEM [id number] 07:13:0014.0[facility]annCHEM PANEL 2018-02-01 07:13:008[facility]annCHEM [id number] 07:13:95437Ghokltsc HermannCHEM [id number] 07:13:000.4[facility]annCHEM [id number] 07:13:0015[facility]annCHEM [id number] 07:13:003.2[facility]annCHEM [id number] 07:13:0030[facility]annCHEM [id number] 07:13:007.1 [facility]annCHEM GWSEY9290-92-77 07:13:007.9[facility]annCHEM PANEL 2018-02-01 07:13:66788Ktdmyykf HermannCHEM XHRYA2574-42-50 07:13:0026[facility]annCHEM PHNHD8083-25-02 07:13:006.0[facility]annCHEM GJJNF1644-78-41 07:13:24431Munndbpn HermannCHEM CISQQ7978-62-12 07:13:004.72[facility]annCHEM JUFXV0534-42-78 07:13:0043[facility]annCHEM BFPMV9470-70-71 07:13:0091 [facility] JcxdhejVOSRUADEQT8680-39-07 07:13:005.5[facility] HermannHEMATOLOGY 2018-02-01 07:13:009.4[facility] UriiuvqSZPWMERURC8861-70-28 07:13:005.0[facility] UkgvtywSZBCVFISEJ5447-87-55 07:13:001.1[facility] EcbbswhPIZJEPQUIT7915-60-89 07:13:000.8[facility] JafifckOIHKJMYXPD3700-88-84 07:13:001.4[facility] [place] SRDUTLBVXH0033-84-24 07:13:000.1[facility] AxizzcuWOAFSUAKKB2689-02-29 07:13:000.4 [facility] DnczhjhNISWQNBXXK2102-26-88 07:13:0016.9[facility] HermannHEMATOLOGY 2018-02-01 07:13:0067.6[facility] QkofdxzPJZORSBAOH6870-90-35 07:13:00* Test Item Value Reference Range Interpretation Comments PTT (test code = PTT) 29.1 s 22.9-35.8 [facility] ZpjsfahXTQMQBSSBM9757-52-37 07:13:00* Test Item Value Reference Range Interpretation Comments INR (test code = INR) 1.05 1 0.85-1.17 [facility] XwuijctHZPVXLQJMR0434-02-49 07:13:00* Test Item Value Reference Range Interpretation Comments PT (test code = PT) 13.7 s 12.0-14.7 [facility] KybclhiMFRLGTJELL7256-29-19 07:13:0011.2[facility]annHEMATOLOGY 2018-02-01 07:13:0095.4[facility] EifnrnbORKFCWLVIY8073-28-06 07:13:0034.1[facility] NzmzviwCIYCHBALHP4189-74-85 07:13:0032.7[facility] UbwmthcGTKELNXPIZ7946-98-79 07:13:00* Test Item Value Reference Range Interpretation Comments MCH (test code = MCH) 31.2 pg 27.0-31.0 [facility] AwlzixsUZJADWVRUV2716-77-31 07:13:0016.9[facility]annHEMATOLOGY 2018-02-01 07:13:05002Loujfcbe PheuetwKDWQUUJAJK7287-89-30 07:13:009.6[facility] RttfwxqVKLSLBHGDZ8090-40-38 07:13:008.1[facility] TlpkutsELGEYNNVZN8174-69-72 07:13:003.57[facility] HermannPOCT-GLUCOSE VYPCU7150-49-02 08:27:00* Test Item Value Reference Range Interpretation Comments POC-GLUCOSE METER (BEAKER) (test code = 1538) 105 mg/dL 70-110 TESTED AT [address] [address] POCT-GLUCOSE CAPDG9928-05-84 23:05:00* Test Item Value Reference Range Interpretation Comments POC-GLUCOSE METER (BEAKER) (test code = 1538) 135 mg/dL 70-110 H TESTED AT [address] [address] POCT-GLUCOSE [id number] 12:17:00* Test Item Value Reference Range Interpretation Comments POC-GLUCOSE METER (BEAKER) (test code = 1538) 92 mg/dL 70-110 TESTED AT [address] [address] POCT-GLUCOSE TQTAS3331-09-83 08:01:00* Test Item Value Reference Range Interpretation Comments POC-GLUCOSE METER (BEAKER) (test code = 1538) 105 mg/dL 70-110 TESTED AT [address] [address] POCT-GLUCOSE EJJSX9844-18-23 20:52:00* Test Item Value Reference Range Interpretation Comments POC-GLUCOSE METER (BEAKER) (test code = 1538) 155 mg/dL 70-110 H TESTED AT [address] [address] POCT-GLUCOSE [id number] 16:45:00* Test Item Value Reference Range Interpretation Comments POC-GLUCOSE METER (BEAKER) (test code = 1538) 147 mg/dL 70-110 H TESTED AT [address] [address] POCT-GLUCOSE [id number] 11:32:00* Test Item Value Reference Range Interpretation Comments POC-GLUCOSE METER (BEAKER) (test code = 1538) 105 mg/dL 70-110 TESTED AT [address] [address] POCT-GLUCOSE [id number] 07:40:00* Test Item Value Reference Range Interpretation Comments POC-GLUCOSE METER (BEAKER) (test code = 1538) 105 mg/dL 70-110 TESTED AT [address] [address] POCT-GLUCOSE [id number] 22:38:00* Test Item Value Reference Range Interpretation Comments POC-GLUCOSE METER (BEAKER) (test code = 1538) 168 mg/dL 70-110 H TESTED AT [address] [address] POCT-GLUCOSE [id number] 18:01:00* Test Item Value Reference Range Interpretation Comments POC-GLUCOSE METER (BEAKER) (test code = 1538) 103 mg/dL 70-110 TESTED AT [address] [address] POCT-GLUCOSE [id number] 11:57:00* Test Item Value Reference Range Interpretation Comments POC-GLUCOSE METER (BEAKER) (test code = 1538) 123 mg/dL 70-110 H TESTED AT [address] [address] POCT-GLUCOSE [id number] 07:52:00* Test Item Value Reference Range Interpretation Comments POC-GLUCOSE METER (BEAKER) (test code = 1538) 81 mg/dL 70-110 TESTED AT [address] [address] CBC W/PLT COUNT & AUTO ETJFTYJTXQRE1986-15-09 06:17:00* Test Item Value Reference Range Interpretation [...] (test code = 2801) 1 % 0-1 ODUFPHRIO5505-34-93 06:15:00* Test Item Value Reference Range Interpretation Comments MAGNESIUM (BEAKER) (test code = 627) 1.8 mg/dL 1.6-2.6 BASIC METABOLIC [id number] 06:15:00* Test Item Value Reference Range Interpretation [...] IS NOT APPLICABLE FOR DIALYSIS PATIENTS. POCT-GLUCOSE [id number] 22:36:00* Test Item Value Reference Range Interpretation Comments POC-GLUCOSE METER (BEAKER) (test code = 1538) 152 mg/dL 70-110 H TESTED AT [facility] [address] [facility] [address] POCT-GLUCOSE [id number] 17:42:00* Test Item Value Reference Range Interpretation Comments POC-GLUCOSE METER (BEAKER) (test code = 1538) 139 mg/dL 70-110 H TESTED AT [facility] [address] [facility] [address] ANG, TUNNELED CATHETER WARHGLCKB1365-24-03 17:04:00Reason for exam:->needs HD today please.FINAL REPORT [...] the patient's medical record by the nurse. Director Industrial Relations: Haley Torres E M Assembler: MD Louie (Fellow). Approach: Right internal jugular [...] needle into the right atrium. A [address] And a 0.035 wire was advanced into the IVC. A subcutaneous tunnel was created in the right anterior chest wall by blunt dissection. A 19 cm tip to cuff 15.5 Italian Duraflow 2 catheter was brought through the [...] t Verified Date/Time: 12/31/2017 17:04:03 Reading Location: [address] Reading Room Electronically signed by: OSCAR TORRES MD on 8 05:04 PM POCT-GLUCOSE [id number] 12:35:00* Test Item Value Reference Range Interpretation Comments POC-GLUCOSE METER (BEAKER) (test code = 1538) 119 mg/dL 70-110 H TESTED AT [facility] [address] [facility] [address] HEPATITIS B SURFACE [id number] 11:00:00* Test Item Value Reference Range Interpretation Comments HEPATITIS B SURFACE ANTIBODY (BEAKER) (test code = 647) < mIU/mL <8.0 HEPATITIS B SURFACE UDVHUYY4551-06-29 10:53:00* Test Item Value Reference Range Interpretation Comments HEPATITIS B SURFACE ANTIGEN (2) (BEAKER) (test code = 2585) Nonreactive Nonreactive HEPATITIS B CORE ANTIBODY, [id number] 10:53:00* Test Item Value Reference Range Interpretation Comments HEPATITIS B CORE TOTAL ANTIBODY (BEAKER) (test code = 497) N onreactive Nonreactive POCT-GLUCOSE [id number] 07:58:00* Test Item Value Reference Range Interpretation Comments POC-GLUCOSE METER (BEAKER) (test code = 1538) 101 mg/dL 70-110 TESTED AT [facility] [address] [facility] [address] BASIC METABOLIC [id number] 05:32:00* Test Item Value Reference Range Interpretation [...] GFR IS NOT APPLICABLE FOR DIALYSIS PATIENTS. VSIIIPHFC9241-53-80 05:29:00* Test Item Value Reference Range Interpretation [...] 413) 0 /100 WBC 0 -0 POCT-GLUCOSE [id number] 22:36:00* Test Item Value Reference Range Interpretation Comments POC-GLUCOSE METER (BEAKER) (test code = 1538) 159 mg/dL 70-110 H TESTED AT [facility] [address] [facility] [address] BASIC METABOLIC [id number] 17:04:00* Test Item Value Reference Range Interpretation [...] IS NOT APPLICABLE FOR DIALYSIS PATIENTS. T4, [id number] 11:58:00* Test Item Value Reference Range Interpretation [...] = 2590) 21 % 20-5 5 HEMOGLOBIN [id number] 07:50:00* Test Item Value Reference Range Interpretation Comments HEMOGLOBIN A1C (BEAKER) (test code = 368) 4.8 % 4.3-6.1 POCT-GLUCOSE [id number] 07:40:00* Test Item Value Reference Range Interpretation Comments POC-GLUCOSE METER (BEAKER) (test code = 1538) 120 mg/dL 70-110 H TESTED AT [facility] [address] [facility] [address] TSH/FREE T4 IF HWNMOTPQM4974-16-02 04:53:00* Test Item Value Reference Range Interpretation Comments THYROID STIMULATING HORMONE (BEAKER) (test code = 772) 29.27 uIU/mL 0.35-4.94 H [id number] 04:36:00* Test Item Value Reference Range Interpretation Comments FERRITIN (BEAKER) (test code = 361) 507 ng/mL 5-275 H VITAMIN B12 AND [id number] 04:36:00* Test Item Value Reference Range Interpretation Comments VITAMIN B12 (BEAKER) (test code = 774) 193 pg/mL 213-816 L FOLATE (BEAKER) (test code = 362) 14.8 ng/mL >=7.0 B-TYPE NATRIURETIC FACTOR (BNP)2017-12-30 03:51:00* Test Item Value Reference Range Interpretation Comments B-TYPE NATRIURETIC PEPTIDE (BEAKER) (test code = 700) 2749 pg/mL 0-100 H PTH, [id number] 03:50:00* Test Item Value Reference Range Interpretation Comments PARATHYROID HORMONE INTACT (BEAKER) (test code = 577) 605.0 pg/mL 8.5-72.5 H BASIC METABOLIC [id number] 03:49:00* Test Item Value Reference Range Interpretation [...] GFR IS NOT APPLICABLE FOR DIALYSIS PATIENTS. MZJXNUNTLW1821-11-31 03:44:00* Test Item Value Reference Range Interpretation Comments PHOSPHORUS (BEAKER) (test code = 604) 5.7 mg/dL 2.3-4.7 H UQJOPIIJC1655-06-06 03:44:00* Test Item Value Reference Range Interpretation [...] 413) 0 /100 WBC 0 -0 POCT-GLUCOSE [id number] 23:30:00* Test Item Value Reference Range Interpretation Comments POC-GLUCOSE METER (BEAKER) (test code = 1538) 172 mg/dL 70-110 H TESTED AT [facility] [address] [facility] [address] POCT-GLUCOSE [id number] 17:48:00* Test Item Value Reference Range Interpretation Comments POC-GLUCOSE METER (BEAKER) (test code = 1538) 143 mg/dL 70-110 H TESTED AT [facility] [address] [place] [address] PROTEIN, RANDOM [id number] 17:42:00* Test Item Value Reference Range Interpretation Comments PROTEIN, URINE (BEAKER) (test code = 1569) 246 mg/dL 0-14 H CREATININE, RANDOM [id number] 17:14:00* Test Item Value Reference Range Interpretation Comments CREATININE URINE (BEAKER) (test code = 375) 26.4 mg/dL Reference Range: No NormalsB-TYPE NATRIURETIC FACTOR (BNP)2017-12-29 05:22:00* Test Item Value Reference Range Interpretation Comments B-TYPE NATRIURETIC PEPTIDE (BEAKER) (test code = 700) 7175 pg/mL 0-100 H BASIC METABOLIC [id number] 05:09:00* Test Item Value Reference Range Interpretation [...] IS NOT APPLICABLE FOR DIALYSIS PATIENTS. TROPONIN [id number] 05:06:00* Test Item Value Reference Range Interpretation [...] acidosis, acute neurological disease, and per sistent tachyarrhythmia.WRYHMEUBZ6142-70-03 05:03:00* Test Item Value Reference Range Interpretation [...] WBC 0 -0 URINALYSIS WITH MICROSCOPIC IF [id number] 17:27:00* Test Item Value Reference Range Interpretation [...] 0.2-1.0 SOURCE(BEAKER) (test code = 2795) URINALYSIS UENRYDVSHNI9790-13-72 17:27:00* Test Item Value Reference Range Interpretation Comments RBC UA (BEAKER) (test code = 519) < /HPF WBC UA (BEAKER) (test code = 520) 9 /HPF MUCUS (BEAKER) (test code = 1574) Rare SQUAMOUS EPITHELIAL (BEAKER) (test code = 516) 6 /HPF B-TYPE NATRIURETIC FACTOR (BNP)2017-12-28 16:43:00* Test Item Value Reference Range Interpretation Comments B-TYPE NATRIURETIC PEPTIDE (BEAKER) (test code = 700) [address] pg/mL 0-100 H TROPONIN [id number] 16:22:00* Test Item Value Reference Range Interpretation [...] acidosis, acute neurological disease, and per sistent tachyarrhythmia.PT/[id number] 16:17:00* Test Item Value Reference Range Interpretation [...] pat ients with mechanical heart valves.COMPREHENSIVE METABOLIC [id number] 16:16:00* Test Item Value Reference Range Interpretation [...] GFR IS NOT APPLICABLE FOR DIALYSIS PATIENTS. JXKNPJMPQ3399-27-87 16:15:00* Test Item Value Reference Range Interpretation Comments MAGNESIUM (BEAKER) (test code = 627) 2.3 mg/dL 1.6-2.6 [id number] 16:15:00* Test Item Value Reference Range Interpretation Comments LIPASE (BEAKER) (test code = 749) 57 U/L 8-78 CBC W/PLT COUNT & AUTO SCTQWWEJVCOH0517-65-43 15:57:00* Test Item Value Reference Range Interpretation [...] % 0-1 RAD, CHEST, 1 VIEW, NON [id number] 15:39:00Reason for exam:->chest painShould this be performed at the bedside?->YesFINAL REPORT AP chest HISTORY: Chest pain COMPARISON: 10/09/2017 IMPRESSION:Moderate- large left effusion. Mild interstitial edema. Heart size grossly normal. No pneumothorax. Signed: Ana Mcneil MDReport Verified Date/Time: 12/28/2017 15:39:31 Reading Location: [address] Ortho Consult Reading Room B- TYPE NATRIURETIC FACTOR (BNP)2017-10-29 17:20:00* Test Item Value Reference Range Interpretation Comments B-TYPE NATRIURETIC PEPTIDE (BEAKER) (test code = 700) 2719 pg/mL 0-100 H BASIC METABOLIC [id number] 16:06:00* Test Item Value Reference Range Interpretation [...] GFR IS NOT APPLICABLE FOR DIALYSIS PATIENTS. KMMDEHMZJ1734-03-36 16:05:00* Test Item Value Reference Range Interpretation Comments MAGNESIUM (BEAKER) (test code = 627) 2.3 mg/dL 1.6-2.6 RAD, CHEST, 1 VIEW, NON [id number] 08:10:00Reason for exam:->s/p PPMShould this be performed [...] central pulmonary vasculature is not engorged. Signed: Collin Quispeeport Verified Date/Time: 10/09/2017 08:10:47 Reading Location: [facility] Radiology Reading Room C METABOLIC [id number] 09:14:00* Test Item Value Reference Range Interpretation [...] GFR IS NOT APPLICABLE FOR DIALYSIS PATIENTS. JGTWODAAP4684-56-58 09:10:00* Test Item Value Reference Range Interpretation Comments MAGNESIUM (BEAKER) (test code = 627) 2.4 mg/dL 1.6-2.6 PROTHROMBIN TIME/[id number] 09:04:00* Test Item Value Reference Range Interpretation [...] if on CoumadinCBC W/PLT COUNT & AUTO AMNLVKNUQBIL3748-26-99 08:51:00* Test Item Value Reference Range Interpretation [...] code = 2801) 0 % 0-1 PROTHROMBIN TIME/[id number] 22:53:00* Test Item Value Reference Range Interpretation Comments PROTIME (BEAKER) (test code = 759) 15.7 seconds 11.7-14.7 H INR (BEAKER) (test code = 370) 1.3 <=5.9 RECOMMENDED COUMADIN/WARFARIN INR THERAPY RANGESSTANDARD DOSE: 2.0 - 3.0 Inclu axel: PROPHYLAXIS for venous thrombosis, systemic embolization; TREATMENT for christiano ous thrombosis and/or pulmonary embolus.HIGH RISK: Target INR is 2.5-3.5 for pat ients with mechanical heart valves.[id number] 22:53:00* Test Item Value Reference Range Interpretation Comments PARTIAL THROMBOPLASTIN TIME (BEAKER) (test code = 760) 31.3 seconds 22.5-36.0 BASIC METABOLIC [id number] 21:47:00* Test Item Value Reference Range Interpretation [...] DIALYSIS PATIENTS. CBC W/PLT COUNT & AUTO [id number] 21:43:00* Test Item Value Reference Range Interpretation [...] = 417) 0.05 K/ L 0. 00-0.20 0.00PT/[id number] 02:38:00* Test Item Value Reference Range Interpretation [...] 2.5-3.5 for pat ients with mechanical heart valves.ODHGIQHJP2343-94-86 02:32:00* Test Item Value Reference Range Interpretation Comments MAGNESIUM (BEAKER) (test code = 627) 2.6 mg/dL 1.6-2.6 Specimen moderately hemolyzed BASIC METABOLIC [id number] 02:32:00* Test Item Value Reference Range Interpretation [...] 0-100 H CREATINE KINASE (CK), TOTAL AND [id number] 02:18:00* Test Item Value Reference Range Interpretation Comments CREATINE KINASE TOTAL (BEAKER) (test code = 380) 98 U/L 29-20 0 CREATINE KINASE-MB (BEAKER) (test code = 750) 5.8 ng/mL 0.0-6.6 CREATINE KINASE-MB INDEX (BEAKER) (test code = 395) 5.9 % Effective 06/08/2014: CK-MB Reference Range ChangeNew: 0.0-6.6 Previous: 0.0- 4.9CK-MB Reference Range:<6.7 Normal6.7-10.0 Borderline>10.0 Abnormal TROPONIN [id number] 02:18:00* Test Item Value Reference Range Interpretation [...] pers istent tachyarrhythmia.CBC W/PLT COUNT & AUTO QPFCULDPMLTZ8524-17-33 01:57:00* Test Item Value Reference Range Interpretation [...] 417) 0.03 K/ L 0. 00-0.20 0.00URINE DZEH9514-34-45 13:34:009[facility] LFAC1442-34-99 13:34:00 200[facility]annURINE AJQI7429-10-07 13:34:0060[facility]URINE CHEM 2016-09-24 13:34:43344Ikkucnlt HermannURINE LDYT5721-88-60 13:34:001.41[facility]annURINE ZKKX8870-18-53 13:34:82830.00[facility] AlflwwzNWKUAXIQSDWH0089-19-54 16:58:0016.4[facility] GtavhyuFXHUXQAOSXNU5996-62-53 16:58:007.7[facility] [place] RIOQECATKGCX6900-90-13 16:58:0011[facility] EabmyjxAROJZFHYYPPF0468-53-01 16:58:00 95[facility] AwkgixpEXQTCWXXQADH2928-95-95 16:58:004.4[facility] HermannELECTROLYTES 2016-09-22 16:58:0050[facility] VbfsxkjZPKYIPUFERFA2382-08-85 16:58:0025[facility] YavrdfmQAIWXKVHZIJI3495-58-23 16:58:50507Vsvsgfnm GlkysikHFHCQGVRGKWF4283-66-56 16:58:003.70[facility] NbgxnbfYPAPQKYONFLR5373-38-29 16:58:58614Bpbidxbo [place] PDALVWGUBZ9382-95-61 16:58:0076.9[facility]orial RmdopdxQXXLZRVUZT9461-23-27 16:58:00 10.6[facility] UcxsivhQAYXZFEOMI3115-45-81 16:58:009.8[facility] HermannHEMATOLOGY 2016-09-22 16:58:001.9[facility] LxjvcreRHXAXUSDQR2882-72-45 16:58:000.8[facility] XdsawgeJXRLRXLFDL9410-37-61 16:58:008.8[facility] SkxidxxIWDGFYWHAK0980-35-20 16:58:001.2[facility] IbtqynvUPTFAISZAA6732-23-77 16:58:000.2[facility] [place] DDUVQLNNGY6156-45-94 16:58:001.1[facility] ZdsfirhKNIYSQYVLM4152-04-95 16:58:000.1 [facility] PuuxuhlEWYCJRUXUA0125-12-09 16:58:0033.3[facility] HermannHEMATOLOGY 2016-09-22 16:58:008.8[facility] JgmamguSDRDGMIMVS5791-57-76 16:58:19371Ocguvixn XrtupvyCJVERHWQMX8645-32-38 16:58:0017.1[facility] AgwpsyqEGKJEWFKFA7477-22-51 16:58:0086.4[facility] WlklufzJGLXEKWDUW1452-80-97 16:58:00* Test Item Value Reference Range Interpretation Comments MCH (test code = MCH) 28.8 pg 27.0-31.0 [facility] MkehbznYDGHEDHBUW0116-26-08 16:58:003.54[facility]annHEMATOLOGY 2016-09-22 16:58:0011.4[facility] JgaiawqZMJJJZOBLS0425-95-58 16:58:0030.6[facility] GhzxoaxAQQFWOJVUC5804-52-73 16:58:0010.2[facility] FgndbmaGPWRFCARQF0174-35-06 11:33:150.1[facility] YllibfkRWSQYZCNDS2183-57-93 11:33:151.5[facility] [place] TXRXMCSABW0069-79-63 11:33:151.5[facility] SlfmygfJXKZLXXEWM5539-61-37 11:33:150.2 [facility] McqgpxjQBAAJJKPIT0927-78-80 11:33:150.6[facility]annHEMATOLOGY 2016-09-21 11:33:159.3[facility] BwfxfnnURKANFVBQO8915-54-57 11:33:1573.7[facility] CxjzvqzFKWTKHJWGL1759-66-31 11:33:1512.2[facility] SxmsqwwKNXHQJTBUT4699-27-59 11:33:1512.1[facility] KtodvziSNTQSUXDGA5086-59-18 11:33:151.4[facility] [place] DWVLMJKFBB3303-61-00 11:33:67528Weitbvlp XdrrdqhRNBGYYTIUI3614-24-85 11:33:159.2 Memorial CifnodiBPDYJTCCCA4032-78-96 11:33:1516.4[facility]annHEMATOLOGY 2016-09-21 11:33:1533.2[facility] QgynyzfFBWZNADQSB8624-25-69 11:33:15* Test Item Value Reference Range Interpretation Comments MCH (test code = MCH) 28.4 pg 27.0-31.0 Memorial PzaobahEADACAGQVD2675-17-58 11:33:1528.9[facility]annHEMATOLOGY 2016-09-21 11:33:1585.7[facility] TskuvcaJDIKZNPIJS6618-46-44 11:33:153.38[facility] FwyrokkGCSOZLPPBH2493-81-59 11:33:159.6[facility] AccmywnFPEASLNWRA1312-61-74 11:33:1512.6[facility]orial OiwvqetDFNWCLRSLOUC1082-48-38 10:30:0014.6[facility] FYZJHFNDKMTV1935-45-05 10:30:36075Flfgpaoq MssovsvSXGINNZFWRBG0226-78-25 10:30:003.6[facility] RscnyytFTEDLBYPDRKL4855-95-95 10:30:0027[facility] WZEMNMWZUQVH0491-37-47 10:30:0038[facility] KqhfeufEBEHTSFRWFFX9866-37-69 10:30:00 3.30[facility] AiggpddZECMVLWKDGHY8519-21-20 10:30:26802Anfrztnj Graeme XMFBYKYKSZVU8901-91-29 10:30:007.2[facility] PhrqqdoSNROCBBXBXMU7943-61-87 10:30:0013[facility] RxfcomcJFSMAGEEGMFX9567-23-86 10:30:99869Dlubvcxi [place] ENDRYGSOEC7839-30-63 10:30:000.2[facility] NqfjumtSVCJWDLRDC6812-65-32 10:30:009.3 [facility] ExonyjjKUDPEFRCCM8933-57-92 10:30:0011.8[facility] HermannHEMATOLOGY 2016-09-20 10:30:001.7[facility] PnzwfssFSRDPNVLCH5857-81-65 10:30:001.1[facility] VfzmxzzEAGQKYJSWM4811-14-82 10:30:0076.9[facility] LmishdlIOZKLCEEGM0265-17-14 10:30:001.4[facility] EyouccbRZPKCCBCDO2226-74-00 10:30:000.3[facility] [place] JHXHOMSRNN4968-69-54 10:30:009.1[facility] MzcbfurPTEPZGXQFY3017-12-35 10:30:009.1 [facility] TgtwusfGBUUKYMAEC5540-71-85 10:30:009.2[facility] HermannHEMATOLOGY 2016-09-20 10:30:0011.8[facility] IpebqbrZQCVTVFTPA7428-00-47 10:30:89046Gwxlbniq XeexzktHLICHTNXCQ2362-70-36 10:30:0016.3[facility] VqbmbuvYKEHMDILNR1573-96-62 10:30:003.24[facility] GffvesuOXBATDADNO0887-63-21 10:30:0027.9[facility] VBDECMRCWW2272-87-18 10:30:0086.1[facility] SmyiitlNMTZJKRCBU0869-30-21 10:30:00* Test Item Value Reference Range Interpretation Comments MCH (test code = MCH) 28.6 pg 27.0-31.0 Memorial VkudmvqUWEPNDQBLP4445-20-14 10:30:0033.2[facility] HermannIMMUNOLOGY 2016-09-18 13:11:00<3.1[facility] HermannCHEM TUYYP9998-27-63 13:10:003.2[facility] HermannCHEM GWYJA6749-82-29 13:10:002.0[facility] HermannCHEM KMKPH1805-33-71 13:10:002.2[facility] EljslaeWFDYUQQIDRAR1804-48-96 13:10:0016.8[facility] MBNSNCQPRKGQ4270-63-33 13:10:0013[facility] UdzizotYZMOYSIJWRZH5226-97-05 13:10:00 38[facility] QaqebbfOSNXLSKWMDBI7654-25-26 13:10:0095[facility]annELECTROLYTES 2016-09-18 13:10:0025[facility] EerdrdiBABUFULVXAUE0322-54-99 13:10:0098[facility] GjjlctrURKCAVJOWFGC5315-94-87 13:10:007.3[facility] YclvleiBMVOXRYCVIKY2875-83-93 13:10:86106Uzwytxzs PyupouyYLDLQOAYFAWJ8485-05-97 13:10:003.8[facility] VQOSVXXWLRYR9071-21-66 13:10:003.30[facility] CicnhfqAUQIEZATZI3035-96-48 13:10:00 0.1[facility] XtxxoycJNEQVIBOTF2909-41-56 13:10:78349.0[facility] XDWDR6793-89-01 00:15:004[facility] JIYMH5992-05-03 00:15:008 [facility] YHVCQ1728-51-42 00:15:00Negative (09/17/16 6:15 PM) [facility] LAIAM8024-77-76 00:15:00Negative (09/17/16 6:15 PM) [facility] GRRHN3242-45-52 00:15:001[facility] PBKZK9494-44-87 00:15:00Negative (09/17/16 6:15 PM)[facility] OYYLA4671-58-91 00:15:00Negative *NA*(09/17/16 6:15 PM)[facility] HZPXM6219-77-23 00:15:00Slight *ABN*(09/17/16 6:15 PM)[facility] UWGTD4141-31-51 00:15:001.013[facility] ADFCV7868-13-94 00:15:00 5.0[facility]annCARDIAC JOBDNRU1735-23-27 10:38:41>5000[facility]annCHEM VFXSY9155-48-42 14:30:002.3[facility]annCHEM IVJKA8348-78-52 14:30:002.9 [facility] SAPOP3115-88-89 14:30:006.7[facility] HermannIMMUNOLOGY 2016-09-15 14:30:00Negative *NA*(09/15/16 8:30 AM)[facility] 2016-09-15 14:30:0014.4[facility]annSPECIAL NWPUQIPYD8945-17-62 14:30:005.5 [facility] FQWETMN6235-83-73 17:44:00* Test Item Value Reference Range Interpretation [...] Sulfamethoxazole (test code = 47) S POCT-GLUCOSE [id number] 11:57:00* Test Item Value Reference Range Interpretation Comments POC-GLUCOSE METER (BEAKER) (test code = 1538) 281 mg/dL 70-110 H TESTED AT [facility] [address] [facility] [address] BASIC METABOLIC LBROK2827-33-36 08:18:00* Test Item Value Reference Range Interpretation [...] ESTIMATED GFR. CBC W/PLT COUNT & AUTO YVLJIBVEASDN8559-30-56 07:41:00* Test Item Value Reference Range Interpretation [...] 417) 0.06 K/ L 0. 00-0.20 0.00POCT-GLUCOSE SPSTQ4993-70-65 07:39:00* Test Item Value Reference Range Interpretation Comments POC-GLUCOSE METER (BEAKER) (test code = 1538) 103 mg/dL 70-110 TESTED AT [address] [address] POCT-GLUCOSE [id number] 20:50:00* Test Item Value Reference Range Interpretation Comments POC-GLUCOSE METER (BEAKER) (test code = 1538) 217 mg/dL 70-110 H TESTED AT [address] [address] POCT-GLUCOSE [id number] 17:35:00* Test Item Value Reference Range Interpretation Comments POC-GLUCOSE METER (BEAKER) (test code = 1538) 123 mg/dL 70-110 H TESTED AT [address] [address] POCT-GLUCOSE [id number] 13:04:00* Test Item Value Reference Range Interpretation Comments POC-GLUCOSE METER (BEAKER) (test code = 1538) 199 mg/dL 70-110 H TESTED AT [address] [address] PLATELET AGGREGATION: FUNCTION [id number] 11:19:00* Test Item Value Reference Range Interpretation Comments WEAK ADP RESULT(BEAKER) (test code = 2135) 65 % 60-91 PLATELET FUNCTION SCREEN INTERP (BEAKER) (test code = 2173) 60-100% indicates normal platelet function [id number] (BEAKER) (test code = 2622) Kamila Zuniga MD (electronic signature) PLATELET COUNT AGG (BEAKER) (test code = 2656) 194 K/CU MM 150-430 Platelet Function Screen results may be falsely low with platelet counts< 100,000/cu mm.POCT-GLUCOSE [id number] 09:34:00* Test Item Value Reference Range Interpretation Comments POC-GLUCOSE METER (BEAKER) (test code = 1538) 101 mg/dL 70-110 TESTED AT [facility] [address] [place] [address] [id number] 09:12:00* Test Item Value Reference Range Interpretation [...] mechanical heart valves.CBC W/PLT COUNT & AUTO [id number] 07:53:00* Test Item Value Reference Range Interpretation [...] 0.04 K/ L 0. 00-0.20 0.00BASIC METABOLIC [id number] 07:38:00* Test Item Value Reference Range Interpretation [...] CLINICAL DATA TO CALCULATE ESTIMATED GFR. POCT-GLUCOSE [id number] 04:03:00* Test Item Value Reference Range Interpretation Comments POC-GLUCOSE METER (BEAKER) (test code = 1538) 128 mg/dL 70-110 H TESTED AT [facility] [address] [facility] [address] POCT-GLUCOSE [id number] 21:21:00* Test Item Value Reference Range Interpretation Comments POC-GLUCOSE METER (BEAKER) (test code = 1538) 64 mg/dL 70-110 L TESTED AT [facility] [address] [facility] [address] POCT-GLUCOSE [id number] 17:51:00* Test Item Value Reference Range Interpretation Comments POC-GLUCOSE METER (BEAKER) (test code = 1538) 175 mg/dL 70-110 H TESTED AT [address] [address] POCT-GLUCOSE [id number] 12:35:00* Test Item Value Reference Range Interpretation Comments POC-GLUCOSE METER (BEAKER) (test code = 1538) 107 mg/dL 70-110 TESTED AT [place] [id number] [facility] [address] URINALYSIS W/ REFLEX URINE [id number] 08:41:00* Test Item Value Reference Range Interpretation [...] Few SOURCE(BEAKER) (test code = 2795) POCT-GLUCOSE [id number] 07:53:00* Test Item Value Reference Range Interpretation Comments POC-GLUCOSE METER (BEAKER) (test code = 1538) 115 mg/dL 70-110 H TESTED AT [facility] [address] [facility] [address] CBC W/PLT COUNT & AUTO [id number] 05:47:00* Test Item Value Reference Range Interpretation [...] 0.02 K/ L 0. 00-0.20 0.00BASIC METABOLIC [id number] 05:21:00* Test Item Value Reference Range Interpretation [...] CLINICAL DATA TO CALCULATE ESTIMATED GFR. POCT-GLUCOSE [id number] 17:31:00* Test Item Value Reference Range Interpretation Comments POC-GLUCOSE METER (BEAKER) (test code = 1538) 127 mg/dL 70-110 H TESTED AT [address] [address] POCT-GLUCOSE [id number] 16:47:00* Test Item Value Reference Range Interpretation Comments POC-GLUCOSE METER (BEAKER) (test code = 1538) 118 mg/dL 70-110 H TESTED AT [address] [address] POCT-GLUCOSE [id number] 12:21:00* Test Item Value Reference Range Interpretation Comments POC-GLUCOSE METER (BEAKER) (test code = 1538) 93 mg/dL 70-110 TESTED AT [address] [address] CBC W/PLT COUNT & AUTO [id number] 10:14:00* Test Item Value Reference Range Interpretation [...] (BEAKER) (test code = 762) Normal POCT-GLUCOSE [id number] 07:34:00* Test Item Value Reference Range Interpretation Comments POC-GLUCOSE METER (BEAKER) (test code = 1538) 117 mg/dL 70-110 H TESTED AT [address] [address] BASIC METABOLIC [id number] 06:39:00* Test Item Value Reference Range Interpretation [...] CLINICAL DATA TO CALCULATE ESTIMATED GFR. POCT-GLUCOSE [id number] 20:54:00* Test Item Value Reference Range Interpretation Comments POC-GLUCOSE METER (BEAKER) (test code = 1538) 136 mg/dL 70-110 H TESTED AT [address] [address] POCT-GLUCOSE [id number] 17:31:00* Test Item Value Reference Range Interpretation Comments POC-GLUCOSE METER (BEAKER) (test code = 1538) 134 mg/dL 70-110 H TESTED AT [address] [address] POCT-GLUCOSE [id number] 11:35:00* Test Item Value Reference Range Interpretation Comments POC-GLUCOSE METER (BEAKER) (test code = 1538) 161 mg/dL 70-110 H TESTED AT [facility] [address] [facility] [address] POCT-GLUCOSE [id number] 07:56:00* Test Item Value Reference Range Interpretation Comments POC-GLUCOSE METER (BEAKER) (test code = 1538) 106 mg/dL 70-110 TESTED AT [place] [id number] [facility] [address] CBC W/PLT COUNT & AUTO [id number] 07:27:00* Test Item Value Reference Range Interpretation [...] 0.02 K/ L 0. 00-0.20 0.00BASIC METABOLIC [id number] 06:31:00* Test Item Value Reference Range Interpretation [...] INSUFFICIENT CLINICAL DATA TO CALCULATE ESTIMATED GFR. [id number] 06:29:00* Test Item Value Reference Range Interpretation Comments PHOSPHORUS (BEAKER) (test code = 604) 3.7 mg/dL 2.3-4.7 [id number] 06:29:00* Test Item Value Reference Range Interpretation Comments MAGNESIUM (BEAKER) (test code = 627) 2.1 mg/dL 1.6-2.6 POCT-GLUCOSE [id number] 22:34:00* Test Item Value Reference Range Interpretation Comments POC-GLUCOSE METER (BEAKER) (test code = 1538) 133 mg/dL 70-110 H TESTED AT [facility] [address] [facility] [address] POCT-GLUCOSE [id number] 12:07:00* Test Item Value Reference Range Interpretation Comments POC-GLUCOSE METER (BEAKER) (test code = 1538) 151 mg/dL 70-110 H TESTED AT [facility] [address] [facility] [address] CBC W/PLT COUNT & AUTO [id number] 08:11:00* Test Item Value Reference Range Interpretation [...] 417) 0.01 K/ L 0. 00-0.20 0.00POCT-GLUCOSE [id number] 08:01:00* Test Item Value Reference Range Interpretation Comments POC-GLUCOSE METER (BEAKER) (test code = 1538) 108 mg/dL 70-110 TESTED AT [address] [address] BASIC METABOLIC [id number] 07:50:00* Test Item Value Reference Range Interpretation [...] CLINICAL DATA TO CALCULATE ESTIMATED GFR. POCT-GLUCOSE [id number] 17:33:00* Test Item Value Reference Range Interpretation Comments POC-GLUCOSE METER (BEAKER) (test code = 1538) 109 mg/dL 70-110 TESTED AT [address] [address] [id number] 14:48:00* Test Item Value Reference Range Interpretation [...] 2590) 8 % 20-5 5 L POCT-GLUCOSE [id number] 12:30:00* Test Item Value Reference Range Interpretation Comments POC-GLUCOSE METER (BEAKER) (test code = 1538) 157 mg/dL 70-110 H TESTED AT [facility] [address] [facility] [address] POCT-GLUCOSE [id number] 08:58:00* Test Item Value Reference Range Interpretation Comments POC-GLUCOSE METER (BEAKER) (test code = 1538) 104 mg/dL 70-110 TESTED AT [facility] [address] [facility] [address] CBC W/PLT COUNT & AUTO [id number] 06:42:00* Test Item Value Reference Range Interpretation [...] 0.04 K/ L 0. 00-0.20 0.00BASIC METABOLIC [id number] 06:08:00* Test Item Value Reference Range Interpretation [...] TO CALCULATE ESTIMATED GFR. HEPATITIS B SURFACE [id number] 20:41:00* Test Item Value Reference Range Interpretation Comments HEPATITIS B SURFACE ANTIGEN (2) (BEAKER) (test code = 2585) Nonreactive Nonreactive HEPATITIS B [id number] 20:41:00* Test Item Value Reference Range Interpretation Comments HEPATITIS B CORE TOTAL ANTIBODY (BEAKER) (test code = 497) N onreactive Nonreactive HEPATITIS B SURFACE ANTIBODY (BEAKER) (test code = 647) < mIU/mL <8.0 HEPATITIS B SURFACE ANTIGEN (2) (BEAKER) (test code = 2585) Nonreactive Nonreactive POCT-GLUCOSE [id number] 19:55:00* Test Item Value Reference Range Interpretation Comments POC-GLUCOSE METER (BEAKER) (test code = 1538) 166 mg/dL 70-110 H TESTED AT [facility] [address] [facility] [address] CBC W/PLT COUNT & AUTO [id number] 14:41:00* Test Item Value Reference Range Interpretation [...] 0.00 K/ L 0. 00-0.20 0.00BASIC METABOLIC [id number] 13:42:00* Test Item Value Reference Range Interpretation [...] CALCULATE ESTIMATED GFR. Call back result to [id number] METABOLIC [id number] 11:55:00* Test Item Value Reference Range Interpretation [...] 413) 0 /100 WBC 0 -0 0.00POCT-GLUCOSE [id number] 17:13:00* Test Item Value Reference Range Interpretation Comments POC-GLUCOSE METER (BEAKER) (test code = 1538) 240 mg/dL 70-110 H TESTED AT [facility] [address] [facility] [address] POCT-GLUCOSE [id number] 17:13:00* Test Item Value Reference Range Interpretation Comments POC-GLUCOSE METER (BEAKER) (test code = 1538) 156 mg/dL 70-110 H TESTED AT [address] [address] POCT-GLUCOSE [id number] 17:13:00* Test Item Value Reference Range Interpretation Comments POC-GLUCOSE METER (BEAKER) (test code = 1538) 135 mg/dL 70-110 H TESTED AT [address] [address] [id number] 13:52:00* Test Item Value Reference Range Interpretation Comments POTASSIUM (BEAKER) (test code = 379) 3.7 meq/L 3.5-5.1 Check Serum Magnesium level 2 hours after IV magnesium replacement.Check Serum P otassium level 2 hours after oral potassium replacement completed or 30 min afte r intravenous potassium replacement.[id number] 13:52:00* Test Item Value Reference Range Interpretation Comments MAGNESIUM (BEAKER) (test code = 627) 2.7 mg/dL 1.6-2.6 H Check Serum Magnesium level 2 hours after IV magnesium replacement.Check Serum P otassium level 2 hours after oral potassium replacement completed or 30 min afte r intravenous potassium replacement.CALCIUM, [id number] 06:05:00* Test Item Value Reference Range Interpretation Comments CALCIUM IONIZED (BEAKER) (test code = 698) 1.01 mmol/L 1.12-1.27 L PH, BLOOD (BEAKER) (test code = 1810) 7.30 POCT-GLUCOSE [id number] 05:56:00* Test Item Value Reference Range Interpretation Comments POC-GLUCOSE METER (BEAKER) (test code = 1538) 120 mg/dL 70-110 H TESTED AT [address] [address] CBC (HEMOGRAM ONLY)2016-09-06 03:39:00* Test Item Value [...] 0 /100 WBC 0 -0 0.00BASIC METABOLIC [id number] 03:36:00* Test Item Value Reference Range Interpretation [...] INSUFFICIENT CLINICAL DATA TO CALCULATE ESTIMATED GFR. [id number] 03:29:00* Test Item Value Reference Range Interpretation Comments PHOSPHORUS (BEAKER) (test code = 604) 8.3 mg/dL 2.3-4.7 H [id number] 03:29:00* Test Item Value Reference Range Interpretation Comments MAGNESIUM (BEAKER) (test code = 627) 2.8 mg/dL 1.6-2.6 H BLOOD GAS, [id number] 00:03:00* Test Item Value Reference Range Interpretation [...] (test code = 1819) 36.0 % POCT-GLUCOSE [id number] 23:45:00* Test Item Value Reference Range Interpretation Comments POC-GLUCOSE METER (BEAKER) (test code = 1538) 106 mg/dL 70-110 TESTED AT [address] [address] POCT-GLUCOSE [id number] 23:45:00* Test Item Value Reference Range Interpretation Comments POC-GLUCOSE METER (BEAKER) (test code = 1538) 70 mg/dL 70-110 TESTED AT [address] [address] BLOOD GAS, [id number] 21:36:00* Test Item Value Reference Range Interpretation [...] code = 1819) 40.0 % BLOOD GAS, [id number] 20:22:00* Test Item Value Reference Range Interpretation [...] (test code = 1819) 40.0 % POCT-GLUCOSE [id number] 17:34:00* Test Item Value Reference Range Interpretation Comments POC-GLUCOSE METER (BEAKER) (test code = 1538) 121 mg/dL 70-110 H TESTED AT [address] [address] POCT-GLUCOSE [id number] 17:34:00* Test Item Value Reference Range Interpretation Comments POC-GLUCOSE METER (BEAKER) (test code = 1538) 137 mg/dL 70-110 H TESTED AT [address] [address] BLOOD GAS, [id number] 17:07:00* Test Item Value Reference Range Interpretation [...] (test code = 1819) 40.0 % POCT-GLUCOSE [id number] 13:41:00* Test Item Value Reference Range Interpretation Comments POC-GLUCOSE METER (BEAKER) (test code = 1538) 150 mg/dL 70-110 H TESTED AT [address] [address] BLOOD GAS, [id number] 13:41:00* Test Item Value Reference Range Interpretation [...] (test code = 1819) 40.0 % POCT-GLUCOSE [id number] 13:41:00* Test Item Value Reference Range Interpretation Comments POC-GLUCOSE METER (BEAKER) (test code = 1538) 112 mg/dL 70-110 H TESTED AT [address] [address] [id number] 12:58:00* Test Item Value Reference Range Interpretation Comments PHOSPHORUS (BEAKER) (test code = 604) 6.6 mg/dL 2.3-4.7 H [id number] 12:58:00* Test Item Value Reference Range Interpretation Comments MAGNESIUM (BEAKER) (test code = 627) 2.7 mg/dL 1.6-2.6 H HEPATIC FUNCTION [id number] 12:58:00* Test Item Value Reference Range Interpretation [...] = 347) 15 U/L 6-55 BASIC METABOLIC [id number] 12:58:00* Test Item Value Reference Range Interpretation [...] TO CALCULATE ESTIMATED GFR. URINE PROTEIN ELECTROPHORESIS, [id number] 12:38:00* Test Item Value Reference Range Interpretation Comments PROTEIN, URINE (BEAKER) (test code = 1569) 68 mg/dL 0-14 H ALBUMIN URINE ELP (BEAKER) (test code = 1018) 73.4 % GAMMA GLOBULIN URINE (BEAKER) (test code = 1015) 26.6 % UPEP, ID-438 (BEAKER) (test code = 2608) No monoclonal bands detect ed. [id number] (BEAKER) (test code = 9864) Ирина Zuniga MD (electronic signature) GLUCOSE-STAT [id number] 12:37:00* Test Item Value Reference Range Interpretation Comments GLUCOSE RANDOM (BEAKER) (test code = 652) 140 mg/dL 70-110 H HGB/HCT (H&H) - STAT [id number] 12:37:00* Test Item Value Reference Range Interpretation Comments HEMOGLOBIN (BEAKER) (test code = 410) 8.7 g/dL 12.0-15.0 L HEMATOCRIT (BEAKER) (test code = 411) 26.0 % 36.0-45.0 L BLOOD GAS, [id number] 12:37:00* Test Item Value Reference Range Interpretation [...] (test code = 1819) 40.0 % CALCIUM, [id number] 12:37:00* Test Item Value Reference Range Interpretation Comments CALCIUM IONIZED (BEAKER) (test code = 698) 1.07 mmol/L 1.12-1.27 L PH, BLOOD (BEAKER) (test code = 1810) 7.29 SODIUM NA-STAT [id number] 12:31:00* Test Item Value Reference Range Interpretation Comments SODIUM (BEAKER) (test code = 381) 140 meq/L 135-148 POTASSIUM-STAT [id number] 12:31:00* Test Item Value Reference Range Interpretation Comments POTASSIUM (BEAKER) (test code = 379) 4.3 meq/L 3.6-5.5 PROTEIN ELECTROPHORESIS, [id number] 11:38:00* Test Item Value Reference Range Interpretation [...] and/or protein-losing enteropathy. No monoclonal bands detected. [id number] (BEAKER) (test code = 8596) Ирина Zuniga MD (electronic signature) PROTEIN TOTAL SERUM, SPEP (BEAKER) (test code = 4310) 4.4 gm/dL 6.0-8.3 L POCT-GLUCOSE [id number] 09:38:00* Test Item Value Reference Range Interpretation Comments POC-GLUCOSE METER (BEAKER) (test code = 1538) 93 mg/dL 70-110 TESTED AT [address] [address] LACTIC ACID, ARTERIAL, WHOLE [id number] 06:22:00* Test Item Value Reference Range Interpretation Comments LACTATE BLOOD ARTERIAL (2) (BEAKER) (test code = 2874) 1.2 mmol/L 0.5-2.2 Effective 11/23/2015: Units/Reference Range ChangeNew: 0.5-2.2 mmol/L Previous: 5 -20 mg/dLPOCT-GLUCOSE [id number] 06:20:00* Test Item Value Reference Range Interpretation Comments POC-GLUCOSE METER (BEAKER) (test code = 1538) 143 mg/dL 70-110 H TESTED AT [place] [id number] [facility] [address] POCT-GLUCOSE [id number] 06:20:00* Test Item Value Reference Range Interpretation Comments POC-GLUCOSE METER (BEAKER) (test code = 1538) 140 mg/dL 70-110 H TESTED AT [place] [address] [facility] [address] OXYGEN SATURATION, [id number] 06:03:00* Test Item Value Reference Range Interpretation Comments O2 SATURATION (MEASURED) (BEAKER) (test code = 1455) 69.3 % CALCIUM, [id number] 06:02:00* Test Item Value Reference Range Interpretation Comments CALCIUM IONIZED (BEAKER) (test code = 698) 1.04 mmol/L 1.12-1.27 L PH, BLOOD (BEAKER) (test code = 1810) 7.36 BLOOD GAS, [id number] 06:01:00* Test Item Value Reference Range Interpretation [...] (test code = 1819) 40.0 % GLUCOSE-STAT [id number] 06:01:00* Test Item Value Reference Range Interpretation Comments GLUCOSE RANDOM (BEAKER) (test code = 652) 130 mg/dL 70-110 H HGB/HCT (H&H) - STAT [id number] 06:01:00* Test Item Value Reference Range Interpretation Comments HEMOGLOBIN (BEAKER) (test code = 410) 8.8 g/dL 12.0-15.0 L HEMATOCRIT (BEAKER) (test code = 411) 26.0 % 36.0-45.0 L BASIC METABOLIC [id number] 03:47:00* Test Item Value Reference Range Interpretation [...] INSUFFICIENT CLINICAL DATA TO CALCULATE ESTIMATED GFR. [id number] 03:39:00* Test Item Value Reference Range Interpretation Comments PHOSPHORUS (BEAKER) (test code = 604) 5.5 mg/dL 2.3-4.7 H [id number] 03:39:00* Test Item Value Reference Range Interpretation [...] 413) 0 /100 WBC 0 -0 0.00POCT-GLUCOSE [id number] 23:24:00* Test Item Value Reference Range Interpretation Comments POC-GLUCOSE METER (BEAKER) (test code = 1538) 93 mg/dL 70-110 TESTED AT [facility] [address] [facility] [address] POCT-GLUCOSE [id number] 23:24:00* Test Item Value Reference Range Interpretation Comments POC-GLUCOSE METER (BEAKER) (test code = 1538) 103 mg/dL 70-110 TESTED AT [facility] [address] [facility] [address] BLOOD GAS, [id number] 22:25:00* Test Item Value Reference Range Interpretation [...] 40.0 % CBC W/PLT COUNT & AUTO [id number] 20:04:00* Test Item Value Reference Range Interpretation [...] 0.01 K/ L 0. 00-0.20 CREATININE, RANDOM [id number] 19:07:00* Test Item Value Reference Range Interpretation Comments CREATININE URINE (BEAKER) (test code = 375) 10.4 mg/dL Reference Range: No NormalsPROTEIN, RANDOM [id number] 19:07:00* Test Item Value Reference Range Interpretation Comments PROTEIN, URINE (BEAKER) (test code = 1569) 42 mg/dL 0-14 H URINALYSIS W/ [id number] 18:53:00* Test Item Value Reference Range Interpretation [...] 516) < /HPF SOURCE(BEAKER) (test code = 4715) BASIC METABOLIC [id number] 18:33:00* Test Item Value Reference Range Interpretation [...] INSUFFICIENT CLINICAL DATA TO CALCULATE ESTIMATED GFR. [id number] 18:33:00* Test Item Value Reference Range Interpretation Comments MAGNESIUM (BEAKER) (test code = 627) 2.7 mg/dL 1.6-2.6 H [id number] 18:33:00* Test Item Value Reference Range Interpretation Comments PHOSPHORUS (BEAKER) (test code = 604) 6.2 mg/dL 2.3-4.7 H [id number] 18:30:00* Test Item Value Reference Range Interpretation Comments FIBRINOGEN LEVEL (BEAKER) (test code = 658) 319 mg/dl 225-434 [id number] 18:30:00* Test Item Value Reference Range Interpretation Comments PARTIAL THROMBOPLASTIN TIME (BEAKER) (test code = 760) 35.3 seconds 22.5-36.0 PROTHROMBIN [id number] 18:29:00* Test Item Value Reference Range Interpretation [...] with mechanical heart valves.LACTIC ACID, ARTERIAL, WHOLE [id number] 18:29:00* Test Item Value Reference Range Interpretation Comments LACTATE BLOOD ARTERIAL (2) (BEAKER) (test code = 2874) 2.3 mmol/L 0.5-2.2 H Effective 11/23/2015: Units/Reference Range ChangeNew: 0.5-2.2 mmol/L Previous: 5 -20 mg/dLBLOOD GAS, [id number] 18:15:00* Test Item Value Reference Range Interpretation [...] (test code = 1819) 60.0 % GLUCOSE-STAT [id number] 18:15:00* Test Item Value Reference Range Interpretation Comments GLUCOSE RANDOM (BEAKER) (test code = 652) 213 mg/dL 70-110 H HEMOGLOBIN-STAT [id number] 18:15:00* Test Item Value Reference Range Interpretation Comments HEMOGLOBIN (BEAKER) (test code = 410) 9.1 g/dL 12.0-15.0 L HGB/HCT (H&H) - STAT [id number] 18:15:00* Test Item Value Reference Range Interpretation Comments HEMOGLOBIN (BEAKER) (test code = 410) 9.1 GM/DL 12.0-15.0 L HEMATOCRIT (BEAKER) (test code = 411) 27.0 % 36.0-45.0 L CALCIUM, [id number] 18:15:00* Test Item Value Reference Range Interpretation Comments CALCIUM IONIZED (BEAKER) (test code = 698) 1.14 mmol/L 1.12-1.27 PH, BLOOD (BEAKER) (test code = 1810) 7.36 OXYGEN SATURATION, [id number] 18:14:00* Test Item Value Reference Range Interpretation Comments O2 SATURATION (MEASURED) (BEAKER) (test code = 1455) 72.1 % SODIUM NA-STAT [id number] 18:13:00* Test Item Value Reference Range Interpretation Comments SODIUM (BEAKER) (test code = 381) 138 meq/L 135-148 POTASSIUM-STAT [id number] 18:13:00* Test Item Value Reference Range Interpretation [...] code = 1413) 64.2 MM 55.0- 65.0 [id number] 16:28:00* Test Item Value Reference Range Interpretation Comments ACTIVATED CLOTTING TIME (BEAKER) (test code = 441) 137 sec TESTED AT [place] [address] [id number] 16:28:00* Test Item Value Reference Range Interpretation Comments ACTIVATED CLOTTING TIME (BEAKER) (test code = 441) 528 sec TESTED AT [place] [address] [id number] 16:28:00* Test Item Value Reference Range Interpretation Comments ACTIVATED CLOTTING TIME (BEAKER) (test code = 441) 394 sec TESTED AT [place] [address] [id number] 16:28:00* Test Item Value Reference Range Interpretation Comments ACTIVATED CLOTTING TIME (BEAKER) (test code = 441) 353 sec TESTED AT [place] [address] [id number] 16:09:00* Test Item Value Reference Range Interpretation Comments FIBRINOGEN LEVEL (BEAKER) (test code = 658) 313 mg/dl 225-434 [id number] 16:05:00* Test Item Value Reference Range Interpretation Comments PARTIAL THROMBOPLASTIN TIME (BEAKER) (test code = 760) 39.0 seconds 22.5-36.0 H PROTHROMBIN [id number] 16:04:00* Test Item Value Reference Range Interpretation [...] pat ients with mechanical heart valves.PLATELET COUNT-STAT [id number] 15:57:00* Test Item Value Reference Range Interpretation Comments PLATELET COUNT (BEAKER) (test code = 756) 105 K/CU MM 150-430 L CALCIUM, [id number] 15:51:00* Test Item Value Reference Range Interpretation Comments CALCIUM IONIZED (BEAKER) (test code = 698) 0.88 mmol/L 1.12-1.27 L PH, BLOOD (BEAKER) (test code = 1810) 7.38 SODIUM NA-STAT [id number] 15:50:00* Test Item Value Reference Range Interpretation Comments SODIUM (BEAKER) (test code = 381) 135 meq/L 135-148 POTASSIUM-STAT [id number] 15:50:00* Test Item Value Reference Range Interpretation Comments POTASSIUM (BEAKER) (test code = 379) 4.4 meq/L 3.6-5.5 BLOOD GAS, [id number] 15:50:00* Test Item Value Reference Range Interpretation [...] (test code = 1819) 100.0 % GLUCOSE-STAT [id number] 15:50:00* Test Item Value Reference Range Interpretation Comments GLUCOSE RANDOM (BEAKER) (test code = 652) 178 mg/dL 70-110 H HGB/HCT (H&H) - STAT [id number] 15:50:00* Test Item Value Reference Range Interpretation Comments HEMOGLOBIN (BEAKER) (test code = 410) 8.6 GM/DL 12.0-15.0 L HEMATOCRIT (BEAKER) (test code = 411) 25.0 % 36.0-45.0 L HEMOGLOBIN-STAT [id number] 15:50:00* Test Item Value Reference Range Interpretation Comments HEMOGLOBIN (BEAKER) (test code = 410) 8.6 g/dL 12.0-15.0 L HEMATOCRIT-STAT [id number] 15:50:00* Test Item Value Reference Range Interpretation Comments HEMATOCRIT (BEAKER) (test code = 411) 25.0 % 36.0-45.0 L SODIUM NA-STAT [id number] 15:23:00* Test Item Value Reference Range Interpretation Comments SODIUM (BEAKER) (test code = 381) 136 meq/L 135-148 POTASSIUM-STAT [id number] 15:23:00* Test Item Value Reference Range Interpretation Comments POTASSIUM (BEAKER) (test code = 379) 5.3 meq/L 3.6-5.5 BLOOD GAS, [id number] 15:23:00* Test Item Value Reference Range Interpretation [...] (test code = 1819) 100.0 % GLUCOSE-STAT [id number] 15:23:00* Test Item Value Reference Range Interpretation Comments GLUCOSE RANDOM (BEAKER) (test code = 652) 153 mg/dL 70-110 H HGB/HCT (H&H) - STAT [id number] 15:23:00* Test Item Value Reference Range Interpretation Comments HEMOGLOBIN (BEAKER) (test code = 410) 6.9 g/dL 12.0-15.0 L HEMATOCRIT (BEAKER) (test code = 411) 20.0 % 36.0-45.0 L HGB/HCT (H&H) - STAT [id number] 15:07:00* Test Item Value Reference Range Interpretation Comments HEMOGLOBIN (BEAKER) (test code = 410) 5.4 g/dL 12.0-15.0 LL HEMATOCRIT (BEAKER) (test code = 411) 16.0 % 36.0-45.0 L POTASSIUM-STAT [id number] 15:06:00* Test Item Value Reference Range Interpretation Comments POTASSIUM (BEAKER) (test code = 379) 4.9 meq/L 3.6-5.5 BLOOD GAS, [id number] 15:06:00* Test Item Value Reference Range Interpretation [...] code = 1819) 80.0 % SODIUM NA-STAT [id number] 15:06:00* Test Item Value Reference Range Interpretation Comments SODIUM (BEAKER) (test code = 381) 132 meq/L 135-148 L GLUCOSE-STAT [id number] 15:06:00* Test Item Value Reference Range Interpretation Comments GLUCOSE RANDOM (BEAKER) (test code = 652) 139 mg/dL 70-110 H BLOOD GAS, [id number] 15:06:00* Test Item Value Reference Range Interpretation [...] code = 1819) 80.0 % BLOOD BANK DINRWZW4565-46-50 22:26:00Negative (09/03/16 4:26 PM)[facility]ARD[facility]AC QLSUIBD9141-90-99 21:32:008.90[facility] UpyrvkbWTLMVFGMLL7089-94-22 19:12:001.08[facility] UjtfdmbDZPYCBPHTS6866-47-59 19:12:00* Test Item Value Reference Range Interpretation Comments PT (test code = PT) 14.2 s 12.0-14.7 [facility] WahalbgVJOQUJAOWP1552-24-77 19:12:00* Test Item Value Reference Range Interpretation Comments PTT (test code = PTT) 30.2 s 22.9-35.8 [facility] AHJAYMD9332-16-59 15:34:810028Kcakxyyw [facility]annCARD[facility]AC ECFIPXG1907-05-55 15:34:008.30[facility]annCHEM INVNJ6017-58-12 15:34:005.1 [facility] UKQCS4236-93-36 15:34:002.5[facility]annCHEM PANEL 2016-09-03 15:34:0018[facility]annCHE[facility] ERRFH4971-29-22 15:34:44409Elrdtjvw HermannCHEM AIIJW4083-37-96 15:34:0059[facility]annCHE[facility] CTHCE7106-56-95 15:34:004.3[facility]annCHE[facility] AYFSA6499-74-22 15:34:61875Demuucoy HermannCHEM HWGVZ7149-49-04 15:34:0024[facility]annCHE[facility] NIXDO4125-03-69 15:34:002.50 [facility]CHE[facility] WPBZS0605-36-62 15:34:29298Blfhipkm HermannCHEM PANEL 2016-09-03 15:34:0016.3[facility]annCHE[facility] ZRUSV5445-17-60 15:34:007.8[facility]annCARDIAC TYWVCFN9057-19-37 08:31:000.75[facility]annCHEM PANEL 2016-09-03 08:31:000.3[facility]annCHE[facility] KKBWW4701-29-46 08:31:80075Bhnfbdac HermannCHEM CYLGM5553-78-65 08:31:0025[facility]annCHE[facility] NHIQA0020-85-67 08:31:0027[facility]annCHE[facility] KEVMP9093-06-19 08:31:000.9[facility]annCHE[facility] ZDFRF9487-81-68 08:31:0021[facility]annCHE[facility] KPQEF8544-84-62 08:31:0022 [facility]CHE[facility] CKIGU1797-85-52 08:31:007.9[facility]annCHEM PANEL 2016-09-03 08:31:0014.5[facility]annCHE[facility] ILPSI3506-24-54 08:31:0025[facility]annCHE[facility] VGDGN1482-39-11 08:31:67885Gjjggran [facility]annCHEM LLHSK4907-23-58 08:31:002.20[facility]annCHE[facility] JIMEN3142-57-34 08:31:0055[facility]annCHE[facility] OULNM0826-20-69 08:31:38422Mhjqstmq [facility]annCHE[facility] RSOIV4418-29-39 08:31:48040 [facility] JXEUT7947-30-54 08:31:003.5[facility]annCHEM PANEL 2016-09-03 08:31:003.1[facility]annCHE[facility] UAKBX2573-67-75 08:31:006.6[facility]annCHEM OLEDS7661-97-63 08:31:003.5[facility]annCHE[facility] LDTFM7976-78-24 08:31:002.3[facility] EyjpmwjZMRRCBMWHH0545-88-48 08:31:0010.3[facility] MNRUWDFBBK5873-57-20 08:31:0012.7[facility] DyyzawnHTGINUPCHG4252-85-89 08:31:00 9.5[facility] TtibwstKZMFZZYQRK3054-83-17 08:31:003.24[facility]annHEMATOLOGY 2016-09-03 08:31:0029.0[facility] FaubomlDDCGTGJYLH8404-04-02 08:31:0089.6[facility] VswwzqdBLMSOLLWUH2278-39-57 08:31:0032.7[facility] AalbgxjUSMBLKYDUM3075-70-99 08:31:00* Test Item Value Reference Range Interpretation Comments MCH (test code = MCH) 29.3 pg 27.0-31.0 [facility] EojfuxgCALBYXJHCW1512-83-76 08:31:01367Brjjdkbb HermannHEMATOLOGY 2016-09-03 08:31:0014.3[facility] YkrdtrrJLLTATLMAN7207-77-06 08:31:005.7[facility] GxfkvjpNNZNCGYSBW5614-18-12 08:31:004.9[facility] UltmipqXTQBGRZLFY4408-47-06 08:31:000.2[facility] XkaqwvpUEVFWZVWAV7652-45-10 08:31:000.4[facility] CGYCSONVDV8909-71-15 08:31:0011.3[facility] NqdrvnuWOEGONZOJQ8251-30-32 08:31:00 0.6[facility] VxhiqohGKXGOKYGKZ3403-36-33 08:31:000.1[facility]annHEMATOLOGY 2016-09-03 08:31:000.7[facility] TwahpmwTPAIVBKIDR9314-47-61 08:31:0088.8[facility]annURINE AND FRIPR8458-09-87 08:31:002[facility] STOOL 2016-09-03 08:31:001[facility] AND PPCST6617-87-38 08:31:00Negative (09/03/16 2:31 AM)[facility] AND WBTYW8229-63-97 08:31:00Negative (09/03/16 2:31 AM)[facility] RJUIK2262-53-63 08:31:001[facility] AND WADDU5978-65-41 08:31:00Negative (09/03/16 2:31 AM)[facility] DJPWN3751-95-73 08:31:001.008[facility] STOOL 2016-09-03 08:31:006.0[facility] AND FFONW2281-31-52 08:31:00Negative *NA*(09/03/16 2:31 AM)[facility] AND GCTJX0407-15-04 08:31:00Clear (09/03/16 2:31 AM)[facility]annCARDIAC OWJWXOE5326-22-47 04:35:002.5[facility]annCARDIAC LQOVQVG8062-32-50 04:35:140011Ijbruxds HermannCARDIAC ENZYMES 2016-09-03 04:35:0056[facility]CARD[facility]AC XCBMWXB7652-96-04 04:35:001.4 [facility]annCHEM ONHFF7566-77-22 04:35:0021[facility]annCHEM PANEL 2016-09-03 04:35:003.3[facility]annCHEM YNGDD2373-89-88 04:35:000.9[facility]annCHEM PTSRO9540-21-94 04:35:000.3[facility]annCHEM PTZUU9986-65-22 04:35:0025[facility]annCHEM YXRAZ2222-32-68 04:35:0015.2[facility]annCHEM SWEOL3037-23-30 04:35:64615Emkwodpb HermannCHEM VSEVD0704-43-82 04:35:003.1 [facility]annCHE[facility] USFPZ8250-51-05 04:35:35183Actoyeyo HermannCHEM PANEL 2016-09-03 04:35:0024[facility] HermannCHEM HWYMV9990-63-41 04:35:0025[facility]annCHEM LFJBP8481-59-01 04:35:60952Xfbayqmn HermannCHEM RXIJR8772-61-04 04:35:002.20[facility]annCHEM FPDIR1483-08-61 04:35:0054[facility]annCHEM SPIZK1990-28-68 04:35:006.4[facility]annCHEM JVBXD6424-24-75 04:35:007.9 [facility]annCHE[facility] DUPUP6804-93-65 04:35:0022[facility]annCHEM PANEL 2016-09-03 04:35:13422Aqixlsyh HermannCHEM EOPIK0117-93-42 04:35:003.2[facility] DnjqvdrINUYJCLVLP9824-73-93 04:35:000.7[facility] JygbagyOLOLSKQTUT2537-87-47 04:35:001.2[facility] QjjgbvhUSRXPJPGOU8872-72-92 04:35:007.3[facility] QKOXEHNPYP0235-98-78 04:35:000.1[facility] OxayqbmZAHEEMFNQE1367-04-87 04:35:000.2 [facility] FxolkonDPYZWKFZJG6155-25-13 04:35:0077.0[facility] HermannHEMATOLOGY 2016-09-03 04:35:0012.5[facility] HghkfhjSMVBYQXTGD3003-74-65 04:35:007.7[facility] FzeirzjZAHCJNLBBX4044-78-88 04:35:002.2[facility] PdsrrfyGLDIHTLQQR2763-77-86 04:35:000.6[facility] VdvkvniPKUWLEJFZP7911-14-75 04:35:0010.2[facility] YGDYUIAKZX9542-28-27 04:35:78292Jqlwycic DspmaznBISIWZDJCY2712-79-71 04:35:009.3 [facility] AtqqxtdRNNWCTNXZG7940-99-32 04:35:003.14[facility]annHEMATOLOGY 2016-09-03 04:35:0087.8[facility] RvwuprjORABWUXSZZ3166-91-83 04:35:00* Test Item Value Reference Range Interpretation Comments MCH (test code = MCH) 29.7 pg 27.0-31.0 [facility] FupxamsWWPSWAYCMS4359-47-05 04:35:0027.6[facility] HermannHEMATOLOGY 2016-09-03 04:35:0033.8[facility] JohdgbrWXRHOAHKXB7369-84-89 04:35:0014.2[facility] FldkfmbRBXCVSYRTO3750-84-24 04:35:009.5[facility]
--- OUTSIDE RECORDS SUMMARY | 2020-04-29 08:51 | XMS REPORT | Clinical Summary ---
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 Name Role Phone Fariba Kitchen PCP Allergies [...] Ray MD ESRD (end stage renal disease) ([facility]) 01/05/2020 Office Visit Cardiology 01/05/2020 Travel Darin Ray MD ESRD (end stage renal disease) ([facility]) 12/29/2019 Hospital Cardiology Encounter Darin Ray MD ESRD (end stage renal disease) ([facility]) (Pr imary Dx) 12/24/2019 Orders [...] Type Area Manufactur er 07/18/2019 5076-52 / [id number] / Lead Pacemkr Capsur Novus 52cm Pacemaker N/A: Heart [employer]: 5076-52 - [id number] Lead CARD Implanted: Qty: 1 on 10/08/2017 by RHY:Prerna Castillo MD E MGT 07/17/2019 5076-45 / [id number] / Lead Pacemkr Capsur Novus 45cm Pacemaker N/A: Heart [employer]: 5076-45 - [id number] Lead CARD Implanted: Qty: 1 on 10/08/2017 by RHY:Prerna Castillo MD E MGT 01/02/2019 A2DR01 / [id number] / Pacemaker Ipg Ad[employer]a A2dr01 - Pacemakers N/A: Chest [employer]: [id number] CARD Implanted: Qty: 1 on 10/08/2017 by [...] ms QTC Calculatio n(Bazett) 450 ms P [place] 136 degrees R [place] 74 degrees T [place] 243 degrees Atrial-pa stacy rhythm with prolonged [...] d stage renal 1:24 PM CDT disease) ([facility]) after 04/29/2019 Results * ECG 12 lead (01/05/2020 10:36 AM CDT) Specimen Narrative Performed At Ventricular Rate 62 BPM GE MUSE Atrial Rate 64 BPM P-R Interval 220 ms QRS Duration 108 ms Q-T Interval 444 ms QTC Calculation(Bazett) 450 ms P [place] 136 degrees R [place] 74 degrees T [place] 243 degrees Atrial-paced rhythm with prolonged AV [...] 444 ms QTC Calculation(Bazett) 450 ms P [place] 136 degrees R [place] 74 degrees T [place] 243 degrees Atrial-paced rhythm with prolonged AV [...] arm/arms (12/29/2019 1:24 PM CDT) Ejection Fraction [facility] CPACS Specimen Impressions Performed At Right Impression [facility] 1. There is no deep [...] Mapping [facility] Demographics [facility] Patient NameSARAH MAGANA Date of Study12/29/2019 IR VASHTI 9 Age79 Visit [id number] Gender Female Date of Birth1940 Referring Darin Carmichael Room Number Physician Cory MD Supervising Bailiff Rosie Souza RVT Interpreting Shant Meza Procedure [...] Study 12/29/2019 PREET Age 79 Visit Number [id number] Gender Female Accession Number [id number] Date of 1940 Referring Darin Carmichael Room Number Physician Cory MD Supervising Bailiff Rosie MABRYT Interpreting Chuyita Hui, Physician Procedure [...] + + + + Performing Organization Address City/[place] [place] Number [facility] after 04/29/2019 Insurance Payer Benefit Subscriber ID Type Phone Address Plan / Group MEDICARE MEDICARE A xxxxxxxxxxx Medicare B BLUE CROSS/BLUE [employer]IELD BCBS xxxxxxxxxxxx O [address] [place] [address] [place] Advance Directives For more information, please contact: [facility] [address] [place] [address] [phone] Date Inactivated Comments Code Status Date Activated [...]
--- OUTSIDE RECORDS SUMMARY | 2020-04-29 08:52 | XMS REPORT | Continuity of Care Document ---
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 Name Role Phone [employer] Unavailable Un available Problems Problem Status Onset Date Classification Date Reported Comments Source ACUTE HYPERKALEMIA, FACIAL ABRASION, FAC Active 02/01/2018 [facility] FALL Active 02/01/2018 [facility] UNK Active 0 11/02/2016 [facility] DEBILITY Active 09/12/2016 [facility] CORONARY ARTERY DISEASE Active 09/11/2016 [facility] RESP DISTRESS Active 09/02/2016 [facility] CHF EXACERBATION Active 09/02/2016 [facility] Acute congestive heart failure (disorder) Active Problem 02/04/2018 [facility] 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 (disorder) Active Prob rashida 02/04/2018 [facility] Acute pulmonary insufficiency following thoracic surgery (disorder) Active Prob rashida 02/04/2018 [facility] Coronary arteriosclerosis (disorder) Active Problem [facility] Kidney disease (disorder) Acti ve Problem [facility] Disease of thyroid gland (disorder) Active Problem [facility] Generalized ischemic myocardial dysfunction (disorder) Active Problem 02/04/2018 [facility] Hypertensive disorder, systemic arterial (disorder) Active Problem 02/04/2018 [facility] Injury of kidney (disorder) Ac tive Problem [facility] Impaired mobility (finding) Ac tive Problem [facility] Platelet count below reference range (finding) Active Problem 02/04/2018 [facility] HEART FAILURE, UNSPECIFIED Act inder [facility] WEAKNESS Active [facility] END STAGE RENAL DISEASE Active [facility] HYPERKALEMIA Active [facility] ABRASION OF OTHER PART OF HEAD, INITIAL Active [facility] CONTUSION OF OTHER PART OF HEAD, INITIAL Active [facility] Medications Medication Details Route Status Patient Instructions Ordering Provider Order Date Source Losartan Notes: (Same as: Sancho han) Inactive 02/02/2018 [facility] Synthroid Notes: Take 1 hour b efore or 2 hours after meal; Enteral feeds may interefere with the absorption of this medication. (Same as:Synthroid, Levothroid) Inactive 02/02/2018 [facility] rosuvastatin Notes: (Same As: Crestor) No Longer Active 02/02/2018 [facility] Nephro-Kenyon Rx Notes: (Same as : Nephro-Kenyon Rx and Diatx) Give with food. No Longer Active 02/01/2018 [facility] Aspirin 81 MG Enteric Coated Tablet Notes: Do not crush or chew. (Same As: Ecotrin) No Longer Active 02/01/2018 [facility] Hydralazine Hydrochloride 50 MG Oral Tablet 50 mg, 1 tab, Route: PO, Drug form: TAB, ONCE, Dosing Weight 46.449, kg, Start date: 02/01/18 12:52:00 CDT, Stop date: 02/01/18 12:52:00 CDT Inactive 02/01/2018 [facility] tramadol hydrochloride 50 MG Oral Tablet Notes: Not to exceed 400mg/day. (Same As: Ultram) No Longer Active 02/01/2018 [facility] tramadol hydrochloride 50 MG Oral Tablet 50 mg = 1 tab, PO, Q12H, PRN Pain Score 6-10, 0 Refill(s) Active 02/01/2018 [facility] Ascorbic Acid 60 MG / Calcium Pantothena te 10 MG / D-BIOTIN 0.3 MG / Folic Acid 0.8 MG / Niacinamide 20 MG / pyridoxine 10 MG / Riboflavin 1.7 MG / Thiamine 1.5 MG / Vitamin B 12 0.006 MG Oral Tablet [Payton-Kenyon] 1 tab, PO, Daily, # 100 tab, 0 Refill(s) Inactive 02/01/2018 [facility] losartan 100 mg oral tablet 10 0 mg = 1 tab, PO, Daily, # 30 tab, 0 Refill(s) Active 02/01/2018 [facility] rosuvastatin 10 mg oral tablet 10 mg = 1 tab, PO, Bedtime, # 30 tab, 0 Refill(s) Active 02/01/2018 [facility] Insulin Lispro Notes: (Same as : Humalog ) Roll in palms of hands gently; Do not shake `vigorously. "Single Patient Use Only " WASTE: F/P - Black; E - Municipal Trash Bin Stable for 28 days at room temp erature. Expires in days from Date No Longer Active 02/01/2018 [facility] Glucagon 1 mg, Route: IM, Drug form: PDR/INJ, PRN, Dosing Weight 43.182, kg, PRN Blood Glucose Results, Start date: 02/01/18 4:13:00 CDT, Duration: 30 day, Stop date: 03/03/18 4:12:00 CDT No Longer Active 02/01/2018 [facility] Dextrose 50% Syringe 25 gm, 50 mL, Route: IVP, Drug Form: INJ, Dosing Weight 43.182, kg, PRN, PRN Blood Glucose Results, Start date: 02/01/18 4:13:00 CDT, Duration: 30 day, Stop date: 03/03/18 4:12:00 CDT No Longer Active 02/01/2018 [facility] Clonidine Notes: (Same As: Cat apres) No Longer Active 02/01/2018 [facility] Acetaminophen 325 MG / Hydrocodone Sedrick trate 5 MG Oral Tablet Notes: (Same as: [place] 325/5) Do not ex ceed 4gm/day of acetaminophen. No Longer Active 02/01/2018 [facility] Morphine Notes: (Same as: MORP cole Sulfate) No Longer Active 02/01/2018 [facility] Acetaminophen Notes: Do not ex ceed 4 gm/day. (Same as: Tylenol) No Longer Active 02/01/2018 [facility] Ondansetron Notes: (Same as: Jennifer marcum) MEDICATION WASTE Product Size: 4 mg Product Wasted: ___ mg No Longer Active 02/01/2018 [facility] Calcium Gluconate Notes: WASTE : F/P - Sink; E - Municipal Trash Bin Inactive 02/01/2018 [facility] Insulin regular 60 units) W ASTE: F/P - Black; E - Municipal Trash Bin Stable for 28 days at room temperature Expires in days from Date Inactive 02/01/2018 [facility] Dextrose 50% Syringe 25 gm, 50 mL, Route: IVP, Drug Form: INJ, Dosing Weight 43.182, kg, ONCE, STAT, Start date: 02/01/18 3:07:00 CDT, Stop date: 02/01/18 3:07:00 CDT Inactive 02/01/2018 [facility] Metoprolol Notes: (Same as: Lo pressor) Push over 2 minutes Inactive 02/01/2018 [facility] Zofran ODT Notes: (Same as: Zo roverto ODT) Inactive 02/01/2018 [facility] Saline Flush 0.9% Notes: Same as: BD Posiflush Sterile No Longer Active 02/01/2018 [facility] Cardiac Rehabilitation See Ins tructions, Diagnosis CAD with CHF s/p CABG. Evaluate and treat as per [facility] Cardiac rehab program, # 1 ea, 0 Refill(s) Active 09/24/2016 [facility] pantoprazole 40 MG Enteric Coated Tablet [Protonix] 40 mg = 1 tab, PO, Daily, # 30 tab, 0 Refill(s), Pharmacy: [facility] [id number] Active 09/24/2016 [facility] Nephro-Kenyon Rx oral tablet 1 t ab, PO, Daily, # 30 tab, 0 Refill(s), Pharmacy: [facility] [id number] Active 09/24/2016 [facility] Levothyroxine Sodium 0.075 MG Oral Tablet [Synthroid] 75 microgram = 1 tab, PO, Q630AM, # 30 tab, 0 Refill(s), Pharmacy: [facility] [id number] Active 09/24/2016 [facility] atorvastatin 80 MG Oral Tablet [Lipitor] 80 mg = 1 tab, PO, Bedtime, # 30 tab, 0 Refill(s), Pharmacy: [facility] [id number] Active 09/24/2016 [facility] aspirin 81 mg tablet, enteric coated 81 mg = 1 tab, PO, Daily, # 30 tab, 0 Refill(s), Pharmacy: [facility] [id number] Active 09/24/2016 [facility] Furosemide 40 MG Oral Tablet 4 0 mg = 1 tab, PO, Daily, # 30 tab, 0 Refill(s), Pharmacy: [facility] [id number] Active 09/24/2016 [facility] carvedilol 3.125 mg oral tablet 3.125 mg = 1 tab, PO, Q12H, # 60 tab, 0 Refill(s), Pharmacy: [facility] [id number] Active 09/24/2016 [facility] Calcium Carbonate 500 MG Chewable Tablet 500 mg = 1 tab, CHEW, TID, PRN Nausea, 0 Refill(s) Active 09/24/2016 [facility] acetaminophen 325 mg oral tablet 100.4 F, 0 Refill(s) Active 09/24/2016 [facility] senna 8.6 mg oral tablet 17.2 mg = 2 tab, PO, Bedtime, X 14 day, # 28 tab, 0 Refill(s), Pharmacy: [facility] [id number] Active 09/24/2016 [facility] cetirizine Notes: (Same As: Saleem rtec) No Longer Active 09/21/2016 [facility] Tums Notes: (Same As: Tums) Ca lcium Carbonate 500 mg = 200 mg elemental calcium Dose = mg calcium carbonate ( mg elemental calcium) No Longer Active 09/21/2016 [facility] Fluticasone propionate 0.05 MG/ACTUAT Me tered Dose Nasal [place] [Flonase] Notes: (Same as: Flonase) No Longer Active 09/20/2016 [facility] Claritin 10 mg, Route: PO, Raúl g form: TAB, QPM, Dosing Weight 47.5, kg, Start date: 09/20/16 17:00:00 PIT LABORER, Duration: 30 day, Stop date: 10/19/16 17:00:00 CDT Inactiv e 09/20/2016 [facility] Docusate Sodium 100 MG Oral Capsule [Colace] Notes: (Same as: Colace) (Do Not Crush) No Longer Active 09/16/2016 [facility] Coreg Notes: Give with food. ( Same As: Coreg) No Longer Active 09/16/2016 [facility] Epoetin Lobo Notes: (Same as: Procrit) epoetin lobo 4000 unit/1 ml VL For dialysis only. (Epogen) WASTE: F/P - Red; E -Red MEDICATION WASTE Product Size: 4000 unit Product Wasted: ___ unit No Longer Active 09/15/2016 [facility] Glucagon 1 mg, Route: IM, Drug form: PDR/INJ, PRN, Dosing Weight 47.5, kg, PRN Blood Glucose Results, Start date: 09/15/16 13:27:00 PIT LABORER, Duration: 30 day, Stop date: 10/15/16 14:26:00 CDT No Longer Active 09/15/2016 [facility] Dextrose 50% Syringe 25 gm, 50 mL, Route: IVP, Drug Form: INJ, Dosing Weight 47.5, kg, PRN, PRN Blood Glucose Results, Start date: 09/15/16 13:27:00 PIT LABORER, Duration: 30 day, Stop date: 10/15/16 14:26:00 CDT No Longer Active 09/15/2016 [facility] Insulin, Aspart, Human Notes: Roll in palms of hands gently; Do not shake vigorously. (Same as: NovoLOG) "single patient use only" WASTE: F/P - Black; E - Municipal Trash Bin Stable for 28 days at room temperature. Expires in days from Date No Longer Active 09/15/2016 [facility] aspirin 81 mg tablet, enteric coated Notes: Do not crush or chew. (Same As: Ecotrin) N o Longer Active 09/15/2016 [facility] Protonix Notes: Tablet should not be chewed or crushed. (Same as: Protonix) No Longer Active 09/15/2016 [facility] Nephro-Kenyon Rx Notes: (Same as : Nephro-Kenyon Rx and Diatx) Give with food. No Longer Active 09/15/2016 [facility] 24 HR Metoprolol Tartrate 25 MG Extended Release Tablet [Toprol] Notes: (Same as: Toprol XL) Do Not Crush Inactive 09/15/2016 [facility] Furosemide 20 MG Oral Tablet N otes: (Same as: Lasix) May cause GI upset. Give with food or milk. No Longer Active 09/15/2016 [facility] Venofer Notes: Each 5ml contai ns 100mg elemental iron. Mix with NS (Same as:Venofer) Administer IV only. MEDICATION WASTE Product Size: 100 mg Product Wasted: ___ mg No Longer Active 09/15/2016 [facility] Synthroid Notes: Take 1 hour b efore or 2 hours after meal; Enteral feeds may interefere with the absorption of this medication. (Same as:Synthroid, Levothroid) No Longer Active 09/15/2016 [facility] Lipitor Notes: (Same as: Lipit or) No Longer Active 09/15/2016 [facility] Senokot Notes: (Same as: Senok ot) No Longer Active 09/15/2016 [facility] Saline Flush 0.9% Notes: (Same as: BD Posiflush) No Longer Active 09/15/2016 [facility] Levaquin Notes: Do not give w/ antacids, dairy pdt & minerals Take 1 hr before or 2 hr after dairy pdt (Same as:Levaquin) No Longer Active 09/14/2016 [facility] Zofran Notes: (Same as: Zofran) No Longer Active 09/14/2016 [facility] Tylenol Notes: Do not exceed 4 gm/day. (Same as: Tylenol) No Longer Active 09/14/2016 [facility] Tramadol Notes: Not to exceed 400mg/day. (Same As: Ultram) No Longer Active 09/14/2016 [facility] Saline Flush 0.9% Notes: (Same as: BD Posiflush) No Longer Active 09/14/2016 [facility] Trazodone Notes: (Same As: Thong yrel) No Longer Active 09/14/2016 [facility] Lipitor Notes: (Same as: Lipit or) No Longer Active 09/04/2016 [facility] metoprolol tartrate Notes: (Sa me as: Lopressor) No Longer Active 09/04/2016 [facility] chlorhexidine gluconate 1.2 MG/ML Mouthwash Notes: (Same As: Peridex) No Longer Active 09/04/2016 [facility] Brilinta Notes: (Same as: Bril inta) No Longer Active 09/04/2016 [facility] ocular lubricant Notes: (Same as: Duratears Naturale and Artificial Tears, Tears Again ) No Longer Active 09/04/2016 [facility] heparin additive 25,000 unit [12 unit/kg /hr] + Premix Diluent Dextrose 5% 500 mL 500 mL, Rate: 11.52 ml/hr, Infuse over: 43.4 hr, Route: IV, Dosing Weight 48 kg, Total Volume: 500 mL, Start date: 09/03/16 17:44:00 PIT LABORER, Duration: 30 day, Stop date: 10/03/16 17:43:00 CDT Inactive 09/03/2016 [facility] Heparin 60 unit/kg Bolus (Heparin Dosing Weight) Pharmacy To Manage, Route: IVP, PRN, Drug form: INJ, PRN, Heparin Protocol, Start date: 09/03/16 17:44:00 PIT LABORER Stop date: 10/03/16 18:43:00 CDT, 30 day Inactive 09/03/2016 [facility] Heparin 30 unit/kg Bolus (Heparin Dosing Weight) Pharmacy To Manage, Route: IVP, PRN, Drug form: INJ, PRN, Heparin Protocol, Start date: 09/03/16 17:44:00 PIT LABORER Stop date: 10/03/16 18:43:00 CDT, 30 day Inactive 09/03/2016 [facility] Acetylcysteine 200 MG/ML Inhalant Solution 600 mg, 3 mL, Route: PO, Drug form: SOLN, BID, Dosing Weight 47.727, kg, Start date: 09/03/16 17:00:00 PIT LABORER, Duration: 3 day, Stop date: 09/06/16 9:00:00 PIT LABORER No Longer Active 09/03/2016 [facility] chlorhexidine gluconate 1.2 MG/ML Mouthwash Notes: (Same As: Peridex) No Longer Active 09/03/2016 [facility] Etomidate 10 mg, Route: IVP, O NCE, Dosing Weight 48, kg, Priority: STAT, Start date: 09/03/16 15:45:00 PIT LABORER, Stop date: 09/03/16 15:45:00 PIT LABORER Inactive 09/03/2016 [facility] Propofol 40 mg, Route: IVP, ON CE, Dosing Weight 48, kg, Priority: STAT, Start date: 09/03/16 15:45:00 PIT LABORER, Stop date: 09/03/16 15:45:00 PIT LABORER Inactive 09/03/2016 [facility] Saline Flush 0.9% Notes: (Same as: BD Posiflush) No Longer Active 09/03/2016 [facility] Fentanyl Notes: Concentration: 5 microgram / ml No Longer Active 09/03/2016 [facility] Midazolam Notes: (Same as: Lanie sed) No Longer Active 09/03/2016 [facility] Lasix Notes: (Same as: Lasix) MEDICATION WASTE Product Size: 40 mg Product Wasted: ___ mg Inactive 09/03/2016 [facility] Heparin 60 unit/kg Bolus (Heparin Dosing Weight) Route: IVP, PRN, 2,900 unit, 2.9 mL, Drug form: INJ, PRN, Heparin Protocol, Start date: 09/03/16 12:43:00 PIT LABORER Stop date: 10/03/16 13:42:00 CDT, 30 day No Longer Active 09/03/2016 [facility] Heparin - one time bolus for ACS 5,000 unit, Route: IVP, Drug form: INJ, ONCE, Dosing Weight 47.727, kg, Priority: STAT, Start date: 09/03/16 12:43:00 PIT LABORER, Stop date: 09/03/16 12:43:00 PIT LABORER Inactive 09/03/2016 [facility] heparin additive 25,000 unit [12 unit/kg /hr] + Premix Diluent Dextrose 5% 500 mL 500 mL, Rate: 11.52 ml/hr, Infuse over: 43.4 hr, Route: IV, Dosing Weight 48 kg, Total Volume: 500 mL, Start date: 09/03/16 12:43:00 PIT LABORER, Duration: 30 day, Stop date: 10/03/16 12:42:00 CDT No Longer Active 09/03/2016 [facility] Heparin 30 unit/kg Bolus (Heparin Dosing Weight) Route: IVP, PRN, 1,400 unit, 1.4 mL, Drug form: INJ, PRN, Heparin Protocol, Start date: 09/03/16 12:43:00 PIT LABORER Stop date: 10/03/16 13:42:00 CDT, 30 day No Longer Active 09/03/2016 [facility] Aspirin 325 MG Oral Tablet Not es: Take with food. Inactive 09/03/2016 [facility] Brilinta Notes: (Same as: Bril inta) Inactive 09/03/2016 [facility] Sodium Chloride 0.154 MEQ/ML Injectable Solution 250 mL, Rate: 100 ml/hr, Infuse over: 2.5 hr, Route: IV, Dosing Weight 47.727 kg, Total Volume: 250, Start date: 09/03/16 10:20:00 PIT LABORER, Duration: 30 day, Stop date: 10/03/16 10:19:00 CDT Inactive 09/03/2016 [facility] Nitroglycerin 0.02 MG/MG Topical Ointment 1 inch, Route: TOP, Drug Form: OINT, Dosing Weight 47.727, kg, TID, Start date: 09/03/16 9:00:00 PIT LABORER, Duration: 30 day, Stop date: 10/02/16 17:00:00 CDT Inactive 09/03/2016 [facility] heparin Notes: porcine heparin Inactive 09/03/2016 [facility] Lasix Notes: (Same as: Lasix) MEDICATION WASTE Product Size: 40 mg Product Wasted: ___ mg No Longer Active 09/03/2016 [facility] Hydralazine Hydrochloride 25 MG Oral Tablet Notes: (Same as: Apresoline) May interfere w/enteral feedings Take With Food. No Longer Active 09/03/2016 [facility] multivitamin Notes: (Same as:O ne Tab Daily, Tab-A-Kenyon + Beta Carotene) Give with food. No Longer Active 09/03/2016 [facility] Synthroid Notes: Take 1 hour b efore or 2 hours after meal; Enteral feeds may interefere with the absorption of this medication. (Same as:Synthroid, Levothroid) No Longer Active 09/03/2016 [facility] potassium chloride 10 mEq, Rou te: IVPB, ONCE, Dosing Weight 47.727, kg, Start date: 09/03/16 4:11:00 PIT LABORER, Stop date: 09/03/16 4:11:00 PIT LABORER Inactive 09/03/2016 [facility] Nitroglycerin Notes: (Same as: Tridil) Final conc = 0.4 mg/ml. Premix bottle. No Longe r Active 09/03/2016 [facility] Aspirin 325 MG Oral Tablet 325 mg, 1 tab, Route: PO, ONCE, Dosing Weight 47.727, kg, Start date: 09/03/16 3:20:00 PIT LABORER, Stop date: 09/03/16 3:20:00 PIT LABORER Inactive 09/03/2016 [facility] potassium chloride Notes: ([facility] oswaldo as: KCL) Infuse no faster than 10 mEq/hr if given peripherally. Inactive 09/03/2016 [facility] potassium chloride Notes: (Louie e as: K-Dur 20) "Do Not Crush" With food and full glass of water Inactive 09/03/2016 [facility] Ondansetron Notes: (Same as: Jennifer marcum) MEDICATION WASTE Product Size: 4 mg Product Wasted: ___ mg No Longer Active 09/03/2016 [facility] Morphine Notes: (Same as:MORPh ine Sulfate) No Longer Active 09/03/2016 [facility] Docusate Notes: (Same as: Cola ce) (Do Not Crush) No Longer Active 09/03/2016 [facility] Acetaminophen 325 MG / Hydrocodone Sedrick trate 5 MG Oral Tablet Notes: (Same as: [place] 325/5) Do not ex ceed 4gm/day of acetaminophen. No Longer Active 09/03/2016 [facility] Nitroglycerin 0.02 MG/MG Topical Ointment 1 inch, Route: TOP, Drug Form: OINT, Dosing Weight 47.727, kg, ONCE, Start date: 09/03/16 1:21:00 PIT LABORER, Stop date: 09/03/16 1:21:00 PIT LABORER Inactive 09/03/2016 [facility] Nitroglycerin 2 %, Route: TOP, Drug form: OINT, ONCE, Dosing Weight 62.005, kg, Start date: 09/03/16 1:15:00 PIT LABORER, Stop date: 09/03/16 1:15:00 PIT LABORER Inactive 09/03/2016 [facility] Zofran 4 mg, Route: IVP, Drug form: INJ, ONCE, Dosing Weight 62.005, kg, Priority: STAT, Start date: 09/03/16 1:06:00 PIT LABORER, Stop date: 09/03/16 1:06:00 PIT LABORER Inactive 09/03/2016 [facility] Nitroglycerin 0.4 MG Sublingual Tablet Notes: (Same as:Nitroqusruthi Nitrostat) "Do Not Crush" Sublingual tablet No Longer Active 09/03/2016 [facility] Albuterol 0.833 MG/ML / Ipratropium Brom ezequiel 0.167 MG/ML Inhalant Solution [DuoNeb] Notes: (Same as: Duoneb) Inactive 09/03/2016 [facility] Albuterol 0.833 MG/ML / Ipratropium Brom ezequiel 0.167 MG/ML Inhalant Solution Notes: (Same as: Duoneb) Inactive 09/03/2016 [facility] Lasix Notes: (Same as: Lasix) MEDICATION WASTE Product Size: 40 mg Product Wasted: ___ mg Inactive 09/03/2016 [facility] Saline Flush 0.9% Notes: (Same as: BD Posiflush) No Longer Active 09/03/2016 [facility] Hydralazine Hydrochloride 25 MG Oral Tablet 25 mg = 1 tab, PO, BID, 0 Refill(s) On Hold 09/03/2016 [facility] Nephro-Kenyon Rx oral tablet 1 t ab, PO, Daily, 0 Refill(s) On Hold 09/03/2016 [facility] Levothyroxine Sodium 0.075 MG Oral Tablet [Synthroid] 75 microgram = 1 tab, PO, Q630AM, 0 Refill(s) On Hold 09/03/2016 [facility] Furosemide 20 MG Oral Tablet 4 0 mg = 2 tab, PO, Daily, 0 Refill(s) On Hold 09/03/2016 [facility] Allergies, Adverse Reactions, Alerts Substance Category Reaction Severity Reaction type Status Date Reported Comments Source codeine Assertion Drug allergy Active [facility] Immunizations Immunization Date Given Site Status Last Updated Comments Source diphtheria/pertussis, acel/tetanus adult 02/01/2018 Not Given [facility] Results Order Name Results Value Reference Range Date Interpretation Comments Source CARDIAC ENZYMES Troponin-I 0.04 0.00 - 0.40 02/01/2018 [facility] CARDIAC ENZYMES Total CK 60 12 - 191 02/01/2018 [facility] IMMUNOLOGY Hep Bs Ag Negat inder *NA* (02/01/18 12:47 PM) Negative 02/01/2018 [facility] CARDIAC ENZYMES Troponin-I 0.03 0.00 - 0.40 02/01/2018 [facility] CARDIAC ENZYMES Total CK 65 12 - 191 02/01/2018 [facility] CHEM PANEL eGFR 8 02/01/2018 Result [...] should be multiplied by the estimated BMI. [facility] CHEM PANEL Calcium Lvl 7.9 8.5 - 10.5 02/01/2018 [facility] CHEM PANEL CO2 25 24 - 32 02/01/2018 [facility] CHEM PANEL AGAP 15.9 10.0 - 20.0 02/01/2018 [facility] CHEM PANEL Potassium Lvl 5.9 3.5 - 5.1 02/01/2018 [facility] CHEM PANEL Chloride Lvl 106 95 - 109 02/01/2018 [facility] CHEM PANEL Creatinine Lvl 4.84 0.50 - 1.40 02/01/2018 [facility] CHEM PANEL Sodium Lvl 141 135 - 145 02/01/2018 [facility] CHEM PANEL Glucose Lvl 129 70 - 99 02/01/2018 [facility] CHEM PANEL BUN 43 7 - 22 02/01/2018 [facility] URINE AND STOOL UA pH 8.5 5.0 - 8.0 02/01/2018 [facility] URINE AND STOOL UA Spec Grav 1.009 <=1.030 02/01/2018 [facility] URINE AND STOOL UA Glucose 100 mg/dL Negative mg/dL 02/01/2018 [facility] URINE AND STOOL UA Protein >=300 mg/dL Negative mg/dL 02/01/2018 [facility] URINE AND STOOL UA Ketones Negative mg/dL Negative mg/dL 02/01/2018 [facility] URINE AND STOOL UA Turbidity Clear (02/01/18 6:29 AM) Clear 02/01/2018 [facility] URINE AND STOOL UA Color Yellow *NA* (02/01/18 6:29 AM) Yellow 02/01/2018 [facility] URINE AND STOOL UA Blood Negative (02/01/18 6:29 AM) Negative 02/01/2018 [facility] URINE AND STOOL UA Bili Negative *NA* (02/01/18 6:29 AM) Negative 02/01/2018 [facility] URINE AND STOOL UA Leuk Est Negative (02/01/18 6:29 AM) Negative 02/01/2018 [facility] URINE AND STOOL UA Nitrite Negative (02/01/18 6:29 AM) Negative 02/01/2018 [facility] URINE AND STOOL UA Sq Epi Moderate /LPF Few /LPF 02/01/2018 [facility] URINE AND STOOL UA Urobilinogen <=1.0 mg/dL 0.1 - 1.0 02/01/2018 [facility] URINE AND STOOL UA Hyal Cast 1 0 - 2 02/01/2018 [facility] URINE AND STOOL UA WBC 1 0 - 5 02/01/2018 [facility] URINE AND STOOL UA Bacteria Occasional /HPF None Seen /HPF 02/01/2018 [facility] URINE AND STOOL UA RBC 1 0 - 2 02/01/2018 [facility] URINE AND STOOL UA Mucus Few /LPF None Seen /LPF 02/01/2018 [facility] BLOOD [facility] RESULTS AB Int Anti-E 02/01/2018 [facility] BLOOD [facility] RESULTS Antigen LUKAS Int E neg 02/01/2018 [facility] BLOOD [facility] RESULTS Antibody Scrn Positive 1 (02/01/18 2:13 AM) 02/01/2018 Result Comment: 02/01/2018 0 3:49 DILONG
"Significant Findings of pos absc_ called to Will Prachyl_ at 02/01/2018 03:49_ by dl_. Read Back OK" [facility] BLOOD [facility] RESULTS ABO/Rh O POS 02/01/2018 [facility] CARDIAC ENZYMES Troponin-I 0.04 0.00 - 0.40 02/01/2018 [facility] CHEM PANEL A/G Ratio 0.8 0.7 - 1.6 02/01/2018 [facility] CHEM PANEL Globulin 3.9 2.7 - 4.2 02/01/2018 [facility] CHEM PANEL B/C Ratio 9 6 - 25 02/01/2018 [facility] CHEM PANEL AGAP 14.0 10.0 - 20.0 02/01/2018 [facility] CHEM PANEL eGFR 8 02/01/2018 Result Comment: [...] should be multiplied by the estimated BMI. [facility] CHEM PANEL Alk Phos 141 39 - 136 02/01/2018 [facility] CHEM PANEL Bili Total 0.4 0.2 - 1.3 02/01/2018 [facility] CHEM PANEL ALT 15 0 - 65 02/01/2018 [facility] CHEM PANEL Albumin Lvl 3.2 3.5 - 5.0 02/01/2018 [facility] CHEM PANEL AST 30 0 - 37 02/01/2018 [facility] CHEM PANEL Total Protein 7.1 6.4 - 8.4 02/01/2018 [facility] CHEM PANEL Calcium Lvl 7.9 8.5 - 10.5 02/01/2018 [facility] CHEM PANEL Chloride Lvl 104 95 - 109 02/01/2018 [facility] CHEM PANEL CO2 26 24 - 32 02/01/2018 [facility] CHEM PANEL Potassium Lvl 6.0 3.5 - 5.1 02/01/2018 [facility] CHEM PANEL Sodium Lvl 138 135 - 145 02/01/2018 [facility] CHEM PANEL Creatinine Lvl 4.72 0.50 - 1.40 02/01/2018 [facility] CHEM PANEL BUN 43 7 - 22 02/01/2018 [facility] CHEM PANEL Glucose Lvl 91 70 - 99 02/01/2018 [facility] HEMATOLOGY Segs-Bands # 5.5 1.5 - 8.1 02/01/2018 [facility] HEMATOLOGY Monocytes 9.4 2.0 - 12.0 02/01/2018 [facility] HEMATOLOGY Eosinophils 5.0 0.0 - 4.0 02/01/2018 [facility] HEMATOLOGY Basophils 1.1 0.0 - 1.0 02/01/2018 [facility] HEMATOLOGY Monocytes # 0.8 0.0 - 0.8 02/01/2018 [facility] HEMATOLOGY Lymphocytes # 1.4 1.0 - 5.5 02/01/2018 [facility] HEMATOLOGY Basophils # 0.1 0.0 - 0.2 02/01/2018 [facility] HEMATOLOGY Eosinophils # 0.4 0.0 - 0.5 02/01/2018 [facility] HEMATOLOGY Lymphocytes 16.9 20.0 - 40.0 02/01/2018 [facility] HEMATOLOGY Segs 67.6 45.0 - 75.0 02/01/2018 [facility] HEMATOLOGY PTT 29.1 22.9 - 35.8 02/01/2018 [facility] HEMATOLOGY INR 1.05 0.85 - 1.17 02/01/2018 [facility] HEMATOLOGY PT 13.7 12.0 - 14.7 02/01/2018 [facility] HEMATOLOGY Hgb 11.2 12.0 - 16.0 02/01/2018 [facility] HEMATOLOGY MCV 95.4 80.0 - 98.0 02/01/2018 [facility] HEMATOLOGY Hct 34.1 36.0 - 48.0 02/01/2018 [facility] HEMATOLOGY MCHC 32.7 32.0 - 36.0 02/01/2018 [facility] HEMATOLOGY MCH 31.2 27.0 - 31.0 02/01/2018 [facility] HEMATOLOGY RDW 16.9 11.5 - 14.5 02/01/2018 [facility] HEMATOLOGY Platelet 252 133 - 450 02/01/2018 [facility] HEMATOLOGY MPV 9.6 7.4 - 10.4 02/01/2018 [facility] HEMATOLOGY WBC 8.1 3.7 - 10.4 02/01/2018 [facility] HEMATOLOGY RBC 3.57 4.20 - 5.40 02/01/2018 [facility] URINE CHEM U24 Cr Clear 9 88 - 128 09/24/2016 [facility] URINE CHEM TV CrCl 24H 200 600 - 1600 09/24/2016 [facility] URINE CHEM HT Crcl 60 09/24/2016 [facility] URINE CHEM WT Crcl 104 09/24/2016 [facility] URINE CHEM BSA Cr Clear 1.41 09/24/2016 [facility] URINE CHEM Ur Creat 200.00 09/24/2016 [facility] ELECTROLYTES AGAP 16.4 10.0 - 20.0 09/22/2016 [facility] ELECTROLYTES Calcium Lvl 7.7 8.5 - 10.5 09/22/2016 [facility] ELECTROLYTES eGFR 11 09/22/2016 Result Comment: [...] should be multiplied by the estimated BMI. [facility] ELECTROLYTES Chloride Lvl 95 95 - 109 09/22/2016 [facility] ELECTROLYTES Potassium Lvl 4.4 3.5 - 5.1 09/22/2016 [facility] ELECTROLYTES BUN 50 7 - 22 09/22/2016 [facility] ELECTROLYTES CO2 25 24 - 32 09/22/2016 [facility] ELECTROLYTES Sodium Lvl 132 135 - 145 09/22/2016 [facility] ELECTROLYTES Creatinine Lvl 3.7 0 0.50 - 1.40 09/22/2016 [facility] ELECTROLYTES Glucose Lvl 215 70 - 99 09/22/2016 [facility] HEMATOLOGY Segs 76.9 45.0 - 75.0 09/22/2016 [facility] HEMATOLOGY Lymphocytes 10.6 20.0 - 40.0 09/22/2016 [facility] HEMATOLOGY Monocytes 9.8 2.0 - 12.0 09/22/2016 [facility] HEMATOLOGY Eosinophils 1.9 0.0 - 4.0 09/22/2016 [facility] HEMATOLOGY Basophils 0.8 0.0 - 1.0 09/22/2016 [facility] HEMATOLOGY Segs-Bands # 8.8 1.5 - 8.1 09/22/2016 [facility] HEMATOLOGY Lymphocytes # 1.2 1.0 - 5.5 09/22/2016 [facility] HEMATOLOGY Eosinophils # 0.2 0.0 - 0.5 09/22/2016 [facility] HEMATOLOGY Monocytes # 1.1 0.0 - 0.8 09/22/2016 [facility] HEMATOLOGY Basophils # 0.1 0.0 - 0.2 09/22/2016 [facility] MCHC 33.3 32.0 - 36.0 09/22/2016 [facility] HEMATOLOGY MPV 8.8 7.4 - 10.4 09/22/2016 [facility] HEMATOLOGY Platelet 264 133 - 450 09/22/2016 [facility] HEMATOLOGY RDW 17.1 11.5 - 14.5 09/22/2016 [facility] HEMATOLOGY MCV 86.4 80.0 - 98.0 09/22/2016 [facility] MCH 28.8 27.0 - 31.0 09/22/2016 [facility] HEMATOLOGY RBC 3.54 4.20 - 5.40 09/22/2016 [facility] WBC 11.4 3.7 - 10.4 09/22/2016 [facility] HEMATOLOGY Hct 30.6 36.0 - 48.0 09/22/2016 [facility] HEMATOLOGY Hgb 10.2 12.0 - 16.0 09/22/2016 [facility] HEMATOLOGY Basophils # 0.1 0.0 - 0.2 09/21/2016 [facility] HEMATOLOGY Lymphocytes # 1.5 1.0 - 5.5 09/21/2016 [facility] HEMATOLOGY Monocytes # 1.5 0.0 - 0.8 09/21/2016 [facility] HEMATOLOGY Eosinophils # 0.2 0.0 - 0.5 09/21/2016 [facility] HEMATOLOGY Basophils 0.6 0.0 - 1.0 09/21/2016 [facility] HEMATOLOGY Segs-Bands # 9.3 1.5 - 8.1 09/21/2016 [facility] HEMATOLOGY Segs 73.7 45.0 - 75.0 09/21/2016 [facility] HEMATOLOGY Lymphocytes 12.2 20.0 - 40.0 09/21/2016 [facility] HEMATOLOGY Monocytes 12.1 2.0 - 12.0 09/21/2016 [facility] HEMATOLOGY Eosinophils 1.4 0.0 - 4.0 09/21/2016 [facility] HEMATOLOGY Platelet 256 133 - 450 09/21/2016 [facility] HEMATOLOGY MPV 9.2 7.4 - 10.4 09/21/2016 [facility] HEMATOLOGY RDW 16.4 11.5 - 14.5 09/21/2016 [facility] MCHC 33.2 32.0 - 36.0 09/21/2016 [facility] MCH 28.4 27.0 - 31.0 09/21/2016 [facility] HEMATOLOGY Hct 28.9 36.0 - 48.0 09/21/2016 [facility] MCV 85.7 80.0 - 98.0 09/21/2016 [facility] RBC 3.38 4.20 - 5.40 09/21/2016 [facility] HEMATOLOGY Hgb 9.6 12.0 - 16.0 09/21/2016 [facility] HEMATOLOGY WBC 12.6 3.7 - 10.4 09/21/2016 [facility] ELECTROLYTES AGAP 14.6 10.0 - 20.0 09/20/2016 [facility] ELECTROLYTES Chloride Lvl 100 95 - 109 09/20/2016 [facility] ELECTROLYTES Potassium Lvl 3.6 3.5 - 5.1 09/20/2016 [facility] ELECTROLYTES CO2 27 24 - 32 09/20/2016 [facility] ELECTROLYTES BUN 38 7 - 22 09/20/2016 [facility] ELECTROLYTES Creatinine Lvl 3.3 0 0.50 - 1.40 09/20/2016 [facility] ELECTROLYTES Sodium Lvl 138 135 - 145 09/20/2016 [facility] ELECTROLYTES Calcium Lvl 7.2 8.5 - 10.5 09/20/2016 [facility] ELECTROLYTES eGFR 13 09/20/2016 Result Comment: [...] should be multiplied by the estimated BMI. [facility] ELECTROLYTES Glucose Lvl 111 70 - 99 09/20/2016 [facility] HEMATOLOGY Eosinophils # 0.2 0.0 - 0.5 09/20/2016 [facility] HEMATOLOGY Lymphocytes 9.3 20.0 - 40.0 09/20/2016 [facility] HEMATOLOGY Monocytes 11.8 2.0 - 12.0 09/20/2016 [facility] HEMATOLOGY Eosinophils 1.7 0.0 - 4.0 09/20/2016 [facility] Lymphocytes # 1.1 1.0 - 5.5 09/20/2016 [facility] HEMATOLOGY Segs 76.9 45.0 - 75.0 09/20/2016 [facility] Monocytes # 1.4 0.0 - 0.8 09/20/2016 [facility] HEMATOLOGY Basophils 0.3 0.0 - 1.0 09/20/2016 [facility] Segs-Bands # 9.1 1.5 - 8.1 09/20/2016 [facility] MPV 9.1 7.4 - 10.4 09/20/2016 [facility] Hgb 9.2 12.0 - 16.0 09/20/2016 [facility] WBC 11.8 3.7 - 10.4 09/20/2016 [facility] Platelet 272 133 - 450 09/20/2016 [facility] RDW 16.3 11.5 - 14.5 09/20/2016 [facility] RBC 3.24 4.20 - 5.40 09/20/2016 [facility] Hct 27.9 36.0 - 48.0 09/20/2016 [facility] MCV 86.1 80.0 - 98.0 09/20/2016 [facility] MCH 28.6 27.0 - 31.0 09/20/2016 [facility] MCHC 33.2 32.0 - 36.0 09/20/2016 [facility] IMMUNOLOGY Hep Bs Ab <3.1 <=7.4 mIU/mL 09/18/2016 [facility] CHEM PANEL Phosphorus 3.2 2.5 - 4.5 09/18/2016 [facility] CHEM PANEL Magnesium Lvl 2.0 1.8 - 2.4 09/18/2016 [facility] CHEM PANEL Albumin Lvl 2.2 3.5 - 5.0 09/18/2016 [facility] ELECTROLYTES AGAP 16.8 10.0 - 20.0 09/18/2016 [facility] ELECTROLYTES eGFR 13 09/18/2016 Result Comment: [...] should be multiplied by the estimated BMI. [facility] ELECTROLYTES BUN 38 7 - 22 09/18/2016 [facility] ELECTROLYTES Glucose Lvl 95 70 - 99 09/18/2016 [facility] ELECTROLYTES CO2 25 24 - 32 09/18/2016 [facility] ELECTROLYTES Chloride Lvl 98 95 - 109 09/18/2016 [facility] ELECTROLYTES Calcium Lvl 7.3 8.5 - 10.5 09/18/2016 [facility] ELECTROLYTES Sodium Lvl 136 135 - 145 09/18/2016 [facility] ELECTROLYTES Potassium Lvl 3.8 3.5 - 5.1 09/18/2016 [facility] ELECTROLYTES Creatinine Lvl 3.3 0 0.50 - 1.40 09/18/2016 [facility] HEMATOLOGY Basophils # 0.1 0.0 - 0.2 09/18/2016 [facility] IMMUNOLOGY CRP, High Sensitivity 101 .0 09/18/2016 [facility] URINE AND STOOL UA Trans Epi 4 <=0 /LPF 09/18/2016 [facility] URINE AND STOOL UA Color Dee 09/18/2016 [facility] URINE AND STOOL UA Urobilinogen <=1.0 mg/dL 0.1 - 1.0 09/18/2016 [facility] [address] URINE AND STOOL UA Bacteria Occasional /HPF None Seen /HPF 09/18/2016 [facility] [address] URINE AND STOOL UA Mucus Few /LPF None Seen /LPF 09/18/2016 [facility] URINE AND STOOL UA Amorph Prerna Occasional /HPF None Seen /HPF 09/18/2016 [facility] [address] URINE AND STOOL UA Hyal Cast 8 0 - 2 09/18/2016 [facility] URINE AND STOOL UA Nitrite Negative (09/17/16 6:15 PM) Negative 09/18/2016 [facility] URINE AND STOOL UA Leuk Est Negative (09/17/16 6:15 PM) Negative 09/18/2016 [facility] URINE AND STOOL UA Sq Epi Moderate /LPF Few /LPF 09/18/2016 [facility] URINE AND STOOL UA WBC 1 0 - 5 09/18/2016 [facility] URINE AND STOOL UA Blood Negative (09/17/16 6:15 PM) Negative 09/18/2016 [facility] URINE AND STOOL UA Glucose Negative mg/dL Negative mg/dL 09/18/2016 [facility] URINE AND STOOL UA Ketones Negative mg/dL Negative mg/dL 09/18/2016 [facility] URINE AND STOOL UA Bili Negative *NA* (09/17/16 6:15 PM) Negative 09/18/2016 [facility] URINE AND STOOL UA Turbidity Slight *ABN* (09/17/16 6:15 PM) Clear 09/18/2016 [facility] URINE AND STOOL UA Spec Grav 1.013 <=1.030 09/18/2016 [facility] URINE AND STOOL UA pH 5.0 5.0 - 8.0 09/18/2016 [facility] URINE AND STOOL UA Protein >=300 mg/dL Negative mg/dL 09/18/2016 [facility] [address] CARDIAC ENZYMES BNP >5000 <=100 pg/mL 09/16/2016 [facility] CHEM PANEL Magnesium Lvl 2.3 1.8 - 2.4 09/15/2016 [facility] CHEM PANEL Albumin Lvl 2.9 3.5 - 5.0 09/15/2016 [facility] CHEM PANEL Total Protein 6.7 6.4 - 8.4 09/15/2016 [facility] IMMUNOLOGY Hep Bs Ag Negat inder *NA* (09/15/16 8:30 AM) Negative 09/15/2016 [facility] IMMUNOLOGY Prealbumin 14.4 18.0 - 45.0 09/15/2016 [facility] SPECIAL CHEMISTRY Hgb A1C 5.5 <=5.6 % 09/15/2016 [facility] BLOOD BANK RESULTS ABO/Rh O POS 09/03/2016 [facility] BLOOD BANK RESULTS Antibody Scrn Negative (09/03/16 4:26 PM) 09/03/2016 [facility] CARDIAC ENZYMES Troponin-I 8.90 0.00 - 0.40 09/03/2016 Result Comment: Critical Result(s) beckford d to Patricia Kelly at 09/03/2016 16:23 by benny. Read back OK. [facility] HEMATOLOGY INR 1.08 0.85 - 1.17 09/03/2016 [facility] HEMATOLOGY PT 14.2 12.0 - 14.7 09/03/2016 [facility] HEMATOLOGY PTT 30.2 22.9 - 35.8 09/03/2016 [facility] CARDIAC ENZYMES BNP 4714 <=100 pg/mL 09/03/2016 [facility] CARDIAC ENZYMES Troponin-I 8.30 0.00 - 0.40 09/03/2016 Result Comment: Critical Result(s) analy Hodges at 09/03/2016 10:11 byHA. Read back OK. [facility] CHEM PANEL Phosphorus 5.1 2.5 - 4.5 09/03/2016 [facility] CHEM PANEL Magnesium Lvl 2.5 1.8 - 2.4 09/03/2016 [facility] CHEM PANEL eGFR 18 09/03/2016 Result [...] should be multiplied by the estimated BMI. [facility] CHEM PANEL Glucose Lvl 176 70 - 99 09/03/2016 [facility] CHEM PANEL BUN 59 7 - 22 09/03/2016 [facility] CHEM PANEL Potassium Lvl 4.3 3.5 - 5.1 09/03/2016 [facility] CHEM PANEL Sodium Lvl 140 135 - 145 09/03/2016 [facility] CHEM PANEL CO2 24 24 - 32 09/03/2016 [facility] CHEM PANEL Creatinine Lvl 2.50 0.50 - 1.40 09/03/2016 [facility] CHEM PANEL Chloride Lvl 104 95 - 109 09/03/2016 [facility] CHEM PANEL AGAP 16.3 10.0 - 20.0 09/03/2016 [facility] CHEM PANEL Calcium Lvl 7.8 8.5 - 10.5 09/03/2016 [facility] CARDIAC ENZYMES Troponin-I 0.75 0.00 - 0.40 09/03/2016 Result Comment: Critical Result(s) beckford d to KWASI CUELLAR at 09/03/2016 03:12 by SMT. Read back OK. [facility] CHEM PANEL Bili Total 0.3 0.2 - 1.3 09/03/2016 [facility] CHEM PANEL Alk Phos 113 39 - 136 09/03/2016 [facility] CHEM PANEL ALT 25 0 - 65 09/03/2016 [facility] CHEM PANEL AST 27 0 - 37 09/03/2016 [facility] CHEM PANEL A/G Ratio 0.9 0.7 - 1.6 09/03/2016 [facility] CHEM PANEL eGFR 21 09/03/2016 Result [...] should be multiplied by the estimated BMI. [facility] CHEM PANEL CO2 22 24 - 32 09/03/2016 [facility] CHEM PANEL Calcium Lvl 7.9 8.5 - 10.5 09/03/2016 [facility] CHEM PANEL AGAP 14.5 10.0 - 20.0 09/03/2016 [facility] CHEM PANEL B/C Ratio 25 6 - 25 09/03/2016 [facility] CHEM PANEL Glucose Lvl 184 70 - 99 09/03/2016 [facility] CHEM PANEL Creatinine Lvl 2.20 0.50 - 1.40 09/03/2016 [facility] CHEM PANEL BUN 55 7 - 22 09/03/2016 [facility] CHEM PANEL Sodium Lvl 141 135 - 145 09/03/2016 [facility] CHEM PANEL Chloride Lvl 108 95 - 109 09/03/2016 [facility] CHEM PANEL Potassium Lvl 3.5 3.5 - 5.1 09/03/2016 [facility] CHEM PANEL Albumin Lvl 3.1 3.5 - 5.0 09/03/2016 [facility] CHEM PANEL Total Protein 6.6 6.4 - 8.4 09/03/2016 [facility] CHEM PANEL Globulin 3.5 2.7 - 4.2 09/03/2016 [facility] CHEM PANEL Magnesium Lvl 2.3 1.8 - 2.4 09/03/2016 [facility] HEMATOLOGY MPV 10.3 7.4 - 10.4 09/03/2016 [facility] HEMATOLOGY WBC 12.7 3.7 - 10.4 09/03/2016 [facility] HEMATOLOGY Hgb 9.5 12.0 - 16.0 09/03/2016 [facility] HEMATOLOGY RBC 3.24 4.20 - 5.40 09/03/2016 [facility] HEMATOLOGY Hct 29.0 36.0 - 48.0 09/03/2016 [facility] HEMATOLOGY MCV 89.6 80.0 - 98.0 09/03/2016 [facility] HEMATOLOGY MCHC 32.7 32.0 - 36.0 09/03/2016 [facility] HEMATOLOGY MCH 29.3 27.0 - 31.0 09/03/2016 [facility] HEMATOLOGY Platelet 198 133 - 450 09/03/2016 [facility] HEMATOLOGY RDW 14.3 11.5 - 14.5 09/03/2016 [facility] HEMATOLOGY Monocytes 5.7 2.0 - 12.0 09/03/2016 [facility] HEMATOLOGY Lymphocytes 4.9 20.0 - 40.0 09/03/2016 [facility] HEMATOLOGY Basophils 0.2 0.0 - 1.0 09/03/2016 [facility] HEMATOLOGY Eosinophils 0.4 0.0 - 4.0 09/03/2016 [facility] HEMATOLOGY Segs-Bands # 11.3 1.5 - 8.1 09/03/2016 [facility] HEMATOLOGY Lymphocytes # 0.6 1.0 - 5.5 09/03/2016 [facility] HEMATOLOGY Eosinophils # 0.1 0.0 - 0.5 09/03/2016 [facility] HEMATOLOGY Monocytes # 0.7 0.0 - 0.8 09/03/2016 [facility] HEMATOLOGY Segs 88.8 45.0 - 75.0 09/03/2016 [facility] URINE AND STOOL UA RBC 2 0 - 2 09/03/2016 [facility] URINE AND STOOL UA Hyal Cast 1 0 - 2 09/03/2016 [facility] URINE AND STOOL UA Nitrite Negative (09/03/16 2:31 AM) Negative 09/03/2016 [facility] URINE AND STOOL UA Leuk Est Negative (09/03/16 2:31 AM) Negative 09/03/2016 [facility] URINE AND STOOL UA Sq Epi Occasional /LPF Few /LPF 09/03/2016 [facility] URINE AND STOOL UA WBC 1 0 - 5 09/03/2016 [facility] URINE AND STOOL UA Blood Negative (09/03/16 2:31 AM) Negative 09/03/2016 [facility] URINE AND STOOL UA Urobilinogen <=1.0 mg/dL 0.1 - 1.0 09/03/2016 [facility] URINE AND STOOL UA Color Ltyellow 09/03/2016 [facility] URINE AND STOOL UA Spec Grav 1.008 <=1.030 09/03/2016 [facility] URINE AND STOOL UA pH 6.0 5.0 - 8.0 09/03/2016 [facility] URINE AND STOOL UA Protein 100 mg/dL Negative mg/dL 09/03/2016 [facility] URINE AND STOOL UA Glucose Negative mg/dL Negative mg/dL 09/03/2016 [facility] URINE AND STOOL UA Ketones Negative mg/dL Negative mg/dL 09/03/2016 [facility] URINE AND STOOL UA Bili Negative *NA* (09/03/16 2:31 AM) Negative 09/03/2016 [facility] URINE AND STOOL UA Turbidity Clear (09/03/16 2:31 AM) Clear 09/03/2016 [facility] CARDIAC ENZYMES CK MB Index 2.5 0.0 - 2.5 09/03/2016 [facility] CARDIAC ENZYMES BNP 3305 <=100 pg/mL 09/03/2016 [facility] CARDIAC ENZYMES Total CK 56 12 - 191 09/03/2016 [facility] CARDIAC ENZYMES CK MB 1.4 0.5 - 3.6 09/03/2016 [facility] CHEM PANEL eGFR 21 09/03/2016 Result [...] should be multiplied by the estimated BMI. [facility] CHEM PANEL Globulin 3.3 2.7 - 4.2 09/03/2016 [facility] CHEM PANEL A/G Ratio 0.9 0.7 - 1.6 09/03/2016 [facility] CHEM PANEL Bili Total 0.3 0.2 - 1.3 09/03/2016 [facility] CHEM PANEL B/C Ratio 25 6 - 25 09/03/2016 [facility] CHEM PANEL AGAP 15.2 10.0 - 20.0 09/03/2016 [facility] CHEM PANEL Glucose Lvl 138 70 - 99 09/03/2016 [facility] CHEM PANEL Albumin Lvl 3.1 3.5 - 5.0 09/03/2016 [facility] CHEM PANEL Alk Phos 113 39 - 136 09/03/2016 [facility] CHEM PANEL AST 24 0 - 37 09/03/2016 [facility] CHEM PANEL ALT 25 0 - 65 09/03/2016 [facility] CHEM PANEL Sodium Lvl 141 135 - 145 09/03/2016 [facility] CHEM PANEL Creatinine Lvl 2.20 0.50 - 1.40 09/03/2016 [facility] CHEM PANEL BUN 54 7 - 22 09/03/2016 [facility] CHEM PANEL Total Protein 6.4 6.4 - 8.4 09/03/2016 [facility] CHEM PANEL Calcium Lvl 7.9 8.5 - 10.5 09/03/2016 [facility] CHEM PANEL CO2 22 24 - 32 09/03/2016 [facility] CHEM PANEL Chloride Lvl 107 95 - 109 09/03/2016 [facility] CHEM PANEL Potassium Lvl 3.2 3.5 - 5.1 09/03/2016 [facility] HEMATOLOGY Monocytes # 0.7 0.0 - 0.8 09/03/2016 [facility] HEMATOLOGY Lymphocytes # 1.2 1.0 - 5.5 09/03/2016 [facility] Segs-Bands # 7.3 1.5 - 8.1 09/03/2016 [facility] Basophils # 0.1 0.0 - 0.2 09/03/2016 [facility] Eosinophils # 0.2 0.0 - 0.5 09/03/2016 [facility] Segs 77.0 45.0 - 75.0 09/03/2016 [facility] Lymphocytes 12.5 20.0 - 40.0 09/03/2016 [facility] Monocytes 7.7 2.0 - 12.0 09/03/2016 [facility] Eosinophils 2.2 0.0 - 4.0 09/03/2016 [facility] Basophils 0.6 0.0 - 1.0 09/03/2016 [facility] MPV 10.2 7.4 - 10.4 09/03/2016 [facility] Platelet 199 133 - 450 09/03/2016 [facility] Hgb 9.3 12.0 - 16.0 09/03/2016 [facility] RBC 3.14 4.20 - 5.40 09/03/2016 [facility] MCV 87.8 80.0 - 98.0 09/03/2016 [facility] MCH 29.7 27.0 - 31.0 09/03/2016 [facility] Hct 27.6 36.0 - 48.0 09/03/2016 [facility] MCHC 33.8 32.0 - 36.0 09/03/2016 [facility] RDW 14.2 11.5 - 14.5 09/03/2016 [facility] WBC 9.5 3.7 - 10.4 09/03/2016 [facility] Pathology Reports No Data Provided for [...] acute facial bone fracture. SL: [id number] 02/01/2018 [facility] Spine cervical wo contrast CT CT [...] osis. 3. Bilateral pleural effusions. SL:16 02/01/2018 [facility] Brain contrast CT CT BRAIN WITHOUT [...] acute intracranial abnormalities are visualized. SL:16 02/01/2018 [facility] Chest 1view DX Clinical Indica tion: [...] airspace disease and small left effusion. SL: [id number] 02/01/2018 [facility] Pelvis AP DX PELVIS RADIOGRAPH 1 VIEW CLINICAL INDICATION: Posttraumatic pelvic pain COMPARISON: None IMPRESSION: No acute bony abnormalities are visualized. The joint spaces of the hips are maintained. Regional vascular calcifications are incidentally noted. SL:16 02/01/2018 [facility] Chest 2 views DX Patient Name: SARAH MAGANA : 1940; Age: 76 years Female MR: [id number] Study: Chest 2 views DX Order Time: 09/17/2016 2:47 PM [employer]ER CLINICAL INDICATION: Chest pain COMPARISON: Chest radiograph [...] aeration of the lungs since 09/15/2016. 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 IMPRESSION: New [...] silhouette. Postoperative median sternotomy. 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 History of pleural effusion that she intended to get checked at [facility] tomorrow. Currently on NRB mask satting [...] and bibasilar atelectasis. Small pericardial effusion. SL: [id number] 09/03/2016 [facility] Chest 1view DX Clinical Indica tion: [...] atelectasis and/or pleural effusion. SL: [id number] 09/02/2016 [facility] Consultation Notes No Data Provided for This Section Discharge Summaries No Data Provided for This Section History and Physicals No Data Provided for This Section Vital Signs Vital Sign Value Date Comments Source Systolic (mm Hg) 101 02/01/2018 [facility] Diastolic (mm Hg) 58 02/01/2018 [facility] Systolic (mm Hg) 196 02/01/2018 [facility] Diastolic (mm Hg) 73 02/01/2018 [facility] Systolic (mm Hg) 190 02/01/2018 [facility] Diastolic (mm Hg) 75 02/01/2018 [facility] Temperature Oral (F) 98.4 F 02/01/2018 [facility] Heart Rate 60 02/01/2018 [facility] Respitory Rate 20 02/01/2018 [facility] Temperature Oral (F) 97.4 F 02/01/2018 [facility] Heart Rate 60 02/01/2018 [facility] Respitory Rate 20 02/01/2018 [facility] BMI Calculated 02/01/2018 [facility] Weight 46.449 02/01/2018 [facility] Height 152.4 cm 02/01/2018 [facility] Temperature Oral (F) 97.3 F 02/01/2018 [facility] Heart Rate 60 02/01/2018 [facility] Respitory Rate 18 02/01/2018 [facility] BMI Calculated 18.59 02/01/2018 [facility] Weight 43.182 02/01/2018 [facility] Height 152.4 cm 02/01/2018 [facility] Heart Rate 67 09/24/2016 [facility] Respitory Rate 18 09/24/2016 [facility] Systolic (mm Hg) 126 09/24/2016 [facility] Diastolic (mm Hg) 56 09/24/2016 [facility] Temperature Oral (F) 98.8 F 09/24/2016 [facility] Respitory Rate 18 09/24/2016 [facility] Respitory Rate 12 09/24/2016 [facility] Temperature Oral (F) 98.6 F 09/24/2016 [facility] Heart Rate 68 09/24/2016 [facility] Systolic (mm Hg) 111 09/24/2016 [facility] Diastolic (mm Hg) 55 09/24/2016 [facility] Systolic (mm Hg) 131 09/23/2016 [facility] Temperature Oral (F) 98.7 F 09/23/2016 [facility] Heart Rate 56 09/23/2016 [facility] Diastolic (mm Hg) 65 09/23/2016 [facility] Height 152.4 cm 09/14/2016 [facility] Weight 47.5 09/14/2016 [facility] BMI Calculated 20.45 09/14/2016 [facility] Systolic (mm Hg) 108 09/03/2016 [facility] Diastolic (mm Hg) 70 09/03/2016 [facility] Respitory Rate 15 09/03/2016 [facility] Height 152.4 cm 09/03/2016 [facility] Systolic (mm Hg) 154 09/03/2016 [facility] Diastolic (mm Hg) 73 09/03/2016 [facility] Respitory Rate 24 09/03/2016 [facility] Systolic (mm Hg) 170 09/03/2016 [facility] Diastolic (mm Hg) 81 09/03/2016 [facility] Respitory Rate 28 09/03/2016 [facility] Weight 48 0 09/03/2016 [facility] Temperature Oral (F) 98 F 09/03/2016 [facility] Weight 47.727 09/03/2016 [facility] Height 152.4 cm 09/03/2016 [facility] BMI Calculated 20.55 09/03/2016 [facility] Temperature Oral (F) 98.2 F 09/03/2016 [facility] Temperature Oral (F) 98 F 09/03/2016 [facility] Heart Rate 94 09/03/2016 [facility] Heart Rate 84 09/03/2016 [facility] Encounters Location Location Details Encounter Type Encounter Number Reason For Visit Attending Provider ADM Date DC Date Status Source [facility] Inpatient [id number] Olivia Long 09/03/2016 09/04/2016 [facility] [facility] [id number] Hank Thacker Jr 09/14/2016 09/24/2016 [facility] Observation [id number] Rakesh Mowla 02/01/2018 02/02/2018 [facility] Procedures Procedure Code Date Perfomer Comments Source Bypass [id number] 09/04/2016 [facility] Hysterectomy [id number] [facility] Operation [id number] [facility] [place] Assessment and Plan Assessment and [...] airspace disease and small left effusion. SL: [id number] Pelvis AP DX 02/01/2018 02:12 Impression: No [...] SCD. Dispo.: eLOS is 1-2 midnights. 02/02/2018 [facility] Extracted from:Title: Clinical Document Author: Sundar [...] (0-10) 0 09/24/16 Tutu Score 19 09/24/[address] [facility] Fall Score 9 Lines, Tubes, and Drains: [...] (SEP 18) L 8.0 (SEP 17) 09/24/2016 [facility] Plan of Care No Data Provided for This Section Social History Social History Date Source Social History TypeResponse Substance Abuse Use: None. Alcohol Never Smoking Status Never smoker; Exposure to Tobacco Smoke None; Cigarette Smoking Last 365 Days No; Reg Smoking Cessation Counseling No entered on: 02/01/18 11/15/2016 [facility] Social History TypeResponse Substance Abuse Use: None. Alcohol Never Smoking Status Never smoker; Exposure to Tobacco Smoke None; Cigarette Smoking Last 365 Days No; Reg Smoking Cessation Counseling No 09/03/2016 [facility] Family History No Data Provided for This Section Advance Directives No Data Provided for This Section Functional Status No Data Provided for This Section
--- OUTSIDE RECORDS SUMMARY | 2020-04-29 08:53 | XMS REPORT | Continuity of Care Document ---
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 BCBS COMMERCIALBCBS MEDICARE [id number] 2015- PresentCommercial [id number] 2016 00:00:00 [facility] MEDICAREMEDICARE A BxxxxxxxxxxxMedicare xxxxxxxxxxx [facility] BLUE CROSS/BLUE SHIELDBCBS INDEMNITY [place] [id number] [id number], [place] [address] xxxxxxxxxxxx [facility] Problems Condition Name Condition Details Condition Category Status Onset Date Resolution Date Last Treatment Date Treating Clinician Comments Source ACUTE HYPERKALEMIA, FACIAL ABRASION, FAC ACUTE HYPERKALEMIA, FACIAL ABRASION, FAC Active 02/01/[address] [facility] [place] [place] Diagnosis Active 2018-02-01 00:00:00 2018-02-21 11:46:00 [facility] FALL FALL Active 02/01/[address] [facility] [place] [place] Diagnosis Active 2018-02-01 00:00:00 2018-02-01 02:55:00 [facility] ESRD (end stage renal disease) ESRD (end stage renal disease) Disea se Active 2018-01-01 00:00:00 [facility] Presence of permanent cardiac pacemaker Presence of permanen t cardiac pacemaker Disease Active 2017-12-30 00:00:00 [facility] Dyspnea Dyspnea Disease Active 2017-12-28 00:00:00 [facility] Essential hypertension Essential hypertension Disease Active 2017-10-29 00:00:00 [facility] Sick sinus syndrome Sick sinus syndrome Disease Active 2017-10-08 00:00 :00 Overview: S/p Pacemaker 10/08/17 [facility] UNK UNK Active 11/02/2016 [facility] Diagnosis Active 2016-11-02 00:00:00 2017-01-16 10:50:00 [facility] [place] DEBILITY BRAD ESCOBAR Active 09/12/2016 [facility] Diagnosis Active 2016-09-12 00:00:00 2016-09-17 13:09:00 [facility] CORONARY ARTERY DISEASE ZAYRA NARY ARTERY DISEASE Active 09/11/2016 [facility] Diagnosis Active 2016-09-11 00:00:00 2017-03-03 16:44:0 0 [facility] Non-ST elevation myocardial infarction (NSTEMI), subse quent episode of care Non- ST elevation myocardial infarction (NSTEMI), subsequent episode of care Disease Active 2016-09-04 00:00:00 [facility] Multiple vessel coronary artery disease Multiple vessel zayra nary artery disease Disease Active 2016-09-04 00:00:00 [facility] 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, 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, NYHA class 4 Disease Active 2016-09-04 00:00:00 [facility] Ischemic cardiomyopathy Ischemic cardiomyopathy Disease Active 2016-09-04 00:00:00 [facility] RESP DISTRESS RESP DISTRESS Active 09/02/2016 [facility] Diagnosis Active 2016-09-02 00:00:00 2016-09-02 22:49:00 [facility] CHF EXACERBATION CHF EXACERBATION Active 09/02/2016 [facility] Diagnosis Active 2016-09-02 00:00:00 2016-09-07 07:23:00 [facility] Congestive heart failure Problem Active [facility] Acute congestive heart failure (disorder) Acute congestive heart failure (disorder) Active Problem 02/04/2018 [facility] Problem Active 2018-02-04 01:19:59 Darby Bedolla Acute non-ST segment elevation myocardial infarction ( disorder) Acute non-ST segment elevation myocardial infarction (disorder) Active Problem 02/04/2018 [facility] Problem Active 2018-02-04 01:19:59 [facility] Acute pulmonary insufficiency following thoracic surge ry (disorder) Acute pulmonary insufficiency following thoracic surgery (disorder) Active Problem 02/04/2018 [facility] Problem Active 2018-02-04 01:19:59 Nikki Bedolla Coronary arteriosclerosis (disorder) Coronary arteriosclerosis (disorder) Active Problem 02/04/2018 [facility] Problem Active 2018-02-04 01:19:59 Gamal jesenia [facility] Kidney disease (disorder) Kidn ey disease (disorder) Active Problem 02/04/2018 [facility] Problem Active 2018-02-04 01:19:59 Nikki Bedolla Disease of thyroid gland (disorder) Disease of thyroid gland (disorder) Active Problem 02/04/2018 [facility] Problem Active 2018-02-04 01:19:59 Darbyor ial [facility]eme 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) Active Problem 02/04/2018 [facility] Problem Active 2018-02-04 01: 19:59 Nikki Bedolla Hypertensive disorder, systemic arterial (disorder) Hypertensive disorder, systemic arterial (disorder) Active Problem 02/04/2018 [facility] Problem Active 2018-02-04 01: 19:59 Nikki Bedolla Injury of kidney (disorder) In jury of kidney (disorder) Active Problem 02/04/2018 [facility] Problem Active 2018-02-04 01:19:59 Nikki Bedolla Impaired mobility (finding) Im paired mobility (finding) Active Problem 02/04/2018 [facility] Problem Active 2018-02-04 01:19:59 Nikki Bedolla Platelet count below reference range (finding) Platelet count below reference range (finding) Active Problem 02/04/2018 [facility] Problem Active 2018-02-04 01:19:59 [facility] HEART FAILURE, UNSPECIFIED HEA RT FAILURE, UNSPECIFIED Active [facility] Diagnosis Active 2016-09-07 07:23:00 Nikki Bedolla WEAKNESS WEAK NESS Active [facility] Diagnosis Active 2016-09-17 13:09:00 Nikki Bedolla END STAGE RENAL DISEASE END STAGE RENAL DISEASE Active [facility] Diagnosis Active 2017-01-16 10:50:00 [facility] HYPERKALEMIA HYPE RKALEMIA Active [facility] [place] [place] Diagnosis Active 2018-02-21 11:46:00 Nikki Bedolla ABRASION OF OTHER PART OF HEAD, INITIAL ABRASION OF OTHER PART OF HEAD, INITIAL Active [facility] [place] [place] Diagnosis Active 2018-02-21 11:46:00 [facility] CONTUSION OF OTHER PART OF HEAD, INITIAL CONTUSION OF OTHER PART OF HEAD, INITIAL Active [facility] Diagnosis Active 2018-02-21 11:46:00 [facility] Allergies, Adverse Reactions, Alerts Allergy Name Allergy Type Status Severity Reaction(s) Onset Date Inacti ve Date Treating Clinician Comments Source Codeine Drug Intolerance Active Nausea And Vomiting 2016-09-03 00: 00:00 [facility] codeine codeine Active [facility] Family History Family Member Diagnosis Comments Start Date Stop Date Source Natural daughter Diabetes [facility] Natural son Diabetes [facility] Social History Social Habit Start Date Stop Date Quantity Comments Source Alcohol Comment socially not alot [facility] Sex Assigned At [facility] Social History 2016-09-03 11:01:11 2016-09-03 11:01:11 [facility] Smoking Status Start Date Stop Date Source Never smoker [facility] Ordered Medication Name Filled Medication Name Start Date Stop Da te Current Medication? Ordering Clinician Indication Dosage Frequency Signature (SIG) Comments Components Source Tramadol Hcl (Ultram) 50 Mg TABLET Tramadol Hcl (Ultram) 50 Mg TABLET 2020-03-24 14:42:00 Yes 50 Every 6 Ho urs as needed for Mild Pain (1-3) Or Fever>100.8 [facility] cholecalciferol, vitamin D3, 1,250 mcg (50,000 unit) Tab 2020-01-05 09:58:26 Yes 42561D Q7D Take 50,000 Units by mouth once a week. [facility] atorvastatin (LIPITOR) 40 MG tablet 2020-01-05 09:58:25 Yes 40mg QD Take 40 mg by mouth daily. [facility] cyanocobalamin, vitamin B-12, (VITAMIN B-12) 1000 MCG tablet 2020-01-05 09:58:25 Yes 5000ug QD Take 5,000 mcg by mouth daily . [facility] aspirin 81 MG EC tablet 2020-01-05 09:58:25 Yes 81mg QD Take 81 mg by mouth daily. [facility] TURMERIC ORAL 2020-01-05 09:58:25 Yes 1{tb l} QD Take 1 tablet by mouth daily. [facility] hydrocortisone (ANUSOL-HC) 2.5 % rectal cream 2020-01-05 09:58:[address]ally 2 (two) times daily. [facility] multivitamin per tablet 2020-01-05 09:58:25 Yes 1{tbl} QD Take 1 tablet by mouth daily. [facility] UNKNOWN 2020-01-05 09:58:02 2020-01-05 00:00:00 No Med Name: tumeric once a day . [facility] clopidogrel (PLAVIX) 75 mg tablet 2019-03-26 10:23:21 Yes 75mg QD Take 75 mg by mouth daily. [facility] pregabalin (LYRICA) 50 MG capsule 2019-03-19 00:00:00 2019 00:00:00 No TK ONE C PO BID [facility] losartan (COZAAR) 100 MG tablet 2019-02-23 00:00:00 Yes 100mg QD Take 100 mg by mouth daily. [facility] 2018-02-02 14:00:00 No Notes: (Louie e as: Cozaar) [facility] Synthroid 2018-02-02 11:30:00 No Notes: Take 1 hour before or 2 hours after meal; Enteral feeds may interefere with the absorption of this medication. (Same as:Synthroid, Levothroid) [facility] rosuvastatin 2018-02-02 02:00:00 No Notes: (Same As: Crestor) [facility] Nephro-[place] Rx 2018-02-01 18:00:00 No Notes: (Same as: Nephro-[place] Rx and Diatx) Give with food. [facility] Aspirin 81 MG Enteric Coated Tablet 2018-02-01 17:59:00 No Notes: Do not crush or chew. (Same As: Ecotrin) [facility] Hydralazine Hydrochloride 50 MG Oral Tablet 2018-02-01 [...] 09:11:00 No Notes: (Sa me As: Catapres) [facility] [place] Acetaminophen 325 MG / Hydrocodone Bitartrate 5 MG Oral Tabl et 2018-02-01 09:10:00 No Notes: (Sa me as: [place] 325/5) Do not exceed 4gm/day of acetaminophen. [facility] Morphine 2018-02-01 09:10:00 No Not es: (Same as: MORPhine Sulfate) [facility] [place] Acetaminophen 2018-02-01 09:10:00 No Notes: Do not exceed 4 gm/day. (Same as: Tylenol) [facility] Ondansetron 2018-02-01 09:10:00 No Notes: (Same as: Zofran) MEDICATION WASTE Product Size: 4 mg Product Wasted: ___ mg [facility] Calcium Gluconate 2018-02-01 08:08:00 No Notes: WASTE: F/P - Sink; E - Municipal Trash Bin [facility] Insulin regular 2018-02-01 08:08:00 No 60 units) WASTE: F/P - Black; E - Municipal Trash Bin Stable for 28 days at room temperature Expires in days from Date Chino spence [place] Dextrose 50% Syringe 2018-02-01 08:07:00 No 25 gm, 50 mL, Route: IVP, Drug Form: INJ, Dosing Weight 43.182, kg, ONCE, STAT, Start date: 02/01/18 3:07:00 CDT, Stop date: 02/01/18 3:07:00 CDT [facility] Metoprolol 2018-02-01 08:06:00 No Notes: (Same as: Lopressor) Push over 2 minutes [facility] [place] Zofran ODT 2018-02-01 07:04:00 No Notes: (S karla as: Zofran ODT) [facility] Saline Flush 0.9% 2018-02-01 07:04:00 No Notes: Same as: BD Posiflush Sterile [facility] folic acid-multivitamins (B COMPLEX-VITAMIN C-FOLIC ACID) 0. 8 mg Tab tablet 2018-01-03 00:00:00 2020-01-05 00:00:00 No 1{tbl} QD Take 1 tablet by mouth daily. [facility] acetaminophen (TYLENOL) 325 MG tablet 2017-10-08 08:49:37 Y es 650mg Take 650 mg by mouth every 6 (six) hours as needed for Pain. [facility] 2016-09-24 18:44:00 Yes See Instructions, Diagnosis CAD with CHF s/p CABG. Evaluate and treat as per [facility] Cardiac rehab program, # 1 ea, 0 Refill(s) [facility] pantoprazole 40 MG Enteric Coated Tablet [Protonix] 09-24 14:33:00 Yes 40 mg = 1 tab, P O, Daily, # 30 tab, 0 Refill(s), Pharmacy: [facility] [address] Nephro-[facility] Rx oral tablet 2016-09-24 14:33:00 Yes 1 tab, PO, Daily, # 30 tab, 0 Refill(s), Pharmacy: [address] Levothyroxine Sodium 0.075 MG Oral Tablet [Synthroid] 2016-09-24 14:33:00 Yes 75 microgram = 1 tab, PO, Q630AM, # 30 tab, 0 Refill(s), Pharmacy: [facility] [address] atorvastatin 80 MG Oral Tablet [Lipitor] 2016-09-24 14:33:00 Yes 80 mg = 1 tab, PO, Bedtime, # 30 tab, 0 Refill(s), Pharmacy: [facility] [address] aspirin 81 mg tablet, enteric coated 2016-09-24 14:33:00 Ye s 81 mg = 1 tab, PO, Daily, # 30 tab, 0 Refill(s), Pharmacy: [facility] [address] Furosemide 40 MG Oral Tablet 2016-09-24 14:33:00 Yes 40 mg = 1 tab, PO, Daily, # 30 tab, 0 Refill(s), Pharmacy: [facility] [id number] Nikki Bedolla carvedilol 3.125 mg oral tablet 2016-09-24 14:33:00 Yes 3.125 mg = 1 tab, PO, Q12H, # 60 tab, 0 Refill(s), Pharmacy: [facility] [id number] Nikki Bedolla Calcium Carbonate 500 MG Chewable Tablet 2016-09-24 14:33:00 Yes 500 mg = 1 tab, CHEW, TID, PRN Nausea, 0 Refill(s) Nikki Bedolla acetaminophen 325 mg oral tablet 2016-09-24 14:33:00 Yes 100.4 F, 0 Refill(s) Nikki Bedolla senna 8.6 mg oral tablet 2016-09-24 14:33:00 Yes 17.2 mg = 2 tab, PO, Bedtime, X 14 day, # 28 tab, 0 Refill(s), Pharmacy: [facility] [id number] Nikki Bedolla cetirizine 2016-09-21 15:00:00 No Notes: [...] Weight 47.5, kg, Start date: 09/20/16 17:00:00 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 [place] Docusate Sodium 100 MG Oral Capsule [Colace] 2016-09-16 20:26:00 No Notes: (Same as: Colace) (Do Not Crush) Nikki [place] Coreg 2016-09-16 15:00:00 No Notes: Give with [...] Blood Glucose Results, Start date: 09/15/16 13:27:00 FARM OPERATIONS MANAGER, Duration: 30 day, Stop date: 10/15/16 14:26:00 CDT Nikki Bedolla Dextrose 50% Syringe 2016-09-15 19:27:00 No 25 gm, 50 mL, Route: IVP, Drug Form: INJ, Dosing Weight 47.5, kg, PRN, PRN Blood Glucose Results, Start date: 09/15/16 13:27:00 FARM OPERATIONS MANAGER, Duration: 30 day, Stop date: 10/15/16 14:26:00 CDT [facility] Insulin, Aspart, Human 2016-09-15 19:27:00 No Notes: Roll in palms of hands gently; Do not shake vigorously. (Same as: NovoLOG) "single patient use only" WASTE: F/P - Black; E - Municipal Trash Bin Stable for 28 days at room temperature. Expires in days from Date Nikki [place] aspirin 81 mg tablet, enteric coated 2016-09-15 15:00:00 No Notes: Do not crush or chew. (Same As: Ecotrin) [facility] Protonix 2016-09-15 15:00:00 No Notes: Tablet should not be chewed or crushed. (Same as: Protonix) [facility] Nephro-[place] Rx 2016-09-15 15:00:00 No Notes: (Same [...] Not to exceed 400mg/day. (Same As: Ultram) [facility] Saline Flush 0.9% 2016-09-14 20:43:00 No Notes: (Same as: BD Posiflush) Nikki Bedolla Trazodone 2016-09-14 20:43:00 No Notes: (Sa me As: Desyrel) Nikki Bedolla pantoprazole (PROTONIX) 40 MG tablet 2016-09-14 00:00:00 Ye s 40mg QD Take 1 tablet (40 mg total) by mouth daily. [facility] Lipitor 2016-09-04 03:00:00 No Notes: (Same as: Lipitor) Nikki Riveraann metoprolol tartrate 2016-09-04 03:00:00 No Notes: (Same as: Lopressor) [facility] chlorhexidine gluconate 1.2 MG/ML Mouthwash 2016-09-04 03:00:00 No Notes: (Same As: Peridex) [facility] Brilinta 2016-09-04 03:00:00 No Notes: (Louie e as: Brilinta) [facility] ocular lubricant 2016-09-04 00:00:00 No Notes: (Same as: Duratears Naturale and Artificial Tears, Tears Again ) [facility] heparin additive 25,000 unit [12 unit/kg /hr] + Premix Diluent Dextrose 5% 500 mL 2016-09-03 23:44:00 No 500 mL, Rate: 11.52 ml/hr, Infuse over: 43.4 hr, Route: IV, Dosing Weight 48 kg, Total Volume: 500 mL, Start date: 09/03/16 17:44:00 FARM OPERATIONS MANAGER, Duration: 30 day, Stop date: 10/03/16 17:43:00 CDT [facility] Heparin 60 unit/kg Bolus (Heparin Dosing Weight) 2016-09-03 23:4 4:00 No Pharmacy To Manage, Route: I CONSTRUCTION PROJECT ENGINEER, PRN, Drug form: INJ, PRN, Heparin Protocol, Start date: 09/03/16 17:44:00 FARM OPERATIONS MANAGER Stop date: 10/03/16 18:43:00 CDT, 30 day [facility] Heparin 30 unit/kg Bolus (Heparin Dosing Weight) 2016-09-03 23:4 4:00 No Pharmacy To Manage, Route: I CONSTRUCTION PROJECT ENGINEER, PRN, Drug form: INJ, PRN, Heparin Protocol, Start date: 09/03/16 17:44:00 FARM OPERATIONS MANAGER Stop date: 10/03/16 18:43:00 CDT, 30 day [facility] Acetylcysteine 200 MG/ML Inhalant Solution 2016-09-03 23:00:00 No 600 mg, 3 mL, Route: PO, Drug form: SOLN, BID, Dosing Weight 47.727, kg, Start date: 09/03/16 17:00:00 FARM OPERATIONS MANAGER, Duration: 3 day, Stop date: 09/06/16 9:00:00 FARM OPERATIONS MANAGER [facility] levothyroxine (SYNTHROID, LEVOTHROID) 75 MCG tablet 09-03 21:53:48 Yes 75ug Take 75 mcg by mouth Every morning on an empty stomach. [facility] chlorhexidine gluconate 1.2 MG/ML Mouthwash 2016-09-03 21:48:00 No Notes: (Same As: Peridex) [facility] [place] nn Etomidate 2016-09-03 21:45:00 No 10 mg, Route: IVP, ONCE, Dosing Weight 48, kg, Priority: STAT, Start date: 09/03/16 15:45:00 FARM OPERATIONS MANAGER, Stop date: 09/03/16 15:45:00 FARM OPERATIONS MANAGER [facility] Propofol 2016-09-03 21:45:00 No 40 mg, Route: IVP, ONCE, Dosing Weight 48, kg, Priority: STAT, Start date: 09/03/16 15:45:00 FARM OPERATIONS MANAGER, Stop date: 09/03/16 15:45:00 FARM OPERATIONS MANAGER [facility] Saline Flush 0.9% 2016-09-03 21:45:00 No Notes: (Same as: BD Posiflush) [facility] Fentanyl 2016-09-03 21:36:00 No Notes: Concentration: 5 microgram / ml [facility] Midazolam 2016-09-03 21:36:00 No Notes: (Sa me as: Versed) [facility] Lasix 2016-09-03 21:29:00 No Notes: (Same as: Lasix) MEDICATION WASTE Product Size: 40 mg Product Wasted: ___ mg [facility] Heparin 60 unit/kg Bolus (Heparin Dosing Weight) 2016-09-03 18:4 3:00 No Route: IVP, PRN, 2,900 unit, 2.9 mL, Drug form: INJ, PRN, Heparin Protocol, Start date: 09/03/16 12:43:00 FARM OPERATIONS MANAGER Stop date: 10/03/16 13:42:00 CDT, 30 day [facility] Heparin - one time bolus for ACS 2016-09-03 18:43:00 No 5,000 unit, Route: IVP, Drug form: INJ, ONCE, Dosing Weight 47.727, kg, Priority: STAT, Start date: 09/03/16 12:43:00 FARM OPERATIONS MANAGER, Stop date: 09/03/16 12:43:00 FARM OPERATIONS MANAGER [facility] heparin additive 25,000 unit [12 unit/kg /hr] + Premix Diluent Dextrose 5% 500 mL 2016-09-03 18:43:00 No 500 mL, Rate: 11.52 ml/hr, Infuse over: 43.4 hr, Route: IV, Dosing Weight 48 kg, Total Volume: 500 mL, Start date: 09/03/16 12:43:00 FARM OPERATIONS MANAGER, Duration: 30 day, Stop date: 10/03/16 12:42:00 CDT [facility] Heparin 30 unit/kg Bolus (Heparin Dosing Weight) 2016-09-03 18:4 3:00 No Route: IVP, PRN, 1,400 unit, 1.4 mL, Drug form: INJ, PRN, Heparin Protocol, Start date: 09/03/16 12:43:00 FARM OPERATIONS MANAGER Stop date: 10/03/16 13:42:00 CDT, 30 day [facility] Aspirin 325 MG Oral Tablet 2016-09-03 16:21:00 No Notes: Take with food. [facility] Brilinta 2016-09-03 16:20:00 Yes Notes: (Louie e as: Nelida) [facility] Sodium Chloride 0.154 MEQ/ML Injectable Solution 2016-09-03 16:2 0:00 No 250 mL, Rate: 100 ml/hr, Inf use over: 2.5 hr, Route: IV, Dosing Weight 47.727 kg, Total Volume: 250, Start date: 09/03/16 10:20:00 FARM OPERATIONS MANAGER, Duration: 30 day, Stop date: 10/03/16 10:19:00 T [facility] Nitroglycerin 0.02 MG/MG Topical Ointment 2016-09-03 15:00:00 No 1 inch, Route: TOP, Drug Form: OINT, Dosing Weight 47.727, kg, TID, Start date: 09/03/16 9:00:00 FARM OPERATIONS MANAGER, Duration: 30 day, Stop date: 10/02/16 17:00:00 T [facility] heparin 2016-09-03 15:00:00 No Notes: porci ne heparin [facility] Lasix 2016-09-03 15:00:00 No Notes: (Same as: Lasix) MEDICATION WASTE Product Size: 40 mg Product Wasted: ___ mg [facility] Hydralazine Hydrochloride 25 MG Oral Tablet 2016-09-03 [...] Weight 47.727, kg, Start date: 09/03/16 4:11:00 FARM OPERATIONS MANAGER, Stop date: 09/03/16 4:11:00 FARM OPERATIONS MANAGER Nikki Riveraann Nitroglycerin 2016-09-03 09:28:00 No Notes: (Same as:Tridil) Final conc = 0.4 mg/ml. Premix bottle. Darbydeisi [facility] Aspirin 325 MG Oral Tablet 2016-09-03 09:20:00 No 325 mg, 1 tab, Route: PO, ONCE, Dosing Weight 47.727, kg, Start date: 09/03/16 3:20:00 FARM OPERATIONS MANAGER, Stop date: 09/03/16 3:20:00 FARM OPERATIONS MANAGER [facility] potassium chloride 2016-09-03 08:37:00 No Notes: (Same as: KCL) Infuse no faster than 10 mEq/hr if given peripherally. [facility] potassium chloride 2016-09-03 08:36:00 No Notes: (Same as: K-Dur 20) "Do Not Crush" With food and full glass of water [facility] [place] Ondansetron 2016-09-03 08:12:00 No Notes: (Same as: Zofran) MEDICATION WASTE Product Size: 4 mg Product Wasted: ___ mg [facility] Morphine 2016-09-03 08:12:00 No Not es: (Same as:MORPhine Sulfate) [facility] Docusate 2016-09-03 08:12:00 No Notes: (Same as: Colace) (Do Not Crush) Nikki [place] Acetaminophen 325 MG / Hydrocodone Bitartrate 5 MG Oral Tabl et 2016-09-03 08:12:00 No Notes: (Sa me as: [place] 325/5) Do not exceed 4gm/day of acetaminophen. Nikki Bedolla Nitroglycerin 0.02 MG/MG Topical Ointment 2016-09-03 07:21:00 No 1 inch, Route: TOP, Drug Form: OINT, Dosing Weight 47.727, kg, ONCE, Start date: 09/03/16 1:21:00 FARM OPERATIONS MANAGER, Stop date: 09/03/16 1:21:00 FARM OPERATIONS MANAGER Nikki Bedolla Nitroglycerin 2016-09-03 07:15:00 No 2 %, Route: TOP, Drug form: OINT, ONCE, Dosing Weight 62.005, kg, Start date: 09/03/16 1:15:00 FARM OPERATIONS MANAGER, Stop date: 09/03/16 1:15:00 FARM OPERATIONS MANAGER Nikki lowry Zofran 2016-09-03 07:06:00 No 4 mg, Route: IVP, Drug form: INJ, ONCE, Dosing Weight 62.005, kg, Priority: STAT, Start date: 09/03/16 1:06:00 FARM OPERATIONS MANAGER, Stop date: 09/03/16 1:06:00 FARM OPERATIONS MANAGER [facility] or[facility] [place] Nitroglycerin 0.4 MG Sublingual Tablet 2016-09-03 07:06:00 No Notes: (Same as:Nitroquick, Nitrostat) "Do Not Crush" Sublingual tablet Nikki Bedolla Albuterol 0.833 MG/ML / Ipratropium Brom ezequiel 0.167 MG/ML Inhalant Solution [DuoNeb] 2016-09-03 05:38:00 No Notes: (S karla as: Duoneb) Nikki Bedolla Albuterol 0.833 MG/ML / Ipratropium [place] 0.167 MG/ML Inha lant Solution 2016-09-03 05:28:00 [...] 1 tab, PO, Daily, 0 Refill(s) [facility] Levothyroxine Sodium 0.075 MG Oral Tablet [Synthroid] 2016-09-03 04:28:00 Yes 75 microgram = 1 tab, PO, Q630AM, 0 Refi ll(s) [facility] Furosemide 20 MG Oral Tablet 2016-09-03 04:27:00 Yes 40 mg = 2 tab, PO, Daily, 0 Refill(s) [facility] Amoxicillin Amoxicillin Yes 875 Twice A Day [facility] Folic Acid/Cyanocob/Pyridoxine (Nephro-Kenyon Tablet) 1 Ea TAB Folic Acid/Cyanocob/Pyridoxine (Nephro-Kenyon Tablet) 1 Ea TAB Yes 1 Daily [facility] Furosemide (Lasix) 20 Mg TABLET Furosemide (Lasix) 20 Mg TABLET Yes 40 Daily [facility] Hydralazine Hcl Hydralazine Hcl Yes 25 Twice A Day [facility] Levothyroxine Sodium (Synthroid) 75 Mcg TAB Levothyrox ine Sodium (Synthroid) 75 Mcg TAB Yes 75 [facility] Telmisartan (Micardis) 40 Mg TAB Telmisartan (Micardis) 40 Mg TA B 2016-08-13 00:00:00 No 80 Daily [facility] Vital Signs Vital Name Observation Time Observation Value Comments Source Weight 2020-03-24 12:01:00 109 [lb_av] [facility] BMI (Body Mass Index) 2020-03-24 12:01:00 21.3 kg/m2 [facility] Systolic blood pressure 2020-01-05 09:45:00 181 mm[Hg] [facility] Diastolic blood pressure 2020-01-05 09:45:00 78 mm[Hg] [facility] Heart rate 2020-01-05 09:45:00 89 /min [facility] Body temperature 2020-01-05 09:45:00 36.67 Alia [facility] Respiratory rate 2020-01-05 09:45:00 14 /min [facility] Body height 2020-01-05 09:45:[address] [facility] Body weight Measured 2020-01-05 09:45:00 47.174 kg [facility] BMI 2020-01-05 09:45:00 22.51 kg/m2 [facility] Oxygen saturation in Arterial blood by Pulse oximetry 01-04 09:45:00 98 /min [facility] Systolic (mm Hg) 2018-02-01 23:05:00 [facility] [place] Diastolic (mm Hg) 2018-02-01 23:05:00 [facility] Systolic (mm Hg) 2018-02-01 18:50:00 [facility] [place] Diastolic (mm Hg) 2018-02-01 18:50:00 [facility] [place] Systolic (mm Hg) 2018-02-01 18:49:00 [facility] [place] Diastolic (mm Hg) 2018-02-01 18:49:00 [facility] Temperature Oral (F) 2018-02-01 17:23:00 98.4 F [facility] Heart Rate 2018-02-01 17:23:00 [facility] Respitory Rate 2018-02-01 17:23:00 [facility] Temperature Oral (F) 2018-02-01 13:00:00 97.4 F [facility] Heart Rate 2018-02-01 13:00:00 [facility] Respitory Rate 2018-02-01 13:00:00 [facility] [place] BMI Calculated 2018-02-01 11:33:00 [facility] [place] Weight 2018-02-01 11:33:00 [facility] Height 2018-02-01 11:33:00 152.4 cm [facility] Temperature Oral (F) 2018-02-01 11:32:00 97.3 F [facility] Heart Rate 2018-02-01 11:32:00 [facility] Respitory Rate 2018-02-01 11:32:00 [facility] BMI Calculated 2018-02-01 06:59:00 [facility] Weight 2018-02-01 06:59:00 [facility] Height 2018-02-01 06:59:00 152.4 cm [facility] Heart Rate 2016-09-24 13:30:00 [facility] Respitory Rate 2016-09-24 13:30:00 [facility] Systolic (mm Hg) 2016-09-24 13:30:00 [facility] [place] Diastolic (mm Hg) 2016-09-24 13:30:00 [facility] [place] Temperature Oral (F) 2016-09-24 13:30:00 98.8 F [facility] Respitory Rate 2016-09-24 13:10:00 [facility] Respitory Rate 2016-09-24 02:59:00 [facility] Temperature Oral (F) 2016-09-24 02:15:00 98.6 F [facility] Heart Rate 2016-09-24 02:15:00 [facility] Systolic (mm Hg) 2016-09-24 02:15:00 [facility] [place] Diastolic (mm Hg) 2016-09-24 02:15:00 [facility] Systolic (mm Hg) 2016-09-23 20:00:00 [facility] [place] Temperature Oral (F) 2016-09-23 20:00:00 98.7 F [facility] Heart Rate 2016-09-23 20:00:00 [facility] Diastolic (mm Hg) 2016-09-23 20:00:00 [facility] [place] Height 2016-09-14 22:19:00 152.4 cm [facility] Weight 2016-09-14 22:19:00 [facility] BMI Calculated 2016-09-14 22:19:00 [facility] Systolic (mm Hg) 2016-09-03 21:45:00 [facility] [place] Diastolic (mm Hg) 2016-09-03 21:45:00 [facility] [place] Respitory Rate 2016-09-03 21:45:00 [facility] Height 2016-09-03 21:45:00 152.4 cm [facility] Systolic (mm Hg) 2016-09-03 21:30:00 [facility] [place] Diastolic (mm Hg) 2016-09-03 21:30:00 [facility] [place] Respitory Rate 2016-09-03 21:30:00 [facility] [place] Systolic (mm Hg) 2016-09-03 21:15:00 [facility] [place] Diastolic (mm Hg) 2016-09-03 21:15:00 [facility] Respitory Rate 2016-09-03 21:15:00 [facility] Weight 2016-09-03 20:53:00 [facility] Temperature Oral (F) 2016-09-03 12:02:00 98 F [facility] Weight 2016-09-03 07:15:00 [facility] Height 2016-09-03 07:15:00 152.4 cm [facility] BMI Calculated 2016-09-03 07:15:00 [facility] [place] Temperature Oral (F) 2016-09-03 07:03:00 98.2 F [facility] Temperature Oral (F) 2016-09-03 04:22:00 98 F [facility] Heart Rate 2016-09-03 04:22:00 [facility] Heart Rate 2016-09-03 03:43:00 [facility] Procedures Procedure Date / Time Performed Performing Clinician [facility] e X-ray of chest, single view 2020-03-24 00:00:00 [facility] PET CT SKULL BASE TO MID THIGH 2020-01-28 11:44:18 Yancy Castellanos POC GLUCOSE 2020-01-28 10:23:00 Ronn Castellanos hodist ECG 12-LEAD 2020-01-05 10:36:07 Unknown, Hl7 [facility] VEIN MAPPING ARM/ARMS 2019-12-29 13:24:00 Darin Ray [facility] US DUPLEX VENOUS LOWER EXTREMITY REFLUX BILATERAL 2019-10-01 15:16:00 Abdoulaye Diehl Bypass 2016-09-04 06:00:00 [facility] Hy[facility] Operation [facility] Plan of Care Planned Activity Planned Date Details Comments Source Future Scheduled Test 2020-03-22 00:00:00 INFLUENZA VACCINE (#1) [code = INFLUENZA VACCINE (#1)] [facility] r Future Scheduled Test 2020-02-20 00:00:00 INFLUENZA VACCINE [code = INFLUENZA VACCINE] Jh Ortiz Future Scheduled Test 2008-02-21 00:00:00 MEDICARE ANNUAL WE LLNESS (YEAR 2 or FIRST YEAR if no IPPE) [code = MEDICARE ANNUAL WELLNESS (YEAR 2 or FIRST YEAR if no IPPE)] [facility] r Future Scheduled Test 2007 00:00:00 65+ PNEUMOCOCCAL V ACCINE (1 of 1 - PPSV23) [code = 65+ PNEUMOCOCCAL VACCINE (1 of 1 - PPSV23)] [facility] Future Scheduled Test 2007 00:00:00 PNEUMOCOCCAL 65+ L OW/MEDIUM RISK (1 of 2 - PCV13) [code = PNEUMOCOCCAL 65+ LOW/MEDIUM RISK (1 of 2 - PCV13)] [facility] Future Scheduled Test 1992-02-29 00:00:00 SHINGLES VACCINES (#1) [code = SHINGLES VACCINES (#1)] [facility] Instructions Sling-Wearing [facility] Instructions Fractures - Elbow [facility] Instructions Fractures - Humerus [facility] Instructions RICE Therapy [facility] Encounters Start Date/Time End Date/Time Encounter Type Admission Type Attendi [facility] Care Department Encounter ID Source 2020-03-24 12:13:00 2020-03-24 15:07:00 Departed Emergency Room 1 SHARITABRETTLUZMARIA [facility] [id number] I [facility] 2020-01-28 00:00:00 2020-01-28 00:00:00 Outpatient YANCY CASTELLANOS [facility] [id number] [facility] 2019-10-01 00:00:00 2019-10-01 00:00:00 Outpatient ABDOULAYE DIEHL [facility] [id number] [facility] 2018-02-01 01:57:00 2018-02-01 20:15:00 [id number] 2016-09-14 14:30:00 2016-09-24 14:14:00 Outpatient Hank Thacker [facility] [id number] 2016-09-02 21:41:00 2016-09-03 18:44:00 Outpatient Katrina Long [facility] [id number] Results Test Description Test Time Test Comments Results Result Comments Source CHEST SINGLE (PORTABLE) 2020-04-29 08:29:00 [place] [address] Patient Name: SARAH MAGANA I MR #: [id number] : 1940 Age/Sex: 80/F Req #: [id number] Adm Physician: Ordered by: LOTUS ACKERMAN MD Report #: [id number] Location: ER Room/Bed: Procedure: [id number] DX/CHEST SINGLE (PORTABLE) Exam Date: 04/29/20 Exam [...] on 04/29/2020 8:33 AM Dictated By: SENIA MARSHALL MD 2 Transcribed By: DESI on 04/29/20832 COPY TO: LOTUS ACKERMAN MD FOOT RIGHT COMPLETE 2020-03-24 13:23:00 [facility] [address] [address] Patient Name: SARAH MAGANA I MR #: [id number] : 1940 Age/Sex: 80/F Req #: [id number] [facility] Physician: Ordered by: LUZMARIA HOWARD DO Report #: [id number] Location: ER Room/Bed: Procedure: [id number] DX/FOOT RIGHT COMPLETE Exam Date: 03/24/20 Exam [...] DO KNEE RIGHT THREE VIEWS 2020-03-24 13:23:00 [place] [address] Patient Name: SARAH MAGANA I MR #: [id number] : 1940 Age/Sex: 80/F Req #: [id number] Adm Physician: Ordered by: LUZMARIA HOWARD DO Report #: [id number] Location: ER Room/Bed: Procedure: DX/KNEE RIGHT THREE [...] RIGHT 2-3 VW (+/- PELVIS) 2020-03-24 13:23:00 [place] [address] Patient Name: SARAH MAGANA I MR #: [id number] : 1940 Age/Sex: 80/F Req #: [id number] Adm Physician: Ordered by: LUZMARIA HOWARD DO Report #: [id number] Location: ER Room/Bed: Procedure: DX/HIP RIGHT 2-3 [...] HOWARD DO ELBOW RIGHT COMPLETE 2020-03-24 13:18:00 [place] [address] Patient Name: SARAH MAGANA I MR #: [id number] : 1940 Age/Sex: 80/F Req #: [id number] [facility] Physician: Ordered by: LUZMARIA HOWARD DO Report #: [id number] Location: ER Room/Bed: Procedure: [id number] DX/ELBOW RIGHT COMPLETE Exam Date: 03/24/20 Exam [...] DO FOREARM RIGHT 2 VIEW 2020-03-24 13:18:00 [place] [address] Patient Name: SARAH MAGANA I MR #: [id number] : 1940 Age/Sex: 80/F Req #: [id number] Adm Physician: Ordered by: LUZMARIA HOWARD DO Report #: [id number] Location: ER Room/Bed: Procedure: [id number] DX/FOREARM RIGHT 2 VIEW Exam Date: 03/24/20 [...] HOWARD DO SHOULDER RIGHT COMPLETE 2020-03-24 13:18:00 [place] [address] Patient Name: SARAH MAGANA I MR #: [id number] : 1940 Age/Sex: 80/F Req #: [id number] Adm Physician: Ordered by: LUZMARIA HOWARD DO Report #: [id number] Location: ER Room/Bed: Procedure: [id number] DX/SHOULDER RIGHT COMPLETE Exam Date: 03/24/20 Exam [...] DO CHEST SINGLE (NOT PORTABLE) 2020-03-24 13:15:00 [place] [address] Patient Name: SARAH MAGANA I MR #: [id number] : 1940 Age/Sex: 80/F Req #: [id number] Adm Physician: Ordered by: LUZMARIA HOWARD DO Report #: [id number] Location: ER Room/Bed: Procedure: [id number] DX/CHEST SINGLE (NOT PORTABLE) Exam Date: 03/24/20 [...] lower lobe. Follow-up CT can be obtained. [facility]-[id number] [facility] POC glucose 2020-01-28 10:33:58 Test Item POC glucose (test code = 70788-9) 101 mg/dL 65-99 H Human Resources Advisor Name: Dany SteelJimborachel ID: [id number] Lab Interpretation (test code = 61125-9) Abnormal Corwith AngelECG 12 temm7476-31-39 12:39:00Interface, External Ris In 01/05/2020 12:39 PM CDTVentricular Rate 62 BPMAtrial Rate 64 BPMP-R Interval 220 msQRS Duration 108 msQ-T Interval 444 msQTC Calculation(Bazett) 450 msP Pipestem 136 degreesR Pipestem 74 degreesT Pipestem 243 degreesAtrial-paced rhythm with prolonged AV conductionIncomplete left bundle branch blockLeft ventricular hypertrophy with repolarization abnormalityAbnormal ECGWhen compared with ECG of 28-DEC-2017 15:43,Electronic atrial pacemaker has replaced Sinus rhythmVent. rate has decreased BY 30 BPMST depression and Inverted T waves have replaced nonspecific T wave abnormality in Inferior leadsConfirmed by MD STANLEY, LEORA ([id number]) on 01/05/2020 12:38:58 [facility]/clye5350-42-81 11:09:10Ejection FractionSLEH ECHO HEARTLAB MKCKESSON CPACSRight Impression1. [...] 12/29/2019 FELIPE Ko Age 79 Visit Number [id number] Gender Female Accession Number [id number] Date of 1940 Referring [facility] Physician MD Cory Armature Connector Rosie Souza [facility] Physician JOSIAS Meza ProcedureType of Study: Veins: Upper Extremity Vein Mapping, VEIN MAPPING ARM/ARMS. Indications for Study:AV access placement .Patient Status:Routine.[facility] Location:Vascular Lab.Technical Quality:Adequate visualization.Risk FactorsH istory of [...] venous measure ments are documented below. Signature Electronically signed by Chuyita Hui MD([facility] physician) on 12/30/2019 11:09 AM Velocities are measured in cm/s ; Diameters [...] + + + + + + [facility] [id number] 17:47:000.04[facility] HZWEVVT5880-15-76 17:47:0060[facility] LmnauojGDMIHPQDLL6879-15-68 17:47:00Negative *NA*(02/01/18 12:47 PM)[facility] FYWRVTX2837-20-17 13:21:000.03[facility]ann[facility] GONFZSX8010-23-45 13:21:0065[facility] CHEM CQLRY8663-19-31 13:21:008[facility]annCHEM WWOOJ0943-41-58 13:21:007.9 [facility]ann[facility] NFRAY8905-38-37 13:21:0025[facility]annCHEM PANEL 2018-02-01 13:21:0015.9[facility]annCHEM PWYHI4583-70-88 13:21:005.9[facility]annCHEM HJEFT5375-85-69 13:21:91069Oqerqwex HermannCHEM JQAOD8703-34-63 13:21:004.84[facility] HermannCHEM CWZWF1753-90-70 13:21:04632Icmfazwr HermannCHEM PHDMD3069-85-25 13:21:07758Aymefleb HermannCHEM MFBMJ7705-90-28 13:21:0043 [facility] EYQJA3403-05-16 11:29:00* Test Item Value Reference Range Interpretation Comments UA pH (test code = UA pH) 8.5 1 5.0-8.0 [facility] HYCJE8896-17-14 11:29:00* Test Item Value Reference Range Interpretation Comments UA Spec Grav (test code = UA Spec Grav) 1.009 1 [facility] [id number] 11:29:00Clear (02/01/18 6:29 AM) [facility] LHSLE2213-83-42 11:29:00Yellow *NA*(02/01/18 6:29 AM) [facility] [id number] 11:29:00Negative (02/01/18 6:29 AM) [facility] XQFXO3605-72-41 11:29:00Negative *NA*(02/01/18 6:29 AM) [facility] [id number] 11:29:00Negative (02/01/18 6:29 AM) [facility] EULVD0860-75-75 11:29:00Negative (02/01/18 6:29 AM) [facility] MRIAI1535-65-67 11:29:001[facility] VYFIB6644-20-17 11:29:001[facility] THVFB6154-94-11 11:29:001 [facility] KCTKJOG1911-80-68 07:13:00Positive 1(02/01/18 2:13 AM) [facility]annCARDIAC TMAGNIL8178-14-31 07:13:000.04[facility]annCHEM PANEL 2018-02-01 07:13:00* Test Item Value Reference Range Interpretation Comments A/G Ratio (test code = A/G Ratio) 0.8 1 0.7-1.6 [facility]ann[facility] [id number] 07:13:003.9[facility]annCHEM PANEL 2018-02-01 07:13:00* Test Item Value Reference Range Interpretation Comments B/C Ratio (test code = B/C Ratio) 9 1 6-25 [facility]annCHE[facility] [id number] 07:13:0014.0[facility]annCHEM PANEL 2018-02-01 07:13:008[facility]annCHEM CFTQF9996-84-25 07:13:97781Welfitup HermannCHEM DGIDK7944-65-05 07:13:000.4[facility] HermannCHEM ITMCG2433-72-16 07:13:0015[facility] HermannCHEM YJVXM7594-61-56 07:13:003.2[facility] HermannCHEM LCYMK4803-63-54 07:13:0030[facility]annCHEM SFIUM8429-80-94 07:13:007.1 [facility]annCHE[facility] NYDTT9731-48-93 07:13:007.9[facility] HermannCHEM PANEL 2018-02-01 07:13:97049Kskivmvr HermannCHEM CPOMD2155-05-73 07:13:0026[facility]annCHEM HRNLH6539-12-84 07:13:006.0[facility]annCHEM UKKRQ9354-54-18 07:13:32651Rlhiqmug HermannCHEM NETRK1574-12-59 07:13:004.72[facility] HermannCHEM NPLKM4270-32-83 07:13:0043[facility] HermannCHEM BKGHP4064-03-43 07:13:0091 Memorial IormacmKASABVKWPB4135-94-11 07:13:005.5[facility] HermannHEMATOLOGY 2018-02-01 07:13:009.4[facility] JrbpebrQMOAUZGAEJ0492-38-39 07:13:005.0[facility] VmsndknOSMARXYRIU2026-07-93 07:13:001.1[facility]orial KkphtexWSAWWDACZQ4653-35-21 07:13:000.8[facility]orial LmlhzcrZCBJNVPPMH1645-27-31 07:13:001.4[facility] WBSPLKWBET8674-19-04 07:13:000.1[facility]orial WfobdrlORNXCDEUYY9634-71-63 07:13:000.4 Memorial DufbsbkUIZULBBBFG7284-64-29 07:13:0016.9[facility] HermannHEMATOLOGY 2018-02-01 07:13:0067.6[facility]orial UppkqdpFCFRDSZZGV2975-15-31 07:13:00* Test Item Value Reference Range Interpretation Comments PTT (test code = PTT) 29.1 s 22.9-35.8 [facility] EscynidNIUVXNFAQL2604-59-21 07:13:00* Test Item Value Reference Range Interpretation Comments INR (test code = INR) 1.05 1 0.85-1.17 [facility] LzkapuxWWMWPXCHQD6955-91-19 07:13:00* Test Item Value Reference Range Interpretation Comments PT (test code = PT) 13.7 s 12.0-14.7 [facility] JybbwinONQIJTPPRE4360-24-93 07:13:0011.2[facility] HermannHEMATOLOGY 2018-02-01 07:13:0095.4[facility]orial SlkvydfNPRMMRLLOX9845-71-99 07:13:0034.1[facility]orial IrujcxqZQNXJCGLPU1242-26-76 07:13:0032.7[facility]orial ZrcaquaFICPZRFXTD8824-15-93 07:13:00* Test Item Value Reference Range Interpretation Comments MCH (test code = MCH) 31.2 pg 27.0-31.0 [facility] QodnrgjHZQXLUENYF2736-77-32 07:13:0016.9[facility] HermannHEMATOLOGY 2018-02-01 07:13:75550Zclihhgi RemelidYGBVOFXLJZ9746-35-71 07:13:009.6[facility]orial ItzymgvMYXTPBCROQ2545-79-97 07:13:008.1[facility]orial SnuinqmWBVWDVSWDP3769-51-49 07:13:003.57[facility]orial HermannPOCT-GLUCOSE SRTFT6300-98-30 08:27:00* Test Item Value Reference Range Interpretation Comments POC-GLUCOSE METER (BEAKER) (test code = 1538) 105 mg/dL 70-110 TESTED AT [address] [address] POCT-GLUCOSE [id number] 23:05:00* Test Item Value Reference Range Interpretation Comments POC-GLUCOSE METER (BEAKER) (test code = 1538) 135 mg/dL 70-110 H TESTED AT [address] [address] POCT-GLUCOSE [id number] 12:17:00* Test Item Value Reference Range Interpretation Comments POC-GLUCOSE METER (BEAKER) (test code = 1538) 92 mg/dL 70-110 TESTED AT [address] [address] POCT-GLUCOSE [id number] 08:01:00* Test Item Value Reference Range Interpretation Comments POC-GLUCOSE METER (BEAKER) (test code = 1538) 105 mg/dL 70-110 TESTED AT [address] [address] POCT-GLUCOSE [id number] 20:52:00* Test Item Value Reference Range Interpretation Comments POC-GLUCOSE METER (BEAKER) (test code = 1538) 155 mg/dL 70-110 H TESTED AT [address] [address] POCT-GLUCOSE [id number] 16:45:00* Test Item Value Reference Range Interpretation Comments POC-GLUCOSE METER (BEAKER) (test code = 1538) 147 mg/dL 70-110 H TESTED AT [address] [address] POCT-GLUCOSE [id number] 11:32:00* Test Item Value Reference Range Interpretation Comments POC-GLUCOSE METER (BEAKER) (test code = 1538) 105 mg/dL 70-110 TESTED AT [address] [address] POCT-GLUCOSE [id number] 07:40:00* Test Item Value Reference Range Interpretation Comments POC-GLUCOSE METER (BEAKER) (test code = 1538) 105 mg/dL 70-110 TESTED AT [address] [address] POCT-GLUCOSE [id number] 22:38:00* Test Item Value Reference Range Interpretation Comments POC-GLUCOSE METER (BEAKER) (test code = 1538) 168 mg/dL 70-110 H TESTED AT [address] [address] POCT-GLUCOSE [id number] 18:01:00* Test Item Value Reference Range Interpretation Comments POC-GLUCOSE METER (BEAKER) (test code = 1538) 103 mg/dL 70-110 TESTED AT [address] [address] POCT-GLUCOSE [id number] 11:57:00* Test Item Value Reference Range Interpretation Comments POC-GLUCOSE METER (BEAKER) (test code = 1538) 123 mg/dL 70-110 H TESTED AT [address] [address] POCT-GLUCOSE [id number] 07:52:00* Test Item Value Reference Range Interpretation Comments POC-GLUCOSE METER (BEAKER) (test code = 1538) 81 mg/dL 70-110 TESTED AT [address] [address] CBC W/PLT COUNT & AUTO [id number] 06:17:00* Test Item Value Reference Range Interpretation [...] (test code = 2801) 1 % 0-1 [id number] 06:15:00* Test Item Value Reference Range Interpretation Comments MAGNESIUM (BEAKER) (test code = 627) 1.8 mg/dL 1.6-2.6 BASIC METABOLIC [id number] 06:15:00* Test Item Value Reference Range Interpretation [...] IS NOT APPLICABLE FOR DIALYSIS PATIENTS. POCT-GLUCOSE [id number] 22:36:00* Test Item Value Reference Range Interpretation Comments POC-GLUCOSE METER (BEAKER) (test code = 1538) 152 mg/dL 70-110 H TESTED AT [facility] [address] [facility] [address] POCT-GLUCOSE [id number] 17:42:00* Test Item Value Reference Range Interpretation Comments POC-GLUCOSE METER (BEAKER) (test code = 1538) 139 mg/dL 70-110 H TESTED AT [facility] [address] [facility] [address] ANG, TUNNELED CATHETER [id number] 17:04:00Reason for exam:->needs HD today please.FINAL REPORT [...] the patient's medical record by the nurse. Repair Order Clerk: Haley Torres Drapery Estimator: MD Louie (Fellow). Approach: Right internal jugular [...] needle into the right atrium. A [address] And a 0.035 wire was advanced into the IVC. A subcutaneous tunnel was created in the right anterior chest wall by blunt dissection. A 19 cm tip to cuff 15.5 Mongolian Duraflow 2 catheter was brought through the [...] t Verified Date/Time: 12/31/2017 17:04:03 Reading Location: [address] Reading Room Electronically signed by: OSCAR TORRES MD on 8 05:04 PM POCT-GLUCOSE [id number] 12:35:00* Test Item Value Reference Range Interpretation Comments POC-GLUCOSE METER (BEAKER) (test code = 1538) 119 mg/dL 70-110 H TESTED AT [facility] [address] [facility] [address] HEPATITIS B SURFACE [id number] 11:00:00* Test Item Value Reference Range Interpretation Comments HEPATITIS B SURFACE ANTIBODY (BEAKER) (test code = 647) < mIU/mL <8.0 HEPATITIS B SURFACE [id number] 10:53:00* Test Item Value Reference Range Interpretation Comments HEPATITIS B SURFACE ANTIGEN (2) (BEAKER) (test code = 2585) Nonreactive Nonreactive HEPATITIS B CORE ANTIBODY, [id number] 10:53:00* Test Item Value Reference Range Interpretation Comments HEPATITIS B CORE TOTAL ANTIBODY (BEAKER) (test code = 497) N onreactive Nonreactive POCT-GLUCOSE [id number] 07:58:00* Test Item Value Reference Range Interpretation Comments POC-GLUCOSE METER (BEAKER) (test code = 1538) 101 mg/dL 70-110 TESTED AT [facility] [address] [facility] [address] BASIC METABOLIC [id number] 05:32:00* Test Item Value Reference Range Interpretation [...] GFR IS NOT APPLICABLE FOR DIALYSIS PATIENTS. [id number] 05:29:00* Test Item Value Reference Range Interpretation [...] 413) 0 /100 WBC 0 -0 POCT-GLUCOSE [id number] 22:36:00* Test Item Value Reference Range Interpretation Comments POC-GLUCOSE METER (BEAKER) (test code = 1538) 159 mg/dL 70-110 H TESTED AT [facility] [address] [facility] [address] BASIC METABOLIC [id number] 17:04:00* Test Item Value Reference Range Interpretation [...] IS NOT APPLICABLE FOR DIALYSIS PATIENTS. T4, [id number] 11:58:00* Test Item Value Reference Range Interpretation [...] = 2590) 21 % 20-5 5 HEMOGLOBIN [id number] 07:50:00* Test Item Value Reference Range Interpretation Comments HEMOGLOBIN A1C (BEAKER) (test code = 368) 4.8 % 4.3-6.1 POCT-GLUCOSE [id number] 07:40:00* Test Item Value Reference Range Interpretation Comments POC-GLUCOSE METER (BEAKER) (test code = 1538) 120 mg/dL 70-110 H TESTED AT [facility] [address] [facility] [address] TSH/FREE T4 IF [id number] 04:53:00* Test Item Value Reference Range Interpretation Comments THYROID STIMULATING HORMONE (BEAKER) (test code = 772) 29.27 uIU/mL 0.35-4.94 H [id number] 04:36:00* Test Item Value Reference Range Interpretation Comments FERRITIN (BEAKER) (test code = 361) 507 ng/mL 5-275 H VITAMIN B12 AND [id number] 04:36:00* Test Item Value Reference Range Interpretation Comments VITAMIN B12 (BEAKER) (test code = 774) 193 pg/mL 213-816 L FOLATE (BEAKER) (test code = 362) 14.8 ng/mL >=7.0 B-TYPE NATRIURETIC FACTOR (BNP)2017-12-30 03:51:00* Test Item Value Reference Range Interpretation Comments B-TYPE NATRIURETIC PEPTIDE (BEAKER) (test code = 700) 2749 pg/mL 0-100 H PTH, [id number] 03:50:00* Test Item Value Reference Range Interpretation Comments PARATHYROID HORMONE INTACT (BEAKER) (test code = 577) 605.0 pg/mL 8.5-72.5 H BASIC METABOLIC [id number] 03:49:00* Test Item Value Reference Range Interpretation [...] GFR IS NOT APPLICABLE FOR DIALYSIS PATIENTS. [id number] 03:44:00* Test Item Value Reference Range Interpretation Comments PHOSPHORUS (BEAKER) (test code = 604) 5.7 mg/dL 2.3-4.7 H [id number] 03:44:00* Test Item Value Reference Range Interpretation [...] 413) 0 /100 WBC 0 -0 POCT-GLUCOSE [id number] 23:30:00* Test Item Value Reference Range Interpretation Comments POC-GLUCOSE METER (BEAKER) (test code = 1538) 172 mg/dL 70-110 H TESTED AT [facility] [address] [facility] [address] POCT-GLUCOSE [id number] 17:48:00* Test Item Value Reference Range Interpretation Comments POC-GLUCOSE METER (BEAKER) (test code = 1538) 143 mg/dL 70-110 H TESTED AT [facility] [address] [facility] [address] PROTEIN, RANDOM [id number] 17:42:00* Test Item Value Reference Range Interpretation Comments PROTEIN, URINE (BEAKER) (test code = 1569) 246 mg/dL 0-14 H CREATININE, RANDOM [id number] 17:14:00* Test Item Value Reference Range Interpretation Comments CREATININE URINE (BEAKER) (test code = 375) 26.4 mg/dL Reference Range: No NormalsB-TYPE NATRIURETIC FACTOR (BNP)2017-12-29 05:22:00* Test Item Value Reference Range Interpretation Comments B-TYPE NATRIURETIC PEPTIDE (BEAKER) (test code = 700) 7175 pg/mL 0-100 H BASIC METABOLIC [id number] 05:09:00* Test Item Value Reference Range Interpretation [...] IS NOT APPLICABLE FOR DIALYSIS PATIENTS. TROPONIN [id number] 05:06:00* Test Item Value Reference Range Interpretation [...] acidosis, acute neurological disease, and per sistent tachyarrhythmia.BFJJHVQKS7383-89-78 05:03:00* Test Item Value Reference Range Interpretation [...] WBC 0 -0 URINALYSIS WITH MICROSCOPIC IF [id number] 17:27:00* Test Item Value Reference Range Interpretation [...] 0.2-1.0 SOURCE(BEAKER) (test code = 2795) URINALYSIS [id number] 17:27:00* Test Item Value Reference Range Interpretation Comments RBC UA (BEAKER) (test code = 519) < /HPF WBC UA (BEAKER) (test code = 520) 9 /HPF MUCUS (BEAKER) (test code = 1574) Rare SQUAMOUS EPITHELIAL (BEAKER) (test code = 516) 6 /HPF B-TYPE NATRIURETIC FACTOR (BNP)2017-12-28 16:43:00* Test Item Value Reference Range Interpretation Comments B-TYPE NATRIURETIC PEPTIDE (BEAKER) (test code = 700) [address] pg/mL 0-100 H TROPONIN [id number] 16:22:00* Test Item Value Reference Range Interpretation [...] acidosis, acute neurological disease, and per sistent tachyarrhythmia.PT/[id number] 16:17:00* Test Item Value Reference Range Interpretation [...] pat ients with mechanical heart valves.COMPREHENSIVE METABOLIC [id number] 16:16:00* Test Item Value Reference Range Interpretation [...] GFR IS NOT APPLICABLE FOR DIALYSIS PATIENTS. [id number] 16:15:00* Test Item Value Reference Range Interpretation Comments MAGNESIUM (BEAKER) (test code = 627) 2.3 mg/dL 1.6-2.6 [id number] 16:15:00* Test Item Value Reference Range Interpretation Comments LIPASE (BEAKER) (test code = 749) 57 U/L 8-78 CBC W/PLT COUNT & AUTO [id number] 15:57:00* Test Item Value Reference Range Interpretation [...] % 0-1 RAD, CHEST, 1 VIEW, NON [id number] 15:39:00Reason for exam:->chest painShould this be performed at the bedside?->YesFINAL REPORT AP chest HISTORY: Chest pain COMPARISON: 10/09/2017 IMPRESSION:Moderate- large left effusion. Mild interstitial edema. Heart size grossly normal. No pneumothorax. Signed: Ana Mcneil MDReport Verified Date/Time: 12/28/2017 15:39:31 Reading Location: [address] Ortho Consult Reading Room B- TYPE NATRIURETIC FACTOR (BNP)2017-10-29 17:20:00* Test Item Value Reference Range Interpretation Comments B-TYPE NATRIURETIC PEPTIDE (BEAKER) (test code = 700) 2719 pg/mL 0-100 H BASIC METABOLIC [id number] 16:06:00* Test Item Value Reference Range Interpretation [...] GFR IS NOT APPLICABLE FOR DIALYSIS PATIENTS. [id number] 16:05:00* Test Item Value Reference Range Interpretation Comments MAGNESIUM (BEAKER) (test code = 627) 2.3 mg/dL 1.6-2.6 RAD, CHEST, 1 VIEW, NON [id number] 08:10:00Reason for exam:->s/p PPMShould this be performed [...] Quispeeport Verified Date/Time: 10/09/2017 08:10:47 Reading Location: [facility] Radiology Reading Room C METABOLIC [id number] 09:14:00* Test Item Value Reference Range Interpretation [...] GFR IS NOT APPLICABLE FOR DIALYSIS PATIENTS. [id number] 09:10:00* Test Item Value Reference Range Interpretation Comments MAGNESIUM (BEAKER) (test code = 627) 2.4 mg/dL 1.6-2.6 PROTHROMBIN TIME/[id number] 09:04:00* Test Item Value Reference Range Interpretation [...] if on CoumadinCBC W/PLT COUNT & AUTO KMOLURWHXHCT6238-93-51 08:51:00* Test Item Value Reference Range Interpretation [...] code = 2801) 0 % 0-1 PROTHROMBIN TIME/[id number] 22:53:00* Test Item Value Reference Range Interpretation Comments PROTIME (BEAKER) (test code = 759) 15.7 seconds 11.7-14.7 H INR (BEAKER) (test code = 370) 1.3 <=5.9 RECOMMENDED COUMADIN/WARFARIN INR THERAPY RANGESSTANDARD DOSE: 2.0 - 3.0 Inclu axel: PROPHYLAXIS for venous thrombosis, systemic embolization; TREATMENT for christiano ous thrombosis and/or pulmonary embolus.HIGH RISK: Target INR is 2.5-3.5 for pat ients with mechanical heart valves.[id number] 22:53:00* Test Item Value Reference Range Interpretation Comments PARTIAL THROMBOPLASTIN TIME (BEAKER) (test code = 760) 31.3 seconds 22.5-36.0 BASIC METABOLIC [id number] 21:47:00* Test Item Value Reference Range Interpretation [...] DIALYSIS PATIENTS. CBC W/PLT COUNT & AUTO [id number] 21:43:00* Test Item Value Reference Range Interpretation [...] = 417) 0.05 K/ L 0. 00-0.20 0.00PT/[id number] 02:38:00* Test Item Value Reference Range Interpretation [...] 2.5-3.5 for pat ients with mechanical heart valves.ACPLGOGZP4712-57-50 02:32:00* Test Item Value Reference Range Interpretation Comments MAGNESIUM (BEAKER) (test code = 627) 2.6 mg/dL 1.6-2.6 Specimen moderately hemolyzed BASIC METABOLIC [id number] 02:32:00* Test Item Value Reference Range Interpretation [...] 0-100 H CREATINE KINASE (CK), TOTAL AND [id number] 02:18:00* Test Item Value Reference Range Interpretation Comments CREATINE KINASE TOTAL (BEAKER) (test code = 380) 98 U/L 29-20 0 CREATINE KINASE-MB (BEAKER) (test code = 750) 5.8 ng/mL 0.0-6.6 CREATINE KINASE-MB INDEX (BEAKER) (test code = 395) 5.9 % Effective 06/08/2014: CK-MB Reference Range ChangeNew: 0.0-6.6 Previous: 0.0- 4.9CK-MB Reference Range:<6.7 Normal6.7-10.0 Borderline>10.0 Abnormal TROPONIN [id number] 02:18:00* Test Item Value Reference Range Interpretation [...] pers istent tachyarrhythmia.CBC W/PLT COUNT & AUTO [id number] 01:57:00* Test Item Value Reference Range Interpretation [...] 417) 0.03 K/ L 0. 00-0.20 0.00URINE MYMI1532-11-47 13:34:009[facility] QMYV0688-32-89 13:34:00 200[facility] SSUN2939-77-17 13:34:0060[facility] CHEM 2016-09-24 13:34:53528Ishjwpio HermannURINE WZYM8925-68-40 13:34:001.41[facility] ZPWB3520-31-29 13:34:75166.00[facility] AlzetiqVUMFDFVVKQSM2524-32-86 16:58:0016.4[facility] BlgtpheGRYAINOVEWSB9567-91-97 16:58:007.7[facility] HYHDTKFCAJXE8284-12-32 16:58:0011[facility] RgjbbdiTQTONNJSYZHV6284-08-97 16:58:00 95[facility] YkstspuTOVQVHFUMLEM9136-37-01 16:58:004.4[facility]annELECTROLYTES 2016-09-22 16:58:0050[facility] JixioqgGRBLOEYKPBWP7867-75-46 16:58:0025[facility] GsnozslQKYOCFYABLER8624-87-55 16:58:67678Noqsbvfg ZmxgqyoKHVSEITNCNIY8433-58-80 16:58:003.70[facility] XaxxonxAKSKYTPDFYMW9115-29-71 16:58:92491Iqsaxkvu [place] HFSMZQUYQN5343-33-12 16:58:0076.9[facility] DavwmmmPSKOYWCTVR0732-37-25 16:58:00 10.6[facility] HkexoveUKQYKBMTTO6948-44-89 16:58:009.8[facility]annHEMATOLOGY 2016-09-22 16:58:001.9[facility] UbdnqrvGVCYOHAABU2271-43-41 16:58:000.8[facility] TmzkksrBHXCPHIHGN8611-10-08 16:58:008.8[facility] AcsvdefWXYRVIIEPS2476-75-23 16:58:001.2[facility] EcwftufKBRKJUPOYP4844-74-01 16:58:000.2[facility] ROVFENHUYU2510-52-54 16:58:001.1[facility] UwbkxpeVYPLGUJUZJ9889-69-07 16:58:000.1 [facility] XpioxpqKFLPWPHCHQ7123-29-76 16:58:0033.3[facility]annHEMATOLOGY 2016-09-22 16:58:008.8[facility] MbigyosDQQYRXFLSP0170-50-45 16:58:52985Lfyyerli ZohnadtSILIRZGQLJ4723-51-21 16:58:0017.1[facility] JuekcqhILDQTQCTRX0748-29-33 16:58:0086.4[facility] JnurczlOYHKNIPUSR8209-84-25 16:58:00* Test Item Value Reference Range Interpretation Comments MCH (test code = MCH) 28.8 pg 27.0-31.0 [facility] ArqsiwwLKIJUHGXTN5987-66-23 16:58:003.54[facility]annHEMATOLOGY 2016-09-22 16:58:0011.4[facility] MtmtzijOSEJAYSUQO8762-48-13 16:58:0030.6[facility] LqxllydDZMMLVRBCN2889-72-34 16:58:0010.2[facility] HrwkzkeJEKYMQLGAH1486-84-51 11:33:150.1[facility] ZpdtftrEZHWFEAHVY2461-11-31 11:33:151.5[facility] MVNUBPHEZT0924-44-87 11:33:151.5[facility] ZhvqywzIAJNMKPHNC6143-98-56 11:33:150.2 [facility] EjfnjvqKLQYGZLVNJ5894-33-09 11:33:150.6[facility]annHEMATOLOGY 2016-09-21 11:33:159.3[facility] UztnaumPGPWZYTLOX3553-16-73 11:33:1573.7[facility] JhxrzxjLVIZKMCQSA9416-77-85 11:33:1512.2[facility] SyyrtftAVNDYQCEEK7680-57-42 11:33:1512.1[facility] QprpsjtORSJNAUBDF7186-21-54 11:33:151.4[facility] ZPCLSNXOXT2192-63-83 11:33:32707Qaaeszcv SkejakaSVYAVWXTJO5747-90-47 11:33:159.2 Memorial LpjmdpyNWWUDBIIGN8850-98-48 11:33:1516.4[facility]annHEMATOLOGY 2016-09-21 11:33:1533.2[facility] CvskaeuNASWZHJVKL2813-87-75 11:33:15* Test Item Value Reference Range Interpretation Comments MCH (test code = MCH) 28.4 pg 27.0-31.0 [facility] GwdkpkuSQWESFZFXA1195-67-91 11:33:1528.9[facility]annHEMATOLOGY 2016-09-21 11:33:1585.7[facility] CfrkthdGNHQBNRFFQ1745-43-25 11:33:153.38[facility] TkeonskONRKZWZEHS1342-95-43 11:33:159.6[facility] QhhjhsqQBJKROKYRR7946-87-87 11:33:1512.6[facility] PmoxuyqRAKWMCNOPGMK4032-00-08 10:30:0014.6[facility] AUGZTGHHTKZR0382-37-93 10:30:92239Nplzphnk PbiyshfOAXHDHMAXOVX8077-22-91 10:30:003.6[facility] ZjolsqnYAUYCQIGCAED0301-84-16 10:30:0027[facility] VKNJUZJTUAAQ5154-87-92 10:30:0038[facility] YmlapkaLLSWAWCYXAFH8276-41-38 10:30:00 3.30[facility] JxznjbvWRMCMJONODIV8046-65-39 10:30:54705Ddkpefmz [place] GMBBXRITVYUF2727-87-44 10:30:007.2[facility] GyxhduwGBTIJNWCZKZU1946-31-58 10:30:0013[facility] EglfwvqKYRIWQLKZZRL7482-12-81 10:30:33966Blbfdqzz [place] MPTZCLHDCD8422-89-53 10:30:000.2[facility] UffbyinMDYYRMQNDN1297-27-86 10:30:009.3 [facility] WenmmanBKSTHCBKMX5243-48-32 10:30:0011.8[facility]annHEMATOLOGY 2016-09-20 10:30:001.7[facility] EnjivjtFTJNPMEGXD4300-21-98 10:30:001.1[facility] YsclvdyHCHVYCFPUX2423-34-29 10:30:0076.9[facility] XymbjfoZIDFGRWBER3888-96-45 10:30:001.4[facility] UhldjqnAVQFNTTGDM8227-47-48 10:30:000.3[facility] KFJKOXGMDL0036-68-88 10:30:009.1[facility] WhzmhboZGDNFITCIK4185-82-77 10:30:009.1 [facility] EnlncihKMNREKTPQD5224-77-04 10:30:009.2[facility]annHEMATOLOGY 2016-09-20 10:30:0011.8[facility] WpxhiliWXIBTQUUJF9576-98-36 10:30:98572Dfxpgjxc SqbjxaxRLBVZEIZPR4274-69-28 10:30:0016.3[facility] VgldhfbJGQJSMFGYO5521-08-30 10:30:003.24[facility] KspvhfeCWWAXVGUQM8019-96-95 10:30:0027.9[facility] BMNHYESCEX9734-01-70 10:30:0086.1[facility] LecidrpDMHQIQWXYK2264-12-74 10:30:00* Test Item Value Reference Range Interpretation Comments MCH (test code = MCH) 28.6 pg 27.0-31.0 [facility] SwnobcfALOIYZRNJK5653-58-19 10:30:0033.2[facility] HermannIMMUNOLOGY 2016-09-18 13:11:00<3.1[facility] HermannCHEM DGZXI0484-20-25 13:10:003.2[facility] HermannCHEM FHWPZ2753-51-52 13:10:002.0[facility] HermannCHEM RHURV1153-19-00 13:10:002.2[facility] GqmjkfkKIICZLEKGPKK0351-03-52 13:10:0016.8[facility] DMCEAAFISCZX5329-22-91 13:10:0013[facility] DhqztbvNVLBGALMPYLF1329-04-43 13:10:00 38[facility] XpogxigWFMXHSEGOVCP5152-56-25 13:10:0095[facility]annELECTROLYTES 2016-09-18 13:10:0025[facility] YwhxlalKXDOOLHIBIMD8471-91-53 13:10:0098[facility] EuncarzTDTQOXEJXRBB5039-51-36 13:10:007.3[facility] SgxjfumUADUXDCKIFNS3737-06-97 13:10:95874Llfuclvh MampunrGVQNRJXFXGWY4854-62-31 13:10:003.8[facility] AXGBTCKJORYI4896-27-26 13:10:003.30[facility] RqouqtxIAXOKZHCMT1924-63-77 13:10:00 0.1[facility] JamghhbGUXZTVDWXI7542-94-03 13:10:47021.0[facility] AND CHBUD4531-65-93 00:15:004[facility] AND PTEGE4225-07-99 00:15:008 [facility] UXZMN2249-82-89 00:15:00Negative (09/17/16 6:15 PM) [facility] EEUDF5997-85-48 00:15:00Negative (09/17/16 6:15 PM) [facility] GQAGV3343-09-15 00:15:001[facility] MODZK1191-73-39 00:15:00Negative (09/17/16 6:15 PM)[facility] WTBTE6243-21-59 00:15:00Negative *NA*(09/17/16 6:15 PM)[facility] QELWA3620-30-48 00:15:00Slight *ABN*(09/17/16 6:15 PM)[facility] SJLPY6213-20-79 00:15:001.013[facility] AND SHXXE7957-53-60 00:15:00 5.0[facility] HermannCARDIAC VSAIXQK7115-06-37 10:38:41>5000[facility] HermannCHEM NUTTO9224-38-70 14:30:002.3[facility] HermannCHEM OZUXV4303-72-55 14:30:002.9 [facility]annCHEM YXKIX2758-70-96 14:30:006.7[facility] HermannIMMUNOLOGY 2016-09-15 14:30:00Negative *NA*(09/15/16 8:30 AM)[facility] 2016-09-15 14:30:0014.4[facility] HermannSPECIAL BTCJUNRUX2496-54-03 14:30:005.5 [facility] AGEVKFZ2121-16-86 17:44:00* Test Item Value Reference Range Interpretation [...] Sulfamethoxazole (test code = 47) S POCT-GLUCOSE HUCGO1244-68-52 11:57:00* Test Item Value Reference Range Interpretation Comments POC-GLUCOSE METER (BEAKER) (test code = 1538) 281 mg/dL 70-110 H TESTED AT [facility] [address] [facility] [address] BASIC METABOLIC PJEBJ7120-56-27 08:18:00* Test Item Value Reference Range Interpretation [...] ESTIMATED GFR. CBC W/PLT COUNT & AUTO OVNAZOWFZZQE3978-48-81 07:41:00* Test Item Value Reference Range Interpretation [...] 417) 0.06 K/ L 0. 00-0.20 0.00POCT-GLUCOSE KBMMJ8513-23-39 07:39:00* Test Item Value Reference Range Interpretation Comments POC-GLUCOSE METER (BEAKER) (test code = 1538) 103 mg/dL 70-110 TESTED AT [address] [address] POCT-GLUCOSE MATXI0462-49-85 20:50:00* Test Item Value Reference Range Interpretation Comments POC-GLUCOSE METER (BEAKER) (test code = 1538) 217 mg/dL 70-110 H TESTED AT [address] [address] POCT-GLUCOSE AENPT2935-33-24 17:35:00* Test Item Value Reference Range Interpretation Comments POC-GLUCOSE METER (BEAKER) (test code = 1538) 123 mg/dL 70-110 H TESTED AT [address] [address] POCT-GLUCOSE EOEFV6304-68-46 13:04:00* Test Item Value Reference Range Interpretation Comments POC-GLUCOSE METER (BEAKER) (test code = 1538) 199 mg/dL 70-110 H TESTED AT [address] [address] PLATELET AGGREGATION: FUNCTION AXKEWM5477-10-64 11:19:00* Test Item Value Reference Range Interpretation Comments WEAK ADP RESULT(BEAKER) (test code = 2135) 65 % 60-91 PLATELET FUNCTION SCREEN INTERP (BEAKER) (test code = 2173) 60-100% indicates normal platelet function VPOK-ACAYIKUOJLJ-0260 (BEAKER) (test code = 2622) Kamila Zuniga MD (electronic signature) PLATELET COUNT AGG (BEAKER) (test code = 2656) 194 K/CU MM 150-430 Platelet Function Screen results may be falsely low with platelet counts< 100,000/cu mm.POCT-GLUCOSE [id number] 09:34:00* Test Item Value Reference Range Interpretation Comments POC-GLUCOSE METER (BEAKER) (test code = 1538) 101 mg/dL 70-110 TESTED AT [facility] [address] [place] [address] PT/[id number] 09:12:00* Test Item Value Reference Range Interpretation [...] mechanical heart valves.CBC W/PLT COUNT & AUTO RZFJQDIQKHGK4817-12-90 07:53:00* Test Item Value Reference Range Interpretation [...] 0.04 K/ L 0. 00-0.20 0.00BASIC METABOLIC DXMMD8557-76-91 07:38:00* Test Item Value Reference Range Interpretation [...] CLINICAL DATA TO CALCULATE ESTIMATED GFR. POCT-GLUCOSE AZUBY3097-66-12 04:03:00* Test Item Value Reference Range Interpretation Comments POC-GLUCOSE METER (BEAKER) (test code = 1538) 128 mg/dL 70-110 H TESTED AT [facility] [address] [facility] [address] POCT-GLUCOSE WRXLE6877-64-22 21:21:00* Test Item Value Reference Range Interpretation Comments POC-GLUCOSE METER (BEAKER) (test code = 1538) 64 mg/dL 70-110 L TESTED AT [facility] [address] [facility] [address] POCT-GLUCOSE [id number] 17:51:00* Test Item Value Reference Range Interpretation Comments POC-GLUCOSE METER (BEAKER) (test code = 1538) 175 mg/dL 70-110 H TESTED AT [address] [address] POCT-GLUCOSE [id number] 12:35:00* Test Item Value Reference Range Interpretation Comments POC-GLUCOSE METER (BEAKER) (test code = 1538) 107 mg/dL 70-110 TESTED AT [place] [id number] [facility] [address] URINALYSIS W/ REFLEX URINE CYJKBDS3765-08-51 08:41:00* Test Item Value Reference Range Interpretation [...] Few SOURCE(BEAKER) (test code = 2795) POCT-GLUCOSE [id number] 07:53:00* Test Item Value Reference Range Interpretation Comments POC-GLUCOSE METER (BEAKER) (test code = 1538) 115 mg/dL 70-110 H TESTED AT [facility] [address] [facility] [address] CBC W/PLT COUNT & AUTO JBXARWXIPFWN9768-23-33 05:47:00* Test Item Value Reference Range Interpretation [...] 0.02 K/ L 0. 00-0.20 0.00BASIC METABOLIC CTLOQ7806-83-01 05:21:00* Test Item Value Reference Range Interpretation [...] CLINICAL DATA TO CALCULATE ESTIMATED GFR. POCT-GLUCOSE [id number] 17:31:00* Test Item Value Reference Range Interpretation Comments POC-GLUCOSE METER (BEAKER) (test code = 1538) 127 mg/dL 70-110 H TESTED AT [address] [address] POCT-GLUCOSE [id number] 16:47:00* Test Item Value Reference Range Interpretation Comments POC-GLUCOSE METER (BEAKER) (test code = 1538) 118 mg/dL 70-110 H TESTED AT [address] [address] POCT-GLUCOSE [id number] 12:21:00* Test Item Value Reference Range Interpretation Comments POC-GLUCOSE METER (BEAKER) (test code = 1538) 93 mg/dL 70-110 TESTED AT [address] [address] CBC W/PLT COUNT & AUTO [id number] 10:14:00* Test Item Value Reference Range Interpretation [...] (BEAKER) (test code = 762) Normal POCT-GLUCOSE [id number] 07:34:00* Test Item Value Reference Range Interpretation Comments POC-GLUCOSE METER (BEAKER) (test code = 1538) 117 mg/dL 70-110 H TESTED AT [address] [address] BASIC METABOLIC [id number] 06:39:00* Test Item Value Reference Range Interpretation [...] CLINICAL DATA TO CALCULATE ESTIMATED GFR. POCT-GLUCOSE [id number] 20:54:00* Test Item Value Reference Range Interpretation Comments POC-GLUCOSE METER (BEAKER) (test code = 1538) 136 mg/dL 70-110 H TESTED AT [address] [address] POCT-GLUCOSE [id number] 17:31:00* Test Item Value Reference Range Interpretation Comments POC-GLUCOSE METER (BEAKER) (test code = 1538) 134 mg/dL 70-110 H TESTED AT [address] [address] POCT-GLUCOSE [id number] 11:35:00* Test Item Value Reference Range Interpretation Comments POC-GLUCOSE METER (BEAKER) (test code = 1538) 161 mg/dL 70-110 H TESTED AT [facility] [address] [facility] [address] POCT-GLUCOSE [id number] 07:56:00* Test Item Value Reference Range Interpretation Comments POC-GLUCOSE METER (BEAKER) (test code = 1538) 106 mg/dL 70-110 TESTED AT [place] [id number] [facility] [address] CBC W/PLT COUNT & AUTO [id number] 07:27:00* Test Item Value Reference Range Interpretation [...] 0.02 K/ L 0. 00-0.20 0.00BASIC METABOLIC [id number] 06:31:00* Test Item Value Reference Range Interpretation [...] INSUFFICIENT CLINICAL DATA TO CALCULATE ESTIMATED GFR. [id number] 06:29:00* Test Item Value Reference Range Interpretation Comments PHOSPHORUS (BEAKER) (test code = 604) 3.7 mg/dL 2.3-4.7 [id number] 06:29:00* Test Item Value Reference Range Interpretation Comments MAGNESIUM (BEAKER) (test code = 627) 2.1 mg/dL 1.6-2.6 POCT-GLUCOSE [id number] 22:34:00* Test Item Value Reference Range Interpretation Comments POC-GLUCOSE METER (BEAKER) (test code = 1538) 133 mg/dL 70-110 H TESTED AT [facility] [address] [facility] [address] POCT-GLUCOSE [id number] 12:07:00* Test Item Value Reference Range Interpretation Comments POC-GLUCOSE METER (BEAKER) (test code = 1538) 151 mg/dL 70-110 H TESTED AT [facility] [address] [facility] [address] CBC W/PLT COUNT & AUTO [id number] 08:11:00* Test Item Value Reference Range Interpretation [...] 417) 0.01 K/ L 0. 00-0.20 0.00POCT-GLUCOSE [id number] 08:01:00* Test Item Value Reference Range Interpretation Comments POC-GLUCOSE METER (BEAKER) (test code = 1538) 108 mg/dL 70-110 TESTED AT [address] [address] BASIC METABOLIC [id number] 07:50:00* Test Item Value Reference Range Interpretation [...] CLINICAL DATA TO CALCULATE ESTIMATED GFR. POCT-GLUCOSE [id number] 17:33:00* Test Item Value Reference Range Interpretation Comments POC-GLUCOSE METER (BEAKER) (test code = 1538) 109 mg/dL 70-110 TESTED AT [address] [address] [id number] 14:48:00* Test Item Value Reference Range Interpretation [...] 2590) 8 % 20-5 5 L POCT-GLUCOSE [id number] 12:30:00* Test Item Value Reference Range Interpretation Comments POC-GLUCOSE METER (BEAKER) (test code = 1538) 157 mg/dL 70-110 H TESTED AT [facility] [address] [facility] [address] POCT-GLUCOSE [id number] 08:58:00* Test Item Value Reference Range Interpretation Comments POC-GLUCOSE METER (BEAKER) (test code = 1538) 104 mg/dL 70-110 TESTED AT [facility] [address] [facility] [address] CBC W/PLT COUNT & AUTO [id number] 06:42:00* Test Item Value Reference Range Interpretation [...] 0.04 K/ L 0. 00-0.20 0.00BASIC METABOLIC [id number] 06:08:00* Test Item Value Reference Range Interpretation [...] TO CALCULATE ESTIMATED GFR. HEPATITIS B SURFACE [id number] 20:41:00* Test Item Value Reference Range Interpretation Comments HEPATITIS B SURFACE ANTIGEN (2) (BEAKER) (test code = 2585) Nonreactive Nonreactive HEPATITIS B [id number] 20:41:00* Test Item Value Reference Range Interpretation Comments HEPATITIS B CORE TOTAL ANTIBODY (BEAKER) (test code = 497) N onreactive Nonreactive HEPATITIS B SURFACE ANTIBODY (BEAKER) (test code = 647) < mIU/mL <8.0 HEPATITIS B SURFACE ANTIGEN (2) (BEAKER) (test code = 2585) Nonreactive Nonreactive POCT-GLUCOSE [id number] 19:55:00* Test Item Value Reference Range Interpretation Comments POC-GLUCOSE METER (BEAKER) (test code = 1538) 166 mg/dL 70-110 H TESTED AT [facility] [address] [facility] [address] CBC W/PLT COUNT & AUTO [id number] 14:41:00* Test Item Value Reference Range Interpretation [...] 0.00 K/ L 0. 00-0.20 0.00BASIC METABOLIC [id number] 13:42:00* Test Item Value Reference Range Interpretation [...] CALCULATE ESTIMATED GFR. Call back result to [id number] METABOLIC [id number] 11:55:00* Test Item Value Reference Range Interpretation [...] 413) 0 /100 WBC 0 -0 0.00POCT-GLUCOSE [id number] 17:13:00* Test Item Value Reference Range Interpretation Comments POC-GLUCOSE METER (BEAKER) (test code = 1538) 240 mg/dL 70-110 H TESTED AT [facility] [address] [facility] [address] POCT-GLUCOSE [id number] 17:13:00* Test Item Value Reference Range Interpretation Comments POC-GLUCOSE METER (BEAKER) (test code = 1538) 156 mg/dL 70-110 H TESTED AT [address] [address] POCT-GLUCOSE [id number] 17:13:00* Test Item Value Reference Range Interpretation Comments POC-GLUCOSE METER (BEAKER) (test code = 1538) 135 mg/dL 70-110 H TESTED AT [address] [address] [id number] 13:52:00* Test Item Value Reference Range Interpretation Comments POTASSIUM (BEAKER) (test code = 379) 3.7 meq/L 3.5-5.1 Check Serum Magnesium level 2 hours after IV magnesium replacement.Check Serum P otassium level 2 hours after oral potassium replacement completed or 30 min afte r intravenous potassium replacement.[id number] 13:52:00* Test Item Value Reference Range Interpretation Comments MAGNESIUM (BEAKER) (test code = 627) 2.7 mg/dL 1.6-2.6 H Check Serum Magnesium level 2 hours after IV magnesium replacement.Check Serum P otassium level 2 hours after oral potassium replacement completed or 30 min afte r intravenous potassium replacement.CALCIUM, [id number] 06:05:00* Test Item Value Reference Range Interpretation Comments CALCIUM IONIZED (BEAKER) (test code = 698) 1.01 mmol/L 1.12-1.27 L PH, BLOOD (BEAKER) (test code = 1810) 7.30 POCT-GLUCOSE [id number] 05:56:00* Test Item Value Reference Range Interpretation Comments POC-GLUCOSE METER (BEAKER) (test code = 1538) 120 mg/dL 70-110 H TESTED AT [address] [address] CBC (HEMOGRAM ONLY)2016-09-06 03:39:00* Test Item Value [...] 0 /100 WBC 0 -0 0.00BASIC METABOLIC [id number] 03:36:00* Test Item Value Reference Range Interpretation [...] INSUFFICIENT CLINICAL DATA TO CALCULATE ESTIMATED GFR. [id number] 03:29:00* Test Item Value Reference Range Interpretation Comments PHOSPHORUS (BEAKER) (test code = 604) 8.3 mg/dL 2.3-4.7 H [id number] 03:29:00* Test Item Value Reference Range Interpretation Comments MAGNESIUM (BEAKER) (test code = 627) 2.8 mg/dL 1.6-2.6 H BLOOD GAS, [id number] 00:03:00* Test Item Value Reference Range Interpretation [...] (test code = 1819) 36.0 % POCT-GLUCOSE [id number] 23:45:00* Test Item Value Reference Range Interpretation Comments POC-GLUCOSE METER (BEAKER) (test code = 1538) 106 mg/dL 70-110 TESTED AT [address] [address] POCT-GLUCOSE [id number] 23:45:00* Test Item Value Reference Range Interpretation Comments POC-GLUCOSE METER (BEAKER) (test code = 1538) 70 mg/dL 70-110 TESTED AT [address] [address] BLOOD GAS, [id number] 21:36:00* Test Item Value Reference Range Interpretation [...] code = 1819) 40.0 % BLOOD GAS, [id number] 20:22:00* Test Item Value Reference Range Interpretation [...] (test code = 1819) 40.0 % POCT-GLUCOSE [id number] 17:34:00* Test Item Value Reference Range Interpretation Comments POC-GLUCOSE METER (BEAKER) (test code = 1538) 121 mg/dL 70-110 H TESTED AT [address] [address] POCT-GLUCOSE [id number] 17:34:00* Test Item Value Reference Range Interpretation Comments POC-GLUCOSE METER (BEAKER) (test code = 1538) 137 mg/dL 70-110 H TESTED AT [address] [address] BLOOD GAS, [id number] 17:07:00* Test Item Value Reference Range Interpretation [...] (test code = 1819) 40.0 % POCT-GLUCOSE [id number] 13:41:00* Test Item Value Reference Range Interpretation Comments POC-GLUCOSE METER (BEAKER) (test code = 1538) 150 mg/dL 70-110 H TESTED AT [address] [address] BLOOD GAS, [id number] 13:41:00* Test Item Value Reference Range Interpretation [...] (test code = 1819) 40.0 % POCT-GLUCOSE [id number] 13:41:00* Test Item Value Reference Range Interpretation Comments POC-GLUCOSE METER (BEAKER) (test code = 1538) 112 mg/dL 70-110 H TESTED AT [address] [address] [id number] 12:58:00* Test Item Value Reference Range Interpretation Comments PHOSPHORUS (BEAKER) (test code = 604) 6.6 mg/dL 2.3-4.7 H [id number] 12:58:00* Test Item Value Reference Range Interpretation Comments MAGNESIUM (BEAKER) (test code = 627) 2.7 mg/dL 1.6-2.6 H HEPATIC FUNCTION [id number] 12:58:00* Test Item Value Reference Range Interpretation [...] = 347) 15 U/L 6-55 BASIC METABOLIC [id number] 12:58:00* Test Item Value Reference Range Interpretation [...] TO CALCULATE ESTIMATED GFR. URINE PROTEIN ELECTROPHORESIS, [id number] 12:38:00* Test Item Value Reference Range Interpretation Comments PROTEIN, URINE (BEAKER) (test code = 1569) 68 mg/dL 0-14 H ALBUMIN URINE ELP (BEAKER) (test code = 1018) 73.4 % GAMMA GLOBULIN URINE (BEAKER) (test code = 1015) 26.6 % UPEP, ID-438 (BEAKER) (test code = 2600) No monoclonal bands detect ed. [id number]-[id number] (BEAKER) (test code = 0244) Ирина Zuniga MD (electronic signature) GLUCOSE-STAT [id number] 12:37:00* Test Item Value Reference Range Interpretation Comments GLUCOSE RANDOM (BEAKER) (test code = 652) 140 mg/dL 70-110 H HGB/HCT (H&H) - STAT [id number] 12:37:00* Test Item Value Reference Range Interpretation Comments HEMOGLOBIN (BEAKER) (test code = 410) 8.7 g/dL 12.0-15.0 L HEMATOCRIT (BEAKER) (test code = 411) 26.0 % 36.0-45.0 L BLOOD GAS, [id number] 12:37:00* Test Item Value Reference Range Interpretation [...] (test code = 1819) 40.0 % CALCIUM, [id number] 12:37:00* Test Item Value Reference Range Interpretation Comments CALCIUM IONIZED (BEAKER) (test code = 698) 1.07 mmol/L 1.12-1.27 L PH, BLOOD (BEAKER) (test code = 1810) 7.29 SODIUM NA-STAT [id number] 12:31:00* Test Item Value Reference Range Interpretation Comments SODIUM (BEAKER) (test code = 381) 140 meq/L 135-148 POTASSIUM-STAT [id number] 12:31:00* Test Item Value Reference Range Interpretation Comments POTASSIUM (BEAKER) (test code = 379) 4.3 meq/L 3.6-5.5 PROTEIN ELECTROPHORESIS, [id number] 11:38:00* Test Item Value Reference Range Interpretation [...] and/or protein-losing enteropathy. No monoclonal bands detected. [id number] (BEAKER) (test code = 9586) Ирина Zuniga MD (electronic signature) PROTEIN TOTAL SERUM, SPEP (BEAKER) (test code = 5560) 4.4 gm/dL 6.0-8.3 L POCT-GLUCOSE [id number] 09:38:00* Test Item Value Reference Range Interpretation Comments POC-GLUCOSE METER (BEAKER) (test code = 1538) 93 mg/dL 70-110 TESTED AT [address] [address] LACTIC ACID, ARTERIAL, WHOLE [id number] 06:22:00* Test Item Value Reference Range Interpretation Comments LACTATE BLOOD ARTERIAL (2) (BEAKER) (test code = 2874) 1.2 mmol/L 0.5-2.2 Effective 11/23/2015: Units/Reference Range ChangeNew: 0.5-2.2 mmol/L Previous: 5 -20 mg/dLPOCT-GLUCOSE [id number] 06:20:00* Test Item Value Reference Range Interpretation Comments POC-GLUCOSE METER (BEAKER) (test code = 1538) 143 mg/dL 70-110 H TESTED AT [place] [id number] [facility] [address] POCT-GLUCOSE [id number] 06:20:00* Test Item Value Reference Range Interpretation Comments POC-GLUCOSE METER (BEAKER) (test code = 1538) 140 mg/dL 70-110 H TESTED AT [place] [id number] [facility] [address] OXYGEN SATURATION, [id number] 06:03:00* Test Item Value Reference Range Interpretation Comments O2 SATURATION (MEASURED) (BEAKER) (test code = 1455) 69.3 % CALCIUM, [id number] 06:02:00* Test Item Value Reference Range Interpretation Comments CALCIUM IONIZED (BEAKER) (test code = 698) 1.04 mmol/L 1.12-1.27 L PH, BLOOD (BEAKER) (test code = 1810) 7.36 BLOOD GAS, [id number] 06:01:00* Test Item Value Reference Range Interpretation [...] (test code = 1819) 40.0 % GLUCOSE-STAT [id number] 06:01:00* Test Item Value Reference Range Interpretation Comments GLUCOSE RANDOM (BEAKER) (test code = 652) 130 mg/dL 70-110 H HGB/HCT (H&H) - STAT [id number] 06:01:00* Test Item Value Reference Range Interpretation Comments HEMOGLOBIN (BEAKER) (test code = 410) 8.8 g/dL 12.0-15.0 L HEMATOCRIT (BEAKER) (test code = 411) 26.0 % 36.0-45.0 L BASIC METABOLIC [id number] 03:47:00* Test Item Value Reference Range Interpretation [...] INSUFFICIENT CLINICAL DATA TO CALCULATE ESTIMATED GFR. [id number] 03:39:00* Test Item Value Reference Range Interpretation Comments PHOSPHORUS (BEAKER) (test code = 604) 5.5 mg/dL 2.3-4.7 H [id number] 03:39:00* Test Item Value Reference Range Interpretation [...] 413) 0 /100 WBC 0 -0 0.00POCT-GLUCOSE [id number] 23:24:00* Test Item Value Reference Range Interpretation Comments POC-GLUCOSE METER (BEAKER) (test code = 1538) 93 mg/dL 70-110 TESTED AT [facility] [address] [facility] [address] POCT-GLUCOSE [id number] 23:24:00* Test Item Value Reference Range Interpretation Comments POC-GLUCOSE METER (BEAKER) (test code = 1538) 103 mg/dL 70-110 TESTED AT [facility] [address] [facility] [address] BLOOD GAS, [id number] 22:25:00* Test Item Value Reference Range Interpretation [...] 40.0 % CBC W/PLT COUNT & AUTO [id number] 20:04:00* Test Item Value Reference Range Interpretation [...] 0.01 K/ L 0. 00-0.20 CREATININE, RANDOM [id number] 19:07:00* Test Item Value Reference Range Interpretation Comments CREATININE URINE (BEAKER) (test code = 375) 10.4 mg/dL Reference Range: No NormalsPROTEIN, RANDOM [id number] 19:07:00* Test Item Value Reference Range Interpretation Comments PROTEIN, URINE (BEAKER) (test code = 1569) 42 mg/dL 0-14 H URINALYSIS W/ [id number] 18:53:00* Test Item Value Reference Range Interpretation [...] 516) < /HPF SOURCE(BEAKER) (test code = 1865) BASIC METABOLIC [id number] 18:33:00* Test Item Value Reference Range Interpretation [...] INSUFFICIENT CLINICAL DATA TO CALCULATE ESTIMATED GFR. [id number] 18:33:00* Test Item Value Reference Range Interpretation Comments MAGNESIUM (BEAKER) (test code = 627) 2.7 mg/dL 1.6-2.6 H [id number] 18:33:00* Test Item Value Reference Range Interpretation Comments PHOSPHORUS (BEAKER) (test code = 604) 6.2 mg/dL 2.3-4.7 H [id number] 18:30:00* Test Item Value Reference Range Interpretation Comments FIBRINOGEN LEVEL (BEAKER) (test code = 658) 319 mg/dl 225-434 [id number] 18:30:00* Test Item Value Reference Range Interpretation Comments PARTIAL THROMBOPLASTIN TIME (BEAKER) (test code = 760) 35.3 seconds 22.5-36.0 PROTHROMBIN [id number] 18:29:00* Test Item Value Reference Range Interpretation [...] with mechanical heart valves.LACTIC ACID, ARTERIAL, WHOLE [id number] 18:29:00* Test Item Value Reference Range Interpretation Comments LACTATE BLOOD ARTERIAL (2) (BEAKER) (test code = 2874) 2.3 mmol/L 0.5-2.2 H Effective 11/23/2015: Units/Reference Range ChangeNew: 0.5-2.2 mmol/L Previous: 5 -20 mg/dLBLOOD GAS, [id number] 18:15:00* Test Item Value Reference Range Interpretation [...] (test code = 1819) 60.0 % GLUCOSE-STAT [id number] 18:15:00* Test Item Value Reference Range Interpretation Comments GLUCOSE RANDOM (BEAKER) (test code = 652) 213 mg/dL 70-110 H HEMOGLOBIN-STAT [id number] 18:15:00* Test Item Value Reference Range Interpretation Comments HEMOGLOBIN (BEAKER) (test code = 410) 9.1 g/dL 12.0-15.0 L HGB/HCT (H&H) - STAT [id number] 18:15:00* Test Item Value Reference Range Interpretation Comments HEMOGLOBIN (BEAKER) (test code = 410) 9.1 GM/DL 12.0-15.0 L HEMATOCRIT (BEAKER) (test code = 411) 27.0 % 36.0-45.0 L CALCIUM, [id number] 18:15:00* Test Item Value Reference Range Interpretation Comments CALCIUM IONIZED (BEAKER) (test code = 698) 1.14 mmol/L 1.12-1.27 PH, BLOOD (BEAKER) (test code = 1810) 7.36 OXYGEN SATURATION, [id number] 18:14:00* Test Item Value Reference Range Interpretation Comments O2 SATURATION (MEASURED) (BEAKER) (test code = 1455) 72.1 % SODIUM NA-STAT [id number] 18:13:00* Test Item Value Reference Range Interpretation Comments SODIUM (BEAKER) (test code = 381) 138 meq/L 135-148 POTASSIUM-STAT [id number] 18:13:00* Test Item Value Reference Range Interpretation [...] code = 1413) 64.2 MM 55.0- 65.0 [id number] 16:28:00* Test Item Value Reference Range Interpretation Comments ACTIVATED CLOTTING TIME (BEAKER) (test code = 441) 137 sec TESTED AT [place] [address] [id number] 16:28:00* Test Item Value Reference Range Interpretation Comments ACTIVATED CLOTTING TIME (BEAKER) (test code = 441) 528 sec TESTED AT [place] [address] [id number] 16:28:00* Test Item Value Reference Range Interpretation Comments ACTIVATED CLOTTING TIME (BEAKER) (test code = 441) 394 sec TESTED AT [place] [address] [id number] 16:28:00* Test Item Value Reference Range Interpretation Comments ACTIVATED CLOTTING TIME (BEAKER) (test code = 441) 353 sec TESTED AT [place] [address] [id number] 16:09:00* Test Item Value Reference Range Interpretation Comments FIBRINOGEN LEVEL (BEAKER) (test code = 658) 313 mg/dl 225-434 [id number] 16:05:00* Test Item Value Reference Range Interpretation Comments PARTIAL THROMBOPLASTIN TIME (BEAKER) (test code = 760) 39.0 seconds 22.5-36.0 H PROTHROMBIN [id number] 16:04:00* Test Item Value Reference Range Interpretation [...] pat ients with mechanical heart valves.PLATELET COUNT-STAT [id number] 15:57:00* Test Item Value Reference Range Interpretation Comments PLATELET COUNT (BEAKER) (test code = 756) 105 K/CU MM 150-430 L CALCIUM, [id number] 15:51:00* Test Item Value Reference Range Interpretation Comments CALCIUM IONIZED (BEAKER) (test code = 698) 0.88 mmol/L 1.12-1.27 L PH, BLOOD (BEAKER) (test code = 1810) 7.38 SODIUM NA-STAT [id number] 15:50:00* Test Item Value Reference Range Interpretation Comments SODIUM (BEAKER) (test code = 381) 135 meq/L 135-148 POTASSIUM-STAT [id number] 15:50:00* Test Item Value Reference Range Interpretation Comments POTASSIUM (BEAKER) (test code = 379) 4.4 meq/L 3.6-5.5 BLOOD GAS, [id number] 15:50:00* Test Item Value Reference Range Interpretation [...] (test code = 1819) 100.0 % GLUCOSE-STAT [id number] 15:50:00* Test Item Value Reference Range Interpretation Comments GLUCOSE RANDOM (BEAKER) (test code = 652) 178 mg/dL 70-110 H HGB/HCT (H&H) - STAT [id number] 15:50:00* Test Item Value Reference Range Interpretation Comments HEMOGLOBIN (BEAKER) (test code = 410) 8.6 GM/DL 12.0-15.0 L HEMATOCRIT (BEAKER) (test code = 411) 25.0 % 36.0-45.0 L HEMOGLOBIN-STAT [id number] 15:50:00* Test Item Value Reference Range Interpretation Comments HEMOGLOBIN (BEAKER) (test code = 410) 8.6 g/dL 12.0-15.0 L HEMATOCRIT-STAT [id number] 15:50:00* Test Item Value Reference Range Interpretation Comments HEMATOCRIT (BEAKER) (test code = 411) 25.0 % 36.0-45.0 L SODIUM NA-STAT [id number] 15:23:00* Test Item Value Reference Range Interpretation Comments SODIUM (BEAKER) (test code = 381) 136 meq/L 135-148 POTASSIUM-STAT [id number] 15:23:00* Test Item Value Reference Range Interpretation Comments POTASSIUM (BEAKER) (test code = 379) 5.3 meq/L 3.6-5.5 BLOOD GAS, [id number] 15:23:00* Test Item Value Reference Range Interpretation [...] (test code = 1819) 100.0 % GLUCOSE-STAT [id number] 15:23:00* Test Item Value Reference Range Interpretation Comments GLUCOSE RANDOM (BEAKER) (test code = 652) 153 mg/dL 70-110 H HGB/HCT (H&H) - STAT [id number] 15:23:00* Test Item Value Reference Range Interpretation Comments HEMOGLOBIN (BEAKER) (test code = 410) 6.9 g/dL 12.0-15.0 L HEMATOCRIT (BEAKER) (test code = 411) 20.0 % 36.0-45.0 L HGB/HCT (H&H) - STAT [id number] 15:07:00* Test Item Value Reference Range Interpretation Comments HEMOGLOBIN (BEAKER) (test code = 410) 5.4 g/dL 12.0-15.0 LL HEMATOCRIT (BEAKER) (test code = 411) 16.0 % 36.0-45.0 L POTASSIUM-STAT [id number] 15:06:00* Test Item Value Reference Range Interpretation Comments POTASSIUM (BEAKER) (test code = 379) 4.9 meq/L 3.6-5.5 BLOOD GAS, [id number] 15:06:00* Test Item Value Reference Range Interpretation [...] code = 1819) 80.0 % SODIUM NA-STAT [id number] 15:06:00* Test Item Value Reference Range Interpretation Comments SODIUM (BEAKER) (test code = 381) 132 meq/L 135-148 L GLUCOSE-STAT [id number] 15:06:00* Test Item Value Reference Range Interpretation Comments GLUCOSE RANDOM (BEAKER) (test code = 652) 139 mg/dL 70-110 H BLOOD GAS, [id number] 15:06:00* Test Item Value Reference Range Interpretation [...] code = 1819) 80.0 % BLOOD BANK [id number] 22:26:00Negative (09/03/16 4:26 PM)[facility] CARDIAC [id number] 21:32:008.90[facility] ExytcweNJALWVAAFJ6612-96-45 19:12:001.08[facility] GkaqvuxOGNSDEORCL7712-23-50 19:12:00* Test Item Value Reference Range Interpretation Comments PT (test code = PT) 14.2 s 12.0-14.7 [facility] DfjohvuFDXBSPDYDV2696-87-39 19:12:00* Test Item Value Reference Range Interpretation Comments PTT (test code = PTT) 30.2 s 22.9-35.8 [facility] [id number] 15:34:580154Wwcbyukf [facility] [id number] 15:34:008.30[facility]annCHEM PDYBN8833-00-45 15:34:005.1 [facility]annCHE[facility] [id number] 15:34:002.5[facility]annCHEM PANEL 2016-09-03 15:34:0018[facility]annCHEM [id number] 15:34:35254Unlzpizx [facility]annCHEM [id number] 15:34:0059[facility]annCHE[facility] RYYYI9606-51-37 15:34:004.3[facility]annCHE[facility] DGJIF3910-38-55 15:34:86624Sxtvdgmh [facility]annCHE[facility] UAAOR9958-79-13 15:34:0024[facility]annCHE[facility] IUMLQ7022-10-23 15:34:002.50 [facility]CHE[facility] UKDDW5079-27-35 15:34:58149Lvsxgxdu [facility]annCHEM PANEL 2016-09-03 15:34:0016.3[facility]annCHEM [id number] 15:34:007.8[facility]annCARD[facility]AC NBZYHGK8947-49-44 08:31:000.75[facility]annCHEM PANEL 2016-09-03 08:31:000.3[facility]annCHEM [id number] 08:31:83840Trpbjnkv [facility]annCHE[facility] CGXWB3041-31-53 08:31:0025[facility]annCHEM GJDCO3936-01-63 08:31:0027[facility]annCHE[facility] KPZIX2695-20-21 08:31:000.9[facility]annCHEM DHNKS3095-56-28 08:31:0021[facility]annCHEM EHLWC8965-76-78 08:31:0022 [facility]annCHE[facility] EFKRY2368-64-27 08:31:007.9[facility]annCHEM PANEL 2016-09-03 08:31:0014.5[facility]annCHEM [id number] 08:31:0025[facility]annCHEM WFOGV9315-54-91 08:31:61321Xrvfoikm [facility]CHE[facility] FAJGD0701-18-88 08:31:002.20[facility]annCHE[facility] FGXHX6005-71-27 08:31:0055[facility]annCHE[facility] RLVTF5460-85-03 08:31:74509Lgjgooyy [facility]annCHEM SDIQN3109-21-43 08:31:65782 [facility]CHE[facility] HUYUW1527-81-70 08:31:003.5[facility]annCHEM PANEL 2016-09-03 08:31:003.1[facility]annCHEM HORWG8356-84-15 08:31:006.6[facility]annCHEM JDAWP0032-46-31 08:31:003.5[facility]annCHE[facility] TTFTS1305-27-36 08:31:002.3[facility] CnxgxywLXRWRRTWXU3966-18-20 08:31:0010.3[facility] PWLLFPYMFB4699-29-80 08:31:0012.7[facility] FncrhthDJDXYEPXMG4885-98-68 08:31:00 9.5[facility] UnfjznrVEJENFUVLF2138-12-58 08:31:003.24[facility]annHEMATOLOGY 2016-09-03 08:31:0029.0[facility] CwamcfcHGVNCPCQKW7532-48-21 08:31:0089.6[facility] NaunoqiRFWDGDMCUJ2952-70-78 08:31:0032.7[facility] NpjsollKBPSQYVVAL3863-68-44 08:31:00* Test Item Value Reference Range Interpretation Comments MCH (test code = MCH) 29.3 pg 27.0-31.0 [facility] SkgmtspQZYLNBQSNQ3265-77-47 08:31:99283Mrribdko [facility]annHEMATOLOGY 2016-09-03 08:31:0014.3[facility] FhcnfwoRJAFWCQAKT7738-57-01 08:31:005.7[facility] AwruubbGBXUIJMZHX8421-64-55 08:31:004.9[facility] DjulisxQDVBRIXGQD8502-48-51 08:31:000.2[facility] OpazigzXXFPLVMUMM0298-94-53 08:31:000.4[facility] DGLYJVLIWY2983-74-68 08:31:0011.3[facility] EfhzllrTRWMULXJFF4781-61-88 08:31:00 0.6[facility] XauwqqeJIXHIILAYE9700-55-05 08:31:000.1[facility]annHEMATOLOGY 2016-09-03 08:31:000.7[facility] TaxffrsCJXCJQWJUT6837-23-40 08:31:0088.8[facility]annURINE AND OKBOD6555-08-33 08:31:002[facility] AND STOOL 2016-09-03 08:31:001[facility] AND ZPDWR1519-65-26 08:31:00Negative (09/03/16 2:31 AM)[facility] DCDEV5608-27-10 08:31:00Negative (09/03/16 2:31 AM)[facility] AJQDB9683-57-51 08:31:001[facility] AND RNQOG9274-99-73 08:31:00Negative (09/03/16 2:31 AM)[facility] WIVZK2751-32-66 08:31:001.008[facility] AND STOOL 2016-09-03 08:31:006.0[facility] AND XWFAV4850-20-97 08:31:00Negative *NA*(09/03/16 2:31 AM)[facility] NHEIT4198-84-27 08:31:00Clear (09/03/16 2:31 AM)[facility]annCARDIAC DWDHRPF0657-59-88 04:35:002.5[facility]annCARDIAC SUYYXVC1431-92-91 04:35:834912Dggmagqi [facility]annCARD[facility]AC ENZYMES 2016-09-03 04:35:0056[facility]AC LZEXAXV4045-61-02 04:35:001.4 [facility]annCHEM XTXYV5173-31-78 04:35:0021[facility]annCHEM PANEL 2016-09-03 04:35:003.3[facility]annCHEM PRIIR7759-27-78 04:35:000.9[facility]annCHEM PGNSA1555-20-36 04:35:000.3[facility]annCHEM ZVPCD2762-88-24 04:35:0025[facility]annCHEM QXNWI2611-92-80 04:35:0015.2[facility]annCHEM ODIGF2195-67-13 04:35:27785Hnwzcpfq [facility]annCHE[facility] JRZWF8472-77-17 04:35:003.1 [facility]annCHE[facility] DJUDC2779-04-31 04:35:16861Jlewpwji [facility]annCHEM PANEL 2016-09-03 04:35:0024[facility]annCHEM YEYZH9305-83-67 04:35:0025[facility]annCHEM VKQIE4568-88-22 04:35:67856Abgbrzya [facility]annCHEM GMAQF4479-33-43 04:35:002.20[facility]annCHEM YKMMR6614-81-16 04:35:0054[facility]annCHEM YRDPB4274-74-34 04:35:006.4[facility]annCHEM KTIPZ5139-03-66 04:35:007.9 [facility]annCHE[facility] OTSPB4537-11-80 04:35:0022[facility]annCHEM PANEL 2016-09-03 04:35:57319Lqvcfcac [facility]annCHEM WQHHN8352-83-38 04:35:003.2[facility] IlzajbfEAGOQBYRAW0344-77-41 04:35:000.7[facility] QbaalyfUIIXYKQFUG9497-58-14 04:35:001.2[facility] KrirnkzMGKCFHBVCN7324-60-83 04:35:007.3[facility] DIBASLWZBS1835-58-63 04:35:000.1[facility] UurztpuQTXYEBYZOV8615-94-97 04:35:000.2 [facility] NkkoqetVWHDKLTKQM0763-50-80 04:35:0077.0[facility]annHEMATOLOGY 2016-09-03 04:35:0012.5[facility] YdrzsolORTADESBRP2231-81-64 04:35:007.7[facility] TkuaunnIFTHYYCAXS3394-25-97 04:35:002.2[facility] LnulmpeBLUYWZNHJL2279-94-74 04:35:000.6[facility] WoztvjuQUNBEIWSML6600-51-57 04:35:0010.2[facility] YPUCFNCJGR0725-03-14 04:35:63748Pmvsuuym AwhuafpSLJZZFQCYF4273-32-82 04:35:009.3 [facility] OyyhzldJTLJZXFBBN0865-38-93 04:35:003.14[facility] 2016-09-03 04:35:0087.8[facility] QwjmhlvJICUUPVTLW0811-28-67 04:35:00* Test Item Value Reference Range Interpretation Comments MCH (test code = MCH) 29.7 pg 27.0-31.0 [facility] SwgjvjrLQRPAFAEAA9410-00-39 04:35:0027.6[facility]OLOGY 2016-09-03 04:35:0033.8[facility] QtkwfzbOSRBIUHYKP5934-91-61 04:35:0014.2[facility] HroynzgJBLOWOZJHW3080-84-15 04:35:009.5[facility]
--- NOTE | 2020-04-29 09:10 | NUR ---
PATIENT C/O PAIN AT IV SITE. REMOVED. ATTEMPTED ANOTHER IV X 2 NURSES. UNSUCCESFUL. CALLED ABEL ALEMAN. TO ASSIST.
--- NOTE | 2020-04-29 09:20 | NUR ---
DIALYSIS COORDINATORPIERO [phone] CALL HIM WHEN WE HAVE TIME FOR CATHETER PLACEMENT
[2020-04-29] MEDS ORDERED: SODIUM CHLORIDE 0.9% 250ML 250 ML ONE ×2 (09:36→23:05)
[2020-04-29] MEDS ORDERED: LIDOCAINE HCL 1% LOCAL INJ 20 ML VIAL ONE (09:36)
[2020-04-29] MEDS ORDERED: HEPARIN SOD (PORCINE) 1000 UNIT/ML SDV ONE (09:46)
--- NOTE | 2020-04-29 10:00 | NUR ---
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 SHE BEGAN TO C/O OF SHARP PAIN TO IV SITE. NO INFILTRATION, FLUSHES WELL, GOOD BLOOD RETURN. MEDICATION STOPPED. KARLA ROMAN SUP. CALLED TO RE-EVALUATE IV. PATIENTS SON TAKEN TO ROOM TO GIVE NURSE INFO FOR ADMISSION. NURSE IS AWARE SHE NEEDS TO CALL DIALYSIS COORDINATOR TO SCHEDULE DIALYSIS.
[2020-04-29 10:27] LABS: CREATINE KINASE MB 1.1 ng/mL (0-5.0)
[2020-04-29 11:19] VITALS: BP 217/60
--- NOTE | 2020-04-29 11:45 | NUR ---
RECEIVED REPORT FROM [facility]. PATIENT IN ROUTE TO THE FLOOR BUT STOPPED AND TAKEN DOWN TO IR FOR DIALYSIS ACCESS REPLACEMENT D/T INFECTION OF OLD SITE.
--- NOTE | 2020-04-29 11:46 | NUR ---
PATIENT ARRIVED TO THE FLOOR @ 1144. PATIENT IN STABLE CONDITION, NO S/S OF DISTRESS NOTED. RESPIRATION EVEN AND NONLABORED. PATIENT ABLE TO VOICE NEEDS. TRIALYSIS CATHETER TO THE RIGHT NECK AREA PLACED, TRANSPARENT DRESSING C/D/I. BED IN LOWEST POSITION AND LOCKED, SIDE RAILS X 2, NON SKID SOCK APPLIED. CALL LIGHT WITHIN REACH.
[2020-04-29 12:36] VITALS: BP 217/60
[2020-04-29 12:47] VITALS: BP 217/60
--- NOTE | 2020-04-29 13:06 | Consultation ---
DATE OF CONSULTATION: 04/29/2020 HISTORY OF PRESENT ILLNESS: This is a 80-year-old female, underlying history of end-stage renal disease, has a dialysis cath exchange done about a week as an outpatient. Developed pain and swelling around the catheter tunnel site. Area has fluctuance. It is not red. There was some purulent discharge from the tunneled dialysis catheter. The patient denies fever, chills, chest pain, or shortness of breath. Except for local pain, she has no other complaints. She was last dialyzed Saturday. Her white count is 11.5 and hemoglobin is 10.5. Potassium is 4 and creatinine is 6.4. ALLERGIES: SHE IS ALLERGIC TO CODEINE. MEDICATIONS: She received one time dose of vancomycin and gentamicin in the ER. As discussed with Dr. Beckford, she is on ondansetron p.r.n. and Tylenol p.r.n.. SOCIAL HISTORY: Does not smoke or drink. FAMILY HISTORY: Significant for diabetes. PAST MEDICAL HISTORY: Significant for diabetes, hypertension, anemia, and chronic kidney disease. PHYSICAL EXAMINATION: GENERAL: Awake, alert, oriented x3, lying supine, in no apparent distress. VITAL SIGNS: Blood pressure 168/55, pulse rate 77, afebrile. HEAD AND NECK: Cornea clear. Oral mucosa moist. Neck veins flat. Area of her tunnel site, there is small fluctuance, slightly tender. I could not appreciate any discharge from the exit site nevertheless otherwise. LUNGS: Relatively clear. No rales. HEART: S1 and S2 audible. ABDOMEN: Soft and nontender. No apparent visceromegaly. EXTREMITIES: Lower extremity no edema. LABORATORY DATA: Show a white count 11.5, potassium 4. IMPRESSION AND PLAN: Likely abscess, tunneled site. Blood cultures have been done, results pending. Vancomycin and gentamycin given. Dr. Calles to see. May need I and D. Catheter exchange. We will remove this catheter and place a temporary dialysis catheter. Thereafter dialysis, renal diet, blood pressure controlled. MD RAJEEV Ragland/MÓNICA /[id number]
[2020-04-29] MEDS: HYDROCODONE/APAP 5MG-325MG TAB PO PRN ×2 (13:35→22:16)
--- NOTE | 2020-04-29 13:47 | Consultation ---
DATE OF CONSULTATION: 04/29/2020 ADDITIONAL REFERRING PHYSICIAN: Dr. Leonardo Hernandez. HISTORY OF PRESENT ILLNESS: The patient is a 80-year-old female, history of end-stage renal disease, who presented to the emergency room today with complaints of drainage from around her dialysis catheter. The patient said she had a catheter changed about a week ago. She complains of pain at the catheter site. The catheter has been removed by Interventional Radiology and a temporary dialysis catheter has been placed. The patient still has pain in the area. Says there is some swelling. She has not noticed any fever. PAST MEDICAL HISTORY: Significant for end-stage renal disease, hypertension. 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 She has had cataract surgery, pacemaker as well as a dialysis catheter. MEDICATIONS: Listed in the chart. ALLERGIES: SHE HAS ALLERGY TO CODEINE. FAMILY HISTORY: Noncontributory. SOCIAL HISTORY: The patient does not smoke cigarettes or drink alcohol. REVIEW OF SYSTEMS: As stated above, otherwise was negative. PHYSICAL EXAMINATION: GENERAL: The patient is awake and alert. VITAL SIGNS: At this time are normal. She is afebrile. HEENT: Sclera is nonicteric. NECK: Has right internal jugular temporary dialysis catheter in place. There is some erythema and induration in the right infraclavicular area. Slight fluctuance possibly. No drainage is noted from the catheter site. There is no necrotic tissue. LUNGS: Equal breath sounds are clear bilaterally. CARDIAC: Regular rate and rhythm with the pacemaker in place. ABDOMEN: Soft with no tenderness. EXTREMITIES: Have no edema. LABORATORY TESTS: White blood cell count is 11.15, hemoglobin 10, and hematocrit 34. Chemistries; elevated BUN and creatinine consistent with renal failure. Electrolytes reveal a bicarb level of 18, otherwise were normal. ASSESSMENT: A 80-year-old female with infected tunneled dialysis catheter, which has been removed. There is still some residual cellulitis, possibly an abscess, although I think this may resolve just with antibiotics now. The catheter has been removed. Recommended to continue the IV antibiotics. If she has persistent areas of swelling, then she may require incision and drainage, but at this point I think the IV antibiotics may be adequate to treat the infection. Thank you for asking me to see Ms. Schroeder. Jimbo W MD SHARI Calles/MÓNICA /[id number]
--- NOTE | 2020-04-29 14:22 | Diagnostic Imaging Report ---
PROCEDURE: 1. Non-tunneled temporary dialysis catheter placement 2. Tunneled dialysis catheter removal Procedural Personnel Attending physician(s): Sherry Bell MD Fellow physician(s): None Resident physician(s): None Advanced practice provider(s): None Pre-procedure diagnosis: ESRD, line infection Post-procedure diagnosis: Same Indication: Performance of hemodialysis, infection of indwelling tunneled hemodialysis catheter. Additional clinical history: None Complications: No immediate complications. IMPRESSION: Insertion of right-sided non-tunneled triple-lumen temporary dialysis catheter, with tip in the expected location of the cavoatrial junction. Removal of indwelling right IJ tunneled dialysis catheter. Kwasi pus at the catheter exit site. Catheter tip sent for culture. Plan: The new catheter may be used immediately. PROCEDURE SUMMARY: - Venous access with ultrasound guidance - Non-tunneled central venous catheter insertion with fluoroscopic guidance - Additional procedure(s): Removal of indwelling tunneled hemodialysis catheter. PROCEDURE DETAILS: Pre-procedure Consent: Informed consent for the procedure including risks, benefits and alternatives was obtained and time-out was performed prior to the procedure. Preparation (MIPS): The site was prepared and draped using all elements of maximal sterile barrier technique including sterile gloves, sterile gown, cap, mask, large sterile sheet, sterile ultrasound probe cover, hand hygiene and cutaneous antisepsis with 2% chlorhexidine. Medical reason for site preparation exception (MIPS): Not applicable Anesthesia/sedation Level of anesthesia/sedation: No sedation Anesthesia/sedation administered by: Independent trained observer under attending supervision with continuous monitoring of the patient?s level of consciousness and physiologic status Total intra-service sedation time (minutes): NA Access Local anesthesia was administered. The right IJ vein was sonographically evaluated and determined to be completely thrombosed. Access was selected at the junction with the right subclavian vein. Real time ultrasound was used to visualize needle entry into the vessel and a permanent image was stored. Vein accessed: Subclavian vein junction with thrombosed right IJ vein. Access technique: Micropuncture set with 21 gauge needle Catheter placement The access site was dilated and the catheter was placed into the vein over a wire under fluoroscopic guidance. The catheter tip location was fluoroscopically verified and a permanent image was stored.. A sterile dressing was applied. Catheter placed: [employer] Trialysis Catheter size (Romanian): 13 Catheter length (cm): 15 Catheter flush: Heparin (1000 units/mL) Catheter securement technique: Non-absorbable suture Removal of indwelling tunneled dialysis catheter Local anesthesia was administered. The catheter was removed with a combination of traction and blunt dissection. Tip was severed and sent for culture. Closure Hemostasis was achieved with manual compression. Sterile dressing(s) applied. Contrast Contrast agent: None Contrast volume (mL): NA Radiation Dose Fluoroscopy time (minutes): 0.1 Reference air kerma (mGy): 0.5 Additional Details Additional description of procedure: None Equipment details: None Specimens removed: None Estimated blood loss (mL): Less than 10 Standardized report: [email or web address] Attestation Signer name: Sherry Bell MD I attest that I was present for the entire procedure. I reviewed the stored images and agree with the report as written. Signed by: Sherry Bell MD on 04/29/2020 2:19 PM
[2020-04-29] MEDS ORDERED: SODIUM CHLORIDE 0.9% 1000ML 2,000 ML ONE (14:51)
[2020-04-29 17:08] VITALS: BP 183/58
[2020-04-29] MEDS ORDERED: GENTAMICIN 80MG/NS 100 ML 100 ML IV SCH (18:00)
--- NOTE | 2020-04-29 19:24 | Consultation ---
DATE OF CONSULTATION: REASON FOR CONSULTATION: The patient with line infection. HISTORY OF PRESENT ILLNESS: The patient is a very pleasant 80-year-old, who has history of end-stage renal disease, on dialysis. The patient comes in with fever and chills. Apparently, she had line infection, which was removed. The patient who had a dialysis catheter done about 3 weeks ago. She is coming with redness and swelling around the catheter site. Around the tunnel, there was some purulent discharge. The patient was seen by Dr. Calles. This was removed. I am asked to see her. The patient is currently lying in bed comfortably. She has no other complaints. Blood cultures are pending. Wound culture is still pending. Gram stain showed wbc's. The patient received 1 dose of vancomycin and 1 dose of Rocephin. PAST MEDICAL HISTORY: End-stage renal disease, on hemodialysis. ALLERGIES: NKA. SOCIAL HISTORY: There is no smoking, drug abuse, or alcohol abuse. FAMILY HISTORY: Otherwise unremarkable. PHYSICAL EXAMINATION: GENERAL: Currently alert and oriented. VITAL SIGNS: Stable, currently afebrile. HEENT: She is not icteric. NECK: Supple. CHEST: Clear bilateral. In the chest wall, there is slight erythema. There is no drainage. HEART: S1 and S2. ABDOMEN: Soft. Bowel sounds present. EXTREMITIES: No edema. IMPRESSION: 1. Line infection, concerned about bacteremia. Agree with vancomycin. Agree with gentamicin for the time being. Await blood cultures. Await wound cultures. Further recommendations to follow. 2. End-stage renal disease. We will follow with you. Thank you for asking me to see this patient. MD TERRIE Chawla/MÓNICA /[id number]
--- NOTE | 2020-04-29 19:56 | NUR ---
COMPLETED BEDSIDE REPORT AND ROUNDING WITH THE ONCOMING NIGHT NURSE. PATIENT IN STABLE CONDITION, NO S/S OF DISTRESS NOTED. RESPIRATION EVEN AND NONLABORED. PATIENT ABLE TO VOICE NEEDS. TRIALYSIS CATHETER TO THE RIGHT NECK AREA PLACED, TRANSPARENT DRESSING C/D/I. BED IN LOWEST POSITION AND LOCKED, SIDE RAILS X 2, NON SKID SOCK APPLIED. CALL LIGHT WITHIN REACH.
[2020-04-29 20:00] VITALS: BP 172/51
[2020-04-29] MEDS ORDERED: SODIUM CHLORIDE 0.9% 1000ML 2,000 ML IV PRN (20:15)
[2020-04-29] MEDS ORDERED: SODIUM CHLORIDE 0.9% 250ML 500 ML IV PRN (20:15)
[2020-04-29] MEDS ORDERED: HEPARIN SOD (PORCINE) 1000 UNIT/ML SDV IV PRN (20:15)
[2020-04-29 20:37] VITALS: BP 172/51
[2020-04-29] MEDS ORDERED: VANCOMYCIN 1GM/NS 250 ML 250 ML IV SCH (21:00)
[2020-04-29] MEDS: GENTAMICIN 80MG/NS 100 ML 100 ML IV SCH (23:13)
[2020-04-30] VITALS (9 sets, daily range): BP systolic 115–171; BP diastolic 49–83
[2020-04-30] MEDS: VANCOMYCIN 1GM/NS 250 ML 250 ML IV SCH (00:34)
[2020-04-30] MEDS: LEVOTHYROXINE SODIUM 75 MCG TAB PO SCH (06:00)
[2020-04-30 06:37] LABS: BASOPHILS % 0.3 % (0.0-1.0); EOSINOPHILS # (AUTO) 0.1 (0.0-0.4); EOSINOPHILS % 0.4 % (0.0-6.0); HEMATOCRIT 31.1 % (34.2-44.1); HEMOGLOBIN 9.6 g/dL (12.0-16.0); LYMPHOCYTES # (AUTO) 0.9 (1.0-3.2); LYMPHOCYTES % 6.6 % (18.0-39.1); MEAN CORPUSCULAR HEMOGLOBIN 31.1 pg (28-32); MEAN CORPUSCULAR HGB CONC 30.9 g/dL (31-35); MEAN CORPUSCULAR VOLUME 100.6 fL (81-99); MONOCYTES # (AUTO) 0.9 (0.2-0.8); NEUTROPHILS # (AUTO) 11.4 (2.1-6.9); PLATELET COUNT 239 x10e3/uL (140-360); RED BLOOD COUNT 3.09 x10e6/uL (3.6-5.1); RED CELL DISTRIBUTION WIDTH 15.7 % (11.7-14.4)
[2020-04-30 07:07] LABS: ALBUMIN 2.9 g/dL (3.5-5.0); ALBUMIN/GLOBULIN RATIO 0.9 (0.8-2.0); ANION GAP 18.2 mmol/L (8-16); CALCIUM 7.8 mg/dL (8.4-10.2); CREATININE, SERUM 4.56 mg/dL (0.57-1.11); POTASSIUM 4.2 mmol/L (3.5-5.1)
[2020-04-30] MEDS: ASPIRIN 81 MG CHEW TAB PO SCH (08:04)
[2020-04-30] MEDS: LOSARTAN POTASSIUM 100 MG TAB PO SCH (08:04)
[2020-04-30] MEDS: NIFEDIPINE CR 30 MG TAB PO SCH (08:05)
[2020-04-30] MEDS: CLOPIDOGREL BISULFATE 75 MG TAB PO SCH (08:05)
[2020-04-30] MEDS: PANTOPRAZOLE SOD 40 MG TABEC PO SCH (08:07)
[2020-04-30] MEDS ORDERED: BAYER 81 MG PO SCH (09:00)
[2020-04-30] MEDS ORDERED: LOSARTAN 100 MG PO SCH (09:00)
--- NOTE | 2020-04-30 12:32 | NUR ---
INFECTIOUS DISEASE PROGRES NOTE DR. ELAINE KIDD REASON FOR CONSULTATION: The patient with line infection. HISTORY OF PRESENT ILLNESS: The patient is a very pleasant 80-year-old, who has history of end-stage renal disease, on dialysis. The patient comes in with fever and chills. Apparently, she had line infection, which was removed. The patient who had a dialysis catheter done about 3 weeks ago. She is coming with redness and swelling around the catheter site. Around the tunnel, there was some purulent discharge. The patient was seen by Dr. Calles. This was removed. I am asked to see her. The patient is currently lying in bed comfortably. She has no other complaints. Blood cultures are pending. Wound culture is still pending. Gram stain showed wbc's. The patient received 1 dose of vancomycin and 1 dose of Rocephin. PAST MEDICAL HISTORY: End-stage renal disease, on hemodialysis. ALLERGIES: NKA. PHYSICAL EXAMINATION: GENERAL: Currently alert and oriented. VITAL SIGNS: Stable, currently afebrile. HEENT: She is not icteric. NECK: Supple. CHEST: Clear bilateral. In the chest wall, there is slight erythema. There is no drainage. HEART: S1 and S2. ABDOMEN: Soft. Bowel sounds present. EXTREMITIES: No edema. IMPRESSION: 1. Line infection, concerned about bacteremia. Agree with vancomycin. Agree with gentamicin for the time being. Await blood cultures. - NEG 24 HRS Await wound cultures. - GRAM NEG RODS, antibiotics adjusted Further recommendations to follow. 2. End-stage renal disease. We will follow with you. Marlyn Barr MSN, FAST BRIM POUNCER, AGACNP-BC Elaine Kidd M.D
[2020-04-30] MEDS: HYDROCODONE/APAP 5MG-325MG TAB PO PRN (14:12)
--- NOTE | 2020-04-30 14:57 | Progress Note ---
DATE: 04/30/2020 SUBJECTIVE: Remains on vancomycin. Denied any fevers. Temporary catheter in place to allow for basically line holiday from the tunneled catheter. OBJECTIVE: GENERAL: Sitting up, no distress. VITAL SIGNS: Temperature 98.2, pulse 64, and blood pressure 134/49. CHEST: Clear. Right IJ catheter in place. EXTREMITIES: No definite edema. LABORATORY DATA: Hemoglobin is 9.6. K is 4.2 and creatinine 4.5. ASSESSMENT: 1. End-stage renal disease. 2. Line infection with gram-negative bacilli on the wound. 3. Negative for bacteremia. 4. Status post exchange of tunneled catheter for a non-tunneled catheter. PLAN: Hemodialysis per regular Saturday, Saturday, Saturday schedule. Tunneled catheter when okay with Infectious Disease Services. We will follow along. MD JOE Mir/MÓNICA /[id number]
[2020-04-30] MEDS: DICLOFENAC SOD 1% GEL 100 GM TUBE TP SCH ×2 (17:32→21:00)
--- NOTE | 2020-04-30 19:03 | Progress Note ---
DATE: Internal Medicine Progress Note SUBJECTIVE: The patient is complaining of pain at the hands. PHYSICAL EXAMINATION: HEART: Showed regular rhythm. Normal S1, S2 sound. LUNGS: Clear bilaterally. ABDOMEN: Soft. EXTREMITIES: Show no edema. VITAL SIGNS: Blood pressure 138/50, temperature 99 degrees, heart rate 62 per minute, respiratory rate 18 per minute, oxygen saturation 100%. LABORATORY DATA: Coronavirus test is pending. Hepatitis B core antibody negative. Hepatitis B e-antigen negative. CBC; white blood count 13.35, hemoglobin 9.6, hematocrit 31.1, and platelet count 239,000. On the BMP; sodium 141, potassium 4.2, chloride 103, CO2 24, BUN 29, creatinine 4.56, glucose 87. FINAL IMPRESSION: 1. Infected dialysis catheter. 2. End-stage renal disease, on dialysis. 3. Hypertension with hypertensive nephropathy. 4. Anemia of chronic disease. 5. Osteoarthritis of the hands. PLAN OF TREATMENT: We are going to continue current medication regimen. Continue gentamicin mg IV Saturday, Saturday, Saturday , meropenem 500 mg daily. Continue with vancomycin 1 g IV on Saturday, Saturday, and Saturday, aspirin 81 mg daily, Plavix 75 mg daily, hydrocodone 5/325 q.6 hours as needed for [id number] pain, levothyroxine 75 mcg daily, losartan 100 mg daily, nifedipine 30 mg daily, Zofran 4 mg IV q.4 hours as needed for nausea and vomiting, Protonix 40 mg daily, . We are going to order Voltaren gel to hands because she has arthritis, hand pain. MD LULU Waller/MÓNICA /[id number]
--- NOTE | 2020-04-30 19:05 | NUR ---
Bedside nursing completed with morning nurse. Pt alert and oriented to name, lying in bed HOB 30 degrees, denies pain at this time. Call light within reach. Bed low and locked.
[2020-05-01 05:49] VITALS: BP 174/55
[2020-05-01] MEDS: LEVOTHYROXINE SODIUM 75 MCG TAB PO SCH (06:00)
[2020-05-01] MEDS: ASPIRIN 81 MG CHEW TAB PO SCH (08:17)
[2020-05-01] MEDS: MEROPENEM 500MG/ NS 50ML 50 ML IV SCH (08:17)
[2020-05-01] MEDS: CLOPIDOGREL BISULFATE 75 MG TAB PO SCH (08:18)
[2020-05-01] MEDS: LOSARTAN POTASSIUM 100 MG TAB PO SCH (08:18)
[2020-05-01] MEDS: PANTOPRAZOLE SOD 40 MG TABEC PO SCH (08:19)
[2020-05-01] MEDS: NIFEDIPINE CR 30 MG TAB PO SCH (08:19)
[2020-05-01 08:23] VITALS: BP 191/58
[2020-05-01] MEDS: DICLOFENAC SOD 1% GEL 100 GM TUBE TP SCH ×4 (08:23→21:00)
[2020-05-01 09:00] VITALS: BP 191/58
[2020-05-01 11:44] VITALS: BP 158/54
--- NOTE | 2020-05-01 15:05 | Progress Note ---
DATE: Internal Medicine Progress Note SUBJECTIVE: The patient is doing well, except for pain in both hands. OBJECTIVE: VITAL SIGNS: Blood pressure 158/84, temperature 98.9, heart rate 60 per minute, respiratory rate 18 per minute, and oxygen saturation 99% on room. HEART: Regular rhythm. Normal S1, S2 sound. LUNGS: Clear bilaterally. ABDOMEN: Soft. EXTREMITIES: No evidence of edema. She has some nodules and deformities on the distal interphalangeal joint, most likely secondary to osteoarthritis. LABORATORY DATA: On CBC; white count is elevated at 13.35, hemoglobin 9.6, hematocrit 31.1, and platelet count 239,000. On the BMP; sodium 141, potassium 4.2, chloride 103, CO2 of 24, BUN 29, creatinine 4.56, GFR is only 9, glucose 87, calcium 7.8, total bilirubin 0.7, AST 16, ALT 6, total protein 6.3, and albumin 2.9. COVID test is pending. Hepatitis B S antibody is low. Hepatitis B core antibody is negative. Hepatitis B e-antigen is negative. FINAL IMPRESSION: 1. Infected dialysis catheter, status post removal and placement new one. 2. End-stage renal disease, on dialysis. 3. Hypertension with possible hypertensive nephropathy. 4. Anemia of chronic disease secondary to end-stage renal disease. PLAN OF TREATMENT: We will repeat CBC tomorrow because her white count is elevated. She is taking gentamicin 80 mg IV Saturday, Saturday, Saturday on dialysis day. Meropenem 1 g IV daily. Continue vancomycin 1 g IV on dialysis on Saturday, Saturday, Saturday. Aspirin 81 mg daily. Plavix 75 mg daily. Diclofenac gel 2 g to hand joints every 6 hours as needed for pain. Continue [place] 5/325 q.4-6 hours as needed for pain. Levothyroxine 75 mcg daily. Losartan 100 mg daily. Nifedipine 30 mg daily. Zofran 4 mg IV q.4 hours as needed. Protonix 40 mg daily. MD LULU Waller/HELGAL /[id number]
[2020-05-01 16:12] VITALS: BP 146/56
--- NOTE | 2020-05-01 19:10 | NUR ---
Completed bedside rounds with morning nurse. Pt alert and oriented to name, lying in bed HOB 45 degrees. Pt denies pain at this time. Call light within reach. Bed low and locked.
[2020-05-01 20:51] VITALS: BP 151/60
[2020-05-02] VITALS (9 sets, daily range): BP systolic 151–170; BP diastolic 57–70
[2020-05-02] MEDS: LEVOTHYROXINE SODIUM 75 MCG TAB PO SCH ×2 (05:49→21:21)
--- NOTE | 2020-05-02 07:00 | NUR ---
BEDSIDE SHIFT REPORT RECEIVED FROM THE SCAFFOLDING HELPER RN. EDUCATED PT ABOUT FALL PRECAUTIONS. PT VERBALIZED UNDERSTANDING. CALL LIGHT WITH IN EASY REACH. BED IS LOW AND LOCKED. SIDE RAILS X2. BED ALARM IS ON. ALL SAFETY MEASURES IN PLACE. PT DENIES NEEDS AT THIS TIME.
[2020-05-02 07:03] LABS: BASOPHILS % 0.4 % (0.0-1.0); EOSINOPHILS # (AUTO) 0.2 (0.0-0.4); EOSINOPHILS % 2.3 % (0.0-6.0); HEMATOCRIT 32.9 % (34.2-44.1); HEMOGLOBIN 10.1 g/dL (12.0-16.0); LYMPHOCYTES # (AUTO) 1.1 (1.0-3.2); LYMPHOCYTES % 11.9 % (18.0-39.1); MEAN CORPUSCULAR HEMOGLOBIN 30.2 pg (28-32); MEAN CORPUSCULAR HGB CONC 30.7 g/dL (31-35); MEAN CORPUSCULAR VOLUME 98.5 fL (81-99); MONOCYTES # (AUTO) 1.2 (0.2-0.8); MONOCYTES % 13.4 % (4.4-11.3); NEUTROPHILS # (AUTO) 6.5 (2.1-6.9); NEUTROPHILS % 71.3 % (38.7-80.0); PLATELET COUNT 311 x10e3/uL (140-360); RED BLOOD COUNT 3.34 x10e6/uL (3.6-5.1); RED CELL DISTRIBUTION WIDTH 15.5 % (11.7-14.4)
--- NOTE | 2020-05-02 08:23 | NUR ---
HEALTH INFORMATION ASSISTANT AT BEDSIDE.
[2020-05-02] MEDS: ASPIRIN 81 MG CHEW TAB PO SCH (08:48)
[2020-05-02] MEDS: CLOPIDOGREL BISULFATE 75 MG TAB PO SCH (08:48)
[2020-05-02] MEDS: DICLOFENAC SOD 1% GEL 100 GM TUBE TP SCH ×4 (08:50→21:00)
[2020-05-02] MEDS: PANTOPRAZOLE SOD 40 MG TABEC PO SCH (08:51)
[2020-05-02 10:45] LABS: ANION GAP 19.2 mmol/L (8-16); CALCIUM 7.4 mg/dL (8.4-10.2); CREATININE, SERUM 7.63 mg/dL (0.57-1.11); POTASSIUM 4.2 mmol/L (3.5-5.1)
--- NOTE | 2020-05-02 11:29 | Progress Note ---
DATE: SUBJECTIVE: Ms. Schroeder is doing well. There is no new complaint. REVIEW OF SYSTEMS: Otherwise unremarkable. PHYSICAL EXAMINATION: GENERAL: Currently alert, oriented. VITAL SIGNS: Stable, currently afebrile. HEENT: She is not icteric. NECK: Supple. CHEST: Clear. HEART: S1, S2. ABDOMEN: Soft. Bowel sounds present. EXTREMITIES: No edema. SKIN: No rash. LABORATORY DATA: Her wound culture showed Serratia. Her blood cultures are negative. IMPRESSION: Her catheter tip shows gram-negative. From Infectious Disease point of view patient will be discharged home with Cipro 250 mg p.o. b.i.d. for 7 days. Follow up as an outpatient. Local care discussed with the patient. MD TERRIE Chawla/MÓNICA /[id number]
--- NOTE | 2020-05-02 13:12 | NUR ---
ORDER RECEIVED FOR WALKER W SEAT AND BSC. INFORMED THE NURSE PT WILL NEED SUPPORTING DOCUMENTATION TO SHOW THE NEED FOR THIS DME. NOTED PT WAS ADMITTED TO THE ER W A WALKER. BEDSIDE NURSE STATES PT IS AMBULATORY IN HER ROOM WITHOUT DIFFICULTY. EDILMA COCHRAN WILL NOTIFY DR. JAVED. INFORMED ITEMS CAN BE PURCHASED AT [employer], [employer], [employer], [employer].
--- NOTE | 2020-05-02 14:21 | NUR ---
DIALYSIS COMPLETED. 1 L FLUID REMOVED PER SACK KEEPER.
--- NOTE | 2020-05-02 14:45 | NUR ---
CONSENT OBTAINED FROM PT FOR TUNNELLED HD CATHETER USING LANGUAGE LINE. PRESSING DEPARTMENT SUPERVISOR ID [id number]. PT DOESN'T GIVE CONSENT FOR TRANSFUSION OF BLOOD SECTION AND INFORMED THE SAME TO RADIOLOGY.
[2020-05-02] MEDS: VANCOMYCIN 1GM/NS 250 ML 250 ML IV SCH (14:58)
[2020-05-02] MEDS: LOSARTAN POTASSIUM 100 MG TAB PO SCH (15:23)
[2020-05-02] MEDS: NIFEDIPINE CR 30 MG TAB PO SCH (15:24)
[2020-05-02] MEDS: HYDROCODONE/APAP 5MG-325MG TAB PO PRN (16:16)
[2020-05-02] MEDS: MEROPENEM 500MG/ NS 50ML 50 ML IV SCH (16:24)
--- NOTE | 2020-05-02 19:15 | NUR ---
BEDSIDE SHIFT REPORT GIVEN TO THE CONTROLLED AREA CHECKER RN. PT DENIED FURTHER NEEDS.
--- NOTE | 2020-05-02 19:33 | NUR ---
Received change of shift report from AM nurse. Walking rounds completed
[2020-05-02] MEDS: GENTAMICIN 80MG/NS 100 ML 100 ML IV SCH (21:01)
--- NOTE | 2020-05-02 23:46 | NUR ---
Patient resting in bed at this time. Denies pain or discomfort. Continue monitor.
[2020-05-03] VITALS: BP 162/64
[2020-05-03 04:00] VITALS: BP 162/69
--- NOTE | 2020-05-03 06:43 | NUR ---
Patient up to bathroom to void with asst. Pt ambulated well. Continue to asst and monitor.
--- NOTE | 2020-05-03 07:00 | NUR ---
ASSUMED CARE. AAOX4. ACYANOTIC. RESTING IN BED. NO DISTRESS NOTED. CALL LIGHT IN REACH. SIDE RAILS UP X2. BED LOW AND LOCKED.
[2020-05-03 07:30] VITALS: BP 169/63
[2020-05-03 08:00] VITALS: BP 169/63
[2020-05-03] MEDS: MEROPENEM 500MG/ NS 50ML 50 ML IV SCH (08:20)
[2020-05-03] MEDS: PANTOPRAZOLE SOD 40 MG TABEC PO SCH (09:00)
[2020-05-03] MEDS: LOSARTAN POTASSIUM 100 MG TAB PO SCH (09:00)
[2020-05-03] MEDS: NIFEDIPINE CR 30 MG TAB PO SCH (09:00)
[2020-05-03] MEDS: DICLOFENAC SOD 1% GEL 100 GM TUBE TP SCH ×2 (09:07→13:25)
[2020-05-03] MEDS ORDERED: LIDOCAINE HCL 1% LOCAL INJ 20 ML VIAL ONE (11:05)
[2020-05-03] MEDS ORDERED: SODIUM CHLORIDE 0.9% 250ML 250 ML ONE (11:05)
[2020-05-03] MEDS ORDERED: FENTANYL CITRATE/PF 100MCG/2 ML INJ ONE (11:37)
[2020-05-03] MEDS ORDERED: MIDAZOLAM HCL 2 MG/2 ML VIAL ONE (11:37)
[2020-05-03] MEDS ORDERED: HEPARIN SOD (PORCINE) 1000 UNIT/ML SDV ONE (11:38)
--- NOTE | 2020-05-03 11:43 | NUR ---
PATIENT TRANSFERRED FROM UNIT TO IR FOR SCHEDULED PROCEDURE.
[2020-05-03 12:00] VITALS: BP 195/67
[2020-05-03] MEDS: HYDROCODONE/APAP 5MG-325MG TAB PO PRN (13:35)
--- NOTE | 2020-05-03 16:38 | NUR ---
INFECTIOUS DISEASE PROGRES NOTE DR. ELAINE KIDD REASON FOR CONSULTATION: The patient with line infection. HISTORY OF PRESENT ILLNESS: The patient is a very pleasant 80-year-old, who has history of end-stage renal disease, on dialysis. The patient comes in with fever and chills. Apparently, she had line infection, which was removed. The patient who had a dialysis catheter done about 3 weeks ago. She is coming with redness and swelling around the catheter site. Around the tunnel, there was some purulent discharge. The patient was seen by Dr. Calles. This was removed. I am asked to see her. The patient is currently lying in bed comfortably. She has no other complaints. Blood cultures are pending. Wound culture is still pending. Gram stain showed wbc's. The patient received 1 dose of vancomycin and 1 dose of Rocephin. PAST MEDICAL HISTORY: End-stage renal disease, on hemodialysis. ALLERGIES: NKA. PHYSICAL EXAMINATION: GENERAL: Currently alert and oriented. VITAL SIGNS: Stable, currently afebrile. HEENT: She is not icteric. NECK: Supple. CHEST: Clear bilateral. In the chest wall, there is slight erythema. There is no drainage. HEART: S1 and S2. ABDOMEN: Soft. Bowel sounds present. EXTREMITIES: No edema. RADIOLOGY: reviewd LABS: reviewed IMPRESSION: 1. Line infection, concerned about bacteremia. 2. End-stage renal disease. PLAN: can be discharged with cipro 250mg po BID x7 days f/u as outpatient Marlyn Barr MSN, HYDROGENATION STILL OPERATOR, AgACNP-BC Elaine Kidd MD
--- NOTE | 2020-05-05 14:37 | Diagnostic Imaging Report ---
Conversion of a nontunneled to tunneled dialysis catheter, right. History: Renal failure. Modality: Fluoroscopy. Sedation: Versed 1.5 mg and fentanyl 75 mcg was given intravenously for conscious sedation. Vital signs were monitored throughout the procedure by a nurse, and remained stable. Physician intra-service time was 30 minutes. Housekeeping Coordinator: Solitario Martinez MD. Indoor Sports Centre Manager: None. Approach: Right internal jugular vein Estimated blood loss: < 5 cc. Specimen: None. Fluoroscopy Time: 0.9 min. Dose (Ka,r): 16 mGy. Technique: Informed written consent was obtained. Discussion of risks, benefits, and alternatives were made with the patient. The patient expressed understanding and agreed to proceed. All elements maximal sterile barrier technique was utilized for this procedure, including utilization of sterile scrub solution for skin prep, a large sterile sheet to cover the areas of the patient that were not prepped, and hand hygiene, mask, head covering, and sterile gown for performing radiologist and scrub technologist. The skin was anesthetized with 2% lidocaine. A 0.35 inch diameter guidewire was inserted through the existing nontunneled dialysis catheter into the IVC. A subcutaneous tunnel was created in the right anterior chest wall by blunt dissection. A 19 cm 14.5 Telugu Mahurkar catheter was brought through the tunnel. The existing nontunneled hemodialysis catheter was then removed over the guidewire. A peel-away sheath was placed in the right IJ vein and the catheter was advanced through the sheath, with its distal tip terminating in the right atrium. The peel-away sheath was removed. The ports were flushed and aspirated easily following placement. The catheter was sutured to the skin with 2-0 silk to secure its placement. The small jugular incision site was closed using resorbable suture and the exit site was closed with a pursestring suture also with a resorbable suture. Vital signs were monitored throughout the procedure by a nurse, and remained stable. The patient tolerated the procedure well and left the department in the same condition. Results: Spot radiograph of the chest demonstrates the new dialysis catheter to lie in the expected position with its tip overlying the superior right atrium. Impression: Successful, uncomplicated conversion of a nontunneled right internal jugular to a tunneled dialysis catheter. Signed by: Solitario Martinez MD on 05/05/2020 2:34 PM
== END 2020-05-03 16:15 | disposition home or self-care (01) | DRG 314 ==
LOC: ER 07:33 → ERHOLD 07:56 → MED/SURG3 10:02
PROC: 02HV33Z Insertion of Infusion Device into Superior Vena Cava, Percutaneous Approach (ICD-10-PCS; 2020-04-29)
PROC: 0JH63XZ Insertion of Tunneled Vascular Access Device into Chest Subcutaneous Tissue and Fascia, Percutaneous Approach (ICD-10-PCS; principal; 2020-05-03)
PROC: 02HV33Z Insertion of Infusion Device into Superior Vena Cava, Percutaneous Approach (ICD-10-PCS; 2020-05-03)
DX: T80.211A Bloodstream infection due to central venous catheter, initial encounter (principal); N18.6 End stage renal disease; I12.0 Hypertensive chronic kidney disease with stage 5 chronic kidney disease or end stage renal disease; E11.22 Type 2 diabetes mellitus with diabetic chronic kidney disease; B96.89 Other specified bacterial agents as the cause of diseases classified elsewhere; Z99.2 Dependence on renal dialysis; D63.1 Anemia in chronic kidney disease; Z86.73 Personal history of transient ischemic attack (TIA), and cerebral infarction without residual deficits; Z95.0 Presence of cardiac pacemaker
CPT/HCPCS: 36415; 36556; 36558; 36589; 71045; 74470; 76937; 77001; 80048; 80053; 82550; 82553; 84100; 84484; 85025; 85610; 85730; 86704; 86706; 87040; 87070; 87071; 87186; 87205; 87340; 87350; 99152; 99153; 99284; C1769; C1892; J1580; J1644; J2001; J2250; J2405; J3010; J3370; J7030; J7050

== ENCOUNTER 2021-02-06 06:00 | Emergency (ER) | payer BC, MEDICARE ==
[~2021-02-06] VITALS: Ht 304.8 cm; Wt 48.1 kg
[~2021-02-06 06:00] MED LIST changes: +CLOPIDOGREL75 MG PO; +PANTOPRAZOLE SO40 MG PO; +bayer PO; +losartan PO
[2021-02-06] MEDS ORDERED: SODIUM CHLORIDE 0.9% 1000ML 1,000 ML IV STA ×2 (06:22)
[2021-02-06] MEDS ORDERED: NOREPINEPHRINE 8 MG/D5W 250 ML 250 ML ONE (06:27)
[2021-02-06] MEDS ORDERED: NOREPINEPHRINE 8 MG/D5W 250 ML 250 ML IV SCH (06:30)
[2021-02-06] MEDS ORDERED: CEFEPIME 1 GM in SODIUM CHLORIDE 0.9% 50ML 50 ML IV SCH (06:32)
[2021-02-06 06:50] LABS: BASOPHILS % 0.2 % (0.0-1.0); EOSINOPHILS % 0.2 % (0.0-6.0); HEMATOCRIT 23.9 % (34.2-44.1); HEMOGLOBIN 7.3 g/dL (12.0-16.0); LYMPHOCYTES # (AUTO) 0.4 (1.0-3.2); LYMPHOCYTES % 7.3 % (18.0-39.1); MEAN CORPUSCULAR HEMOGLOBIN 31.2 pg (28-32); MEAN CORPUSCULAR HGB CONC 30.5 g/dL (31-35); MEAN CORPUSCULAR VOLUME 102.1 fL (81-99); MONOCYTES # (AUTO) 0.1 (0.2-0.8); MONOCYTES % 1.4 % (4.4-11.3); NEUTROPHILS # (AUTO) 4.5 (2.1-6.9); NEUTROPHILS % 90.5 % (38.7-80.0); PLATELET COUNT 185 x10e3/uL (140-360); RED BLOOD COUNT 2.34 x10e6/uL (3.6-5.1); RED CELL DISTRIBUTION WIDTH 22.4 % (11.7-14.4)
[2021-02-06 07:03] LABS: ALBUMIN 1.2 g/dL (3.5-5.0); ALBUMIN/GLOBULIN RATIO 0.5 (0.8-2.0); ANION GAP 15.5 mmol/L (8-16); CREATININE, SERUM 3.86 mg/dL (0.57-1.11); POTASSIUM 3.5 mmol/L (3.5-5.1)
[2021-02-06 07:04] LABS: CALCIUM 6.6 mg/dL (8.4-10.2)
[2021-02-06 07:09] LABS: CREATINE KINASE MB 1.5 ng/mL (0-5.0)
[2021-02-06] MEDS ORDERED: LOSARTAN POTASS25 MG PO (07:12)
[2021-02-06] MEDS ORDERED: HYDROCODON-ACE1 EA11 PO (07:12)
[2021-02-06] MEDS ORDERED: HEPARIN LO100 UNIT/4 SC (07:12)
[2021-02-06] MEDS ORDERED: ONDANSETRON ODT4 MG PO (07:12)
[2021-02-06] MEDS ORDERED: CHOLECALCIFEROL1 GM (07:12)
[2021-02-06] MEDS ORDERED: LEVOTHYROXINE75 MC1 (07:12)
[2021-02-06] MEDS ORDERED: LACTULOSE20 GM/30 M PO (07:12)
[2021-02-06] MEDS ORDERED: FOLIC ACID0.4 MG PO (07:12)
[2021-02-06] MEDS ORDERED: HEPARIN SC (07:12)
[2021-02-06] MEDS ORDERED: ANUSOL-HC30 GM RC (07:12)
[2021-02-06] MEDS ORDERED: NEURONTIN100 MG PO (07:12)
[2021-02-06] MEDS ORDERED: CRESTOR10 MG PO (07:12)
[2021-02-06] MEDS ORDERED: DULCOLAX10 MG PR (07:12)
[2021-02-06] MEDS ORDERED: POLYETHYLENE GL17 GM PO (07:12)
[2021-02-06] MEDS ORDERED: COREG6.25 MG PO (07:12)
[2021-02-06] MEDS ORDERED: CALCIUM CARBON500 MG PO (07:12)
[2021-02-06] MEDS ORDERED: SENNA LAXATIVE8.6 MG PO (07:12)
[2021-02-06] MEDS ORDERED: TYLENOL325 MG PO (07:12)
[2021-02-06 08:29] LABS: BAND NEUTROPHILS % (MANUAL) 19 %; EOSINOPHILS % (MANUAL) 2 % (0-7); LYMPHOCYTES % (MANUAL) 3 % (19-48); METAMYELOCYTES % (MANUAL) 4 % (0-0); MONOCYTES % (MANUAL) 1 % (3.4-9.0); MYELOCYTES % (MANUAL) 1 % (0-0); NEUTROPHILS % (MANUAL) 70 % (40-74); NUCLEATED RED BLOOD CELLS 1
[2021-02-06 08:30] LABS: PLATELET ESTIMATE ADEQUATE
[2021-02-06 08:31] LABS: ANISOCYTOSIS MODERATE; PLATELET MORPHOLOGY COMMENT NORMAL; POLYCHROMASIA FEW; RBC MORPHOLOGY COMMENT ABNORMAL
[2021-02-06] MEDS ORDERED: DEXTROSE 5%/0.45% SOD CHL 1,000 ML IV SCH (09:15)
[2021-02-06] MEDS ORDERED: DEXTROSE 50% SYRINGE 50 ML IV STA (11:30)
[2021-02-06 12:33] VITALS: BP 75/52
== END 2021-02-06 12:50 | disposition other institution (70) ==
LOC: ER 06:24
DX: A41.9 Sepsis, unspecified organism (principal); U07.1 COVID-19; I10 Essential (primary) hypertension; R94.31 Abnormal electrocardiogram [ECG] [EKG]; E16.2 Hypoglycemia, unspecified; N18.6 End stage renal disease; D64.9 Anemia, unspecified; I69.392 Facial weakness following cerebral infarction; Z89.612 Acquired absence of left leg above knee; I25.2 Old myocardial infarction
CPT/HCPCS: 36415; 70450; 71045; 80053; 82550; 82553; 82948; 83605; 84484; 85025; 87040; 87071; 87186; 87205; 93005; 99284; J0692; J7799; U0002